=== PATIENT | male | born 1985 | race Caucasian/White ===

== ENCOUNTER 2018-08-26 17:45 | Observation (INO) | payer SELFPAY ==
[2018-08-26] MEDS ORDERED: NA CHLORIDE 0.9% 1,000 ML ONE (18:28)
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
[2018-08-26 18:45] LABS: Potassium 4.1 mmol/L (3.5-5.1)
[2018-08-26 18:48] LABS: Absolute Lymphocytes (CBC) 1.4 K/uL (0.7-4.9); Basophils % 0.3 % (0-1.3); Eosinophils % 0.5 % (0-4.4); Hematocrit 41.1 % (39.6-49.0); Lymphocytes % 10.6 % (15.3-44.8)
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
[2018-08-26] MEDS ORDERED: ONDANSETRON 4 MG/2 ML VIAL IV PRN (20:55)
[2018-08-26] MEDS ORDERED: ALPRAZOLAM 0.25 MG TABLET PO PRN (20:55)
[2018-08-26] MEDS ORDERED: ACETAMINOPHEN 500 MG TAB PO PRN (20:55)
[2018-08-26] MEDS ORDERED: CEFTRIAXONE 1 GM/NS 50 ML 1 GM/50 ML BAG IV SCH (21:00)
[2018-08-26 23:51] LABS: Absolute Lymphocytes (CBC) 2.8 K/uL (0.7-4.9); Basophils % 0.7 % (0-1.3); Hematocrit 36.9 % (39.6-49.0); Lymphocytes % 24.2 % (15.3-44.8); MPV 7.9 fL (7.6-11.3); Monocytes % 7.8 % (3.3-12.3); RBC Red Blood Cell Count 4.12 M/uL (4.33-5.43)
[2018-08-26] MEDS ORDERED: CEFTRIAXONE/SWI 1gm 1 GM/10 ML SYR ONE (23:57)
[2018-08-27] MEDS: NA CHLORIDE 0.9% 1,000 ML IV SCH ×2 (00:05→10:20)
[2018-08-27 01:37] LABS: Barbiturates NEGATIVE (NEGATIVE); Benzodiazepines POSITIVE (NEGATIVE); Cocaine NEGATIVE (NEGATIVE); METHAMPHETAM POSITIVE (NEGATIVE); Methadone NEGATIVE (NEGATIVE); Opiates NEGATIVE (NEGATIVE); Phencyclidine NEGATIVE (NEGATIVE); THC Cannibis NEGATIVE (NEGATIVE)
[2018-08-27 01:49] VITALS: BMI 27.1
[2018-08-27 01:59] LABS: Urine Appearance TURBID; Urine Bilirubin NEGATIVE (NEG); Urine Blood NEGATIVE (NEG); Urine Color YELLOW; Urine Glucose NEGATIVE (NEG); Urine Protein TRACE (NEG); Urine Urobilinogen 0.2 mg/dL (0.2-1.0)
[2018-08-27 02:04] LABS: Urine Microscopic Reflex ORDER UMIC
[2018-08-27 02:12] LABS: Urine Amorphous Sediment 4+ /HPF (NONE SEEN); Urine Bacteria <20 /HPF (NONE SEEN); Urine Culture Reflex Order NOT NEEDED; Urine Mucus HEAVY /HPF (NONE SEEN); Urine RBC NONE SEEN /HPF (NONE SEEN)
[2018-08-27 02:13] LABS: Urine Sperm PRESENT (NONE SEEN)
[2018-08-27 04:45] VITALS: O2SAT 99
[2018-08-27 06:09] LABS: Absolute Lymphocytes (CBC) 1.9 K/uL (0.7-4.9); Basophils % 0.4 % (0-1.3); Eosinophils % 1.3 % (0-4.4); Hematocrit 36.3 % (39.6-49.0); Lymphocytes % 20.5 % (15.3-44.8); MPV 7.9 fL (7.6-11.3); Monocytes % 8.2 % (3.3-12.3); RBC Red Blood Cell Count 4.02 M/uL (4.33-5.43)
[2018-08-27 06:14] LABS: Protime INR 1.07
[2018-08-27] MEDS ORDERED: ALPRAZOLAM 1 MG TABLET PO SCH (06:22)
[2018-08-27 06:24] LABS: Albumin 3.8 g/dL (3.4-5.0); Bilirubin Total 0.4 mg/dL (0.2-1.0); Magnesium 2.6 mg/dL (1.8-2.4); Phosphorus 4.1 mg/dL (2.5-4.9); Potassium 3.8 mmol/L (3.5-5.1); Protein, Total 7.5 g/dL (6.4-8.2)
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
--- NOTE | 2018-08-27 08:04 | RAD REPORT ---
EXAM DESCRIPTION: Alf Single View08/27/2018 7:34 am CLINICAL HISTORY: Cough COMPARISON: none FINDINGS: The lungs appear clear of acute infiltrate. The heart is normal size IMPRESSION: No acute abnormalities displayed
[2018-08-27] MEDS ORDERED: KCL 20 MEQ/100 mL IVPB 20 MEQ/100 ML BAG IV SCH (09:00)
[2018-08-27] MEDS ORDERED: CEFTRIAXONE/SWI 1gm 1 GM/10 ML SYR IV SCH (09:00)
[2018-08-27] MEDS ORDERED: ENOXAPARIN 40 MG/0.4 ML SQ SCH (09:00)
--- NOTE | 2018-08-27 09:56 | RAD REPORT ---
EXAM DESCRIPTION: US - Abdomen Exam Complete - 08/27/2018 9:35 am CLINICAL HISTORY: Abdominal pain COMPARISON: none FINDINGS: The liver has an increased and heterogeneous echotexture. A gallstone is not seen. The gallbladder wall is not thickened. The biliary tree is normal caliber. The pancreas was not well visualized secondary overlying bowel The right kidney measures 11 centimeters with a normal echotexture. The left kidney measures 12 centimeters with a normal echotexture. The spleen measures 12.3 centimeters. Portions of the abdominal aorta are not well visualized. However, the aorta appears to be normal jasmina bessy. IVC unremarkable IMPRESSION: Increased and heterogeneous hepatic echotexture consistent with fatty infiltration/infla mmation Limited evaluation of the pancreas
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
[2018-08-27] MEDS ORDERED: LORazepam 2 MG/ML VIAL IV ONE (11:15)
[2018-08-27 12:27] VITALS: BP 142/84; TEMP 98.5
--- NOTE | 2018-08-27 12:33 | RAD REPORT ---
EXAM DESCRIPTION: MRI - Mri Abdomen W/Wo Cont - 08/27/2018 12:05 pm CLINICAL HISTORY: Abdominal pain COMPARISON: August 27, 2018 ultrasound August 26, 2018 CT TECHNIQUE: Axial and coronal magnetic resonance imaging of the the pancreas obtained. 20 cc MultiHan ce administered intravenously FINDINGS: The pancreas is normal in size and signal. The pancreas demonstrates normal enhancement. Stranding is present within the fat between the pancreatic head and third portion of the duodenum wit hout significant change from the recent CAT scan. No pseudocyst. A fluid collection is not seen. IMPRESSION: Stranding within the fat between the pancreatic head and third portion of the duodenum. This may indicate pancreatitis. An injury to the duodenum can also result in this appearance. A fluid collection/hematoma is not present.
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
--- NOTE | 2018-09-01 14:47 | EEG ---
CHART: [id number] TEST ID#: [id number] DATE OF STUDY: 08/27/2018 THE EEG WAS RECORDED PORTABLE IN THE PATIENTS ROOM ON A 17 CHANNEL MACHINE. ELECTRODES WERE APPLIED IN THE USUAL MANNER USING THE INTERNATIONAL 10-20 SYSTEM. THE WAKING BACKGROUND RHYTHM IN THIS RECORD CONSISTS OF VERY WELL DEVELOPED AND WELL ORGANIZED WAVES OF 10 HZ., MAXIMAL IN THE POSTERIOR HEAD REGIONS WHICH ATTENUATE NORMALLY WITH EYE OPENING. LOW-VOLTAGE 18-22 HZ ACTIVITY IS EXPRESSED IN THE FRONTAL REGIONS. THERE ARE NO FOCAL OR LATERALIZING FEATURES. NO EPILEPTIFORM ACTIVITY APPEARS. SLEEP DID NOT OCCUR. HYPERVENTILATION WAS NOT PERFORMED. PHOTIC STIMULATION PRODUCED FAIR DRIVING BILATERALLY. IMPRESSION: NORMAL EEG FOR THE AGE OF THE PATIENT IN [place].
== END 2018-08-27 17:38 | disposition home or self-care (01) ==
LOC: ER 17:45 → EDBD 17:45 → ERHOLD 21:48 → 4TH 22:28
PROVIDERS: ADMIT Hospitalist; ATTEND Family Medicine
DX: G40.89 Other seizures (principal); V47.5XXA Car driver injured in collision with fixed or stationary object in traffic accident, initial encounter; J98.4 Other disorders of lung; I88.0 Nonspecific mesenteric lymphadenitis; F32.9 Major depressive disorder, single episode, unspecified; F90.9 Attention-deficit hyperactivity disorder, unspecified type; F43.10 Post-traumatic stress disorder, unspecified; F17.200 Nicotine dependence, unspecified, uncomplicated; Z79.899 Other long term (current) drug therapy
CPT/HCPCS: 36415; 70450; 71045; 71250; 72125; 76700; 80048; 80053; 80307; 81003; 81015; 83605; 83690; 83735; 83880; 84100; 85025; 85610; 85730; 95816; 96360; 99285; G0378; J0696; J1650; J7030

== ENCOUNTER 2022-10-04 04:19 | Emergency (ER) | payer SELFPAY ==
--- OUTSIDE RECORDS SUMMARY | 2022-10-04 04:36 | XMS REPORT | Continuity of Care Document ---
:1985 Author Organization [facility] t Address [address] [place] [address] [place] [id number] Care Team Providers Name Role Phone SUSHANT BUENO Primary Care Physician Unavailable CIRO SHARMA Attending Clinician Unavailable ARACELI MCCOLLUM Attending Clinician Unavailable ZHANE VAZQUEZ Attending Clinician Unavailable Sushant Bueno MD Attending Clinician TREVA SOTELO Attending Clinician Unavailable Treva Sotelo DO Attending Clinician Pcp-Lab Attending Clinician Unavailable Pathology Attending Clinician Unavailable PATHOLOGY Attending Clinician Unavailable Doctor Unassigned, [place] Attending Clinician Unavailable LELA OHARA Attending Clinician Unavailable Lela Ohara DO Attending Clinician VINOD HENRY Attending Clinician Unavailable Vinod Henry MD Attending Clinician DAYANA MCCRACKEN Attending Clinician Unavailable Dayana Mccracken MD Attending Clinician AMADOR CALDERA Attending Clinician Unavailable Amador Caldera DO Attending Clinician Sherice Brown Attending Clinician Unavailable CHRISTOPHE BALLESTEROS Attending Clinician Unavailable Christophe Valderrama Attending Clinician Victor Hugo Ramos Attending Clinician Cornelio De Luna MD Attending Clinician LOUIS DOTY Attending Clinician Unavailable Louis Argueta Attending Clinician Elie Webb MD Attending Clinician ELIE WEBB Attending Clinician Unavailable LUPIS GRIMM Attending Clinician Unavailable Camille DAVIDSON, Lupis Hussein Attending Clinician Ciro Sharma MD Attending Clinician Unavailable CHRISTOPHE MICHAEL Attending Clinician Unavailable Maribell Molina MD Attending Clinician JOANN MALLORY Attending Clinician Unavailable Juan Wilkerson Attending Clinician Miguel Vicente MD Attending Clinician Joann Mallory MD Attending Clinician MARIBELL MOLINA Attending Clinician Unavailable KJ VAZQUEZ Attending Clinician Unavailable Kj Vazquez MD Attending Clinician Grace Garcia MD Attending Clinician Unavailable Sho Montero MD Attending Clinician Unavailable Harpreet SEBASTIAN Attending Clinician Unavailable Harpreet Perdomo Attending Clinician Kamille Adam MD Attending Clinician Unknown, Attending Attending Clinician Unavailable Christophe Michael MD Attending Clinician Jin Chaudhary MD Attending Clinician JIN CHAUDHARY Attending Clinician Unavailable GRACE GARCIA Attending Clinician Unavailable UNKNOWN, ATTENDING Attending Clinician Unavailable Pob, Adc Lab Main Attending Clinician Unavailable Gonsalo Lundy MD Attending Clinician PATTIE ESQUIVEL Attending Clinician Unavailable Pattie Barraza Attending Clinician Lor Carlton MA Attending Clinician Unavailable Cruz Barone MD Attending Clinician Nurse, Pcp Immunization Attending Clinician Unavailable Johann Hebert DO Attending Clinician JOHANN HEBERT Attending Clinician Unavailable Manny PARKS, Jose F Attending Clinician Unavailable Michael Soto MD Attending Clinician MICHAEL SOTO Attending Clinician Unavailable Pcp, Patient Does Not Have A Attending Clinician +[id number] Vls-Lab Attending Clinician Unavailable Only, Lcc Test Attending Clinician Unavailable Feliberto Levy MD Attending Clinician FELIBERTO LEVY Attending Clinician Unavailable GONSALO LUNDY Attending Clinician Unavailable ALEJANDRO AMADO Attending Clinician Unavailable Jose HEATON, Lavinia Fernández Attending Clinician Wyalon ENRIQUEZ, Brad Carpenter Attending Clinician BRAD JOHNSON Attending Clinician Unavailable BRAD JOHNSON Attending Clinician Unavailable Mahsa Butler Attending Clinician Abner Cooper MD Attending Clinician Ermelinda Dowd MD Attending Clinician Marlen Bowden MD Attending Clinician MARLEN BOWDEN Attending Clinician Unavailable Cristy Kwan RN Attending Clinician Unavailable [facility] Attending Clinician Hernesto HEATON, Bailey Freeman Attending Clinician Pedro Luis Mccauley MD Attending Clinician Martin Sharma MD Attending Clinician PEDRO LUIS MCCAULEY Attending Clinician Unavailable Gideon Rowland MD Attending Clinician CIRO SHARMA Admitting Clinician Unavailable TREVA SOTELO Admitting Clinician Unavailable VINOD HENRY Admitting Clinician Unavailable DAYAAN MCCRACKEN Admitting Clinician Unavailable LOUIS DOTY Admitting Clinician Unavailable LUPIS GRIMM Admitting Clinician Unavailable PATTIE ESQUIVEL Admitting Clinician Unavailable Zachary ENRIQUEZ, Ciro Admitting Clinician Harpreet SEBASTIAN Admitting Clinician Unavailable Marlen Bowden MD Admitting Clinician MARLEN BOWDEN Admitting Clinician Unavailable Martin Sharma MD Admitting Clinician MARTIN SHARMA Admitting Clinician Unavailable Payers Payer Name Policy Type Policy Number Effective Date Expiration Date Ran gabriel MEDICAID SSI PENDING 2022 2022 PENDING 00:00:00 00:00:00 Problems Condition Condition Condition Status Onset Resolution Last Treating Co mments Source Name Details Category Date Date Treatment Clinician Date Pancreatic Pancreatic Disease Active U nivers insufficie insufficie 7-25 it y of ncy ncy 00:00: [place] [facility] 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 Added automatic ally from request for surgery [id number] Type 2 Type 2 Disease Active Univers diabetes diabetes 3-25 ity of mellitus mellitus 00:00: [place] without without 00 Medical complicati complicati Br anch on, with on, with long-term long-term current current use of use of insulin insulin Anxiety Anxiety Disease Active Univers 3-25 ity of 00:00: [place] 00 Medical Branch Psychiatri Psychiatri Disease Active U nivers c disorder c disorder 3-25 it y of 00:00: [place] 00 Medical Branch Allergies, Adverse Reactions, Alerts Allergy Allergy Status Severity Reaction(s) Onset Inactive Treating Comm ents Source Name Type Date Date Clinician Penicill Propensi Active Hives 2019-02 Univer s ins ty to 2-25 ity of adverse 00:00: [place] reaction 00 Medical s Branch PENICILL Drug Active Hiv2019-02 Univers INS Class 2-25 ity of 00:00: [place] 00 Medical Branch Penicill Propensi Active Hives 2019-02 Univer s ins ty to 2-25 ity of adverse 00:00: [place] reaction 00 Medical s Branch Social History Social Habit Start Date Stop Date Quantity Comments Source History of tobacco Cigarette Smoker University of use [place] [facility] History SDOH University o f Housing Places [facility] [place] [facility] Gender identity Universit y of [facility] Sexual orientation Univer sity of [facility] Alcohol intake 2022-10-03 2022-10-03 Ex-drinker University of 00:00:00 00:00:00 (finding) [facility] Branch History of Social 2022-09-05 2022-09-05 Univers ity of function 00:00:00 00:00:00 [facility] Branch Exposure to 2022-06-22 2022-07-02 Not sure University SARS-CoV-2 (event) 00:00:00 22:03:00 [facility] Tobacco use and 2022-07-02 2022-07-02 Smokeless Universit y of exposure 00:00:00 00:00:00 tobacco non-user [facility] dical [place] Tobacco Comment 2022-07-02 2022-07-02 [place] 8 Universit y of 00:00:00 00:00:00 [facility] Cigarettes smoked 2022-07-02 2022-07-02 Univers ity of current (pack per 00:00:00 00:00:00 [facility] edical day) - Reported Branch History SDOH 2022-05-20 2022-05-20 1 University o f Alcohol Frequency 00:00:00 00:00:00 [facility] edical Branch History SDOH 2022-05-20 2022-05-20 0 University o f Alcohol Std Drinks 00:00:00 00:00:00 [place] [facility] History SDOH 2022-05-20 2022-05-20 1 University o f Alcohol Binge 00:00:00 00:00:00 [place] [facility] al [facility] History SDOH Social 2022-05-20 2022-05-20 5 Unive rsity of Connections Phone 00:00:00 00:00:00 [facility] edical Branch History SDOH Social 2022-05-20 2022-05-20 3 Unive rsity of Connections Get 00:00:00 00:00:00 [place] Med ical Together Branch History SDOH Social 2022-05-20 2022-05-20 2 Unive rsity of Connections Restorationism 00:00:00 00:00:00 [place] [facility] History SDOH Social 2022-05-20 2022-05-20 1 Unive rsity of Connections 00:00:00 00:00:00 [place] [facility] Membership Branch History SDOH Social 2022-05-20 2022-05-20 3 Unive rsity of Connections 00:00:00 00:00:00 [place] [facility] Meetings Branch History SDOH Social 2022-05-20 2022-05-20 7 Unive rsity of Connections Living 00:00:00 00:00:00 [place] [facility] History SDOH 2022-05-20 2022-05-20 7 University o f Physical Activity 00:00:00 00:00:00 [place] [facility] edical DPW Branch History SDOH 2022-05-20 2022-05-20 3 University o f Physical Activity 00:00:00 00:00:00 [place] M edical MPS Branch History SDOH Stress 2022-05-20 2022-05-20 1 Unive rsity of 00:00:00 00:00:00 [place] [facility] History SDOH 2022-05-20 2022-05-20 3 University o f Housing Unable to 00:00:00 00:00:00 [facility] edical Pay Branch History SDOH 2022-05-20 2022-05-20 3 University o f Housing Homeless 00:00:00 00:00:00 [facility] dical Last Year Branch Education 2020-03-20 2020-03-20 14 University of 00:00:00 00:00:00 [place] [facility] History SDOH 2020-03-20 2020-03-20 5 University o f Financial 00:00:00 00:00:00 [place] [facility] History SDOH Food 2020-03-20 2020-03-20 1 Univers ity of Worry 00:00:00 00:00:00 [place] [facility] History SDOH Food 2020-03-20 2020-03-20 1 Univers ity of Scarcity 00:00:00 00:00:00 [place] [facility] History SDOH 2020-03-20 2020-03-20 2 University o f Transport Med 00:00:00 00:00:00 [place] Medic al Branch History SDOH 2020-03-20 2020-03-20 2 University o f Transport Non-Med 00:00:00 00:00:00 [place] M edical Branch Alcohol Comment 2020-02-03 2020-02-03 6 pack of beer Unive rsity of 00:00:00 00:00:00 every day since [place] Med ical 21 years old. no Branch liquor [facility] [birth year] [facility] Smoking Status Start Date Stop Date Source Smokes tobacco daily 2022-07-02 00:00:00 Univers ity of [facility] Ex-smoker 2021-08-26 00:00:00 2021-08-26 [place] o f [place] 00:00:00 [facility] Occasional tobacco 2020-05-25 00:00:00 Universit y [facility] smoker [facility] Branch Medications Ordered Filled Start Stop Current Ordering Indication Dosage Frequency Signature Comments Components Source Medication Medication Date Date Medication? Clinician (SIG) Name Name NaCl 0.9% 2022- No 1000mL at 999 Uni vers (NS) bolus 09-12 mL/hr, ity of infusion 02:15: 02:37 1,000 mL, Hi as 1,000 mL 00 :00 IV Medical Infusion, Branch ONCE, 1 dose, On [place] 09/11/22 at 2115, STEPHANIE ondansetron 0 2022- No 4mg 4 mg, Slow Univers (ZOFRAN 09-12 IV Push, ity of (PF)) 01:30: 01:50 ONCE, 1 [place] injection 4 00 :00 dose, On Medi bandar mg [facility] 09/11/22 Branch at 2030, STEPHANIE ondansetron 2022-0 Yes [id number] 4mg Take 1 Univers 4 mg 8-03 tablet by ity of disintegrat 00:00: mouth [place] ing tablet 00 every 8 Medica l (eight) Branch hours as needed for Nausea and Vomiting (N/V). ondansetron 2022-0 Yes [id number] 4mg Take 1 Univers 4 mg 8-03 tablet by ity of disintegrat 00:00: mouth [place] ing tablet 00 every 8 Medica l (eight) Branch hours as needed for Nausea and Vomiting (N/V). ondansetron 2022-0 Yes [id number] 4mg Take 1 Univers 4 mg 8-03 tablet by ity of disintegrat 00:00: mouth [place] ing tablet 00 every 8 Medica l (eight) Branch hours as needed for Nausea and Vomiting (N/V). ofloxacin 2023-0 Yes [id number] 5[drp] Place 5 Univers 0.3 % otic 7-28 [id number] Drops in ity of drops 00:00: both ears [place] 00 in the Medical morning Branch and 5 Drops in the evening. pantoprazol 0 Yes [id number] 40mg Take 1 Univers e 40 mg EC 7-28 tablet by ity of tablet 00:00: mouth in [place] 00 the Medical morning. Branch fenofibrate Yes [id number] 134mg Take 2 Univers micronized 7-28 capsules ity o f 67 mg 00:00: by mouth [place] capsule 00 in the Medical morning. Branch Blood-Gluco Yes [id number] Use as Univers se 7-28 directed ity of Meter,Na 00:00: [place] nuous 00 Medical (DEXCOM G4 [place] [employer]) Misc Insulin Yes [id number] 12U inject 12 Univers NPH-Regular 7-28 Units ity of Human Rec 00:00: under the Hi as 100 unit/mL 00 skin in Medic al (70-30) the Branch injection morning and 12 Units in the evening. ofloxacin Yes [id number] 5[drp] Place 5 Univers 0.3 % otic 7-28 [id number] Drops in ity of drops 00:00: both ears [place] 00 in the Medical morning Branch and 5 Drops in the evening. pantoprazol Yes [id number] 40mg Take 1 Univers e 40 mg EC 7-28 tablet by ity of tablet 00:00: mouth in [place] 00 the Medical morning. Branch fenofibrate Yes [id number] 134mg Take 2 Univers micronized 7-28 capsules ity o f 67 mg 00:00: by mouth [place] capsule 00 in the Medical morning. Branch Blood-Gluco Yes [id number] Use as Univers se 7-28 directed ity of Meter,Na 00:00: [place] nuous 00 Medical (DEXCOM G4 [place] [employer]) Misc Insulin 0 Yes [id number] 12U inject 12 Univers NPH-Regular 7-28 Units ity of Human Rec 00:00: under the Hi as 100 unit/mL 00 skin in Medic al (70-30) the Branch injection morning and 12 Units in the evening. ofloxacin 0 Yes [id number] 5[drp] Place 5 Univers 0.3 % otic 7-28 [id number] Drops in ity of drops 00:00: both ears [place] 00 in the Medical morning Branch and 5 Drops in the evening. pantoprazol 0 Yes [id number] 40mg Take 1 Univers e 40 mg EC 7-28 tablet by ity of tablet 00:00: mouth in [place] 00 the Medical morning. Branch fenofibrate Yes [id number] 134mg Take 2 Univers micronized 7-28 capsules ity o f 67 mg 00:00: by mouth [place] capsule 00 in the Medical morning. Branch Blood-Gluco Yes [id number] Use as Univers se 7-28 directed ity of Meter,Na 00:00: [place] nuous 00 Medical (DEXCOM G4 [place] [employer]) Misc Insulin Yes [id number] 12U inject 12 Univers NPH-Regular 7-28 Units ity of Human Rec 00:00: under the Hi as 100 unit/mL 00 skin in Medic al (-30) the Branch injection morning and 12 Units in the evening. ofloxacin Yes [id number] 5[drp] Place 5 Univers 0.3 % otic 7-28 [id number] Drops in ity of drops 00:00: both ears [place] 00 in the Medical morning Branch and 5 Drops in the evening. pantoprazol Yes [id number] 40mg Take 1 Univers e 40 mg EC 7-28 tablet by ity of tablet 00:00: mouth in [place] 00 the Medical morning. Branch fenofibrate Yes [id number] 134mg Take 2 Univers micronized 7-28 capsules ity o f 67 mg 00:00: by mouth [place] capsule 00 in the Medical morning. Branch Blood-Gluco Yes [id number] Use as Univers se 7-28 directed ity of Meter,Na 00:00: [place] nuous 00 Medical (DEXCOM G4 [place] [employer]) Misc Insulin 2022-0 Yes [id number] 12U inject 12 Univers NPH-Regular 7-28 Units ity of Human Rec 00:00: under the Hi as 100 unit/mL 00 skin in Medic al (70-30) the Branch injection morning and 12 Units in the evening. ofloxacin 0 Yes [id number] 5[drp] Place 5 Univers 0.3 % otic 7-28 [id number] Drops in ity of drops 00:00: both ears [place] 00 in the Medical morning Branch and 5 Drops in the evening. pantoprazol 2022-0 Yes [id number] 40mg Take 1 Univers e 40 mg EC 7-28 tablet by ity of tablet 00:00: mouth in 00 the Medical morning. Branch fenofibrate 2022-0 Yes [id number] 134mg Take 2 Univers micronized 7-28 capsules ity o f 67 mg 00:00: by mouth [place] capsule 00 in the Medical morning. Branch Blood-Gluco 2022-0 Yes [id number] Use as Univers se 7-28 directed ity of Meter,Na 00:00: [place] nuous 00 Medical (DEXCOM G4 [place] [employer]) Misc Insulin 2022-0 Yes [id number] 12U inject 12 Univers NPH-Regular 7-28 Units ity of Human Rec 00:00: under the Hi as 100 unit/mL 00 skin in Medic al () the Branch injection morning and 12 Units in the evening. ofloxacin Yes [id number] 5[drp] Place 5 Univers 0.3 % otic 7-28 [id number] Drops in ity of drops 00:00: both ears 00 in the Medical morning Branch and 5 Drops in the evening. pantoprazol 0 Yes [id number] 40mg Take 1 Univers e 40 mg EC 7-28 tablet by ity of tablet 00:00: mouth in 00 the Medical morning. Branch fenofibrate Yes [id number] 134mg Take 2 Univers micronized 7-28 capsules ity o f 67 mg 00:00: by mouth [place] capsule 00 in the Medical morning. Branch Blood-Gluco 2022-0 Yes [id number] Use as Univers se 7-28 directed ity of Meter,Na 00:00: [place] nuous 00 Medical (DEXCOM G4 [place] [employer]) Misc Insulin 2022-0 Yes [id number] 12U inject 12 Univers NPH-Regular 7-28 Units ity of Human Rec 00:00: under the Hi as 100 unit/mL 00 skin in Medic al (7030) the Branch injection morning and 12 Units in the evening. ofloxacin 2022-0 Yes [id number] 5[drp] Place 5 Univers 0.3 % otic 7-28 [id number] Drops in ity of drops 00:00: both ears [place] 00 in the Medical morning Branch and 5 Drops in the evening. pantoprazol 2022-0 Yes [id number] 40mg Take 1 Univers e 40 mg EC 7-28 tablet by ity of tablet 00:00: mouth in [place] 00 the Medical morning. Branch fenofibrate 2022-0 Yes [id number] 134mg Take 2 Univers micronized 7-28 capsules ity o f 67 mg 00:00: by mouth [place] capsule 00 in the Medical morning. Branch Blood-Gluco 2022-0 Yes [id number] Use as Univers se 7-28 directed ity of Meter,Na 00:00: [place] nuous 00 Medical (DEXCOM G4 [place] [employer]) Misc Insulin 2022-0 Yes [id number] 12U inject 12 Univers NPH-Regular 7-28 Units ity of Human Rec 00:00: under the Hi as 100 unit/mL 00 skin in [facility] (30) the Branch injection morning and 12 Units in the evening. ofloxacin 2022-0 Yes [id number] 5[drp] Place 5 Univers 0.3 % otic 7-28 [id number] Drops in ity of drops 00:00: both ears [place] 00 in the Medical morning Branch and 5 Drops in the evening. pantoprazol 2022-0 Yes [id number] 40mg Take 1 Univers e 40 mg EC 7-28 tablet by ity of tablet 00:00: mouth in [place] 00 the Medical morning. Branch fenofibrate 2022-0 Yes [id number] 134mg Take 2 Univers micronized 7-28 capsules ity o f 67 mg 00:00: by mouth [place] capsule 00 in the Medical morning. Branch Blood-Gluco 2022-0 Yes [id number] Use as Univers se 7-28 directed ity of Meter,Na 00:00: [place] nuous 00 Medical (DEXCOM G4 [place] [employer]) Misc Insulin 2022-0 Yes [id number] 12U inject 12 Univers NPH-Regular 7-28 Units ity of Human Rec 00:00: under the Hi as 100 unit/mL 00 skin in Medic al (70-30) the Branch injection morning and 12 Units in the evening. meloxicam 3-0 Yes [id number] 15mg Take 1 U nivers 15 mg 7-22 tablet by ity of tablet 00:00: mouth in [place] 00 the Medical morning. Branch acetaminoph 2023-0 Yes [id number] 650mg Take 1 Univers en (TYLENOL 7-22 tablet by ity of ARTHRITIS 00:00: mouth [place] PAIN) 650 00 every 8 Medical mg CR (eight) Branch tablet hours as needed for Pain. meloxicam 2023-0 Yes [id number] 15mg Take 1 U nivers 15 mg 7-22 tablet by ity of tablet 00:00: mouth in [place] 00 the Medical morning. Branch acetaminoph 3-0 Yes [id number] 650mg Take 1 Univers en (TYLENOL 7-22 tablet by ity of ARTHRITIS 00:00: mouth [place] PAIN) 650 00 every 8 Medical mg CR (eight) Branch tablet hours as needed for Pain. meloxicam 3-0 Yes [id number] 15mg Take 1 U nivers 15 mg 7-22 tablet by ity of tablet 00:00: mouth in [place] 00 the Medical morning. Branch acetaminoph 3-0 Yes [id number] 650mg Take 1 Univers en (TYLENOL 7-22 tablet by ity of ARTHRITIS 00:00: mouth [place] PAIN) 650 00 every 8 Medical mg CR (eight) Branch tablet hours as needed for Pain. meloxicam 3-0 Yes [id number] 15mg Take 1 U nivers 15 mg 7-22 tablet by ity of tablet 00:00: mouth in [place] 00 the Medical morning. Branch acetaminoph 3-0 Yes [id number] 650mg Take 1 Univers en (TYLENOL 7-22 tablet by ity of ARTHRITIS 00:00: mouth [place] PAIN) 650 00 every 8 Medical mg CR (eight) Branch tablet hours as needed for Pain. meloxicam 2023-0 Yes [id number] 15mg Take 1 U nivers 15 mg 7-22 tablet by ity of tablet 00:00: mouth in [place] 00 the Medical morning. Branch acetaminoph 2023-0 Yes [id number] 650mg Take 1 Univers en (TYLENOL 7-22 tablet by ity of ARTHRITIS 00:00: mouth [place] PAIN) 650 00 every 8 Medical mg CR (eight) Branch tablet hours as needed for Pain. meloxicam 0 Yes [id number] 15mg Take 1 U nivers 15 mg 7-22 tablet by ity of tablet 00:00: mouth in [place] 00 the Medical morning. Branch acetaminoph 0 Yes [id number] 650mg Take 1 Univers en (TYLENOL 7-22 tablet by ity of ARTHRITIS 00:00: mouth [place] PAIN) 650 00 every 8 Medical mg CR (eight) Branch tablet hours as needed for Pain. acetaminoph 2022-0 Yes [id number] 650mg Take 1 Univers en (TYLENOL 7-22 tablet by ity of ARTHRITIS 00:00: mouth [place] PAIN) 650 00 every 8 Medical mg CR (eight) Branch tablet hours as needed for Pain. acetaminoph 0 Yes [id number] 650mg Take 1 Univers en (TYLENOL 7-22 tablet by ity of ARTHRITIS 00:00: mouth [place] PAIN) 650 00 every 8 Medical mg CR (eight) Branch tablet hours as needed for Pain. acetaminoph 0 Yes [id number] 650mg Take 1 Univers en (TYLENOL 7-22 tablet by ity of ARTHRITIS 00:00: mouth [place] PAIN) 650 00 every 8 Medical mg CR (eight) Branch tablet hours as needed for Pain. meloxicam 2022- No [id number] 15mg Take 1 Univers 15 mg -30 09-03 tablet by ity of tablet 00:00: 00:00 mouth in [place] 00 :00 the Medical morning. Branch acetaminoph 2022- No 650mg 650 mg, U nivers en 08-19 Oral, ity of (TYLENOL) 18:30: 19:03 ONCE, 1 [place] tablet 650 00 :00 dose, On Medic al mg e [place] 08/19/22 at 1330, STEPHANIE ibuprofen 2022-0 2022- No 800mg 800 mg, Uni vers (IBU) 08-19 Oral, ity of tablet 800 18:30: 19:03 ONCE, 1 Hi as mg 00 :00 dose, On Medical Tu [place] 08/19/22 at 1330, STEPHANIE ofloxacin 2022-0 Yes [id number] 5[drp] Place 5 Univers 0.3 % otic 7-11 [id number] Drops in ity of drops 00:00: both ears [place] 00 in the Medical morning Branch and 5 Drops in the evening. traMADoL 50 2022-0 Yes [id number] 50mg Take 1 Univ ers mg tablet 7-11 tablet by ity o f 00:00: mouth [place] 00 every 6 Medical (six) Branch hours as needed (pain). Indication s: acute pain ofloxacin 2022-0 Yes [id number] 5[drp] Place 5 Univers 0.3 % otic 7-11 [id number] Drops in ity of drops 00:00: both ears [place] 00 in the Medical morning Branch and 5 Drops in the evening. traMADoL 50 2022-0 Yes [id number] 50mg Take 1 Univ ers mg tablet 7-11 tablet by ity o f 00:00: mouth [place] 00 every 6 Medical (six) Branch hours as needed (pain). Indication s: acute pain ofloxacin 2022-0 Yes [id number] 5[drp] Place 5 Univers 0.3 % otic 7-11 [id number] Drops in ity of drops 00:00: both ears [place] 00 in the Medical morning Branch and 5 Drops in the evening. traMADoL 50 2022-0 Yes [id number] 50mg Take 1 Univ ers mg tablet 7-11 tablet by ity o f 00:00: mouth [place] 00 every 6 Medical (six) Branch hours as needed (pain). Indication s: acute pain traMADoL 50 2022-0 Yes [id number] 50mg Take 1 Univ ers mg tablet 7-11 tablet by ity o f 00:00: mouth [place] 00 every 6 Medical (six) Branch hours as needed (pain). Indication s: acute pain traMADoL 50 2022-0 Yes [id number] 50mg Take 1 Univ ers mg tablet 7-11 tablet by ity o f 00:00: mouth [place] 00 every 6 Medical (six) Branch hours as needed (pain). Indication s: acute pain traMADoL 50 2022-0 Yes [id number] 50mg Take 1 Univ ers mg tablet 7-11 tablet by ity o f 00:00: mouth [place] 00 every 6 Medical (six) Branch hours as needed (pain). Indication s: acute pain traMADoL 50 2022-0 Yes [id number] 50mg Take 1 Univ ers mg tablet 7-11 tablet by ity o f 00:00: mouth [place] 00 every 6 Medical (six) Branch hours as needed (pain). Indication s: acute pain traMADoL 50 2022-0 Yes [id number] 50mg Take 1 Univ ers mg tablet 7- tablet by ity o f 00:00: mouth [place] 00 every 6 Medical (six) Branch hours as needed (pain). Indication s: acute pain traMADoL 50 2022-0 2022- No [id number] 50mg Take 1 Uni vers mg tablet 08-19 08-03 tablet by ity of 00:00: 00:00 mouth [place] 00 :00 every 6 Medical (six) Branch hours as needed (pain). Indication s: acute pain ofloxacin 2022- No [id number] 5[drp] Place 5 [facility] 0.3 % otic 08-19 [id number] Drops in ity of drops 00:00: 00:00 both ears [place] 00 :00 in the Medical morning Branch and 5 Drops in the evening. ofloxacin 2022- No [id number] 5[drp] Place 5 [facility] 0.3 % otic 08-19 [id number] Drops in ity of drops 00:00: 00:00 both ears [place] 00 :00 in the Medical morning Branch and 5 Drops in the evening. ofloxacin 2022- No [id number] 5[drp] Place 5 [facility] 0.3 % otic 08-19 [id number] Drops in ity of drops 00:00: 00:00 both ears [place] 00 :00 in the Medical morning Branch and 5 Drops in the evening. ofloxacin 2022- Yes [id number] 5[drp] Place 5 [facility] 0.3 % otic 08-13-16 Drops in ity of drops 00:00: 04:59 both ears [place] 00 :00 in the Medical morning Branch and 5 Drops in the evening. Do all this for 10 days. ofloxacin 2022- Yes [id number] 5[drp] Place 5 [facility] 0.3 % otic 08-13-16 Drops in ity of drops 00:00: 04:59 both ears [place] 00 :00 in the Medical morning Branch and 5 Drops in the evening. Do all this for 10 days. ofloxacin 2022- Yes [id number] 5[drp] Place 5 [facility] 0.3 % otic 7-05 07-16 Drops in ity of drops 00:00: 04:59 both ears [place] 00 :00 in the Medical morning Branch and 5 Drops in the evening. Do all this for 10 days. ofloxacin 2022- Yes [id number] 5[drp] Place 5 [facility] 0.3 % otic 7-05 07-16 Drops in ity of drops 00:00: 04:59 both ears [place] 00 :00 in the Medical morning Branch and 5 Drops in the evening. Do all this for 10 days. ofloxacin 2022- Yes [id number] 5[drp] Place 5 [facility] 0.3 % otic 7-05 07-16 Drops in ity of drops 00:00: 04:59 both ears [place] 00 :00 in the Medical morning Branch and 5 Drops in the evening. Do all this for 10 days. Insulin Yes [id number] 10U inject 10 [facility] NPH-Regular 5-30 Units ity of Human Rec 00:00: under the [place] 100 unit/mL 00 skin in Medic al (30) the Branch injection morning and 10 Units in the evening. Insulin Yes [id number] 10U inject 10 [facility] NPH-Regular 5-30 Units ity of Human Rec 00:00: under the [place] 100 unit/mL 00 skin in Medic al (30) the Branch injection morning and 10 Units in the evening. Insulin Yes [id number] 10U inject 10 [facility] NPH-Regular 5-30 Units ity of Human Rec 00:00: under the [place] 100 unit/mL 00 skin in Medic al (30) the Branch injection morning and 10 Units in the evening. Insulin Yes [id number] 10U inject 10 [facility] NPH-Regular 5-30 Units ity of Human Rec 00:00: under the [place] 100 unit/mL 00 skin in Medic al (30) the Branch injection morning and 10 Units in the evening. Insulin Yes [id number] 10U inject 10 [facility] NPH-Regular 5-30 Units ity of Human Rec 00:00: under the [place] 100 unit/mL 00 skin in Medic al (30) the Branch injection morning and 10 Units in the evening. Insulin Yes [id number] 10U inject 10 [facility] NPH-Regular 5-30 Units ity of Human Rec 00:00: under the [place] 100 unit/mL 00 skin in Medic al (70-30) the Branch injection morning and 10 Units in the evening. Insulin Yes [id number] 10U inject 10 [facility] NPH-Regular 5-30 Units ity of Human Rec 00:00: under the [place] 100 unit/mL 00 skin in Medic al (70-30) the Branch injection morning and 10 Units in the evening. Insulin Yes [id number] 10U inject 10 [facility] NPH-Regular 5-30 Units ity of Human Rec 00:00: under the [place] 100 unit/mL 00 skin in Medic al (30) the Branch injection morning and 10 Units in the evening. Insulin Yes [id number] 10U inject 10 [facility] NPH-Regular 5-30 Units ity of Human Rec 00:00: under the [place] 100 unit/mL 00 skin in Medic al (30) the Branch injection morning and 10 Units in the evening. Insulin Yes [id number] 10U inject 10 [facility] NPH-Regular 5-30 Units ity of Human Rec 00:00: under the [place] 100 unit/mL 00 skin in Medic al (30) the Branch injection morning and 10 Units in the evening. Insulin Yes [id number] 10U inject 10 [facility] NPH-Regular 5-30 Units ity of Human Rec 00:00: under the [place] 100 unit/mL 00 skin in Medic al (30) the Branch injection morning and 10 Units in the evening. Insulin Yes [id number] 10U inject 10 [facility] NPH-Regular 5-30 Units ity of Human Rec 00:00: under the [place] 100 unit/mL 00 skin in Medic al (70-30) the Branch injection morning and 10 Units in the evening. Insulin 2022- No [id number] 10U inject 10 [facility] NPH-Regular 5-30 07-28 Units ity of Human Rec 00:00: 00:00 under the [place] 100 unit/mL 00 :00 skin in Medic al (70-30) the Branch injection morning and 10 Units in the evening. Insulin 2022- No [id number] 10U inject 10 [facility] NPH-Regular 5-30 07-28 Units ity of Human Rec 00:00: 00:00 under the [place] 100 unit/mL 00 :00 skin in Medic al (70-30) the Branch injection morning and 10 Units in the evening. Insulin 2022- No [id number] 10U inject 10 [facility] NPH-Regular 5-30 07-28 Units ity of Human Rec 00:00: 00:00 under the [place] 100 unit/mL 00 :00 skin in Medic al (70-30) the Branch injection morning and 10 Units in the evening. ondansetron 2022- No 4mg 4 mg, Slow [facility] (ZOFRAN 5-25 05-25 IV Push, ity of (PF)) 03:30: 03:16 ONCE, 1 [place] injection 4 00 :00 dose, On Medi bandar mg Wed [place] 07/02/22 at 2230, STEPHANIE fenofibrate Yes [id number] 134mg Take 2 [facility] micronized 5-03 capsules ity o f 67 mg 00:00: by mouth [place] capsule 00 in the Medical morning. [place] fenofibrate 0 Yes [id number] 134mg Take 2 [facility] micronized 5-03 capsules ity o f 67 mg 00:00: by mouth [place] capsule 00 in the Medical morning. [place] fenofibrate 0 Yes [id number] 134mg Take 2 [facility] micronized 5-03 capsules ity o f 67 mg 00:00: by mouth [place] capsule 00 in the Medical morning. [place] fenofibrate 0 Yes [id number] 134mg Take 2 [facility] micronized 5-03 capsules ity o f 67 mg 00:00: by mouth [place] capsule 00 in the Medical morning. [place] fenofibrate 0 Yes [id number] 134mg Take 2 [facility] micronized 5-03 capsules ity o f 67 mg 00:00: by mouth [place] capsule 00 in the Medical morning. [place] fenofibrate 0 Yes [id number] 134mg Take 2 [facility] micronized 5-03 capsules ity o f 67 mg 00:00: by mouth [place] capsule 00 in the Medical morning. [place] fenofibrate 2022-0 Yes [id number] 134mg Take 2 [facility] micronized 5-03 capsules ity o f 67 mg 00:00: by mouth [place] capsule 00 in the Medical morning. [place] fenofibrate 2022-0 Yes [id number] 134mg Take 2 [facility] micronized 5-03 capsules ity o f 67 mg 00:00: by mouth [place] capsule 00 in the Medical morning. Branch fenofibrate 2022-0 Yes [id number] 134mg Take 2 [facility] micronized 5-03 capsules ity o f 67 mg 00:00: by mouth [place] capsule 00 in the Medical morning. Branch fenofibrate 2022-0 Yes [id number] 134mg Take 2 [facility] micronized 5-03 capsules ity o f 67 mg 00:00: by mouth [place] capsule 00 in the Medical morning. Branch fenofibrate 2022-0 Yes [id number] 134mg Take 2 [facility] micronized 5-03 capsules ity o f 67 mg 00:00: by mouth [place] capsule 00 in the Medical morning. Branch fenofibrate 2022-0 Yes [id number] 134mg Take 2 [facility] micronized 5-03 capsules ity o f 67 mg 00:00: by mouth [place] capsule 00 in the Medical morning. Branch fenofibrate 2022-0 Yes [id number] 134mg Take 2 [facility] micronized 5-03 capsules ity o f 67 mg 00:00: by mouth [place] capsule 00 in the Medical morning. Branch fenofibrate 2022-0 Yes [id number] 134mg Take 2 [facility] micronized 5-03 capsules ity o f 67 mg 00:00: by mouth [place] capsule 00 in the Medical morning. Branch fenofibrate 2022-0 Yes [id number] 134mg Take 2 [facility] micronized 5-03 capsules ity o f 67 mg 00:00: by mouth [place] capsule 00 in the Medical morning. Branch fenofibrate 2022-0 Yes [id number] 134mg Take 2 [facility] micronized 5-03 capsules ity o f 67 mg 00:00: by mouth [place] capsule 00 in the Medical morning. Branch fenofibrate 2022-0 Yes [id number] 134mg Take 2 [facility] micronized 5-03 capsules ity o f 67 mg 00:00: by mouth [place] capsule 00 in the Medical morning. Branch fenofibrate 2022-0 3- No [id number] 134mg Take 2 [facility] micronized 5-03 07-28 capsules ity of 67 mg 00:00: 00:00 by mouth [place] capsule 00 :00 in the Medical morning. Branch fenofibrate 2022-0 3- No [id number] 134mg Take 2 [facility] micronized 5-04 15-28 capsules ity of 67 mg 00:00: 00:00 by mouth [place] capsule 00 :00 in the Medical morning. Branch fenofibrate 2022-0 2023- No [id number] 134mg Take 2 [facility] micronized 5-04 15-28 capsules ity of 67 mg 00:00: 00:00 by mouth [place] capsule 00 :00 in the Medical morning. Branch metFORMIN 2023-0 Yes [id number] 1000mg Take 1 [facility] 1,000 mg 5-01 tablet by ity of tablet 00:00: mouth in [address] and 1 tablet in the evening. Take with meals. metFORMIN 2023-0 Yes [id number] 1000mg Take 1 [facility] 1,000 mg 5-01 tablet by ity of tablet 00:00: mouth in [address] and 1 tablet in the evening. Take with meals. metFORMIN 2023-0 Yes [id number] 1000mg Take 1 [facility] 1,000 mg 5-01 tablet by ity of tablet 00:00: mouth in [address] and 1 tablet in the evening. Take with meals. metFORMIN 2023-0 Yes [id number] 1000mg Take 1 [facility] 1,000 mg 5-01 tablet by ity of tablet 00:00: mouth in [address] and 1 tablet in the evening. Take with meals. metFORMIN 2023-0 Yes [id number] 1000mg Take 1 [facility] 1,000 mg 5-01 tablet by ity of tablet 00:00: mouth in [address] and 1 tablet in the evening. Take with meals. metFORMIN 2023-0 Yes [id number] 1000mg Take 1 [facility] 1,000 mg 5-01 tablet by ity of tablet 00:00: mouth in [address] and 1 tablet in the evening. Take with meals. metFORMIN 2023-0 Yes [id number] 1000mg Take 1 [facility] 1,000 mg 5-01 tablet by ity of tablet 00:00: mouth in [address] and 1 tablet in the evening. Take with meals. metFORMIN 2023-0 Yes [id number] 1000mg Take 1 [facility] 1,000 mg 5-01 tablet by ity of tablet 00:00: mouth in [address] and 1 tablet in the evening. Take with meals. metFORMIN 2023-0 Yes [id number] 1000mg Take 1 [facility] 1,000 mg 5-01 tablet by ity of tablet 00:00: mouth in [address] and 1 tablet in the evening. Take with meals. metFORMIN 2023-0 Yes [id number] 1000mg Take 1 [facility] 1,000 mg 5-01 tablet by ity of tablet 00:00: mouth in [address] and 1 tablet in the evening. Take with meals. metFORMIN 2023-0 Yes [id number] 1000mg Take 1 [facility] 1,000 mg 5-01 tablet by ity of tablet 00:00: mouth in [address] and 1 tablet in the evening. Take with meals. metFORMIN 2023-0 Yes [id number] 1000mg Take 1 [facility] 1,000 mg 5-01 tablet by ity of tablet 00:00: mouth in [address] and 1 tablet in the evening. Take with meals. metFORMIN 2023-0 Yes [id number] 1000mg Take 1 [facility] 1,000 mg 5-01 tablet by ity of tablet 00:00: mouth in [address] and 1 tablet in the evening. Take with meals. metFORMIN 2023-0 Yes [id number] 1000mg Take 1 [facility] 1,000 mg 5-01 tablet by ity of tablet 00:00: mouth in [address] and 1 tablet in the evening. Take with meals. metFORMIN 2023-0 Yes [id number] 1000mg Take 1 [facility] 1,000 mg 5-01 tablet by ity of tablet 00:00: mouth in [address] and 1 tablet in the evening. Take with meals. metFORMIN 2023-0 Yes [id number] 1000mg Take 1 [facility] 1,000 mg 5-01 tablet by ity of tablet 00:00: mouth in [address] and 1 tablet in the evening. Take with meals. metFORMIN 2023-0 Yes [id number] 1000mg Take 1 [facility] 1,000 mg 5-01 tablet by ity of tablet 00:00: mouth in [address] and 1 tablet in the evening. Take with meals. metFORMIN 2023-0 Yes [id number] 1000mg Take 1 [facility] 1,000 mg 5-01 tablet by ity of tablet 00:00: mouth in [address] and 1 tablet in the evening. Take with meals. metFORMIN 2023-0 Yes [id number] 1000mg Take 1 [facility] 1,000 mg 5-01 tablet by ity of tablet 00:00: mouth in [address] and 1 tablet in the evening. Take with meals. metFORMIN 2023-0 Yes [id number] 1000mg Take 1 [facility] 1,000 mg 5-01 tablet by ity of tablet 00:00: mouth in [address] and 1 tablet in the evening. Take with meals. metFORMIN 2023-0 Yes [id number] 1000mg Take 1 [facility] 1,000 mg 5-01 tablet by ity of tablet 00:00: mouth in [address] and 1 tablet in the evening. Take with meals. metFORMIN 2023-0 Yes [id number] 1000mg Take 1 [facility] 1,000 mg 5-01 tablet by ity of tablet 00:00: mouth in [address] and 1 tablet in the evening. Take with meals. metFORMIN 2023-0 Yes [id number] 1000mg Take 1 [facility] 1,000 mg 5-01 tablet by ity of tablet 00:00: mouth in [address] and 1 tablet in the evening. Take with meals. metFORMIN 2023-0 Yes [id number] 1000mg Take 1 [facility] 1,000 mg 5-01 tablet by ity of tablet 00:00: mouth in [address] and 1 tablet in the evening. Take with meals. metFORMIN 2023-0 Yes [id number] 1000mg Take 1 [facility] 1,000 mg 5-01 tablet by ity of tablet 00:00: mouth in [address] and 1 tablet in the evening. Take with meals. metFORMIN 3-0 Yes [id number] 1000mg Take 1 [facility] 1,000 mg 5-01 tablet by ity of tablet 00:00: mouth in [address] and 1 tablet in the evening. Take with meals. NaCl 0.9% 2022-0 3- No 1000mL at 999 Uni vers (NS) bolus 4-25 04-25 mL/hr, ity of infusion 02:45: 04:18 1,000 mL, Hi as 1,000 mL 00 :00 IV Medical Infusion, Branch ONCE, 1 dose, On Thu06/02/22 at 2145, STEPHANIE clonazePAM 2023-0 2023- No 1mg Take 1 mg U nivers 1 mg tablet 05-18 by mouth ity of 18:32: 00:00 in the [place] 35 :00 morning Medical and 1 mg Branch in the evening. PANTOPRAZOL 3-0 Yes TAKE ONE [facility] E 40 mg EC 3-13 TABLET BY ity of tablet 00:00: [facility] DAILY Medical Branch PANTOPRAZOL 3-0 Yes TAKE ONE [facility] E 40 mg EC 3-13 TABLET BY ity of tablet 00:00: [facility] DAILY Medical Branch PANTOPRAZOL 3-0 Yes TAKE ONE [facility] E 40 mg EC 3-13 TABLET BY ity of tablet 00:00: [facility] DAILY Medical Branch PANTOPRAZOL 3-0 Yes TAKE ONE [facility] E 40 mg EC 3-13 TABLET BY ity of tablet 00:00: [facility] DAILY Medical Branch PANTOPRAZOL 3-0 Yes TAKE ONE [facility] E 40 mg EC 3-13 TABLET BY ity of tablet 00:00: [facility] DAILY Medical Branch PANTOPRAZOL 3-0 Yes TAKE ONE [facility] E 40 mg EC 3-13 TABLET BY ity of tablet 00:00: [facility] DAILY Medical Branch PANTOPRAZOL 3-0 Yes TAKE ONE [facility] E 40 mg EC 3-13 TABLET BY ity of tablet 00:00: [facility] DAILY Medical Branch PANTOPRAZOL 3-0 Yes TAKE ONE [facility] E 40 mg EC 3-13 TABLET BY ity of tablet 00:00: [facility] DAILY Medical Branch PANTOPRAZOL 3-0 Yes TAKE ONE [facility] E 40 mg EC 3-13 TABLET BY ity of tablet 00:00: [facility] DAILY Medical Branch PANTOPRAZOL 3-0 Yes TAKE ONE [facility] E 40 mg EC 3-13 TABLET BY ity of tablet 00:00: [facility] DAILY Medical Branch PANTOPRAZOL 3-0 Yes TAKE ONE [facility] E 40 mg EC 3-13 TABLET BY ity of tablet 00:00: [facility] DAILY Medical Branch PANTOPRAZOL 3-0 Yes TAKE ONE [facility] E 40 mg EC 3-13 TABLET BY ity of tablet 00:00: [facility] DAILY Medical Branch PANTOPRAZOL 2023-0 Yes TAKE ONE [facility] E 40 mg EC 3-13 TABLET BY ity of tablet 00:00: [facility] DAILY Medical Branch PANTOPRAZOL 2023-0 Yes TAKE ONE [facility] E 40 mg EC 3-13 TABLET BY ity of tablet 00:00: [facility] DAILY Medical Branch PANTOPRAZOL 2023-0 Yes TAKE ONE [facility] E 40 mg EC 3-13 TABLET BY ity of tablet 00:00: [facility] DAILY Medical Branch PANTOPRAZOL 2023-0 Yes TAKE ONE [facility] E 40 mg EC 3-13 TABLET BY ity of tablet 00:00: [facility] DAILY Medical Branch PANTOPRAZOL 2023-0 Yes TAKE ONE [facility] E 40 mg EC 3-13 TABLET BY ity of tablet 00:00: [facility] DAILY Medical Branch PANTOPRAZOL 2023-0 Yes TAKE ONE [facility] E 40 mg EC 3-13 TABLET BY ity of tablet 00:00: [facility] DAILY Medical Branch PANTOPRAZOL 2023-0 Yes TAKE ONE [facility] E 40 mg EC 3-13 TABLET BY ity of tablet 00:00: [facility] DAILY Medical Branch PANTOPRAZOL 2023-0 Yes TAKE ONE [facility] E 40 mg EC 3-13 TABLET BY ity of tablet 00:00: [facility] DAILY Medical Branch PANTOPRAZOL 2023-0 Yes TAKE ONE [facility] E 40 mg EC 3-13 TABLET BY ity of tablet 00:00: [facility] DAILY Medical Branch PANTOPRAZOL 2023-0 Yes TAKE ONE [facility] E 40 mg EC 3-13 TABLET BY ity of tablet 00:00: [facility] DAILY Medical Branch PANTOPRAZOL 2023-0 Yes TAKE ONE [facility] E 40 mg EC 3-13 TABLET BY ity of tablet 00:00: [facility] DAILY Medical Branch PANTOPRAZOL 2023-0 Yes TAKE ONE [facility] E 40 mg EC 3-13 TABLET BY ity of tablet 00:00: [facility] DAILY Medical Branch PANTOPRAZOL 2023-0 Yes TAKE ONE [facility] E 40 mg EC 3-13 TABLET BY ity of tablet 00:00: [facility] DAILY Medical Branch PANTOPRAZOL 2023-0 Yes TAKE ONE [facility] E 40 mg EC 3-13 TABLET BY ity of tablet 00:00: [facility] DAILY Medical Branch PANTOPRAZOL 2022-0 Yes TAKE ONE [facility] E 40 mg EC 3-13 TABLET BY ity of tablet 00:00: MOUTH [place] 00 DAILY Medical Branch PANTOPRAZOL 2022-0 2022- No TAKE ONE U nivers E 40 mg EC 3-21 08- TABLET BY ity of tablet 00:00: 00:00 MOUTH [place] 00 : DAILY Medical Branch PANTOPRAZOL 2022-0 2022- No TAKE ONE U nivers E 40 mg EC 04-21 TABLET BY ity of tablet 00:00: 00:00 MOUTH [place] 00 :00 DAILY Medical Branch PANTOPRAZOL 2022-0 2022- No TAKE ONE U nivers E 40 mg EC 04-21 TABLET BY ity of tablet 00:00: 00:00 MOUTH [place] 00 :00 DAILY Medical Branch ziprasidone Yes 20mg 20 mg, Univ ers (GEODON) -11 Oral, BID ity of capsule 20 07:00: MEALS, [place] mg 00 First dose Medical on [facility] Branch 03/22/22 at 0100, Until Discontinu ed, Routine LORazepam 2022- No 2mg 2 mg, Univer s (ATIVAN) 03-22- Intramuscu ity of injection 2 07:00: 06:49 lar, ONCE, [place] mg 00 :00 1 dose, On Medical Sat Branch 03/22/22 at 0100, STAT metFORMIN 2022-0 Yes 1000mg 1,000 mg, U nivers (GLUCOPHAGE - Oral, BID ity of ) tablet 14:00: MEALS, [place] 1,000 mg 00 First dose Medic al on [place] Branch 03/20/22 at 0800, Until Discontinu ed, Routine metFORMIN 2022-0 2022- No 1000mg 1,000 mg, Univers (GLUCOPHAGE 03-20- Oral, ity of ) tablet 00:30: 23:57 ONCE, 1 [place] 1,000 mg 00 :00 dose, On Medical [facility] 03/19/22 Branch at 1830, Routine clonazePAM 2022-2022- No 1mg 1 mg, Unive rs (KLONOPIN) 2-08 Oral, ity of tablet 1 mg 00:30: 23:57 ONCE, 1 [place] 00 :[place] dose, On Medical Thu03/19/22 Branch at 1830, Routine insulin NPH 2022-0 2023- No .1U/kg 8 Units Univers (HUMULIN N) 2-08 02-08 (rounded ity of injection 8 23:45: 23:59 from 8.22 [place] Units 00 :00 Units = Medical 0.1 Branch Units/kg ?82.2 kg), Subcutaneo us, ONCE, 1 dose, On Thu03/19/22 at 1745, STEPHANIE nicotine 3-0 Yes 1{patch 1 Patch, [facility] (NICODERM) 2-08 } Topical, ity o f 21 mg/24 hr 22:30: Administer [place] patch 1 00 over 24 Medical Patch Hours, Branch Q24H, First dose on Thu03/19/22 at 1630, Until Discontinu ed, Routine clonazePAM 2023-0 Yes 1mg Take 1 mg [facility] 1 mg tablet 2-08 by mouth ity of 17:31: in the [address] Medical and 1 mg Branch in the evening. clonazePAM 2023-0 Yes 1mg Take 1 mg [facility] 1 mg tablet 2-08 by mouth ity of 17:31: in the [address] Medical and 1 mg Branch in the evening. clonazePAM 2023-0 Yes 1mg Take 1 mg [facility] 1 mg tablet 2-08 by mouth ity of 17:31: in the [place] [address] morning Medical and 1 mg Branch in the evening. clonazePAM 2023-0 Yes 1mg Take 1 mg [facility] 1 mg tablet 2-08 by mouth ity of 17:31: in the [place] [address] morning Medical and 1 mg Branch in the evening. FENOFIBRATE 2023-0 Yes [id number] TAKE TWO Univers MICRONIZED 1-17 CAPSULES ity o f 67 mg 00:00: BY MOUTH [place] capsule 00 EVERY Medical MORNING Branch fenofibrate 2023-0 Yes [id number] 134mg Take 2 [facility] micronized 1-17 capsules ity o f 67 mg 00:00: by mouth [place] capsule 00 in the Medical morning. Branch fenofibrate 2023-0 Yes [id number] 134mg Take 2 [facility] micronized 1-17 capsules ity o f 67 mg 00:00: by mouth [place] capsule 00 in the Medical morning. Branch fenofibrate 2023-0 Yes [id number] 134mg Take 2 [facility] micronized 1-17 capsules ity o f 67 mg 00:00: by mouth [place] capsule 00 in the Medical morning. Branch fenofibrate 2022-0 Yes [id number] 134mg Take 2 [facility] micronized 1-17 capsules ity o f 67 mg 00:00: by mouth [place] capsule 00 in the Medical morning. Branch fenofibrate 2022-0 Yes [id number] 134mg Take 2 [facility] micronized 1-17 capsules ity o f 67 mg 00:00: by mouth [place] capsule 00 in the Medical morning. Branch fenofibrate 2022-0 Yes [id number] 134mg Take 2 [facility] micronized 1-17 capsules ity o f 67 mg 00:00: by mouth [place] capsule 00 in the Medical morning. Branch fenofibrate 2022-0 Yes [id number] 134mg Take 2 [facility] micronized 1-17 capsules ity o f 67 mg 00:00: by mouth [place] capsule 00 in the Medical morning. Branch fenofibrate 2022-0 Yes [id number] 134mg Take 2 [facility] micronized 1-17 capsules ity o f 67 mg 00:00: by mouth [place] capsule 00 in the Medical morning. Branch fenofibrate 2022-0 Yes [id number] 134mg Take 2 [facility] micronized 1-17 capsules ity o f 67 mg 00:00: by mouth [place] capsule 00 in the Medical morning. Branch fenofibrate 2022-0 Yes [id number] 134mg Take 2 [facility] micronized 1-17 capsules ity o f 67 mg 00:00: by mouth [place] capsule 00 in the Medical morning. Branch fenofibrate 2022-0 Yes [id number] 134mg Take 2 [facility] micronized 1-17 capsules ity o f 67 mg 00:00: by mouth [place] capsule 00 in the Medical morning. Branch fenofibrate 2022-0 Yes [id number] 134mg Take 2 [facility] micronized 1-17 capsules ity o f 67 mg 00:00: by mouth [place] capsule 00 in the Medical morning. Branch fenofibrate 2022-0 Yes [id number] 134mg Take 2 [facility] micronized 1-17 capsules ity o f 67 mg 00:00: by mouth [place] capsule 00 in the Medical morning. Branch fenofibrate 2022-0 Yes [id number] 134mg Take 2 [facility] micronized 1-17 capsules ity o f 67 mg 00:00: by mouth [place] capsule 00 in the Medical morning. Branch fenofibrate 2022-0 Yes [id number] 134mg Take 2 [facility] micronized 1-17 capsules ity o f 67 mg 00:00: by mouth [place] capsule 00 in the Medical morning. Branch fenofibrate 2022-0 Yes [id number] 134mg Take 2 [facility] micronized 1-17 capsules ity o f 67 mg 00:00: by mouth [place] capsule 00 in the Medical morning. Branch fenofibrate 2022-0 Yes [id number] 134mg Take 2 [facility] micronized 1-17 capsules ity o f 67 mg 00:00: by mouth [place] capsule 00 in the Medical morning. Branch fenofibrate 2022-0 3- No [id number] 134mg Take 2 [facility] micronized 1-17 05-03 capsules ity of 67 mg 00:00: 00:00 by mouth [place] capsule 00 :00 in the Medical morning. Branch fenofibrate 2022-0 3- No [id number] 134mg Take 2 [facility] micronized 1-17 05-03 capsules ity of 67 mg 00:00: 00:00 by mouth [place] capsule 00 :00 in the Medical morning. Branch FENOFIBRATE 2022-0 3- No [id number] TAKE TWO [facility] MICRONIZED 1-17 01-17 CAPSULES ity of 67 mg 00:00: 00:00 BY MOUTH [place] capsule 00 :00 EVERY Medical MORNING Branch NaCl 0.9% 2021-02 No 1000mL at 999 Uni vers (NS) bolus 03-18 mL/hr, ity of infusion 17:00: 16:30 1,000 mL, [place] 1,000 mL 00 :00 IV Medical Infusion, Branch ONCE, 1 dose, On Thu01/15/22 at 1100, STAT magnesium 2021-02- No 2g 2 g, IV Univ ers sulfate in 03-18 Piggyback, it y of water 2 16:30: 16:55 Administer [place] gram/50 mL 00 :00 over 60 Medica l (4 %) Minutes, Branch infusion 2 ONCE, 1 g dose, On Thu01/15/22 at 1030, Routine ondansetron 2021-02- No 4mg 4 mg, Slow [facility] (ZOFRAN 03-18 IV Push, ity of (PF)) 15:45: 14:47 ONCE, 1 [place] injection 4 00 :00 dose, On Medi bandar mg Wed Branch 01/15/22 at 0945, STEPHANIE NaCl 0.9% 2021-02- 1000mL at 999 Uni vers (NS) bolus 2-07 12-07 mL/hr, ity of infusion 15:45: 15:54 1,000 mL, [place] 1,000 mL 00 :00 IV Medical Infusion, Branch ONCE, 1 dose, On 01/15/22 at 0945, STAT ondansetron 2021-02 Yes [id number] 4mg Take 1 Univers 4 mg 2-07 tablet by ity of disintegrat 00:00: mouth [place] ing tablet 00 every 8 Medica l (eight) Branch hours as needed for Nausea and Vomiting (N/V). ondansetron 2021-02 Yes [id number] 4mg Take 1 Univers 4 mg 2-07 tablet by ity of disintegrat 00:00: mouth [place] ing tablet 00 every 8 Medica l (eight) Branch hours as needed for Nausea and Vomiting (N/V). ondansetron 2021-02 Yes [id number] 4mg Take 1 [facility] 4 mg 2-07 tablet by ity of disintegrat 00:00: mouth [place] ing tablet 00 every 8 Medica l (eight) Branch hours as needed for Nausea and Vomiting (N/V). ondansetron 2021-02 Yes [id number] 4mg Take 1 [facility] 4 mg 2-07 tablet by ity of disintegrat 00:00: mouth [place] ing tablet 00 every 8 Medica l (eight) Branch hours as needed for Nausea and Vomiting (N/V). ondansetron 2021-02 Yes [id number] 4mg Take 1 [facility] 4 mg 2-07 tablet by [facility] of disintegrat 00:00: mouth [place] ing tablet 00 every 8 Medica l (eight) Branch hours as needed for Nausea and Vomiting (N/V). ondansetron 2021-02 Yes [id number] 4mg Take 1 [facility] 4 mg 2-07 tablet by ity of disintegrat 00:00: mouth [place] ing tablet 00 every 8 Medica l (eight) Branch hours as needed for Nausea and Vomiting (N/V). ondansetron 2021-02 Yes [id number] 4mg Take 1 [facility] 4 mg 2-07 tablet by ity of disintegrat 00:00: mouth [place] ing tablet 00 every 8 Medica l (eight) Branch hours as needed for Nausea and Vomiting (N/V). ondansetron 2021-02 Yes [id number] 4mg Take 1 [facility] 4 mg 2-07 tablet by ity of disintegrat 00:00: mouth [place] ing tablet 00 every 8 Medica l (eight) Branch hours as needed for Nausea and Vomiting (N/V). ondansetron 2021-02 Yes [id number] 4mg Take 1 [facility] 4 mg 2-07 tablet by ity of disintegrat 00:00: mouth [place] ing tablet 00 every 8 Medica l (eight) Branch hours as needed for Nausea and Vomiting (N/V). ondansetron 2021-02 Yes [id number] 4mg Take 1 [facility] 4 mg 2-07 tablet by ity of disintegrat 00:00: mouth [place] ing tablet 00 every 8 Medica l (eight) Branch hours as needed for Nausea and Vomiting (N/V). ondansetron 2021-02 Yes [id number] 4mg Take 1 [facility] 4 mg 2-07 tablet by ity of disintegrat 00:00: mouth [place] ing tablet 00 every 8 Medica l (eight) Branch hours as needed for Nausea and Vomiting (N/V). ondansetron 2021-02 Yes [id number] 4mg Take 1 [facility] 4 mg 2-07 tablet by ity of disintegrat 00:00: mouth [place] ing tablet 00 every 8 Medica l (eight) Branch hours as needed for Nausea and Vomiting (N/V). ondansetron 2021-02 Yes [id number] 4mg Take 1 [facility] 4 mg 2-07 tablet by ity of disintegrat 00:00: mouth [place] ing tablet 00 every 8 Medica l (eight) Branch hours as needed for Nausea and Vomiting (N/V). ondansetron 2021-02 Yes [id number] 4mg Take 1 [facility] 4 mg 2-07 tablet by ity of disintegrat 00:00: mouth [place] ing tablet 00 every 8 Medica l (eight) Branch hours as needed for Nausea and Vomiting (N/V). ondansetron 2021-02 Yes [id number] 4mg Take 1 [facility] 4 mg 2-07 tablet by ity of disintegrat 00:00: mouth [place] ing tablet 00 every 8 Medica l (eight) Branch hours as needed for Nausea and Vomiting (N/V). ondansetron 2021-02 Yes [id number] 4mg Take 1 [facility] 4 mg 2-07 tablet by ity of disintegrat 00:00: mouth [place] ing tablet 00 every 8 Medica l (eight) Branch hours as needed for Nausea and Vomiting (N/V). ondansetron 2021-02 Yes [id number] 4mg Take 1 [facility] 4 mg 2-07 tablet by [facility]y of disintegrat 00:00: mouth [place] ing tablet 00 every 8 Medica l (eight) Branch hours as needed for Nausea and Vomiting (N/V). ondansetron 2021-02 Yes [id number] 4mg Take 1 [facility] 4 mg 2-07 tablet by ity of disintegrat 00:00: mouth [place] ing tablet 00 every 8 Medica l (eight) Branch hours as needed for Nausea and Vomiting (N/V). ondansetron 2021-02 Yes [id number] 4mg Take 1 [facility] 4 mg 2-07 tablet by ity of disintegrat 00:00: mouth [place] ing tablet 00 every 8 Medica l (eight) Branch hours as needed for Nausea and Vomiting (N/V). ondansetron 2021-02 Yes [id number] 4mg Take 1 [facility] 4 mg 2-07 tablet by ity of disintegrat 00:00: mouth [place] ing tablet 00 every 8 Medica l (eight) Branch hours as needed for Nausea and Vomiting (N/V). ondansetron 2021-02 Yes [id number] 4mg Take 1 [facility] 4 mg 2-07 tablet by ity of disintegrat 00:00: mouth [place] ing tablet 00 every 8 Medica l (eight) Branch hours as needed for Nausea and Vomiting (N/V). ondansetron 2021-02 Yes [id number] 4mg Take 1 [facility] 4 mg 2-07 tablet by ity of disintegrat 00:00: mouth [place] ing tablet 00 every 8 Medica l (eight) Branch hours as needed for Nausea and Vomiting (N/V). ondansetron 2021-02 Yes [id number] 4mg Take 1 [facility] 4 mg 2-07 tablet by ity of disintegrat 00:00: mouth [place] ing tablet 00 every 8 Medica l (eight) Branch hours as needed for Nausea and Vomiting (N/V). ondansetron 2021-02 Yes [id number] 4mg Take 1 [facility] 4 mg 2-07 tablet by ity of disintegrat 00:00: mouth [place] ing tablet 00 every 8 Medica l (eight) Branch hours as needed for Nausea and Vomiting (N/V). ondansetron 2021-02 Yes [id number] 4mg Take 1 [facility] 4 mg 2-07 tablet by ity of disintegrat 00:00: mouth [place] ing tablet 00 every 8 Medica l (eight) Branch hours as needed for Nausea and Vomiting (N/V). ondansetron 2021-02 Yes [id number] 4mg Take 1 [facility] 4 mg 2-07 tablet by ity of disintegrat 00:00: mouth [place] ing tablet 00 every 8 Medica l (eight) Branch hours as needed for Nausea and Vomiting (N/V). ondansetron 2021-02 Yes [id number] 4mg Take 1 [facility] 4 mg 2-07 tablet by ity of disintegrat 00:00: mouth [place] ing tablet 00 every 8 Medica l (eight) Branch hours as needed for Nausea and Vomiting (N/V). ondansetron 2021-02 Yes [id number] 4mg Take 1 [facility] 4 mg 2-07 tablet by ity of disintegrat 00:00: mouth [place] ing tablet 00 every 8 Medica l (eight) Branch hours as needed for Nausea and Vomiting (N/V). ondansetron 2021-02 Yes [id number] 4mg Take 1 [facility] 4 mg 2-07 tablet by ity of disintegrat 00:00: mouth [place] ing tablet 00 every 8 Medica l (eight) Branch hours as needed for Nausea and Vomiting (N/V). ondansetron 2021-02 Yes [id number] 4mg Take 1 [facility] 4 mg 2-07 tablet by ity of disintegrat 00:00: mouth [place] ing tablet 00 every 8 Medica l (eight) Branch hours as needed for Nausea and Vomiting (N/V). ondansetron 2021-02 Yes [id number] 4mg Take 1 [facility] 4 mg 2-07 tablet by ity of disintegrat 00:00: mouth [place] ing tablet 00 every 8 Medica l (eight) Branch hours as needed for Nausea and Vomiting (N/V). ondansetron 2021-02 Yes [id number] 4mg Take 1 [facility] 4 mg 2-07 tablet by ity of disintegrat 00:00: mouth [place] ing tablet 00 every 8 Medica l (eight) Branch hours as needed for Nausea and Vomiting (N/V). ondansetron 2021-02 Yes [id number] 4mg Take 1 [facility] 4 mg 2-07 tablet by ity of disintegrat 00:00: mouth [place] ing tablet 00 every 8 Medica l (eight) Branch hours as needed for Nausea and Vomiting (N/V). ondansetron 2021-02 Yes [id number] 4mg Take 1 [facility] 4 mg 2-07 tablet by ity of disintegrat 00:00: mouth [place] ing tablet 00 every 8 Medica l (eight) Branch hours as needed for Nausea and Vomiting (N/V). ondansetron 2021-02 Yes [id number] 4mg Take 1 [facility] 4 mg 2-07 tablet by ity of disintegrat 00:00: mouth [place] ing tablet 00 every 8 Medica l (eight) Branch hours as needed for Nausea and Vomiting (N/V). ondansetron 2021-02 Yes [id number] 4mg Take 1 [facility] 4 mg 2-07 tablet by ity of disintegrat 00:00: mouth [place] ing tablet 00 every 8 Medica l (eight) Branch hours as needed for Nausea and Vomiting (N/V). ondansetron 2021-02 Yes [id number] 4mg Take 1 [facility] 4 mg 2-07 tablet by ity of disintegrat 00:00: mouth [place] ing tablet 00 every 8 Medica l (eight) Branch hours as needed for Nausea and Vomiting (N/V). ondansetron 2021-02 Yes [id number] 4mg Take 1 [facility] 4 mg 2-07 tablet by ity of disintegrat 00:00: mouth [place] ing tablet 00 every 8 Medica l (eight) Branch hours as needed for Nausea and Vomiting (N/V). ondansetron 2021-02 Yes [id number] 4mg Take 1 [facility] 4 mg 2-07 tablet by ity of disintegrat 00:00: mouth [place] ing tablet 00 every 8 Medica l (eight) Branch hours as needed for Nausea and Vomiting (N/V). ondansetron 2021-02 Yes [id number] 4mg Take 1 [facility] 4 mg 2-07 tablet by ity of disintegrat 00:00: mouth [place] ing tablet 00 every 8 Medica l (eight) Branch hours as needed for Nausea and Vomiting (N/V). ondansetron 2021- Yes [id number] 4mg Take 1 [facility] 4 mg 2-07 tablet by ity of disintegrat 00:00: mouth [place] ing tablet 00 every 8 Medica l (eight) Branch hours as needed for Nausea and Vomiting (N/V). ondansetron 2021- Yes [id number] 4mg Take 1 [facility] 4 mg 2-07 tablet by ity of disintegrat 00:00: mouth [place] ing tablet 00 every 8 Medica l (eight) Branch hours as needed for Nausea and Vomiting (N/V). ondansetron 2021- 2023- No [id number] 4mg Take 1 [facility] 4 mg 2-07 08-03 tablet by [facility]y of disintegrat 00:00: 00:[place] tablet 00 :00 every 8 Medica l (eight) Branch hours as needed for Nausea and Vomiting (N/V). clonazePAM 2021-1 Yes 1mg Take 1 mg [facility] 1 mg tablet 0-28 by mouth ity of 13:45: in the [place] [address] morning Medical and 1 mg Branch in the evening. clonazePAM 2022-1 Yes 1mg Take 1 mg [facility] 1 mg tablet 0-28 by mouth ity of 13:45: in the [address] Medical and 1 mg Branch in the evening. clonazePAM 2022-1 Yes 1mg Take 1 mg [facility] 1 mg tablet 0-28 by mouth ity of 13:45: in the [place] [address] morning Medical and 1 mg Branch in the evening. clonazePAM 2022-1 Yes 1mg Take 1 mg [facility] 1 mg tablet 0-28 by mouth ity of 13:45: in the [place] [address] morning Medical and 1 mg Branch in the evening. clonazePAM 2022-1 Yes 1mg Take 1 mg [facility] 1 mg tablet 0-28 by mouth ity of 13:45: in the [place] [address] morning Medical and 1 mg Branch in the evening. clonazePAM 2022-1 Yes 1mg Take 1 mg [facility] 1 mg tablet 0-28 by mouth ity of 13:45: in the [place] [address] morning Medical and 1 mg Branch in the evening. clonazePAM 2022-1 Yes 1mg Take 1 mg [facility] 1 mg tablet 0-28 by mouth ity of 13:45: in the [place] [address] morning Medical and 1 mg Branch in the evening. clonazePAM 2022-1 Yes 1mg Take 1 mg [facility] 1 mg tablet 0-28 by mouth ity of 13:45: in the [place] [address] morning Medical and 1 mg Branch in the evening. clonazePAM 2022-1 Yes 1mg Take 1 mg [facility] 1 mg tablet 0-28 by mouth ity of 13:45: in the [place] [address] morning Medical and 1 mg Branch in the evening. clonazePAM 2022-1 Yes 1mg Take 1 mg [facility] 1 mg tablet 0-28 by mouth ity of 13:45: in the [place] [address] morning Medical and 1 mg Branch in the evening. clonazePAM 2022-1 Yes 1mg Take 1 mg [facility] 1 mg tablet 0-28 by mouth ity of 13:45: in the [place] [address] morning Medical and 1 mg Branch in the evening. clonazePAM 2022-1 Yes 1mg Take 1 mg [facility] 1 mg tablet 0-28 by mouth ity of 13:45: in the [place] [address] morning Medical and 1 mg Branch in the evening. clonazePAM 2022-1 Yes 1mg Take 1 mg [facility] 1 mg tablet 0-28 by mouth ity of 13:45: in the [place] [address] morning Medical and 1 mg Branch in the evening. clonazePAM 2022-1 Yes 1mg Take 1 mg [facility] 1 mg tablet 0-28 by mouth ity of 13:45: in the [place] [address] morning Medical and 1 mg Branch in the evening. clonazePAM 2022-1 Yes 1mg Take 1 mg [facility] 1 mg tablet 0-28 by mouth ity of 13:45: in the [place] [address] morning Medical and 1 mg Branch in the evening. clonazePAM 2022-1 Yes 1mg Take 1 mg [facility] 1 mg tablet 0-28 by mouth ity of 13:45: in the [place] [address] morning Medical and 1 mg Branch in the evening. clonazePAM 2022-1 Yes 1mg Take 1 mg [facility] 1 mg tablet 0-28 by mouth ity of 13:45: in the [place] [address] morning Medical and 1 mg Branch in the evening. clonazePAM 2022-1 Yes 1mg Take 1 mg [facility] 1 mg tablet 0-28 by mouth ity of 13:45: in the [place] [address] morning Medical and 1 mg Branch in the evening. Insulin 2022-1 Yes [id number] 10U inject 10 [facility] NPH-Regular 0-28 Units ity of Human Rec 00:00: under the [place] 100 unit/mL 00 skin in Medic al (30) the Branch injection morning and 10 Units in the evening. Insulin 2021-02 Yes [id number] 10U inject 10 [facility] NPH-Regular 0-28 Units [facility]y of Human Rec 00:00: under [place] unit/mL 00 skin in Medic al (30) the Branch injection morning and 10 Units in the evening. Insulin 2021-02 Yes [id number] 10U inject 10 [facility] NPH-Regular 0-28 Units ity of Human Rec 00:00: under the [place] unit/mL 00 skin in Medic al () the Branch injection morning and 10 Units in the evening. Insulin 2021-02 Yes [id number] 10U inject 10 [facility] NPH-Regular 0-28 Units ity of Human Rec 00:00: under the [place] unit/mL 00 skin in Medic al () the Branch injection morning and 10 Units in the evening. Insulin 2021-02 Yes [id number] 10U inject 10 [facility] NPH-Regular 0-28 Units [facility]y of Human Rec 00:00: under [place] unit/mL 00 skin in Medic al () the Branch injection morning and 10 Units in the evening. Insulin 2021-02 Yes [id number] 10U inject 10 [facility] NPH-Regular 0-28 Units [facility]y of Human Rec 00:00: under [place] unit/mL 00 skin in Medic al () the Branch injection morning and 10 Units in the evening. Insulin 2021-02 Yes [id number] 10U inject 10 [facility] NPH-Regular 0-28 Units [facility]y of Human Rec 00:00: under [place] unit/mL 00 skin in Medic al (30) the Branch injection morning and 10 Units in the evening. Insulin 2021-02 Yes [id number] 10U inject 10 [facility] NPH-Regular 0-28 Units [facility]y of Human Rec 00:00: under [place] unit/mL 00 skin in Medic al (30) the Branch injection morning and 10 Units in the evening. Insulin 2021-02 Yes [id number] 10U inject 10 [facility] NPH-Regular 0-28 Units [facility]y of Human Rec 00:00: under [place] unit/mL 00 skin in Medic al (70-30) the Branch injection morning and 10 Units in the evening. Insulin 2021-02 Yes [id number] 10U inject 10 [facility] NPH-Regular 0-28 Units [facility]y of Human Rec 00:00: under [place] unit/mL 00 skin in Medic al (70-30) the Branch injection morning and 10 Units in the evening. Insulin 2021-02 Yes [id number] 10U inject 10 [facility] NPH-Regular 0-28 Units [facility]y of Human Rec 00:00: under the [place] unit/mL 00 skin in Medic al (7030) the Branch injection morning and 10 Units in the evening. Insulin 2021-02 Yes [id number] 10U inject 10 [facility] NPH-Regular 0-28 Units [facility] of Human Rec 00:00: under [place] unit/mL 00 skin in Medic al (30) the Branch injection morning and 10 Units in the evening. Insulin 2021-02 Yes [id number] 10U inject 10 [facility] NPH-Regular 0-28 Units [facility] of Human Rec 00:00: under [place] unit/mL 00 skin in Medic al (30) the Branch injection morning and 10 Units in the evening. Insulin 2021-02 Yes [id number] 10U inject 10 [facility] NPH-Regular 0-28 Units [facility]y of Human Rec 00:00: under [place] unit/mL 00 skin in Medic al (7030) the Branch injection morning and 10 Units in the evening. Insulin 2021-02 Yes [id number] 10U inject 10 [facility] NPH-Regular 0-28 Units [facility] of Human Rec 00:00: under [place] unit/mL 00 skin in Medic al (70-30) the Branch injection morning and 10 Units in the evening. Insulin 2021-02 Yes [id number] 10U inject 10 [facility] NPH-Regular 0-28 Units [facility] of Human Rec 00:00: under [place] unit/mL 00 skin in Medic al (70-30) the Branch injection morning and 10 Units in the evening. Insulin 2021-02 Yes [id number] 10U inject 10 [facility] NPH-Regular 0-28 Units [facility] of Human Rec 00:00: under [place] unit/mL 00 skin in Medic al (30) the Branch injection morning and 10 Units in the evening. Insulin 2021-02 Yes [id number] 10U inject 10 [facility] NPH-Regular 0-28 Units [facility]y of Human Rec 00:00: under [place] unit/mL 00 skin in Medic al (30) the Branch injection morning and 10 Units in the evening. Insulin 2021-02 Yes [id number] 10U inject 10 [facility] NPH-Regular 0-28 Units [facility]y of Human Rec 00:00: under [place] unit/mL 00 skin in Medic al (30) the Branch injection morning and 10 Units in the evening. Insulin 2021-02 Yes [id number] 10U inject 10 [facility] NPH-Regular 0-28 Units [facility]y of Human Rec 00:00: under [place] unit/mL 00 skin in Medic al (30) the Branch injection morning and 10 Units in the evening. Insulin 2021-02 Yes [id number] 10U inject 10 [facility] NPH-Regular 0-28 Units [facility]y of Human Rec 00:00: under [place] unit/mL 00 skin in Medic al (30) the Branch injection morning and 10 Units in the evening. Insulin 2021-02 Yes [id number] 10U inject 10 [facility] NPH-Regular 0-28 Units [facility]y of Human Rec 00:00: under [place] unit/mL 00 skin in Medic al (30) the Branch injection morning and 10 Units in the evening. Insulin 2021-02 Yes [id number] 10U inject 10 [facility] NPH-Regular 0-28 Units [facility]y of Human Rec 00:00: under [place] unit/mL 00 skin in Medic al (30) the Branch injection morning and 10 Units in the evening. Insulin 2021-02 Yes [id number] 10U inject 10 [facility] NPH-Regular 0-28 Units [facility] of Human Rec 00:00: under [place] unit/mL 00 skin in Medic al (30) the Branch injection morning and 10 Units in the evening. Insulin 2021-02 Yes [id number] 10U inject 10 [facility] NPH-Regular 0-28 Units [facility] of Human Rec 00:00: under [place] unit/mL 00 skin in Medic al (30) the Branch injection morning and 10 Units in the evening. Insulin 2021-02 Yes [id number] 10U inject 10 [facility] NPH-Regular 0-28 Units [facility] of Human Rec 00:00: under [place] unit/mL 00 skin in Medic al (30) the Branch injection morning and 10 Units in the evening. Insulin 2021-02 Yes [id number] 10U inject 10 [facility] NPH-Regular 0-28 Units [facility]y of Human Rec 00:00: under [place] unit/mL 00 skin in Medic al (30) the Branch injection morning and 10 Units in the evening. Insulin 2021-02 Yes [id number] 10U inject 10 [facility] NPH-Regular 0-28 Units [facility] of Human Rec 00:00: under [place] unit/mL 00 skin in Medic al (30) the Branch injection morning and 10 Units in the evening. Insulin 2021-02 Yes [id number] 10U inject 10 [facility] NPH-Regular 0-28 Units [facility] of Human Rec 00:00: under [place] unit/mL 00 skin in Medic al () the Branch injection morning and 10 Units in the evening. Insulin 2021-02 Yes [id number] 10U inject 10 [facility] NPH-Regular 0-28 Units [facility]y of Human Rec 00:00: under [place] unit/mL 00 skin in Medic al () the Branch injection morning and 10 Units in the evening. Insulin 2021-02 Yes [id number] 10U inject 10 [facility] NPH-Regular 0-28 Units [facility] of Human Rec 00:00: under [place] unit/mL 00 skin in Medic al (30) the Branch injection morning and 10 Units in the evening. Insulin 2021-02 Yes [id number] 10U inject 10 [facility] NPH-Regular 0-28 Units [facility] of Human Rec 00:00: under [place] unit/mL 00 skin in Medic al (30) the Branch injection morning and 10 Units in the evening. Insulin 2021-02 Yes [id number] 10U inject 10 [facility] NPH-Regular 0-28 Units [facility] of Human Rec 00:00: under [place] unit/mL 00 skin in Medic al (30) the Branch injection morning and 10 Units in the evening. Insulin 2021-02- No [id number] 10U inject 10 [facility] NPH-Regular 0-28 05-30 Units ity of Human Rec 00:00: 00:00 under the [place] 100 unit/mL 00 :00 skin in Medic al (70-30) the Branch injection morning and 10 Units in the evening. Insulin 2021-02- No [id number] 10U inject 10 [facility] NPH-Regular 0-28 05-30 Units ity of Human Rec 00:00: 00:00 under the [place] 100 unit/mL 00 :00 skin in Medic al (70-30) the Branch injection morning and 10 Units in the evening. rosuvastati 2021-02- No [id number] 10mg Take 1 [facility] n 10 mg 003-07 tablet by ity of tablet 00:00: 05:59 mouth at [place] 00 :00 bedtime Medical for 90 Branch days. rosuvastati 2021-02- No [id number] 10mg Take 1 [facility] n 10 mg 03-07 tablet by ity of tablet 00:00: 05:59 mouth at [place] 00 :00 bedtime Medical for 90 Branch days. rosuvastati 2021-02- No [id number] 10mg Take 1 [facility] n 10 mg 03-07 tablet by ity of tablet 00:00: 05:59 mouth at [place] 00 :00 bedtime Medical for 90 Branch days. rosuvastati 2021-02- No [id number] 10mg Take 1 [facility] n 10 mg 03-07 9109 tablet by ity of tablet 00:00: 05:59 mouth at [place] 00 :00 bedtime Medical for 90 Branch days. rosuvastati 2021-02- No [id number] 10mg Take 1 [facility] n 10 mg 003-07 9109 tablet by ity of tablet 00:00: 05:59 mouth at [place] 00 :00 bedtime Medical for 90 Branch days. rosuvastati 2021-02- No [id number] 10mg Take 1 [facility] n 10 mg 003-07 9109 tablet by ity of tablet 00:00: 05:59 mouth at [place] 00 :00 bedtime Medical for 90 Branch days. rosuvastati 2021-02- No [id number] 10mg Take 1 [facility] n 10 mg 003-07 9109 tablet by ity of tablet 00:00: 05:59 mouth at [place] 00 :00 bedtime Medical for 90 Branch days. rosuvastati 2021-02- No [id number] 10mg Take 1 [facility] n 10 mg 03-07 9109 tablet by ity of tablet 00:00: 05:59 mouth at [place] 00 :00 bedtime Medical for 90 Branch days. rosuvastati 2021-02- No [id number] 10mg Take 1 [facility] n 10 mg 03-07 9109 tablet by ity of tablet 00:00: 05:59 mouth at [place] 00 :00 bedtime Medical for 90 Branch days. rosuvastati 2021-02- No [id number] 10mg Take 1 [facility] n 10 mg 03-07 9109 tablet by ity of tablet 00:00: 05:59 mouth at [place] 00 :00 bedtime Medical for 90 Branch days. rosuvastati 2021-02- No [id number] 10mg Take 1 [facility] n 10 mg 03-07 9109 tablet by ity of tablet 00:00: 05:59 mouth at [place] 00 :00 bedtime Medical for 90 Branch days. rosuvastati 2021-02- No [id number] 10mg Take 1 [facility] n 10 mg 03-07 9109 tablet by ity of tablet 00:00: 05:59 mouth at [place] 00 :00 bedtime Medical for 90 Branch days. rosuvastati 2021-02- No [id number] 10mg Take 1 [facility] n 10 mg 03-07 9109 tablet by ity of tablet 00:00: 05:59 mouth at [place] 00 :00 bedtime Medical for 90 Branch days. rosuvastati 2021-02- No [id number] 10mg Take 1 [facility] n 10 mg 03-07 9109 tablet by ity of tablet 00:00: 05:59 mouth at [place] 00 :00 bedtime Medical for 90 Branch days. fenofibrate Yes [id number] 134mg Take 2 [facility] micronized 7-21 capsules ity o f 67 mg 00:00: by mouth [place] capsule 00 in the Medical morning. Branch fenofibrate Yes [id number] 134mg Take 2 [facility] micronized 7-21 capsules ity o f 67 mg 00:00: by mouth [place] capsule 00 in the Medical morning. Branch fenofibrate 2021-0 Yes [id number] 134mg Take 2 [facility] micronized 7-21 capsules ity o f 67 mg 00:00: by mouth [place] capsule 00 in the Medical morning. Branch fenofibrate 2021-0 Yes [id number] 134mg Take 2 [facility] micronized 7-21 capsules ity o f 67 mg 00:00: by mouth [place] capsule 00 in the Medical morning. Branch fenofibrate 2021-0 Yes [id number] 134mg Take 2 [facility] micronized 7-21 capsules ity o f 67 mg 00:00: by mouth [place] capsule 00 in the Medical morning. Branch fenofibrate 2021-0 Yes [id number] 134mg Take 2 [facility] micronized 7-21 capsules ity o f 67 mg 00:00: by mouth [place] capsule 00 in the Medical morning. Branch fenofibrate 2021-0 Yes [id number] 134mg Take 2 [facility] micronized 7-21 capsules ity o f 67 mg 00:00: by mouth [place] capsule 00 in the Medical morning. Branch fenofibrate 2021-0 Yes [id number] 134mg Take 2 [facility] micronized 7-21 capsules ity o f 67 mg 00:00: by mouth [place] capsule 00 in the Medical morning. Branch fenofibrate 2021-0 Yes [id number] 134mg Take 2 [facility] micronized 7-21 capsules ity o f 67 mg 00:00: by mouth [place] capsule 00 in the Medical morning. Branch fenofibrate 2021-0 Yes [id number] 134mg Take 2 [facility] micronized 7-21 capsules ity o f 67 mg 00:00: by mouth [place] capsule 00 in the Medical morning. Branch fenofibrate 2021-0 Yes [id number] 134mg Take 2 [facility] micronized 7-21 capsules ity o f 67 mg 00:00: by mouth [place] capsule 00 in the Medical morning. Branch fenofibrate 2021-0 Yes [id number] 134mg Take 2 [facility] micronized 7-21 capsules ity o f 67 mg 00:00: by mouth [place] capsule 00 in the Medical morning. Branch fenofibrate 2021-0 Yes [id number] 134mg Take 2 [facility] micronized 7-21 capsules ity o f 67 mg 00:00: by mouth [place] capsule 00 in the Medical morning. Branch fenofibrate 2021-0 Yes [id number] 134mg Take 2 [facility] micronized 7-21 capsules ity o f 67 mg 00:00: by mouth [place] capsule 00 in the Medical morning. Branch fenofibrate 0 2023- No [id number] 134mg Take 2 [facility] micronized 7-21 01-17 capsules ity of 67 mg 00:00: 00:00 by mouth [place] capsule 00 :00 in the Medical morning. Branch clonazePAM 2021-0 Yes 1mg Take 1 mg [facility] 1 mg tablet 7-18 by mouth ity of 14:25: in the [address] Medical and 1 mg Branch in the evening. clonazePAM 2021-0 Yes 1mg Take 1 mg [facility] 1 mg tablet 7-18 by mouth ity of 14:25: in the [address] Medical and 1 mg Branch in the evening. clonazePAM 2021-0 Yes 1mg Take 1 mg [facility] 1 mg tablet 7-18 by mouth ity of 14:25: in the [address] Medical and 1 mg Branch in the evening. clonazePAM 2021-0 Yes 1mg Take 1 mg [facility] 1 mg tablet 7-18 by mouth ity of 14:25: in the [address] Medical and 1 mg Branch in the evening. Insulin 2021-0 Yes [id number] 8U inject 8 [facility] NPH-Regular 5-13 Units [facility] of Human Rec 00:00: under the [place] 100 unit/mL 00 skin 2 Medica l (70-30) (two) Branch injection times daily. Insulin 2021-0 Yes [id number] 8U inject 8 [facility] NPH-Regular 5-13 Units [facility]y of Human Rec 00:00: under the [place] 100 unit/mL 00 skin 2 Medica l (70-30) (two) Branch injection times daily. Insulin 2021-0 Yes [id number] 8U inject 8 U n[facility] NPH-Regular 5-13 Units [facility] 00:00: [place] 100 unit/mL 00 skin 2 Medica l (70-30) (two) Branch injection times daily. Insulin 2021-0 Yes [id number] 8U inject 8 [facility] NPH-Regular 5-13 Units [facility] 00:00: [place] unit/mL 00 skin 2 [facility] l (70-30) (two) Branch injection times daily. Insulin 2021- No [id number] 8U inject 8 [facility] NPH-Regular 5-13 10-28 Units [facility] of Human Rec 00:00: 00:00 under the [place] 100 unit/mL 00 :00 skin 2 Medica l (70-30) (two) Branch injection times daily. Insulin 2021- No [id number] 8U inject 8 [facility] NPH-Regular 5-13 10-28 Units [facility] Human Rec 00:00: 00:00 under the [place] 100 unit/mL 00 :00 skin 2 Medica l (70-30) (two) Branch injection times daily. Insulin 2021- No [id number] 8U inject 8 [facility] NPH-Regular 5-13 10-28 Units [facility] of Human Rec 00:00: 00:00 under the [place] 100 unit/mL 00 :00 skin 2 Medica l (70-30) (two) Branch injection times daily. Insulin 2021- No [id number] 8U inject 8 [facility] NPH-Regular 5-13 10-28 Units [facility] of Human Rec 00:00: 00:00 under the [place] 100 unit/mL 00 :00 skin 2 Medica l (70-30) (two) Branch injection times daily. Insulin 2021- No [id number] 8U inject 8 [facility] NPH-Regular 5-13 10-28 Units [facility] of Human Rec 00:00: 00:00 under the [place] 100 unit/mL 00 :00 skin 2 Medica l (70-30) (two) Branch injection times daily. Insulin 2021- No [id number] 8U inject 8 [facility] NPH-Regular 5-13 10-28 Units [facility] of Human Rec 00:00: 00:00 under the [place] 100 unit/mL 00 :00 skin 2 Medica l (70-30) (two) Branch injection times daily. metFORMIN Yes [id number] 1000mg Take 1 [facility] 1,000 mg 4-11 tablet by ity of tablet 00:00: mouth 2 [place] 00 (two) Medical times Branch daily with meals. metFORMIN 2022-0 Yes [id number] 1000mg Take 1 [facility] 1,000 mg 4-11 tablet by ity of tablet 00:00: mouth (two) Medical times Branch daily with meals. metFORMIN 2022-0 Yes [id number] 1000mg Take 1 [facility] 1,000 mg 4-11 tablet by ity of tablet 00:00: mouth (two) Medical times Branch daily with meals. metFORMIN 2022-0 Yes [id number] 1000mg Take 1 [facility] 1,000 mg 4-11 tablet by ity of tablet 00:00: mouth (two) Medical times Branch daily with meals. metFORMIN 2022-0 Yes [id number] 1000mg Take 1 [facility] 1,000 mg 4-11 tablet by ity of tablet 00:00: mouth (two) Medical times Branch daily with meals. metFORMIN 2022-0 Yes [id number] 1000mg Take 1 [facility] 1,000 mg 4-11 tablet by ity of tablet 00:00: mouth (two) Medical times Branch daily with meals. metFORMIN 2022-0 Yes [id number] 1000mg Take 1 [facility] 1,000 mg 4-11 tablet by ity of tablet 00:00: mouth (two) Medical times Branch daily with meals. metFORMIN 2022-0 Yes [id number] 1000mg Take 1 [facility] 1,000 mg 4-11 tablet by ity of tablet 00:00: mouth (two) Medical times Branch daily with meals. metFORMIN 2022-0 Yes [id number] 1000mg Take 1 [facility] 1,000 mg 4-11 tablet by ity of tablet 00:00: mouth (two) Medical times Branch daily with meals. metFORMIN 2022-0 Yes [id number] 1000mg Take 1 [facility] 1,000 mg 4-11 tablet by ity of tablet 00:00: mouth (two) Medical times Branch daily with meals. metFORMIN 2022-0 Yes [id number] 1000mg Take 1 [facility] 1,000 mg 4-11 tablet by ity of tablet 00:00: mouth (two) Medical times Branch daily with meals. metFORMIN 2022-0 Yes [id number] 1000mg Take 1 [facility] 1,000 mg 4-11 tablet by ity of tablet 00:00: mouth (two) Medical times Branch daily with meals. metFORMIN 2022-0 Yes [id number] 1000mg Take 1 [facility] 1,000 mg 4-11 tablet by ity of tablet 00:00: mouth (two) Medical times Branch daily with meals. metFORMIN 2022-0 Yes [id number] 1000mg Take 1 [facility] 1,000 mg 4-11 tablet by ity of tablet 00:00: mouth (two) Medical times Branch daily with meals. metFORMIN 2022-0 Yes [id number] 1000mg Take 1 [facility] 1,000 mg 4-11 tablet by ity of tablet 00:00: mouth (two) Medical times Branch daily with meals. metFORMIN 2022-0 Yes [id number] 1000mg Take 1 [facility] 1,000 mg 4-11 tablet by ity of tablet 00:00: mouth (two) Medical times Branch daily with meals. metFORMIN 2022-0 Yes [id number] 1000mg Take 1 [facility] 1,000 mg 4-11 tablet by ity of tablet 00:00: mouth (two) Medical times Branch daily with meals. metFORMIN 2022-0 Yes [id number] 1000mg Take 1 [facility] 1,000 mg 4-11 tablet by ity of tablet 00:00: mouth (two) Medical times Branch daily with meals. metFORMIN 2022-0 Yes [id number] 1000mg Take 1 [facility] 1,000 mg 4-11 tablet by ity of tablet 00:00: mouth (two) Medical times Branch daily with meals. metFORMIN 2022-0 Yes [id number] 1000mg Take 1 [facility] 1,000 mg 4-11 tablet by ity of tablet 00:00: mouth (two) Medical times Branch daily with meals. metFORMIN 2022-0 Yes [id number] 1000mg Take 1 [facility] 1,000 mg 4-11 tablet by ity of tablet 00:00: mouth (two) Medical times Branch daily with meals. metFORMIN 2022-0 Yes [id number] 1000mg Take 1 [facility] 1,000 mg 4-11 tablet by ity of tablet 00:00: mouth (two) Medical times Branch daily with meals. metFORMIN 2022-0 Yes [id number] 1000mg Take 1 [facility] 1,000 mg 4-11 tablet by ity of tablet 00:00: mouth (two) Medical times Branch daily with meals. metFORMIN 2022-0 Yes [id number] 1000mg Take 1 [facility] 1,000 mg 4-11 tablet by ity of tablet 00:00: mouth (two) Medical times Branch daily with meals. metFORMIN 2022-0 Yes [id number] 1000mg Take 1 [facility] 1,000 mg 4-11 tablet by ity of tablet 00:00: mouth (two) Medical times Branch daily with meals. metFORMIN 2022-0 Yes [id number] 1000mg Take 1 [facility] 1,000 mg 4-11 tablet by ity of tablet 00:00: mouth (two) Medical times Branch daily with meals. metFORMIN 2022-0 Yes [id number] 1000mg Take 1 [facility] 1,000 mg 4-11 tablet by ity of tablet 00:00: mouth (two) Medical times Branch daily with meals. metFORMIN 2022-0 Yes [id number] 1000mg Take 1 [facility] 1,000 mg 4-11 tablet by ity of tablet 00:00: mouth (two) Medical times Branch daily with meals. metFORMIN 2022-0 Yes [id number] 1000mg Take 1 [facility] 1,000 mg 4-11 tablet by ity of tablet 00:00: mouth (two) Medical times Branch daily with meals. metFORMIN 2022-0 Yes [id number] 1000mg Take 1 [facility] 1,000 mg 4-11 tablet by ity of tablet 00:00: mouth (two) Medical times Branch daily with meals. metFORMIN 2022-0 Yes [id number] 1000mg Take 1 [facility] 1,000 mg 4-11 tablet by ity of tablet 00:00: mouth (two) Medical times Branch daily with meals. metFORMIN 2022-0 Yes [id number] 1000mg Take 1 [facility] 1,000 mg 4-11 tablet by ity of tablet 00:00: mouth (two) Medical times Branch daily with meals. metFORMIN 2022-0 Yes [id number] 1000mg Take 1 [facility] 1,000 mg 4-11 tablet by ity of tablet 00:00: mouth (two) Medical times Branch daily with meals. metFORMIN 2022-0 2023- No [id number] 1000mg Take 1 [facility] 1,000 mg 4-11 05-01 tablet by ity o f tablet 00:00: 00:00 mouth 2 [place] 00 :00 (two) Medical times Branch daily with meals. fenofibrate 2021-0 2021- No [id number] 134mg Take 2 [facility] micronized 05-01 capsules ity of 67 mg 00:00: 00:00 by mouth [place] capsule 00 :00 daily. Medical Branch MULTIVITAMI 2021-0 2021- No Take by [facility] N ORAL 03-08 mouth ity of 14:55: 00:00 daily. [place] 45 :00 Medical Branch pantoprazol 2-0 Yes 40mg Take 1 Univ ers e 1-19 tablet by ity of (PROTONIX) 00:00: mouth [place] 40 mg EC 00 daily. Medical tablet Branch pantoprazol 2021-0 Yes 40mg Take 1 [facility] ers e 1-19 tablet by ity of (PROTONIX) 00:00: mouth [place] 40 mg EC 00 daily. Medical tablet Branch pantoprazol 2-0 Yes 40mg Take 1 [facility] ers e 1-19 tablet by ity of (PROTONIX) 00:00: mouth [place] 40 mg EC 00 daily. Medical tablet Branch pantoprazol 2021-0 Yes 40mg Take 1 [facility] ers e 1-19 tablet by ity of (PROTONIX) 00:00: mouth [place] 40 mg EC 00 daily. Medical tablet Branch pantoprazol 2-0 Yes 40mg Take 1 [facility] ers e 1-19 tablet by ity of (PROTONIX) 00:00: mouth [place] 40 mg EC 00 daily. Medical tablet Branch pantoprazol 2-0 Yes 40mg Take 1 [facility] ers e 1-19 tablet by ity of (PROTONIX) 00:00: mouth [place] 40 mg EC 00 daily. Medical tablet Branch pantoprazol 2-0 Yes 40mg Take 1 [facility] ers e 1-19 tablet by ity of (PROTONIX) 00:00: mouth [place] 40 mg EC 00 daily. Medical tablet Branch pantoprazol 2022-0 Yes 40mg Take 1 [facility] ers e 1-19 tablet by ity of (PROTONIX) 00:00: mouth [place] 40 mg EC 00 daily. Medical tablet Branch pantoprazol 2-0 Yes 40mg Take 1 [facility] ers e 1-19 tablet by ity of (PROTONIX) 00:00: mouth [place] 40 mg EC 00 daily. Medical tablet Branch pantoprazol 2022-0 Yes 40mg Take 1 [facility] ers e 1-19 tablet by ity of (PROTONIX) 00:00: mouth [place] 40 mg EC 00 daily. Medical tablet Branch pantoprazol 2022-0 Yes 40mg Take 1 [facility] ers e 1-19 tablet by ity of (PROTONIX) 00:00: mouth [place] 40 mg EC 00 daily. Medical tablet Branch pantoprazol 2022-0 Yes 40mg Take 1 [facility] ers e 1-19 tablet by ity of (PROTONIX) 00:00: mouth [place] 40 mg EC 00 daily. Medical tablet Branch pantoprazol 2022-0 Yes 40mg Take 1 [facility] ers e 1-19 tablet by ity of (PROTONIX) 00:00: mouth [place] 40 mg EC 00 daily. Medical tablet Branch pantoprazol 2022-0 Yes 40mg Take 1 [facility] ers e 1-19 tablet by ity of (PROTONIX) 00:00: mouth [place] 40 mg EC 00 daily. Medical tablet Branch pantoprazol 2022-0 Yes 40mg Take 1 [facility] ers e 1-19 tablet by ity of (PROTONIX) 00:00: mouth [place] 40 mg EC 00 daily. Medical tablet Branch pantoprazol 2022-0 Yes 40mg Take 1 [facility] ers e 1-19 tablet by ity of (PROTONIX) 00:00: mouth [place] 40 mg EC 00 daily. Medical tablet Branch pantoprazol 2022-0 Yes 40mg Take 1 [facility] ers e 1-19 tablet by ity of (PROTONIX) 00:00: mouth [place] 40 mg EC 00 daily. Medical tablet Branch pantoprazol 2022-0 Yes 40mg Take 1 [facility] ers e 1-19 tablet by ity of (PROTONIX) 00:00: mouth [place] 40 mg EC 00 daily. Medical tablet Branch pantoprazol 2022-0 Yes 40mg Take 1 [facility] ers e 1-19 tablet by ity of (PROTONIX) 00:00: mouth [place] 40 mg EC 00 daily. Medical tablet Branch pantoprazol 2022-0 Yes 40mg Take 1 [facility] ers e 1-19 tablet by ity of (PROTONIX) 00:00: mouth [place] 40 mg EC 00 daily. Medical tablet Branch pantoprazol 2022-0 Yes 40mg Take 1 [facility] ers e 1-19 tablet by ity of (PROTONIX) 00:00: mouth [place] 40 mg EC 00 daily. Medical tablet Branch pantoprazol 2022-0 Yes 40mg Take 1 [facility] ers e 1-19 tablet by ity of (PROTONIX) 00:00: mouth [place] 40 mg EC 00 daily. Medical tablet Branch pantoprazol Yes 40mg Take 1 [facility] ers e 1-19 tablet by ity of (PROTONIX) 00:00: mouth [place] 40 mg EC 00 daily. Medical tablet Branch pantoprazol Yes 40mg Take 1 [facility] ers e 1-19 tablet by ity of (PROTONIX) 00:00: mouth [place] 40 mg EC 00 daily. Medical tablet Branch pantoprazol 2022- No 40mg Take 1 [facility] vers e 1-19 03-13 tablet by ity of (PROTONIX) 00:00: 00:00 mouth [place] 40 mg EC 00 :00 daily. Medical tablet Branch fenofibrate 2020-02 No [id number] 134mg Take 2 [facility] micronized 0-20 11-20 capsules ity of 67 mg 00:00: 00:00 by mouth [place] capsule 00 :00 daily. Medical Branch metFORMIN 2020-02- No [id number] 500mg Take 1 [facility] 500 mg 0-20 11-20 tablet by ity of tablet 00:00: 00:00 mouth 2 [place] 00 :00 (two) Medical times Branch daily with meals. Insulin 2020-02- No [id number] 5U inject 5 [facility] NPH-Regular 0-01 12-21 Units [facility] of Human Rec 00:00: 00:00 under the [place] 100 unit/mL 00 :00 skin 2 Medica l (70-30) (two) Branch injection times daily. pantoprazol 2020- No [id number] 40mg Take 1 [facility] e 6-24 12-22 tablet by ity of (PROTONIX) 00:00: 00:00 mouth [place] 40 mg EC 00 :00 daily. Medical tablet Branch lipase-prot Yes [id number] Take 1 [facility] ease-amylas 5-15 capsules ity of e (CREON) 00:00: by [place] 36,000-114, 00 with meals Me dical 000- and 1 with Branch 180,000 each unit CpDR snack. lipase-prot Yes [id number] Take 1 [facility] ease-amylas 5-15 capsules ity of e (CREON) 00:00: by [place] 36,000-114, 00 with meals Me dical 000- and 1 with Branch 180,000 each unit CpDR snack. lipase-prot Yes [id number] Take 1 [facility] ease-amylas 5-15 capsules ity of e (CREON) 00:00: by [place] 36,000-114, 00 with meals Me dical 000- and 1 with Branch 180,000 each unit CpDR snack. lipase-prot Yes [id number] Take 1 [facility] ease-amylas 5-15 capsules ity of e (CREON) 00:00: by [place] 36,000-114, 00 with meals Me dical 000- and 1 with Branch 180,000 each unit CpDR snack. lipase-prot Yes [id number] Take 1 [facility] ease-amylas 5-15 capsules ity of e (CREON) 00:00: by mouth [place] 36,000-114, 00 with meals Me dical 000- and 1 with Branch 180,000 each unit CpDR snack. lipase-prot Yes [id number] Take 1 [facility] ease-amylas 5-15 capsules ity of e (CREON) 00:00: by [place] 36,000-114, 00 with meals Me dical 000- and 1 with Branch 180,000 each unit CpDR snack. lipase-prot Yes [id number] Take 1 [facility] ease-amylas 5-15 capsules ity of e (CREON) 00:00: by mouth [place] 36,000-114, 00 with meals Me dical 000- and 1 with Branch 180,000 each unit CpDR snack. lipase-prot Yes [id number] Take 1 [facility] ease-amylas 5-15 capsules ity of e (CREON) 00:00: by mouth [place] 36,000-114, 00 with meals Me dical 000- and 1 with Branch 180,000 each unit CpDR snack. lipase-prot Yes [id number] Take 1 [facility] ease-amyl[place] 5-15 capsules ity of e (CREON) 00:00: by mouth [place] 36,000-114, 00 with meals Me dical 000- and 1 with Branch 180,000 each unit CpDR snack. lipase-prot Yes [id number] Take 1 [facility] ease-amylas 5-15 capsules ity of e (CREON) 00:00: by mouth [place] 36,000-114, 00 with meals Me dical 000- and 1 with Branch 180,000 each unit CpDR snack. lipase-prot Yes [id number] Take 1 [facility] ease-amylas 5-15 capsules ity of e (CREON) 00:00: by mouth [place] 36,000-114, 00 with meals Me dical 000- and 1 with Branch 180,000 each unit CpDR snack. lipase-prot Yes [id number] Take 1 [facility] ease-amyl[place] 5-15 capsules ity of e (CREON) 00:00: by mouth [place] 36,000-114, 00 with meals Me dical 000- and 1 with Branch 180,000 each unit CpDR snack. lipase-prot Yes [id number] Take 1 [facility] ease-amyl[place] 5-15 capsules ity of e (CREON) 00:00: by mouth [place] 36,000-114, 00 with meals Me dical 000- and 1 with Branch 180,000 each unit CpDR snack. lipase-prot Yes [id number] Take 1 [facility] ease-amyl[place] 5-15 capsules ity of e (CREON) 00:00: by mouth [place] 36,000-114, 00 with meals Me dical 000- and 1 with Branch 180,000 each unit CpDR snack. lipase-prot Yes [id number] Take 1 [facility] ease-amyl[place] 5-15 capsules ity of e (CREON) 00:00: by mouth [place] 36,000-114, 00 with meals Me dical 000- and 1 with Branch 180,000 each unit CpDR snack. lipase-prot Yes [id number] Take 1 [facility] ease-amyl[place] 5-15 capsules ity of e (CREON) 00:00: by mouth [place] 36,000-114, 00 with meals Me dical 000- and 1 with Branch 180,000 each unit CpDR snack. lipase-prot Yes [id number] Take 1 [facility] ease-amylas 5-15 capsules ity of e (CREON) 00:00: by mouth [place] 36,000-114, 00 with meals Me dical 000- and 1 with Branch 180,000 each unit CpDR snack. lipase-prot Yes [id number] Take 1 [facility] ease-amyl[place] 5-15 capsules ity of e (CREON) 00:00: by mouth [place] 36,000-114, 00 with meals Me dical 000- and 1 with Branch 180,000 each unit CpDR snack. lipase-prot Yes [id number] Take 1 [facility] ease-amyl[place] 5-15 capsules ity of e (CREON) 00:00: by mouth [place] 36,000-114, 00 with meals Me dical 000- and 1 with Branch 180,000 each unit CpDR snack. lipase-prot Yes [id number] Take 1 [facility] ease-amyl[place] 5-15 capsules ity of e (CREON) 00:00: by mouth [place] 36,000-114, 00 with meals Me dical 000- and 1 with Branch 180,000 each unit CpDR snack. lipase-prot Yes [id number] Take 1 [facility] ease-amylas 5-15 capsules ity of e (CREON) 00:00: by mouth [place] 36,000-114, 00 with meals Me dical 000- and 1 with Branch 180,000 each unit CpDR snack. lipase-prot Yes [id number] Take 1 [facility] ease-amyl[place] 5-15 capsules ity of e (CREON) 00:00: by mouth [place] 36,000-114, 00 with meals Me dical 000- and 1 with Branch 180,000 each unit CpDR snack. lipase-prot Yes [id number] Take 1 [facility] ease-amyl[place] 5-15 capsules ity of e (CREON) 00:00: by mouth [place] 36,000-114, 00 with meals Me dical 000- and 1 with Branch 180,000 each unit CpDR snack. lipase-prot Yes [id number] Take 1 [facility] ease-amyl[place] 5-15 capsules ity of e (CREON) 00:00: by mouth [place] 36,000-114, 00 with meals Me dical 000- and 1 with Branch 180,000 each unit CpDR snack. lipase-prot Yes [id number] Take 1 [facility] ease-amyl[place] 5-15 capsules ity of e (CREON) 00:00: by mouth [place] 36,000-114, 00 with meals Me dical 000- and 1 with Branch 180,000 each unit CpDR snack. lipase-prot Yes [id number] Take 1 [facility] ease-amyl[place] 5-15 capsules ity of e (CREON) 00:00: by mouth [place] 36,000-114, 00 with meals Me dical 000- and 1 with Branch 180,000 each unit CpDR snack. lipase-prot Yes [id number] Take 1 [facility] ease-amyl[place] 5-15 capsules ity of e (CREON) 00:00: by mouth [place] 36,000-114, 00 with meals Me dical 000- and 1 with Branch 180,000 each unit CpDR snack. lipase-prot Yes [id number] Take 1 [facility] ease-amylas 5-15 capsules ity of e (CREON) 00:00: by mouth [place] 36,000-114, 00 with meals Me dical 000- and 1 with Branch 180,000 each unit CpDR snack. lipase-prot Yes [id number] Take 1 [facility] ease-amyl[place] 5-15 capsules ity of e (CREON) 00:00: by mouth [place] 36,000-114, 00 with meals Me dical 000- and 1 with Branch 180,000 each unit CpDR snack. lipase-prot Yes [id number] Take 1 [facility] ease-amyl[place] 5-15 capsules ity of e (CREON) 00:00: by mouth [place] 36,000-114, 00 with meals Me dical 000- and 1 with Branch 180,000 each unit CpDR snack. lipase-prot Yes [id number] Take 1 [facility] ease-amyl[place] 5-15 capsules ity of e (CREON) 00:00: by mouth [place] 36,000-114, 00 with meals Me dical 000- and 1 with Branch 180,000 each unit CpDR snack. lipase-prot Yes [id number] Take 1 [facility] ease-amyl[place] 5-15 capsules ity of e (CREON) 00:00: by mouth [place] 36,000-114, 00 with meals Me dical 000- and 1 with Branch 180,000 each unit CpDR snack. lipase-prot Yes [id number] Take 1 [facility] ease-amyl[place] 5-15 capsules ity of e (CREON) 00:00: by mouth [place] 36,000-114, 00 with meals Me dical 000- and 1 with Branch 180,000 each unit CpDR snack. lipase-prot Yes [id number] Take 1 [facility] ease-amyl[place] 5-15 capsules ity of e (CREON) 00:00: by mouth [place] 36,000-114, 00 with meals Me dical 000- and 1 with Branch 180,000 each unit CpDR snack. lipase-prot Yes [id number] Take 1 [facility] ease-amylas 5-15 capsules ity of e (CREON) 00:00: by mouth [place] 36,000-114, 00 with meals Me dical 000- and 1 with Branch 180,000 each unit CpDR snack. lipase-prot Yes [id number] Take 1 [facility] ease-amylas 5-15 capsules ity of e (CREON) 00:00: by mouth [place] 36,000-114, 00 with meals Me dical 000- and 1 with Branch 180,000 each unit CpDR snack. lipase-prot Yes [id number] Take 1 [facility] ease-amylas 5-15 capsules ity of e (CREON) 00:00: by mouth [place] 36,000-114, 00 with meals Me dical 000- and 1 with Branch 180,000 each unit CpDR snack. lipase-prot Yes [id number] Take 1 [facility] ease-amyl[facility] 5-15 capsules ity of e (CREON) 00:00: by mouth [place] 36,000-114, 00 with meals Me dical 000- and 1 with Branch 180,000 each unit CpDR snack. lipase-prot Yes [id number] Take 1 [facility] ease-amylas 5-15 capsules ity of e (CREON) 00:00: by mouth [place] 36,000-114, 00 with meals Me dical 000- and 1 with Branch 180,000 each unit CpDR snack. lipase-prot Yes [id number] Take 1 [facility] ease-amylas 5-15 capsules ity of e (CREON) 00:00: by mouth [place] 36,000-114, 00 with meals Me dical 000- and 1 with Branch 180,000 each unit CpDR snack. lipase-prot Yes [id number] Take 1 [facility] ease-amylas 5-15 capsules ity of e (CREON) 00:00: by mouth [place] 36,000-114, 00 with meals Me dical 000- and 1 with Branch 180,000 each unit CpDR snack. lipase-prot Yes [id number] Take 1 [facility] ease-amylas 5-15 capsules ity of e (CREON) 00:00: by mouth [place] 36,000-114, 00 with meals Me dical 000- and 1 with Branch 180,000 each unit CpDR snack. lipase-prot Yes [id number] Take 1 [facility] ease-amylas 5-15 capsules ity of e (CREON) 00:00: by mouth [place] 36,000-114, 00 with meals Me dical 000- and 1 with Branch 180,000 each unit CpDR snack. lipase-prot Yes [id number] Take 1 [facility] ease-amylas 5-15 capsules ity of e (CREON) 00:00: by mouth [place] 36,000-114, 00 with meals Me dical 000- and 1 with Branch 180,000 each unit CpDR snack. lipase-prot Yes [id number] Take 1 [facility] ease-amylas 5-15 capsules ity of e (CREON) 00:00: by mouth [place] 36,000-114, 00 with meals Me dical 000- and 1 with Branch 180,000 each unit CpDR snack. lipase-prot Yes [id number] Take 1 [facility] ease-amyl[facility] 5-15 capsules ity of e (CREON) 00:00: by mouth [place] 36,000-114, 00 with meals Me dical 000- and 1 with Branch 180,000 each unit CpDR snack. lipase-prot Yes [id number] Take 1 [facility] ease-amylas 5-15 capsules ity of e (CREON) 00:00: by mouth [place] 36,000-114, 00 with meals Me dical 000- and 1 with Branch 180,000 each unit CpDR snack. lipase-prot Yes [id number] Take 1 [facility] ease-amylas 5-15 capsules ity of e (CREON) 00:00: by mouth [place] 36,000-114, 00 with meals Me dical 000- and 1 with Branch 180,000 each unit CpDR snack. lipase-prot Yes [id number] Take 1 [facility] ease-amylas 5-15 capsules ity of e (CREON) 00:00: by mouth [place] 36,000-114, 00 with meals Me dical 000- and 1 with Branch 180,000 each unit CpDR snack. lipase-prot Yes [id number] Take 1 [facility] ease-amylas 5-15 capsules ity of e (CREON) 00:00: by mouth [place] 36,000-114, 00 with meals Me dical 000- and 1 with Branch 180,000 each unit CpDR snack. lipase-prot Yes [id number] Take 1 [facility] ease-amylas 5-15 capsules ity of e (CREON) 00:00: by mouth [place] 36,000-114, 00 with meals Me dical 000- and 1 with Branch 180,000 each unit CpDR snack. lipase-prot Yes [id number] Take 1 [facility] ease-amylas 5-15 capsules ity of e (CREON) 00:00: by mouth [place] 36,000-114, 00 with meals Me dical 000- and 1 with Branch 180,000 each unit CpDR snack. lipase-prot Yes [id number] Take 1 [facility] ease-amylas 5-15 capsules ity of e (CREON) 00:00: by mouth [place] 36,000-114, 00 with meals Me dical 000- and 1 with Branch 180,000 each unit CpDR snack. lipase-prot Yes [id number] Take 1 [facility] ease-amylas 5-15 capsules ity of e (CREON) 00:00: by mouth [place] 36,000-114, 00 with meals Me dical 000- and 1 with Branch 180,000 each unit CpDR snack. lipase-prot Yes [id number] Take 1 [facility] ease-amylas 5-15 capsules ity of e (CREON) 00:00: by mouth [place] 36,000-114, 00 with meals Me dical 000- and 1 with Branch 180,000 each unit CpDR snack. lipase-prot Yes [id number] Take 1 [facility] ease-amylas 5-15 capsules ity of e (CREON) 00:00: by mouth [place] 36,000-114, 00 with meals Me dical 000- and 1 with Branch 180,000 each unit CpDR snack. lipase-prot Yes [id number] Take 1 [facility] ease-amylas 5-15 capsules ity of e (CREON) 00:00: by mouth [place] 36,000-114, 00 with meals Me dical 000- and 1 with Branch 180,000 each unit CpDR snack. lipase-prot Yes [id number] Take 1 [facility] ease-amylas 5-15 capsules ity of e (CREON) 00:00: by mouth [place] 36,000-114, 00 with meals Me dical 000- and 1 with Branch 180,000 each unit CpDR snack. lipase-prot Yes [id number] Take 1 [facility] ease-amylas 5-15 capsules ity of e (CREON) 00:00: by mouth [place] 36,000-114, 00 with meals Me dical 000- and 1 with Branch 180,000 each unit CpDR snack. lipase-prot Yes [id number] Take 1 [facility] ease-amylas 5-15 capsules ity of e (CREON) 00:00: by mouth [place] 36,000-114, 00 with meals Me dical 000- and 1 with Branch 180,000 each unit CpDR snack. lipase-prot Yes [id number] Take 1 [facility] ease-amylas 5-15 capsules ity of e (CREON) 00:00: by mouth [place] 36,000-114, 00 with meals Me dical 000- and 1 with Branch 180,000 each unit CpDR snack. lipase-prot Yes [id number] Take 1 [facility] ease-amylas 5-15 capsules ity of e (CREON) 00:00: by mouth [place] 36,000-114, 00 with meals Me dical 000- and 1 with Branch 180,000 each unit CpDR snack. lipase-prot Yes [id number] Take 1 [facility] ease-amylas 5-15 capsules ity of e (CREON) 00:00: by mouth [place] 36,000-114, 00 with meals Me dical 000- and 1 with Branch 180,000 each unit CpDR snack. omega-3 Yes [id number] 1000mg Take 1 U nivers fatty acids 2-19 capsule by it y of capsule 00:00: mouth (three) Medical times Branch daily with meals. omega-3 Yes [id number] 1000mg Take 1 U nivers fatty acids 2-19 capsule by it y of capsule 00:00: mouth () Medical times Branch daily with meals. omega-3 Yes [id number] 1000mg Take 1 U nivers fatty acids 2-19 capsule by it y of capsule 00:00: mouth () Medical times Branch daily with meals. omega-3 Yes [id number] 1000mg Take 1 U nivers fatty acids 2-19 capsule by it y of capsule 00:00: mouth () Medical times Branch daily with meals. omega-3 Yes [id number] 1000mg Take 1 U nivers fatty acids 2-19 capsule by it y of capsule 00:00: mouth () [facility] daily with meals. omega-3 Yes [id number] 1000mg Take 1 [facility] n[facility] fatty acids 2-19 capsule by it y of capsule 00:00: mouth () [facility] daily with meals. omega-3 Yes [id number] 1000mg Take 1 [facility] fatty acids 2-19 capsule by it y of capsule 00:00: mouth (three) [facility] times [facility] daily with meals. omega-3 0 Yes [id number] 1000mg Take 1 [facility] fatty acids 2-19 capsule by it y of capsule 00:00: mouth (three) [facility] times [facility] daily with meals. omega-3 Yes [id number] 1000mg Take 1 [facility] fatty acids 2-19 capsule by it y of capsule 00:00: mouth (three) [facility] times [facility] daily with meals. omega-3 0 Yes [id number] 1000mg Take 1 [facility] fatty acids 2-19 capsule by it y of capsule 00:00: mouth (three) [facility] times [facility] daily with meals. omega-3 2020-0 Yes [id number] 1000mg Take 1 [facility] fatty acids 2-19 capsule by it y of capsule 00:00: mouth (three) [facility] times [facility] daily with meals. omega-3 0 Yes [id number] 1000mg Take 1 [facility] fatty acids 2-19 capsule by it y of capsule 00:00: mouth (three) [facility] times [facility] daily with meals. omega-3 0 Yes [id number] 1000mg Take 1 [facility] fatty acids 2-19 capsule by it y of capsule 00:00: mouth (three) [facility] times [facility] daily with meals. omega-3 0 Yes [id number] 1000mg Take 1 [facility] fatty acids 2-19 capsule by it y of capsule 00:00: mouth (three) [facility] times [facility] daily with meals. omega-3 Yes [id number] 1000mg Take 1 [facility] fatty acids 2-19 capsule by it y of capsule 00:00: mouth (three) [facility] times [facility] daily with meals. omega-3 0 Yes [id number] 1000mg Take 1 [facility] fatty acids 2-19 capsule by it y of capsule 00:00: mouth (three) [facility] times [facility] daily with meals. omega-3 0 Yes [id number] 1000mg Take 1 [facility] fatty acids 2-19 capsule by it y of capsule 00:00: mouth (three) [facility] times [facility] daily with meals. omega-3 2020-0 Yes [id number] 1000mg Take 1 [facility] fatty acids 2-19 capsule by it y of capsule 00:00: mouth (three) [facility] times [facility] daily with meals. omega-3 2020-0 Yes [id number] 1000mg Take 1 [facility] fatty acids 2-19 capsule by it y of capsule 00:00: mouth (three) [facility] times [facility] daily with meals. omega-3 2020-0 Yes [id number] 1000mg Take 1 [facility] fatty acids 2-19 capsule by it y of capsule 00:00: mouth (three) [facility] times [facility] daily with meals. omega-3 2020-0 Yes [id number] 1000mg Take 1 [facility] fatty acids 2-19 capsule by it y of capsule 00:00: mouth (three) [facility] times [facility] daily with meals. omega-3 2020-0 Yes [id number] 1000mg Take 1 [facility] fatty acids 2-19 capsule by it y of capsule 00:00: mouth (three) [facility] times [facility] daily with meals. omega-3 2020-0 Yes [id number] 1000mg Take 1 [facility] fatty acids 2-19 capsule by it y of capsule 00:00: mouth (three) [facility] times [facility] daily with meals. omega-3 2020-0 Yes [id number] 1000mg Take 1 [facility] fatty acids 2-19 capsule by it y of capsule 00:00: mouth (three) [facility] times [facility] daily with meals. omega-3 2020-0 Yes [id number] 1000mg Take 1 [facility] fatty acids 2-19 capsule by it y of capsule 00:00: mouth (three) [facility] times [facility] daily with meals. omega-3 2020-0 Yes [id number] 1000mg Take 1 [facility] fatty acids 2-19 capsule by it y of capsule 00:00: mouth (three) [facility] times [facility] daily with meals. omega-3 2020-0 Yes [id number] 1000mg Take 1 [facility] fatty acids 2-19 capsule by it y of capsule 00:00: mouth (three) [facility] times [facility] daily with meals. omega-3 2020-0 Yes [id number] 1000mg Take 1 [facility] fatty acids 2-19 capsule by it y of capsule 00:00: mouth (three) [facility] times [facility] daily with meals. omega-3 2020-0 Yes [id number] 1000mg Take 1 [facility] fatty acids 2-19 capsule by it y of capsule 00:00: mouth (three) [facility] times [facility] daily with meals. omega-3 2020-0 Yes [id number] 1000mg Take 1 [facility] fatty acids 2-19 capsule by it y of capsule 00:00: mouth (three) [facility] times [facility] daily with meals. omega-3 2020-0 Yes [id number] 1000mg Take 1 [facility] fatty acids 2-19 capsule by it y of capsule 00:00: mouth (three) [facility] times [facility] daily with meals. omega-3 2020-0 Yes [id number] 1000mg Take 1 [facility] fatty acids 2-19 capsule by it y of capsule 00:00: mouth (three) [facility] times [facility] daily with meals. omega-3 2020-0 Yes [id number] 1000mg Take 1 [facility] fatty acids 2-19 capsule by it y of capsule 00:00: mouth (three) [facility] times [facility] daily with meals. omega-3 2020-0 Yes [id number] 1000mg Take 1 [facility] fatty acids 2-19 capsule by it y of capsule 00:00: mouth (three) [facility] times [facility] daily with meals. omega-3 0 Yes [id number] 1000mg Take 1 [facility] fatty acids 2-19 capsule by it y of capsule 00:00: mouth (three) [facility] times [facility] daily with meals. omega-3 0 Yes [id number] 1000mg Take 1 [facility] fatty acids 2-19 capsule by it y of capsule 00:00: mouth (three) [facility] times [facility] daily with meals. omega-3 2020-0 Yes [id number] 1000mg Take 1 [facility] fatty acids 2-19 capsule by it y of capsule 00:00: mouth (three) [facility] times [facility] daily with meals. omega-3 2020-0 Yes [id number] 1000mg Take 1 [facility] fatty acids 2-19 capsule by it y of capsule 00:00: mouth (three) [facility] times [facility] daily with meals. omega-3 2020-0 Yes [id number] 1000mg Take 1 [facility] fatty acids 2-19 capsule by it y of capsule 00:00: mouth (three) [facility] times [facility] daily with meals. omega-3 2020-0 Yes [id number] 1000mg Take 1 [facility] fatty acids 2-19 capsule by it y of capsule 00:00: mouth (three) [facility] times [facility] daily with meals. omega-3 2020-0 Yes [id number] 1000mg Take 1 [facility] fatty acids 2-19 capsule by it y of capsule 00:00: mouth (three) [facility] times [facility] daily with meals. omega-3 2020-0 Yes [id number] 1000mg Take 1 [facility] fatty acids 2-19 capsule by it y of capsule 00:00: mouth (three) [facility] times [facility] daily with meals. omega-3 2020-0 Yes [id number] 1000mg Take 1 [facility] fatty acids 2-19 capsule by it y of capsule 00:00: mouth (three) [facility] times [facility] daily with meals. omega-3 2020-0 Yes [id number] 1000mg Take 1 [facility] fatty acids 2-19 capsule by it y of capsule 00:00: mouth (three) [facility] times [facility] daily with meals. omega-3 2020-0 Yes [id number] 1000mg Take 1 [facility] fatty acids 2-19 capsule by it y of capsule 00:00: mouth (three) [facility] times [facility] daily with meals. omega-3 2020-0 Yes [id number] 1000mg Take 1 [facility] fatty acids 2-19 capsule by it y of capsule 00:00: mouth (three) [facility] times [facility] daily with meals. omega-3 2020-0 Yes [id number] 1000mg Take 1 [facility] fatty acids 2-19 capsule by it y of capsule 00:00: mouth (three) [facility] times [facility] daily with meals. omega-3 2020-0 Yes [id number] 1000mg Take 1 [facility] fatty acids 2-19 capsule by it y of capsule 00:00: mouth (three) [facility] times [facility] daily with meals. omega-3 2020-0 Yes [id number] 1000mg Take 1 [facility] fatty acids 2-19 capsule by it y of capsule 00:00: mouth (three) [facility] times [facility] daily with meals. omega-3 2020-0 Yes [id number] 1000mg Take 1 [facility] fatty acids 2-19 capsule by it y of capsule 00:00: mouth (three) [facility] times [facility] daily with meals. omega-3 2020-0 Yes [id number] 1000mg Take 1 [facility] fatty acids 2-19 capsule by it y of capsule 00:00: mouth (three) [facility] times [facility] daily with meals. omega-3 2020-0 Yes [id number] 1000mg Take 1 [facility] fatty acids 2-19 capsule by it y of capsule 00:00: mouth (three) [facility] times [facility] daily with meals. omega-3 2020-0 Yes [id number] 1000mg Take 1 [facility] fatty acids 2-19 capsule by it y of capsule 00:00: mouth (three) [facility] times [facility] daily with meals. omega-3 2020-0 Yes [id number] 1000mg Take 1 [facility] fatty acids 2-19 capsule by it y of capsule 00:00: mouth (three) [facility] times [facility] daily with meals. omega-3 2020-0 Yes [id number] 1000mg Take 1 [facility] fatty acids 2-19 capsule by it y of capsule 00:00: mouth (three) [facility] times [facility] daily with meals. omega-3 0 Yes [id number] 1000mg Take 1 [facility] fatty acids 2-19 capsule by it y of capsule 00:00: mouth (three) [facility] times [facility] daily with meals. omega-3 0 Yes [id number] 1000mg Take 1 [facility] fatty acids 2-19 capsule by it y of capsule 00:00: mouth (three) [facility] times [facility] daily with meals. omega-3 0 Yes [id number] 1000mg Take 1 [facility] fatty acids 2-19 capsule by it y of capsule 00:00: mouth (three) [facility] times [facility] daily with meals. omega-3 2020-0 Yes [id number] 1000mg Take 1 [facility] fatty acids 2-19 capsule by it y of capsule 00:00: mouth (three) [facility] times [facility] daily with meals. omega-3 2020-0 Yes [id number] 1000mg Take 1 [facility] fatty acids 2-19 capsule by it y of capsule 00:00: mouth (three) [facility] times [facility] daily with meals. omega-3 2020-0 Yes [id number] 1000mg Take 1 [facility] fatty acids 2-19 capsule by it y of capsule 00:00: mouth (three) [facility] times [facility] daily with meals. omega-3 2020-0 Yes [id number] 1000mg Take 1 [facility] fatty acids 2-19 capsule by it y of capsule 00:00: mouth 3 (three) Medical times [place] daily with meals. omega-3 2020-0 Yes [id number] 1000mg Take 1 [facility] fatty acids 2-19 capsule by it y of capsule 00:00: mouth 3 00 (three) Medical times [place] daily with meals. lancets 0 Yes [id number] Use as [facility] nivers gauge Misc 1-12 directed ity o f 00:00: [place] [facility] Blood 2020-0 Yes [id number] Use as Univer s Glucose 1-12 directed ity of Strip-Disp 00:00: [place] [facility] blood sugar 2020-0 Yes [id number] Use as [facility] diagnostic 1-12 directed ity o f strip 00:00: [place] [facility] Syringe, 2020-0 Yes [id number] Use as Uni vers Disposable, 1-12 directed ity of 3 mL Syrg 00:00: [place] [facility] lancets 2020-0 Yes [id number] Use as U nivers gauge Misc 1-12 directed ity o f 00:00: [place] [facility] Blood 2020-0 Yes [id number] Use as Univer s Glucose 1-12 directed ity of Strip-Disp 00:00: [place] [facility] [place] blood sugar 2020-0 Yes [id number] Use as [facility] diagnostic 1-12 directed ity o f strip 00:00: [place] [facility] Syringe, 2020-0 Yes [id number] Use as Uni vers Disposable, 1-12 directed ity of 3 mL Syrg 00:00: [place] [facility] lancets 23 2020-0 Yes [id number] Use as U nivers gauge Misc 1-12 directed ity o f 00:00: [place] [facility] Blood 2020-0 Yes [id number] Use as Univer s Glucose 1-12 directed ity of Strip-Disp 00:00: [place] [facility] 00 [facility] blood sugar 2020-0 Yes [id number] Use as [facility] diagnostic 1-12 directed ity o f strip 00:00: [place] 00 [facility] Syringe, 2020-0 Yes [id number] Use as Uni vers Disposable, 1-12 directed ity of 3 mL Syrg 00:00: [place] 00 [facility] lancets 23 2020-0 Yes [id number] Use as U nivers gauge Misc 1-12 directed ity o f 00:00: [place] [facility] Blood 2020-0 Yes [id number] Use as Univer s Glucose 1-12 directed ity of Strip-Disp 00:00: [place] [facility] blood sugar 2020-0 Yes [id number] Use as [facility] diagnostic 1-12 directed ity o f strip 00:00: [place] [facility] Syringe, 2020-0 Yes [id number] Use as Uni vers Disposable, 1-12 directed ity of 3 mL Syrg 00:00: [place] [facility] lancets 23 2020-0 Yes [id number] Use as U nivers gauge Misc 1-12 directed ity o f 00:00: [place] [facility] Blood 2020-0 Yes [id number] Use as Univer s Glucose 1-12 directed ity of Strip-Disp 00:00: [place] [facility] blood sugar 2020-0 Yes [id number] Use as [facility] diagnostic 1-12 directed ity o f strip 00:00: [place] [facility] Syringe, 2020-0 Yes [id number] Use as Uni vers Disposable, 1-12 directed ity of 3 mL Syrg 00:00: [place] [facility] lancets 23 2020-0 Yes [id number] Use as U nivers gauge Misc 1-12 directed ity o f 00:00: [place] [facility] Blood 2020-0 Yes [id number] Use as Univer s Glucose 1-12 directed ity of Strip-Disp 00:00: [place] [facility] blood sugar 2020-0 Yes [id number] Use as [facility] diagnostic 1-12 directed ity o f strip 00:00: [place] [facility] Syringe, 2020-0 Yes [id number] Use as Uni vers Disposable, 1-12 directed ity of 3 mL Syrg 00:00: [place] [facility] lancets 23 2020-0 Yes [id number] Use as U nivers gauge Misc 1-12 directed ity o f 00:00: [place] [facility] Blood 2020-0 Yes [id number] Use as Univer s Glucose 1-12 directed ity of Strip-Disp 00:00: [place] [facility] blood sugar 2020-0 Yes [id number] Use as [facility] diagnostic 1-12 directed ity o f strip 00:00: [place] 00 [facility] Syringe, 2020-0 Yes [id number] Use as Uni vers Disposable, 1-12 directed ity of 3 mL Syrg 00:00: [place] [facility] lancets 23 2020-0 Yes [id number] Use as U nivers gauge Misc 1-12 directed ity o f 00:00: [place] [facility] Blood 2020-0 Yes [id number] Use as Univer s Glucose 1-12 directed ity of Strip-Disp 00:00: [place] [facility] 00 [facility] blood sugar 2020-0 Yes [id number] Use as [facility] diagnostic 1-12 directed ity o f strip 00:00: [place] [facility] Syringe, 2020-0 Yes [id number] Use as Uni vers Disposable, 1-12 directed ity of 3 mL Syrg 00:00: [place] [facility] lancets 23 2020-0 Yes [id number] Use as U nivers gauge Misc 1-12 directed ity o f 00:00: [place] [facility] Blood 2020-0 Yes [id number] Use as Univer s Glucose 1-12 directed ity of Strip-Disp 00:00: [place] [facility] blood sugar 2020-0 Yes [id number] Use as [facility] diagnostic 1-12 directed ity o f strip 00:00: [place] [facility] Syringe, 2020-0 Yes [id number] Use as Uni vers Disposable, 1-12 directed ity of 3 mL Syrg 00:00: [place] [facility] lancets 23 2020-0 Yes [id number] Use as U nivers gauge Misc 1-12 directed ity o f 00:00: [place] [facility] Blood 2020-0 Yes [id number] Use as Univer s Glucose 1-12 directed ity of Strip-Disp 00:00: [place] [facility] 00 [facility] blood sugar 2020-0 Yes [id number] Use as [facility] diagnostic 1-12 directed ity o f strip 00:00: [place] 00 [facility] Syringe, 2020-0 Yes [id number] Use as Uni vers Disposable, 1-12 directed ity of 3 mL Syrg 00:00: [place] [facility] lancets 23 2020-0 Yes [id number] Use as U nivers gauge Misc 1-12 directed ity o f 00:00: [place] [facility] Blood 2020-0 Yes [id number] Use as Univer s Glucose 1-12 directed ity of Strip-Disp 00:00: [place] [facility] blood sugar 0 Yes [id number] Use as [facility] diagnostic 1-12 directed ity o f strip 00:00: [place] [facility] Syringe, 2020-0 Yes [id number] Use as Uni vers Disposable, 1-12 directed ity of 3 mL Syrg 00:00: [place] [facility] lancets 0 Yes [id number] Use as U nivers gauge Misc 1-12 directed ity o f 00:00: [place] [facility] Blood 2020-0 Yes [id number] Use as Univer s Glucose 1-12 directed ity of Strip-Disp 00:00: [place] [facility] blood sugar 0 Yes [id number] Use as [facility] diagnostic 1-12 directed ity o f strip 00:00: [place] [facility] Syringe, 0 Yes [id number] Use as Uni vers Disposable, 1-12 directed ity of 3 mL Syrg 00:00: [place] [facility] lancets 2020-0 Yes [id number] Use as U nivers gauge Misc 1-12 directed ity o f 00:00: [place] [facility] Blood 2020-0 Yes [id number] Use as Univer s Glucose 1-12 directed ity of Strip-Disp 00:00: [place] [facility] blood sugar 2020-0 Yes [id number] Use as [facility] diagnostic 1-12 directed ity o f strip 00:00: [place] [facility] Syringe, 2020-0 Yes [id number] Use as Uni vers Disposable, 1-12 directed ity of 3 mL Syrg 00:00: [place] [facility] lancets 23 2020-0 Yes [id number] Use as U nivers gauge Misc 1-12 directed ity o f 00:00: [place] [facility] Blood 2020-0 Yes [id number] Use as Univer s Glucose 1-12 directed ity of Strip-Disp 00:00: [place] [facility] blood sugar 2020-0 Yes [id number] Use as [facility] diagnostic 1-12 directed ity o f strip 00:00: [place] [facility] Syringe, 2020-0 Yes [id number] Use as Uni vers Disposable, 1-12 directed ity of 3 mL Syrg 00:00: [place] [facility] lancets 23 2020-0 Yes [id number] Use as U nivers gauge Misc 1-12 directed ity o f 00:00: [place] [facility] Blood 2020-0 Yes [id number] Use as Univer s Glucose 1-12 directed ity of Strip-Disp 00:00: [place] [facility] blood sugar 2020-0 Yes [id number] Use as [facility] diagnostic 1-12 directed ity o f strip 00:00: [place] [facility] Syringe, 2020-0 Yes [id number] Use as Uni vers Disposable, 1-12 directed ity of 3 mL Syrg 00:00: [place] [facility] lancets 23 2020-0 Yes [id number] Use as U nivers gauge Misc 1-12 directed ity o f 00:00: [place] [facility] Blood 2020-0 Yes [id number] Use as Univer s Glucose 1-12 directed ity of Strip-Disp 00:00: [place] [facility] blood sugar 2020-0 Yes [id number] Use as [facility] diagnostic 1-12 directed ity o f strip 00:00: [place] [facility] Syringe, 2020-0 Yes [id number] Use as Uni vers Disposable, 1-12 directed ity of 3 mL Syrg 00:00: [place] [facility] lancets 23 2020-0 Yes [id number] Use as U nivers gauge Misc 1-12 directed ity o f 00:00: [place] [facility] Blood 2020-0 Yes [id number] Use as Univer s Glucose 1-12 directed ity of Strip-Disp 00:00: [place] [facility] blood sugar 2020-0 Yes [id number] Use as [facility] diagnostic 1-12 directed ity o f strip 00:00: [place] [facility] Syringe, 2020-0 Yes [id number] Use as Uni vers Disposable, 1-12 directed ity of 3 mL Syrg 00:00: [place] [facility] lancets 23 2020-0 Yes [id number] Use as U nivers gauge Misc 1-12 directed ity o f 00:00: [place] [facility] Blood 2020-0 Yes [id number] Use as Univer s Glucose 1-12 directed ity of Strip-Disp 00:00: [place] [facility] blood sugar 2020-0 Yes [id number] Use as [facility] diagnostic 1-12 directed ity o f strip 00:00: [place] 00 [facility] Syringe, 2020-0 Yes [id number] Use as Uni vers Disposable, 1-12 directed ity of 3 mL Syrg 00:00: [facility] lancets 2020-0 Yes [id number] Use as U nivers gauge Misc 1-12 directed ity o f 00:00: [place] [facility] Blood 2020-0 Yes [id number] Use as Univer s Glucose 1-12 directed ity of Strip-Disp 00:00: [place] [facility] blood sugar 2020-0 Yes [id number] Use as [facility] diagnostic 1-12 directed ity o f strip 00:00: [place] [facility] Syringe, 2020-0 Yes [id number] Use as Uni vers Disposable, 1-12 directed ity of 3 mL Syrg 00:00: [facility] lancets 0 Yes [id number] Use as U nivers gauge Misc 1-12 directed ity o f 00:00: [facility] Blood 2020-0 Yes [id number] Use as Univer s Glucose 1-12 directed ity of Strip-Disp 00:00: [place] [facility] blood sugar 2020-0 Yes [id number] Use as [facility] diagnostic 1-12 directed ity o f strip 00:00: [place] [facility] Syringe, 2020-0 Yes [id number] Use as Uni vers Disposable, 1-12 directed ity of 3 mL Syrg 00:00: [place] [facility] lancets 23 2020-0 Yes [id number] Use as U nivers gauge Misc 1-12 directed ity o f 00:00: [place] [facility] Blood 2020-0 Yes [id number] Use as Univer s Glucose 1-12 directed ity of Strip-Disp 00:00: [place] [facility] 00 [facility] blood sugar 2020-0 Yes [id number] Use as [facility] diagnostic 1-12 directed ity o f strip 00:00: [place] [facility] Syringe, 2020-0 Yes [id number] Use as Uni vers Disposable, 1-12 directed ity of 3 mL Syrg 00:00: [place] [facility] lancets 23 2020-0 Yes [id number] Use as U nivers gauge Misc 1-12 directed ity o f 00:00: [place] [facility] Blood 2020-0 Yes [id number] Use as Univer s Glucose 1-12 directed ity of Strip-Disp 00:00: [place] [facility] blood sugar 2020-0 Yes [id number] Use as [facility] diagnostic 1-12 directed ity o f strip 00:00: [place] 00 [facility] Syringe, 2020-0 Yes [id number] Use as Uni vers Disposable, 1-12 directed ity of 3 mL Syrg 00:00: [place] [facility] lancets 23 2020-0 Yes [id number] Use as U nivers gauge Misc 1-12 directed ity o f 00:00: [place] [facility] Blood 2020-0 Yes [id number] Use as Univer s Glucose 1-12 directed ity of Strip-Disp 00:00: [place] [facility] blood sugar 2020-0 Yes [id number] Use as [facility] diagnostic 1-12 directed ity o f strip 00:00: [place] [facility] Syringe, 2020-0 Yes [id number] Use as Uni vers Disposable, 1-12 directed ity of 3 mL Syrg 00:00: [place] [facility] lancets 23 2020-0 Yes [id number] Use as U nivers gauge Misc 1-12 directed ity o f 00:00: [place] [facility] Blood 2020-0 Yes [id number] Use as Univer s Glucose 1-12 directed ity of Strip-Disp 00:00: [place] [facility] blood sugar 2020-0 Yes [id number] Use as [facility] diagnostic 1-12 directed ity o f strip 00:00: [place] [facility] Syringe, 2020-0 Yes [id number] Use as Uni vers Disposable, 1-12 directed ity of 3 mL Syrg 00:00: [place] [facility] lancets 23 2020-0 Yes [id number] Use as U nivers gauge Misc 1-12 directed ity o f 00:00: [place] [facility] Blood 2020-0 Yes [id number] Use as Univer s Glucose 1-12 directed ity of Strip-Disp 00:00: [place] [facility] 00 [facility] blood sugar 2020-0 Yes [id number] Use as [facility] diagnostic 1-12 directed ity o f strip 00:00: [place] [facility] Syringe, 2020-0 Yes [id number] Use as Uni vers Disposable, 1-12 directed ity of 3 mL Syrg 00:00: [place] [facility] lancets 23 2020-0 Yes [id number] Use as U nivers gauge Misc 1-12 directed ity o f 00:00: [place] [facility] Blood 2020-0 Yes [id number] Use as Univer s Glucose 1-12 directed ity of Strip-Disp 00:00: [place] [facility] blood sugar 2020-0 Yes [id number] Use as [facility] diagnostic 1-12 directed ity o f strip 00:00: [place] [facility] Syringe, 2020-0 Yes [id number] Use as Uni vers Disposable, 1-12 directed ity of 3 mL Syrg 00:00: [place] [facility] lancets 23 2020-0 Yes [id number] Use as U nivers gauge Misc 1-12 directed ity o f 00:00: [place] [facility] Blood 2020-0 Yes [id number] Use as Univer s Glucose 1-12 directed ity of Strip-Disp 00:00: [place] [facility] blood sugar 2020-0 Yes [id number] Use as [facility] diagnostic 1-12 directed ity o f strip 00:00: [place] [facility] Syringe, 2020-0 Yes [id number] Use as Uni vers Disposable, 1-12 directed ity of 3 mL Syrg 00:00: [place] [facility] lancets 23 2020-0 Yes [id number] Use as U nivers gauge Misc 1-12 directed ity o f 00:00: [place] [facility] Blood 2020-0 Yes [id number] Use as Univer s Glucose 1-12 directed ity of Strip-Disp 00:00: [place] [facility] blood sugar 2020-0 Yes [id number] Use as [facility] diagnostic 1-12 directed ity o f strip 00:00: [place] [facility] Syringe, 2020-0 Yes [id number] Use as Uni vers Disposable, 1-12 directed ity of 3 mL Syrg 00:00: [place] [facility] lancets 23 2020-0 Yes [id number] Use as U nivers gauge Misc 1-12 directed ity o f 00:00: [place] [facility] Blood 2020-0 Yes [id number] Use as Univer s Glucose 1-12 directed ity of Strip-Disp 00:00: [place] [facility] blood sugar 2020-0 Yes [id number] Use as [facility] diagnostic 1-12 directed ity o f strip 00:00: [place] 00 [facility] Syringe, 2020-0 Yes [id number] Use as Uni vers Disposable, 1-12 directed ity of 3 mL Syrg 00:00: [facility] lancets 2020-0 Yes [id number] Use as U nivers gauge Misc 1-12 directed ity o f 00:00: [place] [facility] Blood 2020-0 Yes [id number] Use as Univer s Glucose 1-12 directed ity of Strip-Disp 00:00: [place] [facility] blood sugar 2020-0 Yes [id number] Use as [facility] diagnostic 1-12 directed ity o f strip 00:00: [place] [facility] Syringe, 2020-0 Yes [id number] Use as Uni vers Disposable, 1-12 directed ity of 3 mL Syrg 00:00: [facility] lancets 0 Yes [id number] Use as U nivers gauge Misc 1-12 directed ity o f 00:00: [facility] Blood 2020-0 Yes [id number] Use as Univer s Glucose 1-12 directed ity of Strip-Disp 00:00: [place] [facility] blood sugar 2020-0 Yes [id number] Use as [facility] diagnostic 1-12 directed ity o f strip 00:00: [facility] Syringe, 2020-0 Yes [id number] Use as Uni vers Disposable, 1-12 directed ity of 3 mL Syrg 00:00: [place] [facility] lancets 23 2020-0 Yes [id number] Use as U nivers gauge Misc 1-12 directed ity o f 00:00: [place] [facility] Blood 2020-0 Yes [id number] Use as Univer s Glucose 1-12 directed ity of Strip-Disp 00:00: [place] [facility] blood sugar 2020-0 Yes [id number] Use as [facility] diagnostic 1-12 directed ity o f strip 00:00: [place] [facility] Syringe, 2020-0 Yes [id number] Use as Uni vers Disposable, 1-12 directed ity of 3 mL Syrg 00:00: [place] [facility] lancets 23 2020-0 Yes [id number] Use as U nivers gauge Misc 1-12 directed ity o f 00:00: [place] [facility] Blood 2020-0 Yes [id number] Use as Univer s Glucose 1-12 directed ity of Strip-Disp 00:00: [place] [facility] blood sugar 2020-0 Yes [id number] Use as [facility] diagnostic 1-12 directed ity o f strip 00:00: [place] 00 [facility] Syringe, 2020-0 Yes [id number] Use as Uni vers Disposable, 1-12 directed ity of 3 mL Syrg 00:00: [facility] lancets 2020-0 Yes [id number] Use as U nivers gauge Misc 1-12 directed ity o f 00:00: [facility] Blood 2020-0 Yes [id number] Use as Univer s Glucose 1-12 directed ity of Strip-Disp 00:00: [place] [facility] blood sugar 2020-0 Yes [id number] Use as Univers diagnostic 1-12 directed ity o f strip 00:00: [facility] Syringe, 2020-0 Yes [id number] Use as Uni vers Disposable, 1-12 directed ity of 3 mL Syrg 00:00: [facility] lancets 2020-0 Yes [id number] Use as U nivers gauge Misc 1-12 directed ity o f 00:00: [facility] Blood 2020-0 Yes [id number] Use as Univer s Glucose 1-12 directed ity of Strip-Disp 00:00: [place] [facility] blood sugar 2020-0 Yes [id number] Use as Univers diagnostic 1-12 directed ity o f strip 00:00: [facility] Syringe, 2020-0 Yes [id number] Use as Uni vers Disposable, 1-12 directed ity of 3 mL Syrg 00:00: [facility] lancets 23 2020-0 Yes [id number] Use as U nivers gauge Misc 1-12 directed ity o f 00:00: [facility] Blood 2020-0 Yes [id number] Use as Univer s Glucose 1-12 directed ity of Strip-Disp 00:00: [place] [facility] blood sugar 2020-0 Yes [id number] Use as Univers diagnostic 1-12 directed ity o f strip 00:00: [facility] Syringe, 2020-0 Yes [id number] Use as Uni vers Disposable, 1-12 directed ity of 3 mL Syrg 00:00: [facility] lancets 23 2020-0 Yes [id number] Use as U nivers gauge Misc 1-12 directed ity o f 00:00: [facility] Blood 2020-0 Yes [id number] Use as Univer s Glucose 1-12 directed ity of Strip-Disp 00:00: [place] [facility] 00 [facility] blood sugar 2020-0 Yes [id number] Use as Univers diagnostic 1-12 directed ity o f strip 00:00: [facility] Syringe, 2020-0 Yes [id number] Use as Uni vers Disposable, 1-12 directed ity of 3 mL Syrg 00:00: [facility] lancets 23 2020-0 Yes [id number] Use as U nivers gauge Misc 1-12 directed ity o f 00:00: [facility] Blood 2020-0 Yes [id number] Use as Univer s Glucose 1-12 directed ity of Strip-Disp 00:00: [place] [facility] blood sugar 2020-0 Yes [id number] Use as [facility] diagnostic 1-12 directed ity o f strip 00:00: [facility] Syringe, 2020-0 Yes [id number] Use as Uni vers Disposable, 1-12 directed ity of 3 mL Syrg 00:00: [facility] lancets 23 2020-0 Yes [id number] Use as U nivers gauge Misc 1-12 directed ity o f 00:00: [facility] Blood 2020-0 Yes [id number] Use as Univer s Glucose 1-12 directed ity of Strip-Disp 00:00: [place] [facility] blood sugar 2020-0 Yes [id number] Use as [facility] diagnostic 1-12 directed ity o f strip 00:00: [place] 00 [facility] Syringe, 2020-0 Yes [id number] Use as Uni vers Disposable, 1-12 directed ity of 3 mL Syrg 00:00: [facility] lancets 23 2020-0 Yes [id number] Use as U nivers gauge Misc 1-12 directed ity o f 00:00: [facility] Blood 2020-0 Yes [id number] Use as Univer s Glucose 1-12 directed ity of Strip-Disp 00:00: [place] [facility] 00 [facility] blood sugar 2020-0 Yes [id number] Use as [facility] diagnostic 1-12 directed ity o f strip 00:00: [place] [facility] Syringe, 2021-0 Yes [id number] Use as Uni vers Disposable, 1-12 directed ity of 3 mL Syrg 00:00: [facility] lancets 23 2020-0 Yes [id number] Use as U nivers gauge Misc 1-12 directed ity o f 00:00: [facility] Blood 2020-0 Yes [id number] Use as Univer s Glucose 1-12 directed ity of Strip-Disp 00:00: [place] [facility] blood sugar 2020-0 Yes [id number] Use as [facility] diagnostic 1-12 directed ity o f strip 00:00: [facility] Syringe, 0 Yes [id number] Use as Uni vers Disposable, 1-12 directed ity of 3 mL Syrg 00:00: [facility] lancets 0 Yes [id number] Use as U nivers gauge Misc 1-12 directed ity o f 00:00: [facility] Blood 0 Yes [id number] Use as Univer s Glucose 1-12 directed ity of Strip-Disp 00:00: [place] [facility] blood sugar 2020-0 Yes [id number] Use as Univers diagnostic 1-12 directed ity o f strip 00:00: [facility] Syringe, 0 Yes [id number] Use as Uni vers Disposable, 1-12 directed ity of 3 mL Syrg 00:00: [facility] lancets 23 0 Yes [id number] Use as U nivers gauge Misc 1-12 directed ity o f 00:00: [facility] Blood 2020-0 Yes [id number] Use as Univer s Glucose 1-12 directed ity of Strip-Disp 00:00: [place] [facility] blood sugar 2020-0 Yes [id number] Use as [facility] diagnostic 1-12 directed ity o f strip 00:00: [facility] Syringe, 2020-0 Yes [id number] Use as Uni vers Disposable, 1-12 directed ity of 3 mL Syrg 00:00: [facility] lancets 23 2020-0 Yes [id number] Use as U nivers gauge Misc 1-12 directed ity o f 00:00: [facility] Blood 2020-0 Yes [id number] Use as Univer s Glucose 1-12 directed ity of Strip-Disp 00:00: [place] [facility] blood sugar 2020-0 Yes [id number] Use as [facility] diagnostic 1-12 directed ity o f strip 00:00: [facility] Syringe, 2020-0 Yes [id number] Use as Uni vers Disposable, 1-12 directed ity of 3 mL Syrg 00:00: [facility] lancets 2020-0 Yes [id number] Use as U nivers gauge Misc 1-12 directed ity o f 00:00: [facility] Blood 2020-0 Yes [id number] Use as Univer s Glucose 1-12 directed ity of Strip-Disp 00:00: [place] [facility] blood sugar 0 Yes [id number] Use as [facility] diagnostic 1-12 directed ity o f strip 00:00: [facility] Syringe, 0 Yes [id number] Use as Uni vers Disposable, 1-12 directed ity of 3 mL Syrg 00:00: [facility] lancets 2020-0 Yes [id number] Use as U nivers gauge Misc 1-12 directed ity o f 00:00: [facility] Blood 2020-0 Yes [id number] Use as Univer s Glucose 1-12 directed ity of Strip-Disp 00:00: [place] [facility] blood sugar 2020-0 Yes [id number] Use as [facility] diagnostic 1-12 directed ity o f strip 00:00: [facility] Syringe, 2020-0 Yes [id number] Use as Uni vers Disposable, 1-12 directed ity of 3 mL Syrg 00:00: [facility] lancets 23 2020-0 Yes [id number] Use as U nivers gauge Misc 1-12 directed ity o f 00:00: [facility] Blood 2020-0 Yes [id number] Use as Univer s Glucose 1-12 directed ity of Strip-Disp 00:00: [place] [facility] blood sugar 2020-0 Yes [id number] Use as [facility] diagnostic 1-12 directed ity o f strip 00:00: [facility] Syringe, 2020-0 Yes [id number] Use as Uni vers Disposable, 1-12 directed ity of 3 mL Syrg 00:00: [facility] lancets 23 2020-0 Yes [id number] Use as U nivers gauge Misc 1-12 directed ity o f 00:00: [facility] Blood 2020-0 Yes [id number] Use as Univer s Glucose 1-12 directed ity of Strip-Disp 00:00: [place] [facility] 00 [facility] blood sugar 2020-0 Yes [id number] Use as Univers diagnostic 1-12 directed ity o f strip 00:00: [facility] Syringe, 2020-0 Yes [id number] Use as Uni vers Disposable, 1-12 directed ity of 3 mL Syrg 00:00: [facility] lancets 23 2020-0 Yes [id number] Use as U nivers gauge Misc 1-12 directed ity o f 00:00: [facility] Blood 2020-0 Yes [id number] Use as Univer s Glucose 1-12 directed ity of Strip-Disp 00:00: [place] [facility] blood sugar 2020-0 Yes [id number] Use as [facility] diagnostic 1-12 directed ity o f strip 00:00: [facility] Syringe, 2020-0 Yes [id number] Use as Uni vers Disposable, 1-12 directed ity of 3 mL Syrg 00:00: [facility] lancets 23 2020-0 Yes [id number] Use as U nivers gauge Misc 1-12 directed ity o f 00:00: [facility] Blood 2020-0 Yes [id number] Use as Univer s Glucose 1-12 directed ity of Strip-Disp 00:00: [place] [facility] blood sugar 2020-0 Yes [id number] Use as [facility] diagnostic 1-12 directed ity o f strip 00:00: [facility] Syringe, 2020-0 Yes [id number] Use as Uni vers Disposable, 1-12 directed ity of 3 mL Syrg 00:00: [facility] lancets 23 2020-0 Yes [id number] Use as U nivers gauge Misc 1-12 directed ity o f 00:00: [facility] Blood 2020-0 Yes [id number] Use as Univer s Glucose 1-12 directed ity of Strip-Disp 00:00: [place] [facility] 00 [facility] blood sugar 2020-0 Yes [id number] Use as Univers diagnostic 1-12 directed ity o f strip 00:00: [facility] Syringe, 2021-0 Yes [id number] Use as Uni vers Disposable, 1-12 directed ity of 3 mL Syrg 00:00: [facility] lancets 23 2020-0 Yes [id number] Use as U nivers gauge Misc 1-12 directed ity o f 00:00: [facility] Blood 2020-0 Yes [id number] Use as Univer s Glucose 1-12 directed ity of Strip-Disp 00:00: [place] [facility] blood sugar 2020-0 Yes [id number] Use as [facility] diagnostic 1-12 directed ity o f strip 00:00: [facility] Syringe, 0 Yes [id number] Use as Uni vers Disposable, 1-12 directed ity of 3 mL Syrg 00:00: [facility] lancets 0 Yes [id number] Use as U nivers gauge Misc 1-12 directed ity o f 00:00: [facility] Blood 0 Yes [id number] Use as Univer s Glucose 1-12 directed ity of Strip-Disp 00:00: [place] [facility] blood sugar 0 Yes [id number] Use as [facility] diagnostic 1-12 directed ity o f strip 00:00: [facility] Syringe, 0 Yes [id number] Use as Uni vers Disposable, 1-12 directed ity of 3 mL Syrg 00:00: [facility] lancets 0 Yes [id number] Use as U nivers gauge Misc 1-12 directed ity o f 00:00: [facility] Blood 0 Yes [id number] Use as Univer s Glucose 1-12 directed ity of Strip-Disp 00:00: [place] [facility] blood sugar 2020-0 Yes [id number] Use as Univers diagnostic 1-12 directed ity o f strip 00:00: [place] 00 [facility] Syringe, 2020-0 Yes [id number] Use as Uni vers Disposable, 1-12 directed ity of 3 mL Syrg 00:00: [facility] lancets 23 2020-0 Yes [id number] Use as U nivers gauge Misc 1-12 directed ity o f 00:00: [facility] Blood 2020-0 Yes [id number] Use as Univer s Glucose 1-12 directed ity of Strip-Disp 00:00: [place] [facility] 00 [facility] blood sugar 2020-0 Yes [id number] Use as Univers diagnostic 1-12 directed ity o f strip 00:00: [facility] Syringe, 2020-0 Yes [id number] Use as Uni vers Disposable, 1-12 directed ity of 3 mL Syrg 00:00: [facility] lancets 2020-0 Yes [id number] Use as U nivers gauge Misc 1-12 directed ity o f 00:00: [facility] Blood 2020-0 Yes [id number] Use as Univer s Glucose 1-12 directed ity of Strip-Disp 00:00: [place] [facility] blood sugar 0 Yes [id number] Use as [facility] diagnostic 1-12 directed ity o f strip 00:00: [facility] Syringe, 0 Yes [id number] Use as Uni vers Disposable, 1-12 directed ity of 3 mL Syrg 00:00: [facility] lancets 0 Yes [id number] Use as U nivers gauge Misc 1-12 directed ity o f 00:00: [facility] Blood 2020-0 Yes [id number] Use as Univer s Glucose 1-12 directed ity of Strip-Disp 00:00: [place] [facility] blood sugar 2020-0 Yes [id number] Use as Univers diagnostic 1-12 directed ity o f strip 00:00: [facility] Syringe, 0 Yes [id number] Use as Uni vers Disposable, 1-12 directed ity of 3 mL Syrg 00:00: [facility] lancets 23 2020-0 Yes [id number] Use as U nivers gauge Misc 1-12 directed ity o f 00:00: [facility] Blood 2020-0 Yes [id number] Use as Univer s Glucose 1-12 directed ity of Strip-Disp 00:00: [place] [facility] blood sugar 2020-0 Yes [id number] Use as Univers diagnostic 1-12 directed ity o f strip 00:00: [facility] Syringe, 2020-0 Yes [id number] Use as Uni vers Disposable, 1-12 directed ity of 3 mL Syrg 00:00: [facility] lancets 23 2020-0 Yes [id number] Use as U nivers gauge Misc 1-12 directed ity o f 00:00: [facility] Blood 2020-0 Yes [id number] Use as Univer s Glucose 1-12 directed ity of Strip-Disp 00:00: [place] [facility] 00 [facility] blood sugar 2020-0 Yes [id number] Use as Univers diagnostic 1-12 directed ity o f strip 00:00: [place] [facility] Syringe, 2020-0 Yes [id number] Use as Uni vers Disposable, 1-12 directed ity of 3 mL Syrg 00:00: [facility] lancets 23 2020-0 Yes [id number] Use as U nivers gauge Misc 1-12 directed ity o f 00:00: [facility] Blood 2020-0 Yes [id number] Use as Univer s Glucose 1-12 directed ity of Strip-Disp 00:00: [place] [facility] blood sugar 2020-0 Yes [id number] Use as Univers diagnostic 1-12 directed ity o f strip 00:00: [facility] Syringe, 2020-0 Yes [id number] Use as Uni vers Disposable, 1-12 directed ity of 3 mL Syrg 00:00: [facility] lancets 23 2020-0 Yes [id number] Use as U nivers gauge Misc 1-12 directed ity o f 00:00: [facility] Blood 2020-0 Yes [id number] Use as Univer s Glucose 1-12 directed ity of Strip-Disp 00:00: [place] [facility] 00 [facility] blood sugar 2020-0 Yes [id number] Use as Univers diagnostic 1-12 directed ity o f strip 00:00: [place] [facility] Syringe, 2020-0 Yes [id number] Use as Uni vers Disposable, 1-12 directed ity of 3 mL Syrg 00:00: [facility] lancets 23 2020-0 Yes [id number] Use as U nivers gauge Misc 1-12 directed ity o f 00:00: [facility] Blood 2020-0 Yes [id number] Use as Univer s Glucose 1-12 directed ity of Strip-Disp 00:00: [place] [facility] 00 [facility] blood sugar 2020-0 Yes [id number] Use as Univers diagnostic 1-12 directed ity o f strip 00:00: [place] [facility] Syringe, 2020-0 Yes [id number] Use as Uni vers Disposable, 1-12 directed ity of 3 mL Syrg 00:00: 00 [facility] lancets 23 2020-0 Yes [id number] Use as U nivers gauge Misc 1-12 directed ity o f 00:00: [place] 00 [facility] Blood 2020-0 Yes [id number] Use as Univer s Glucose 1-12 directed ity of Strip-Disp 00:00: [place] [facility] 00 [facility] blood sugar 2020-0 Yes [id number] Use as Univers diagnostic 1-12 directed ity o f strip 00:00: [place] 00 [facility] Syringe, 2020-0 Yes [id number] Use as Uni vers Disposable, 1-12 directed ity of 3 mL Syrg 00:00: [address] Immunizations Ordered Filled Immunization Date Status Comments Sourc e Immunization Name Name TD 2022-05-20 Completed [facility] 00:00:00 [facility] TDAP 2022-05-20 Completed [facility] 00:00:00 [facility] TDAP 2022-05-20 Completed [facility] 00:00:00 [facility] TDAP 2022-05-20 Completed [facility] 00[facility]00:00 [facility] TDAP 2022-05-20 Completed [facility] 00:00:00 [facility] TDAP 2022-05-20 Completed [facility] 00:00:00 [facility] TDAP 2022-05-20 Completed [facility] 00:00:00 [facility] TDAP 2022-05-20 Completed [facility] 00:00:00 [facility] TDAP 2022-05-20 Completed [facility] 00:00:00 [facility] TDAP 2022-05-20 Completed [facility] 00:00:00 [facility] TDAP 2022-05-20 Completed [facility] 00:00:00 [facility] TDAP 2022-05-20 Completed [facility] 00:00:00 [facility] TDAP 2022-05-20 Completed [facility] 00:00:00 [facility] TDAP 2022-05-20 Completed [facility] 00:00:00 [facility] TDAP 2022-05-20 Completed [facility] 00:00:00 [facility] TDAP 2022-05-20 Completed [facility] 00:00:00 [facility] TDAP 2022-05-20 Completed [facility] 00:00:00 [facility] TDAP 2022-05-20 Completed [facility] 00:00:00 [facility] TDAP 2022-05-20 Completed [facility] 00:00:00 [facility] TDAP 2022-05-20 Completed [facility] of 00:00:00 [facility] TDAP 2022-05-20 Completed [facility] of 00:00:00 [facility] TDAP 2022-05-20 Completed [facility] of 00:00:00 [facility] TDAP 2022-05-20 Completed [facility] 00:00:00 [facility] TDAP 2022-05-20 Completed [facility] of 00:00:00 [facility] TDAP 2022-05-20 Completed [facility] 00:00:00 [facility] TDAP 2022-05-20 Completed [facility] 00:00:00 [facility] TDAP 2022-05-20 Completed [facility] 00:00:00 [facility] TDAP 2022-05-20 Completed [facility] of 00:00:00 [facility] TDAP 2022-05-20 Completed [facility] 00:00:00 [facility] TDAP 2022-05-20 Completed [facility] of 00:00:00 [facility] TDAP 2022-05-20 Completed [facility] 00:00:00 [facility] TDAP 2022-05-20 Completed [facility] 00:00:00 [facility] Influenza Virus 2021-12-06 Completed [facility]it [facility] of [facility], 00:00:00 [place] [facility] ABX [facility] Free 6 MO-64 YRS SARS-COV-2 COVID-19 2021-12-06 Completed Unive rsity of [facility]CR[facility] 00:00:00 [place] [facility] VACCINE 12 Y[facility]+, Branch BIVALENT 0.3ML, IM, (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 BOOSTER) Influenza Virus 2021-12-06 Completed [facility], 00:00:00 [place] [facility] ABX [facility] Free 6 MO-64 YRS SARS-COV-2 COVID-19 2021-12-06 Completed Unive rsity of [facility]ISA-SUCROSE 00:00:00 [place] [facility] VACCINE 12 YRS+, Branch BIVALENT 0.3ML, IM, (PFIZER SHELLEY TOP BOOSTER) Influenza Virus 2021-12-06 Completed [facility] of [facility]ine [facility] IM, 00:00:00 [place] [facility] ABX [facility] Free 6 MO-64 YRS SARS-COV-2 COVID-19 2021-12-06 Completed Unive rsity of [facility]ISA-SUCROSE 00:00:00 [place] [facility] VACCINE 12 YRS+, Branch BIVALENT 0.3ML, IM, (PFIZER SHELLEY TOP BOOSTER) Influenza Virus 2021-12-06 Completed [facility] of Vaccine [facility] IM, 00:00:00 [place] [facility] ABX [facility] Free 6 MO-64 YRS SARS-COV-2 COVID-19 2021-12-06 Completed Unive rsity of [facility]ISA[facility]OSE 00:00:00 [place] [facility] VACCINE 12 YRS+, Branch BIVALENT 0.3ML, IM, (PFIZER SHELLEY TOP BOOSTER) Influenza Virus 2021-12-06 Completed [facility] of Vaccine [facility] IM, 00:00:00 [place] [facility] Pres[facility] ABX Branch Free 6 MO-64 YRS SARS-COV-2 COVID-19 2021-12-06 Completed Unive rsity of [facility]CROSE 00:00:00 [place] [facility] VACCINE 12 YRS+, Branch BIVALENT 0.3ML, IM, (PFIZER SHELLEY TOP BOOSTER) Influenza Virus 2021-12-06 Completed [facility] of Vaccine [facility] IM, 00:00:00 [place] [facility] Preserv [facility] ABX Branch Free 6 MO-64 YRS SARS-COV-2 COVID-19 2021-12-06 Completed [facility]ive rsity of [facility] 00:00:00 [place] [facility] VACCINE 12 YRS+, Branch BIVALENT 0.3ML, IM, (PFIZER SHELLEY TOP BOOSTER) Influenza Virus 2021-12-06 Completed [facility] of Vaccine [facility] IM, 00:00:00 [place] [facility] Preserv [facility] ABX Branch Free 6 MO-64 YRS SARS-COV-2 COVID-19 2021-12-06 Completed [facility]ive rsity of [facility] 00:00:00 [place] [facility] VACCINE 12 YRS+, Branch BIVALENT 0.3ML, IM, (PFIZER SHELLEY TOP BOOSTER) Influenza Virus 2021-12-06 Completed [facility] of [facility]ine [facility] IM, 00:00:00 [place] [facility] Preserv [facility] ABX Branch Free 6 MO-64 YRS SARS-COV-2 COVID-19 2021-12-06 Completed [facility]ive rsity of [facility]OSE 00:00:00 [place] [facility] VACCINE 12 YRS+, Branch BIVALENT 0.3ML, IM, (PFIZER SHELLEY TOP BOOSTER) Influenza Virus 2021-12-06 Completed [facility] of [facility]ine [facility] IM, 00:00:00 [place] [facility] Preserv [facility] ABX Branch Free 6 MO-64 YRS SARS-COV-2 COVID-19 2021-12-06 Completed [facility]ive rsity of [facility] 00:00:00 [place] [facility] VACCINE 12 YRS+, Branch BIVALENT 0.3ML, IM, (PFIZER SHELLEY TOP BOOSTER) Influenza Virus 2021-12-06 Completed [facility] of [facility]ine [facility] IM, 00:00:00 [place] [facility] Preserv and ABX Branch Free 6 MO-64 YRS SARS-COV-2 COVID-19 2021-12-06 Completed Unive rsity of [facility] 00:00:00 [place] [facility] VACCINE 12 YRS+, Branch BIVALENT 0.3ML, IM, (PFIZER SHELLEY TOP BOOSTER) Influenza Virus 2021-12-06 Completed [facility] of Vaccine [facility] IM, 00:00:00 [place] [facility] Preserv and ABX Branch Free 6 MO-64 YRS SARS-COV-2 COVID-19 2021-12-06 Completed [facility]ive rsity of [facility] 00:00:00 [place] [facility] VACCINE 12 YRS+, Branch BIVALENT 0.3ML, IM, (PFIZER SHELLEY TOP BOOSTER) Influenza Virus 2021-12-06 Completed [facility] of Vaccine [facility] IM, 00:00:00 [place] [facility] Preserv and ABX Branch Free 6 MO-64 YRS SARS-COV-2 COVID-19 2021-12-06 Completed [facility]ive rsity of [facility] 00:00:00 [place] [facility] VACCINE 12 YRS+, Branch BIVALENT 0.3ML, IM, (PFIZER SHELLEY TOP BOOSTER) Influenza Virus 2021-12-06 Completed [facility] of Vaccine [facility] IM, 00:00:00 [place] [facility] Preserv and ABX Branch Free 6 MO-64 YRS SARS-COV-2 COVID-19 2021-12-06 Completed [facility]ive rsity of [facility]OSE 00:00:00 [place] [facility] VACCINE 12 YRS+, Branch BIVALENT 0.3ML, IM, (PFIZER SHELLEY TOP BOOSTER) Influenza Virus 2021-12-06 Completed [facility] of Vaccine [facility] IM, 00:00:00 [place] [facility] Preserv and ABX Branch Free 6 MO-64 YRS SARS-COV-2 COVID-19 2021-12-06 Completed [facility]ive rsity of [facility] 00:00:00 [place] [facility] VACCINE 12 YRS+, Branch BIVALENT 0.3ML, IM, (PFIZER SHELLEY TOP BOOSTER) Influenza Virus 2021-12-06 Completed [facility] of Vaccine [facility] IM, 00:00:00 [place] [facility] Preserv and ABX Branch Free 6 MO-64 YRS SARS-COV-2 COVID-19 2021-12-06 Completed [facility]ive rsity of [facility] 00:00:00 [place] [facility] VACCINE 12 YRS+, Branch BIVALENT 0.3ML, IM, (PFIZER SHELLEY TOP BOOSTER) Influenza Virus 2021-12-06 Completed [facility] of [facility]ine [facility] IM, 00:00:00 [place] [facility] Preserv and ABX Branch Free 6 MO-64 YRS SARS-COV-2 COVID-19 2021-12-06 Completed [facility] of [facility] 00:00:00 [place] [facility] VACCINE 12 YRS+, Branch BIVALENT 0.3ML, IM, (PFIZER SHELLEY TOP BOOSTER) Influenza Virus 2021-12-06 Completed [facility] of Vaccine [facility] IM, 00:00:00 [place] [facility] Preserv and ABX Branch Free 6 MO-64 YRS SARS-COV-2 COVID-19 2021-12-06 Completed [facility] rsity of [facility] 00:00:00 [place] [facility] VACCINE 12 YRS+, Branch BIVALENT 0.3ML, IM, (PFIZER SHELLEY TOP BOOSTER) Influenza Virus 2021-12-06 Completed [facility] of Vaccine [facility] IM, 00:00:00 [place] [facility] Preserv and ABX Branch Free 6 MO-64 YRS SARS-COV-2 COVID-19 2021-12-06 Completed [facility] of [facility] 00:00:00 [place] [facility] VACCINE 12 YRS+, Branch BIVALENT 0.3ML, IM, (PFIZER SHELLEY TOP BOOSTER) Influenza Virus 2021-12-06 Completed [facility] of Vaccine Quad IM, 00:00:00 [place] [facility] Preserv and ABX Branch Free 6 MO-64 YRS SARS-COV-2 COVID-19 2021-12-06 Completed [facility]ity of [facility] 00:00:00 [place] [facility] VACCINE 12 YRS+, Branch BIVALENT 0.3ML, IM, (PFIZER SHELLEY TOP BOOSTER) Influenza Virus 2021-12-06 Completed [facility] of Vaccine Quad IM, 00:00:00 [place] [facility] Preserv and ABX Branch Free 6 MO-64 YRS SARS-COV-2 COVID-19 2021-12-06 Completed [facility]ive [facility]ity of [facility] 00:00:00 [place] [facility] VACCINE 12 YRS+, Branch BIVALENT 0.3ML, IM, (PFIZER SHELLEY TOP BOOSTER) Influenza Virus 2021-12-06 Completed [facility] of Vaccine Quad IM, 00:00:00 [place] [facility] Preserv and ABX Branch Free 6 MO-64 YRS SARS-COV-2 COVID-19 2021-12-06 Completed [facility] of [facility] 00:00:00 [place] [facility] VACCINE 12 YRS+, Branch BIVALENT 0.3ML, IM, (PFIZER SHELLEY TOP BOOSTER) Influenza Virus 2021-12-06 Completed [facility] of Vaccine Quad IM, 00:00:00 [place] [facility] Preserv and ABX Branch Free 6 MO-64 YRS SARS-COV-2 COVID-19 2021-12-06 Completed [facility] of [facility] 00:00:00 [place] [facility] VACCINE 12 YRS+, Branch BIVALENT 0.3ML, IM, (PFIZER SHELLEY TOP BOOSTER) Influenza Virus 2021-12-06 Completed [facility] of Vaccine Quad IM, 00:00:00 [place] [facility] Preserv and ABX Branch Free 6 MO-64 YRS SARS-COV-2 COVID-19 2021-12-06 Completed [facility] rs[facility] of [facility] 00:00:00 [place] [facility] VACCINE 12 YRS+, Branch BIVALENT 0.3ML, IM, (PFIZER SHELLEY TOP BOOSTER) Influenza Virus 2021-12-06 Completed [facility] of Vaccine Quad IM, 00:00:00 [place] [facility] Preserv and ABX Branch Free 6 MO-64 YRS SARS-COV-2 COVID-19 2021-12-06 Completed [facility]ive rsity of [facility] 00:00:00 [place] [facility] VACCINE 12 YRS+, Branch BIVALENT 0.3ML, IM, (PFIZER SHELLEY TOP BOOSTER) Influenza Virus 2021-12-06 Completed [facility] of Vaccine Quad IM, 00:00:00 [place] [facility] Preserv and ABX Branch Free 6 MO-64 YRS SARS-COV-2 COVID-19 2021-12-06 Completed [facility] 00:[facility] Branch BIVALENT 0.3ML, IM, (PFIZER SHELLEY TOP BOOSTER) Influenza Virus 2021-12-06 Completed [facility], 00:00:00 [place] [facility] AB[facility] Free 6 MO-64 YRS SARS-COV-2 COVID-19 2021-12-06 Completed [facility] 00:00:00 [place] [facility] Y[facility]+, Branch BIVALENT 0.3ML, IM, (PFIZER SHELLEY TOP BOOSTER) Influenza Virus 2021-12-06 Completed [facility], 00:00:00 [place] [facility] Free 6 MO-64 YRS SARS-COV-2 COVID-19 2021-12-06 Completed [facility] 00:00:00 [facility] 12 YRS+, Branch BIVALENT 0.3ML, IM, (PFIZER SHELLEY TOP BOOSTER) Influenza Virus 2021-12-06 Completed [facility], 00:00:00 [place] [facility] ABX [facility] Free 6 MO-64 YRS SARS-COV-2 COVID-19 2021-12-06 Completed [facility] 00:00:00 [place] [facility] 12 YRS+, Branch BIVALENT 0.3ML, IM, (PFIZER SHELLEY TOP) Influenza Virus 2021-12-06 Completed [facility], 00:00:00 [place] [facility] ABX [facility] Free 6 MO-64 YRS SARS-COV-2 COVID-19 2021-12-06 Completed [facility] 00:00:00 [place] [facility] 12 YRS+, Branch BIVALENT 0.3ML, IM, (PFIZER SHELLEY TOP) Influenza Virus 2021-12-06 Completed [facility], 00:00:00 [place] [facility] ABX [facility] Free 6 MO-64 YRS SARS-COV-2 COVID-19 2021-12-06 Completed [facility] 00:00:00 [place] [facility] 12 YRS+, Branch BIVALENT 0.3ML, IM, (PFIZER SHELLEY TOP) Influenza Virus 2021-12-06 Completed [facility], 00:00:00 [place] [facility] ABX [facility] Free 6 MO-64 YRS SARS-COV-2 COVID-19 2021-12-06 Completed [facility] 00:00:00 [place] [facility] 12 YRS+, Branch BIVALENT 0.3ML, IM, (PFIZER SHELLEY TOP) Influenza Virus 2021-12-06 Completed [facility], 00:00:00 [place] [facility] ABX [facility] Free 6 MO-64 YRS SARS-COV-2 COVID-19 2021-12-06 Completed [facility] 00:00:00 [place] [facility] 12 YRS+, Branch BIVALENT 0.3ML, IM, (PFIZER SHELLEY TOP) Influenza Virus 2021-12-06 Completed [facility], 00:00:00 [place] [facility] ABX [facility] Free 6 MO-64 YRS SARS-COV-2 COVID-19 2021-12-06 Completed [facility] 00:00:00 [place] [facility] 12 YRS+, Branch BIVALENT 0.3ML, IM, (PFIZER SHELLEY TOP) Influenza Virus 2021-12-06 Completed [facility], 00:00:00 [place] [facility] ABX [facility] Free 6 MO-64 YRS SARS-COV-2 COVID-19 2021-12-06 Completed [facility] 00:00:00 [place] [facility] 12 YRS+, Branch BIVALENT 0.3ML, IM, (PFIZER SHELLEY TOP) Influenza Virus 2021-12-06 Completed [facility], 00:00:00 [place] [facility] ABX [facility] Free 6 MO-64 YRS SARS-COV-2 COVID-19 2021-12-06 Completed [facility] 00:00:00 [place] [facility] 12 YRS+, Branch BIVALENT 0.3ML, IM, (PFIZER SHELLEY TOP) Influenza Virus 2021-12-06 Completed [facility], 00:00:00 [place] [facility] ABX [facility] Free 6 MO-64 YRS SARS-COV-2 COVID-19 2021-12-06 Completed [facility] 00:00:00 [place] [facility] 12 YRS+, Branch BIVALENT 0.3ML, IM, (PFIZER SHELLEY TOP) Influenza Virus 2021-12-06 Completed [facility], 00:00:00 [place] [facility] ABX [facility] Free 6 MO-64 YRS SARS-COV-2 COVID-19 2021-12-06 Completed [facility] 00:00:00 [place] [facility] 12 YRS+, Branch BIVALENT 0.3ML, IM, (PFIZER SHELLEY TOP) Influenza Virus 2021-12-06 Completed [facility], 00:00:00 [place] [facility] ABX [facility] Free 6 MO-64 YRS SARS-COV-2 COVID-19 2021-12-06 Completed [facility] 00:00:00 [place] [facility] 12 YRS+, Branch BIVALENT 0.3ML, IM, (PFIZER SHELLEY TOP) Influenza Virus 2021-12-06 Completed [facility], 00:00:00 [place] [facility] ABX [facility] Free 6 MO-64 YRS SARS-COV-2 COVID-19 2021-12-06 Completed [facility] 00:00:00 [place] [facility] 12 YRS+, Branch BIVALENT 0.3ML, IM, (PFIZER SHELLEY TOP) Influenza Virus 2021-12-06 Completed [facility], 00:00:00 [place] [facility] ABX [facility] Free 6 MO-64 YRS SARS-COV-2 COVID-19 2021-12-06 Completed [facility] 00:00:00 [place] [facility] 12 YRS+, Branch BIVALENT 0.3ML, IM, (PFIZER SHELLEY TOP) Influenza Virus 2021-12-06 Completed [facility], 00:00:00 [place] [facility] ABX [facility] Free 6 MO-64 YRS SARS-COV-2 COVID-19 2021-12-06 Completed [facility] 00:00:00 [place] [facility] 12 YRS+, Branch BIVALENT 0.3ML, IM, (PFIZER SHELLEY TOP) Influenza Virus 2021-12-06 Completed [facility], 00:00:00 [place] [facility] ABX [facility] Free 6 MO-64 YRS SARS-COV-2 COVID-19 2021-12-06 Completed [facility] 00:00:00 [place] [facility] 12 YRS+, Branch BIVALENT 0.3ML, IM, (PFIZER SHELLEY TOP) Influenza Virus 2021-12-06 Completed [facility], 00:00:00 [place] [facility] ABX [facility] Free 6 MO-64 YRS SARS-COV-2 COVID-19 2021-12-06 Completed [facility] 00:00:00 [place] [facility] 12 YRS+, Branch BIVALENT 0.3ML, IM, (PFIZER SHELLEY TOP) Influenza Virus 2021-12-06 Completed [facility], 00:00:00 [place] [facility] ABX [facility] Free 6 MO-64 YRS SARS-COV-2 COVID-19 2021-12-06 Completed [facility] 00:00:00 [place] [facility] 12 YRS+, Branch BIVALENT 0.3ML, IM, (PFIZER SHELLEY TOP) Influenza Virus 2021-12-06 Completed [facility], 00:00:00 [place] [facility] ABX Branch Free 6 MO-64 YRS SARS-COV-2 COVID-19 2021-12-06 Completed [facility] 00:00:00 [place] [facility] 12 YRS+, Branch BIVALENT 0.3ML, IM, (PFIZER SHELLEY TOP) Influenza Virus 2021-12-06 Completed [facility], 00:00:00 [place] [facility] ABX Branch Free 6 MO-64 YRS SARS-COV-2 COVID-19 2021-12-06 Completed [facility] 00:00:00 [place] [facility] 12 YRS+, Branch BIVALENT 0.3ML, IM, (PFIZER SHELLEY TOP) Influenza Virus 2021-12-06 Completed [facility], 00:00:00 [place] [facility] ABX [facility] Free 6 MO-64 YRS SARS-COV-2 COVID-19 2021-12-06 Completed [facility] 00:00:00 [place] [facility] 12 YRS+, Branch BIVALENT 0.3ML, IM, (PFIZER SHELLEY TOP) Influenza Virus 2021-12-06 Completed [facility], 00:00:00 [place] [facility] ABX Branch Free 6 MO-64 YRS SARS-COV-2 COVID-19 2021-12-06 Completed [facility] 00:00:00 [place] [facility] 12 YRS+, Branch BIVALENT 0.3ML, IM, (PFIZER SHELLEY TOP) Influenza Virus 2021-12-06 Completed [facility], 00:00:00 [place] [facility] ABX Branch Free 6 MO-64 YRS SARS-COV-2 COVID-19 2021-12-06 Completed [facility] 00:00:00 [place] [facility] 12 YRS+, Branch BIVALENT 0.3ML, IM, (PFIZER SHELLEY TOP) Influenza Virus 2021-12-06 Completed [facility], 00:00:00 [place] [facility] ABX Branch Free 6 MO-64 YRS SARS-COV-2 COVID-19 2021-12-06 Completed [facility] 00:00:00 [place] [facility] 12 YRS+, Branch BIVALENT 0.3ML, IM, (PFIZER SHELLEY TOP) Influenza Virus 2021-12-06 Completed [facility], 00:00:00 [place] [facility] ABX Branch Free 6 MO-64 YRS SARS-COV-2 COVID-19 2021-12-06 Completed [facility] 00:00:00 [place] [facility]INE 12 YRS+, Branch BIVALENT 0.3ML, IM, (PFIZER SHELLEY TOP) Influenza Virus 2021-12-06 Completed [facility], 00:00:00 [place] [facility] Pres[facility] ABX Branch Free 6 MO-64 YRS SARS-COV-2 COVID-19 2021-12-06 Completed [facility] 00:00:00 [place] [facility]INE 12 YRS+, Branch BIVALENT 0.3ML, IM, (PFIZER SHELLEY TOP) Influenza Virus 2021-12-06 Completed [facility], 00:00:00 [place] [facility] Pres[facility] ABX Branch Free 6 MO-64 YRS SARS-COV-2 COVID-19 2021-12-06 Completed [facility] 00:00:00 [place] [facility]INE 12 YRS+, Branch BIVALENT 0.3ML, IM, (PFIZER SHELLEY TOP) Influenza Virus 2021-12-06 Completed [facility], 00:00:00 [place] [facility] Pres[facility] ABX Branch Free 6 MO-64 YRS SARS-COV-2 COVID-19 2021-12-06 Completed [facility] 00:00:00 [place] [facility]INE 12 YRS+, Branch BIVALENT 0.3ML, IM, (PFIZER SHELLEY TOP) Influenza Virus 2021-12-06 Completed [facility], 00:00:00 [place] [facility] Pres[facility] ABX Branch Free 6 MO-64 YRS SARS-COV-2 COVID-19 2021-12-06 Completed [facility] 00:00:00 [place] [facility] 12 YRS+, Branch BIVALENT 0.3ML, IM, (PFIZER SHELLEY TOP) SARS-COV-2 COVID-19 2020-12-03 Completed [facility] PFIZER VACCINE 00:00:00 [facility] SARS-COV-2 COVID-19 2020-12-03 Completed [facility] PFIZER VACCINE 00:00:00 [facility] SARS-COV-2 COVID-19 2020-12-03 Completed [facility] PFIZER VACCINE 00:00:00 [facility] SARS-COV-2 COVID-19 2020-12-03 Completed [facility] PFIZER VACCINE 00:00:00 [facility] SARS-COV-2 COVID-19 2020-12-03 Completed [facility] PFIZER VACCINE 00:00:00 [facility] SARS-COV-2 COVID-19 2020-12-03 Completed [facility] PFIZER VACCINE 00:00:00 [facility] SARS-COV-2 COVID-19 2020-12-03 Completed [facility] PFIZER VACCINE 00:00:00 [facility] SARS-COV-2 COVID-19 2020-12-03 Completed [facility] PFIZER VACCINE 00:00:00 [facility] SARS-COV-2 COVID-19 2020-12-03 Completed [facility] PFIZER VACCINE 00:00:00 [facility] SARS-COV-2 COVID-19 2020-12-03 Completed [facility] PFIZER VACCINE 00:00:00 [facility] SARS-COV-2 COVID-19 2020-12-03 Completed [facility] PFIZER VACCINE 00:00:00 [facility] SARS-COV-2 COVID-19 2020-12-03 Completed [facility] PFIZER VACCINE 00:00:00 [facility] SARS-COV-2 COVID-19 2020-12-03 Completed [facility] PFIZER VACCINE 00:00:00 [facility] SARS-COV-2 COVID-19 2020-12-03 Completed [facility] PFIZER VACCINE 00:00:00 [facility] SARS-COV-2 COVID-19 2020-12-03 Completed [facility] PFIZER VACCINE 00:00:00 [facility] SARS-COV-2 COVID-19 2020-12-03 Completed [facility] PFIZER VACCINE 00:00:00 [facility] SARS-COV-2 COVID-19 2020-12-03 Completed [facility] PFIZER VACCINE 00:00:00 [facility] SARS-COV-2 COVID-19 2020-12-03 Completed [facility] PFIZER VACCINE 00:00:00 [facility] SARS-COV-2 COVID-19 2020-12-03 Completed [facility] PFIZER VACCINE 00:00:00 [facility] SARS-COV-2 COVID-19 2020-12-03 Completed [facility] PFIZER VACCINE 00:00:00 [facility] SARS-COV-2 COVID-19 2020-12-03 Completed [facility] PFIZER VACCINE 00:00:00 [facility] SARS-COV-2 COVID-19 2020-12-03 Completed [facility] PFIZER VACCINE 00:00:00 [facility] SARS-COV-2 COVID-19 2020-12-03 Completed [facility] PFIZER VACCINE 00:00:00 [facility] SARS-COV-2 COVID-19 2020-12-03 Completed [facility] PFIZER VACCINE 00:00:00 [facility] SARS-COV-2 COVID-19 2020-12-03 Completed [facility] PFIZER VACCINE 00:00:00 [facility] SARS-COV-2 COVID-19 2020-12-03 Completed [facility] PFIZER VACCINE 00:00:00 [facility] SARS-COV-2 COVID-19 2020-12-03 Completed [facility] PFIZER VACCINE 00:00:00 [facility] SARS-COV-2 COVID-19 2020-12-03 Completed [facility] PFIZER VACCINE 00:00:00 [facility] SARS-COV-2 COVID-19 2020-12-03 Completed [facility] PFIZER VACCINE 00:00:00 [facility] SARS-COV-2 COVID-19 2020-12-03 Completed [facility] PFIZER VACCINE 00:00:00 [facility] SARS-COV-2 COVID-19 2020-12-03 Completed [facility] PFIZER VACCINE 00:00:00 [facility] SARS-COV-2 COVID-19 2020-12-03 Completed [facility] PFIZER VACCINE 00:00:00 [facility] SARS-COV-2 COVID-19 2020-12-03 Completed [facility] of PFIZER VACCINE 00:00:00 [facility] SARS-COV-2 COVID-19 2020-12-03 Completed [facility] PFIZER VACCINE 00:00:00 [facility] SARS-COV-2 COVID-19 2020-12-03 Completed [facility] PFIZER VACCINE 00:00:00 [facility] SARS-COV-2 COVID-19 2020-12-03 Completed [facility] of PFIZER VACCINE 00:00:00 [facility] SARS-COV-2 COVID-19 2020-12-03 Completed [facility] of PFIZER VACCINE 00:00:00 [facility] SARS-COV-2 COVID-19 2020-12-03 Completed [facility] PFIZER VACCINE 00:00:00 [facility] SARS-COV-2 COVID-19 2020-12-03 Completed [facility] of PFIZER VACCINE 00:00:00 [facility] SARS-COV-2 COVID-19 2020-12-03 Completed [facility] PFIZER VACCINE 00:00:00 [facility] SARS-COV-2 COVID-19 2020-12-03 Completed [facility] of PFIZER VACCINE 00:00:00 [facility] SARS-COV-2 COVID-19 2020-12-03 Completed [facility] of PFIZER VACCINE 00:00:00 [facility] SARS-COV-2 COVID-19 2020-12-03 Completed [facility] of PFIZER VACCINE 00:00:00 [facility] SARS-COV-2 COVID-19 2020-12-03 Completed [facility] PFIZER VACCINE 00:00:00 [facility] SARS-COV-2 COVID-19 2020-12-03 Completed [facility] of PFIZER VACCINE 00:00:00 [facility] SARS-COV-2 COVID-19 2020-12-03 Completed [facility] of PFIZER VACCINE 00:00:00 [facility] SARS-COV-2 COVID-19 2020-12-03 Completed [facility] of PFIZER VACCINE 00:00:00 [facility] SARS-COV-2 COVID-19 2020-12-03 Completed [facility] PFIZER VACCINE 00:00:00 [facility] SARS-COV-2 COVID-19 2020-12-03 Completed [facility] of PFIZER VACCINE 00:00:00 [facility] SARS-COV-2 COVID-19 2020-12-03 Completed [facility] of PFIZER VACCINE 00:00:00 [facility] SARS-COV-2 COVID-19 2020-12-03 Completed [facility] of PFIZER VACCINE 00:00:00 [facility] SARS-COV-2 COVID-19 2020-12-03 Completed [facility] of PFIZER VACCINE 00:00:00 [facility] SARS-COV-2 COVID-19 2020-12-03 Completed [facility] PFIZER VACCINE 00:00:00 [facility] SARS-COV-2 COVID-19 2020-12-03 Completed [facility] of PFIZER VACCINE 00:00:00 [facility] SARS-COV-2 COVID-19 2020-12-03 Completed [facility] of PFIZER VACCINE 00:00:00 [facility] SARS-COV-2 COVID-19 2020-12-03 Completed [facility] of PFIZER VACCINE 00:00:00 [facility] SARS-COV-2 COVID-19 2020-12-03 Completed [facility] of PFIZER VACCINE 00:00:00 [facility] SARS-COV-2 COVID-19 2020-12-03 Completed [facility] of PFIZER VACCINE 00:00:00 [facility] SARS-COV-2 COVID-19 2020-12-03 Completed [facility] of PFIZER VACCINE 00:00:00 [facility] SARS-COV-2 COVID-19 2020-12-03 Completed [facility] of PFIZER VACCINE 00:00:00 [facility] SARS-COV-2 COVID-19 2020-12-03 Completed [facility] of PFIZER VACCINE 00:00:00 [facility] Influenza Virus 2020-11-09 Completed [facility] of Vaccine (6-35 mo) 00:00:00 [facility] Influenza Virus 2020-11-09 Completed [facility] of Vaccine (6-35 mo) 00:00:00 [facility] Influenza Virus 2020-11-09 Completed [facility] of Vaccine (6-35 mo) 00:00:00 [facility] Influenza Virus 2020-11-09 Completed [facility] of Vaccine (6-35 mo) 00:00:00 [facility] Influenza Virus 2020-11-09 Completed [facility] of Vaccine (6-35 mo) 00:00:00 [facility] Influenza Virus 2020-11-09 Completed [facility] of Vaccine (6-35 mo) 00:00:00 [facility] Influenza Virus 2020-11-09 Completed [facility] of Vaccine (6-35 mo) 00:00:00 [facility] Influenza Virus 2020-11-09 Completed [facility] of Vaccine (6-35 mo) 00:00:00 [facility] Influenza Virus 2020-11-09 Completed [facility] of Vaccine (6-35 mo) 00:00:00 [facility] Influenza Virus 2020-11-09 Completed [facility] of Vaccine (6-35 mo) 00:00:00 [facility] Influenza Virus 2020-11-09 Completed [facility] of Vaccine (6-35 mo) 00:00:00 [facility] Influenza Virus 2020-11-09 Completed [facility] of Vaccine (6-35 mo) 00:00:00 [facility] Influenza Virus 2020-11-09 Completed [facility] Vaccine (6-35 mo) 00:00:00 [facility] Influenza Virus 2020-11-09 Completed [facility] of Vaccine (6-35 mo) 00:00:00 [facility] Influenza Virus 2020-11-09 Completed [facility] of Vaccine (6-35 mo) 00:00:00 [facility] Influenza Virus 2020-11-09 Completed [facility] of Vaccine (6-35 mo) 00:00:00 [facility] Influenza Virus 2020-11-09 Completed [facility] of Vaccine (6-35 mo) 00:00:00 [facility] Influenza Virus 2020-11-09 Completed [facility] of Vaccine (6-35 mo) 00:00:00 [facility] Influenza Virus 2020-11-09 Completed [facility] of Vaccine (6-35 mo) 00:00:00 [facility] Influenza Virus 2020-11-09 Completed [facility] of Vaccine (6-35 mo) 00:00:00 [facility] Influenza Virus 2020-11-09 Completed [facility] of Vaccine (6-35 mo) 00:00:00 [facility] Influenza Virus 2020-11-09 Completed [facility] of Vaccine (6-35 mo) 00:00:00 [facility] Influenza Virus 2020-11-09 Completed [facility] of Vaccine (6-35 mo) 00:00:00 [facility] Influenza Virus 2020-11-09 Completed [facility] of Vaccine (6-35 mo) 00:00:00 [facility] Influenza Virus 2020-11-09 Completed [facility] of Vaccine (6-35 mo) 00:00:00 [facility] Influenza Virus 2020-11-09 Completed [facility] of Vaccine (6-35 mo) 00:00:00 [facility] Influenza Virus 2020-11-09 Completed [facility] of Vaccine (6-35 mo) 00:00:00 [facility] Influenza Virus 2020-11-09 Completed [facility] of Vaccine (6-35 mo) 00:00:00 [facility] Influenza Virus 2020-11-09 Completed [facility] of Vaccine (6-35 mo) 00:00:00 [facility] Influenza Virus 2020-11-09 Completed [facility] of Vaccine (6-35 mo) 00:00:00 [facility] Influenza Virus 2020-11-09 Completed [facility] of Vaccine (6-35 mo) 00:00:00 [facility] Influenza Virus 2020-11-09 Completed [facility] of Vaccine (6-35 mo) 00:00:00 [facility] Influenza Virus 2020-11-09 Completed [facility] of Vaccine (6-35 mo) 00:00:00 [facility] Influenza Virus 2020-11-09 Completed [facility] of Vaccine (6-35 mo) 00:00:00 [facility] Influenza Virus 2020-11-09 Completed [facility] Vaccine (6-35 mo) 00:00:00 [facility] Influenza Virus 2020-11-09 Completed [facility] of Vaccine (6-35 mo) 00:00:00 [facility] Influenza Virus 2020-11-09 Completed [facility] Vaccine (6-35 mo) 00:00:00 [facility] Influenza Virus 2020-11-09 Completed [facility] of Vaccine (6-35 mo) 00:00:00 [facility] Influenza Virus 2020-11-09 Completed [facility] Vaccine (6-35 mo) 00:00:00 [facility] Influenza Virus 2020-11-09 Completed [facility] of Vaccine (6-35 mo) 00:00:00 [facility] Influenza Virus 2020-11-09 Completed [facility] Vaccine (6-35 mo) 00:00:00 [facility] Influenza Virus 2020-11-09 Completed [facility] of Vaccine (6-35 mo) 00:00:00 [facility] Influenza Virus 2020-11-09 Completed [facility] of Vaccine (6-35 mo) 00:00:00 [facility] Influenza Virus 2020-11-09 Completed [facility] Vaccine (6-35 mo) 00:00:00 [facility] Influenza Virus 2020-11-09 Completed [facility] Vaccine (6-35 mo) 00:00:00 [facility] Influenza Virus 2020-11-09 Completed [facility] of Vaccine (6-35 mo) 00:00:00 [facility] Influenza Virus 2020-11-09 Completed [facility] of Vaccine (6-35 mo) 00:00:00 [facility] Influenza Virus 2020-11-09 Completed [facility] Vaccine (6-35 mo) 00:00:00 [facility] Influenza Virus 2020-11-09 Completed [facility] Vaccine (6-35 mo) 00:00:00 [facility] Influenza Virus 2020-11-09 Completed [facility] Vaccine (6-35 mo) 00:00:00 [facility] Influenza Virus 2020-11-09 Completed [facility] Vaccine (6-35 mo) 00:00:00 [facility] Influenza Virus 2020-11-09 Completed [facility] Vaccine (6-35 mo) 00:00:00 [facility] Influenza Virus 2020-11-09 Completed [facility] Vaccine (6-35 mo) 00:00:00 [facility] Influenza Virus 2020-11-09 Completed [facility] Vaccine (6-35 mo) 00:00:00 [facility] Influenza Virus 2020-11-09 Completed [facility] Vaccine (6-35 mo) 00:00:00 [facility] Influenza Virus 2020-11-09 Completed [facility] Vaccine (6-35 mo) 00:00:00 [facility] Influenza Virus 2020-11-09 Completed [facility] Vaccine (6-35 mo) 00:00:00 [facility] Influenza Virus 2020-11-09 Completed [facility] Vaccine (6-35 mo) 00:00:00 [facility] Influenza Virus 2020-11-09 Completed [facility] Vaccine (6-35 mo) 00:00:00 [facility] Influenza Virus 2020-11-09 Completed [facility] of Vaccine (6-35 mo) 00:00:00 [facility] Influenza Virus 2020-11-09 Completed [facility] Vaccine (6-35 mo) 00:00:00 [facility] Influenza Virus 2020-11-09 Completed [facility] Vaccine (6-35 mo) 00:00:00 [facility] SARS-COV-2 COVID-19 2020-05-03 Completed [facility] of PFIZER VACCINE 00:00:00 [facility] SARS-COV-2 COVID-19 2020-05-03 Completed [facility] of PFIZER VACCINE 00:00:00 [facility] SARS-COV-2 COVID-19 2020-05-03 Completed [facility] of PFIZER VACCINE 00:00:00 [facility] SARS-COV-2 COVID-19 2020-05-03 Completed [facility] of PFIZER VACCINE 00:00:00 [facility] SARS-COV-2 COVID-19 2020-05-03 Completed [facility] PFIZER VACCINE 00:00:00 [facility] SARS-COV-2 COVID-19 2020-05-03 Completed [facility] PFIZER VACCINE 00:00:00 [facility] SARS-COV-2 COVID-19 2020-05-03 Completed [facility] PFIZER VACCINE 00:00:00 [facility] SARS-COV-2 COVID-19 2020-05-03 Completed [facility] PFIZER VACCINE 00:00:00 [facility] SARS-COV-2 COVID-19 2020-05-03 Completed [facility] PFIZER VACCINE 00:00:00 [facility] SARS-COV-2 COVID-19 2020-05-03 Completed [facility] PFIZER VACCINE 00:00:00 [facility] SARS-COV-2 COVID-19 2020-05-03 Completed [facility] PFIZER VACCINE 00:00:00 [facility] SARS-COV-2 COVID-19 2020-05-03 Completed [facility] PFIZER VACCINE 00:00:00 [facility] SARS-COV-2 COVID-19 2020-05-03 Completed [facility] PFIZER VACCINE 00:00:00 [facility] SARS-COV-2 COVID-19 2020-05-03 Completed [facility] PFIZER VACCINE 00:00:00 [facility] SARS-COV-2 COVID-19 2020-05-03 Completed [facility] PFIZER VACCINE 00:00:00 [facility] SARS-COV-2 COVID-19 2020-05-03 Completed [facility] PFIZER VACCINE 00:00:00 [facility] SARS-COV-2 COVID-19 2020-05-03 Completed [facility] PFIZER VACCINE 00:00:00 [facility] SARS-COV-2 COVID-19 2020-05-03 Completed [facility] PFIZER VACCINE 00:00:00 [facility] SARS-COV-2 COVID-19 2020-05-03 Completed [facility] PFIZER VACCINE 00:00:00 [facility] SARS-COV-2 COVID-19 2020-05-03 Completed [facility] PFIZER VACCINE 00:00:00 [facility] SARS-COV-2 COVID-19 2020-05-03 Completed [facility] PFIZER VACCINE 00:00:00 [facility] SARS-COV-2 COVID-19 2020-05-03 Completed [facility] PFIZER VACCINE 00:00:00 [facility] SARS-COV-2 COVID-19 2020-05-03 Completed [facility] PFIZER VACCINE 00:00:00 [facility] SARS-COV-2 COVID-19 2020-05-03 Completed [facility] PFIZER VACCINE 00:00:00 [facility] SARS-COV-2 COVID-19 2020-05-03 Completed [facility] PFIZER VACCINE 00:00:00 [facility] SARS-COV-2 COVID-19 2020-05-03 Completed [facility] PFIZER VACCINE 00:00:00 [facility] SARS-COV-2 COVID-19 2020-05-03 Completed [facility] PFIZER VACCINE 00:00:00 [facility] SARS-COV-2 COVID-19 2020-05-03 Completed [facility] PFIZER VACCINE 00:00:00 [facility] SARS-COV-2 COVID-19 2020-05-03 Completed [facility] PFIZER VACCINE 00:00:00 [facility] SARS-COV-2 COVID-19 2020-05-03 Completed [facility] PFIZER VACCINE 00:00:00 [facility] SARS-COV-2 COVID-19 2020-05-03 Completed [facility] PFIZER VACCINE 00:00:00 [facility] SARS-COV-2 COVID-19 2020-05-03 Completed [facility] PFIZER VACCINE 00:00:00 [facility] SARS-COV-2 COVID-19 2020-05-03 Completed [facility] PFIZER VACCINE 00:00:00 [facility] SARS-COV-2 COVID-19 2020-05-03 Completed [facility] PFIZER VACCINE 00:00:00 [facility] SARS-COV-2 COVID-19 2020-05-03 Completed [facility] PFIZER VACCINE 00:00:00 [facility] SARS-COV-2 COVID-19 2020-05-03 Completed [facility] PFIZER VACCINE 00:00:00 [facility] SARS-COV-2 COVID-19 2020-05-03 Completed [facility] PFIZER VACCINE 00:00:00 [facility] SARS-COV-2 COVID-19 2020-05-03 Completed [facility] PFIZER VACCINE 00:00:00 [facility] SARS-COV-2 COVID-19 2020-05-03 Completed [facility] PFIZER VACCINE 00:00:00 [facility] SARS-COV-2 COVID-19 2020-05-03 Completed [facility] PFIZER VACCINE 00:00:00 [facility] SARS-COV-2 COVID-19 2020-05-03 Completed [facility] PFIZER VACCINE 00:00:00 [facility] SARS-COV-2 COVID-19 2020-05-03 Completed [facility] PFIZER VACCINE 00:00:00 [facility] SARS-COV-2 COVID-19 2020-05-03 Completed [facility] PFIZER VACCINE 00:00:00 [facility] SARS-COV-2 COVID-19 2020-05-03 Completed [facility] PFIZER VACCINE 00:00:00 [facility] SARS-COV-2 COVID-19 2020-05-03 Completed [facility] PFIZER VACCINE 00:00:00 [facility] SARS-COV-2 COVID-19 2020-05-03 Completed [facility] PFIZER VACCINE 00:00:00 [facility] SARS-COV-2 COVID-19 2020-05-03 Completed [facility] PFIZER VACCINE 00:00:00 [facility] SARS-COV-2 COVID-19 2020-05-03 Completed [facility] PFIZER VACCINE 00:00:00 [facility] SARS-COV-2 COVID-19 2020-05-03 Completed [facility] PFIZER VACCINE 00:00:00 [facility] SARS-COV-2 COVID-19 2020-05-03 Completed [facility] PFIZER VACCINE 00:00:00 [facility] SARS-COV-2 COVID-19 2020-05-03 Completed [facility] PFIZER VACCINE 00:00:00 [facility] SARS-COV-2 COVID-19 2020-05-03 Completed [facility] PFIZER VACCINE 00:00:00 [facility] SARS-COV-2 COVID-19 2020-05-03 Completed [facility] PFIZER VACCINE 00:00:00 [facility] SARS-COV-2 COVID-19 2020-05-03 Completed [facility] PFIZER VACCINE 00:00:00 [facility] SARS-COV-2 COVID-19 2020-05-03 Completed [facility] PFIZER VACCINE 00:00:00 [facility] SARS-COV-2 COVID-19 2020-05-03 Completed [facility] PFIZER VACCINE 00:00:00 [facility] SARS-COV-2 COVID-19 2020-05-03 Completed [facility] PFIZER VACCINE 00:00:00 [facility] SARS-COV-2 COVID-19 2020-05-03 Completed [facility] PFIZER VACCINE 00:00:00 [facility] SARS-COV-2 COVID-19 2020-05-03 Completed [facility] PFIZER VACCINE 00:00:00 [facility] SARS-COV-2 COVID-19 2020-05-03 Completed [facility] PFIZER VACCINE 00:00:00 [facility] SARS-COV-2 COVID-19 2020-05-03 Completed [facility] PFIZER VACCINE 00:00:00 [facility] SARS-COV-2 COVID-19 2020-05-03 Completed [facility] PFIZER VACCINE 00:00:00 [facility] SARS-COV-2 COVID-19 2020-05-03 Completed [facility] PFIZER VACCINE 00:00:00 [facility] SARS-COV-2 COVID-19 2020-04-12 Completed [facility] PFIZER VACCINE 00:00:00 [facility] SARS-COV-2 COVID-19 2020-04-12 Completed [facility] PFIZER VACCINE 00:00:00 [facility] SARS-COV-2 COVID-19 2020-04-12 Completed [facility] PFIZER VACCINE 00:00:00 [facility] SARS-COV-2 COVID-19 2020-04-12 Completed [facility] PFIZER VACCINE 00:00:00 [facility] SARS-COV-2 COVID-19 2020-04-12 Completed [facility] PFIZER VACCINE 00:00:00 [facility] SARS-COV-2 COVID-19 2020-04-12 Completed [facility] PFIZER VACCINE 00:00:00 [facility] SARS-COV-2 COVID-19 2020-04-12 Completed [facility] PFIZER VACCINE 00:00:00 [facility] SARS-COV-2 COVID-19 2020-04-12 Completed [facility] PFIZER VACCINE 00:00:00 [facility] SARS-COV-2 COVID-19 2020-04-12 Completed [facility] PFIZER VACCINE 00:00:00 [facility] SARS-COV-2 COVID-19 2020-04-12 Completed [facility] PFIZER VACCINE 00:00:00 [facility] SARS-COV-2 COVID-19 2020-04-12 Completed [facility] PFIZER VACCINE 00:00:00 [facility] SARS-COV-2 COVID-19 2020-04-12 Completed [facility] PFIZER VACCINE 00:00:00 [facility] SARS-COV-2 COVID-19 2020-04-12 Completed [facility] PFIZER VACCINE 00:00:00 [facility] SARS-COV-2 COVID-19 2020-04-12 Completed [facility] PFIZER VACCINE 00:00:00 [facility] SARS-COV-2 COVID-19 2020-04-12 Completed [facility] PFIZER VACCINE 00:00:00 [facility] SARS-COV-2 COVID-19 2020-04-12 Completed [facility] PFIZER VACCINE 00:00:00 [facility] SARS-COV-2 COVID-19 2020-04-12 Completed [facility] PFIZER VACCINE 00:00:00 [facility] SARS-COV-2 COVID-19 2020-04-12 Completed [facility] PFIZER VACCINE 00:00:00 [facility] SARS-COV-2 COVID-19 2020-04-12 Completed [facility] PFIZER VACCINE 00:00:00 [facility] SARS-COV-2 COVID-19 2020-04-12 Completed [facility] PFIZER VACCINE 00:00:00 [facility] SARS-COV-2 COVID-19 2020-04-12 Completed [facility] PFIZER VACCINE 00:00:00 [facility] SARS-COV-2 COVID-19 2020-04-12 Completed [facility] PFIZER VACCINE 00:00:00 [facility] SARS-COV-2 COVID-19 2020-04-12 Completed [facility] PFIZER VACCINE 00:00:00 [facility] SARS-COV-2 COVID-19 2020-04-12 Completed [facility] PFIZER VACCINE 00:00:00 [facility] SARS-COV-2 COVID-19 2020-04-12 Completed [facility] PFIZER VACCINE 00:00:00 [facility] SARS-COV-2 COVID-19 2020-04-12 Completed [facility] PFIZER VACCINE 00:00:00 [facility] SARS-COV-2 COVID-19 2020-04-12 Completed [facility] PFIZER VACCINE 00:00:00 [facility] SARS-COV-2 COVID-19 2020-04-12 Completed [facility] PFIZER VACCINE 00:00:00 [facility] SARS-COV-2 COVID-19 2020-04-12 Completed [facility] PFIZER VACCINE 00:00:00 [facility] SARS-COV-2 COVID-19 2020-04-12 Completed [facility] PFIZER VACCINE 00:00:00 [facility] SARS-COV-2 COVID-19 2020-04-12 Completed [facility] PFIZER VACCINE 00:00:00 [facility] SARS-COV-2 COVID-19 2020-04-12 Completed [facility] PFIZER VACCINE 00:00:00 [facility] SARS-COV-2 COVID-19 2020-04-12 Completed [facility] PFIZER VACCINE 00:00:00 [facility] SARS-COV-2 COVID-19 2020-04-12 Completed [facility] PFIZER VACCINE 00:00:00 [facility] SARS-COV-2 COVID-19 2020-04-12 Completed [facility] PFIZER VACCINE 00:00:00 [facility] SARS-COV-2 COVID-19 2020-04-12 Completed [facility] PFIZER VACCINE 00:00:00 [facility] SARS-COV-2 COVID-19 2020-04-12 Completed [facility] PFIZER VACCINE 00:00:00 [facility] SARS-COV-2 COVID-19 2020-04-12 Completed [facility] PFIZER VACCINE 00:00:00 [facility] SARS-COV-2 COVID-19 2020-04-12 Completed [facility] PFIZER VACCINE 00:00:00 [facility] SARS-COV-2 COVID-19 2020-04-12 Completed [facility] PFIZER VACCINE 00:00:00 [facility] SARS-COV-2 COVID-19 2020-04-12 Completed [facility] PFIZER VACCINE 00:00:00 [facility] SARS-COV-2 COVID-19 2020-04-12 Completed [facility] PFIZER VACCINE 00:00:00 [facility] SARS-COV-2 COVID-19 2020-04-12 Completed [facility] PFIZER VACCINE 00:00:00 [facility] SARS-COV-2 COVID-19 2020-04-12 Completed [facility] PFIZER VACCINE 00:00:00 [facility] SARS-COV-2 COVID-19 2020-04-12 Completed [facility] PFIZER VACCINE 00:00:00 [facility] SARS-COV-2 COVID-19 2020-04-12 Completed [facility] PFIZER VACCINE 00:00:00 [facility] SARS-COV-2 COVID-19 2020-04-12 Completed [facility] PFIZER VACCINE 00:00:00 [facility] SARS-COV-2 COVID-19 2020-04-12 Completed [facility] PFIZER VACCINE 00:00:00 [facility] SARS-COV-2 COVID-19 2020-04-12 Completed [facility] PFIZER VACCINE 00:00:00 [facility] SARS-COV-2 COVID-19 2020-04-12 Completed [facility] PFIZER VACCINE 00:00:00 [facility] SARS-COV-2 COVID-19 2020-04-12 Completed [facility] PFIZER VACCINE 00:00:00 [facility] SARS-COV-2 COVID-19 2020-04-12 Completed [facility] PFIZER VACCINE 00:00:00 [facility] SARS-COV-2 COVID-19 2020-04-12 Completed [facility] PFIZER VACCINE 00:00:00 [facility] SARS-COV-2 COVID-19 2020-04-12 Completed [facility] PFIZER VACCINE 00:00:00 [facility] SARS-COV-2 COVID-19 2020-04-12 Completed [facility] PFIZER VACCINE 00:00:00 [facility] SARS-COV-2 COVID-19 2020-04-12 Completed [facility] PFIZER VACCINE 00:00:00 [facility] SARS-COV-2 COVID-19 2020-04-12 Completed [facility] PFIZER VACCINE 00:00:00 [facility] SARS-COV-2 COVID-19 2020-04-12 Completed [facility] PFIZER VACCINE 00:00:00 [facility] SARS-COV-2 COVID-19 2020-04-12 Completed [facility] PFIZER VACCINE 00:00:00 [facility] SARS-COV-2 COVID-19 2020-04-12 Completed [facility] PFIZER VACCINE 00:00:00 [facility] SARS-COV-2 COVID-19 2020-04-12 Completed [facility] PFIZER VACCINE 00:00:00 [facility] SARS-COV-2 COVID-19 2020-04-12 Completed [facility] PFIZER VACCINE 00:00:00 [facility] SARS-COV-2 COVID-19 2020-04-12 Completed [facility] PFIZER VACCINE 00:00:00 [facility] Pneumococcal 2020-02-21 Completed [facility] Polysaccharide, 00:00:00 [facility] PPSV23 (PNEUMOVAX) [facility] Influenza Virus 2020-02-21 Completed [facility] Vaccine [facility] .5 mL 00:00:00 [facility] Pneumococcal 2020-02-21 Completed [facility] Polysaccharide, 00:00:00 [facility] PPSV23 (PNEUMOVAX) [facility] Influenza Virus 2020-02-21 Completed [facility] Vaccine [facility] .5 mL 00:00:00 [facility] Pneumococcal 2020-02-21 Completed [facility] Polysaccharide, 00:00:00 [facility] PPSV23 (PNEUMOVAX) [facility] Influenza Virus 2020-02-21 Completed [facility] Vaccine [facility] .5 mL 00:00:00 [facility] Pneumococcal 2020-02-21 Completed [facility] Polysaccharide, 00:00:00 [facility] PPSV23 (PNEUMOVAX) [facility] Influenza Virus 2020-02-21 Completed [facility] Vaccine [facility] .5 mL 00:00:00 [facility] Pneumococcal 2020-02-21 Completed [facility] Polysaccharide, 00:00:00 [facility] PPSV23 (PNEUMOVAX) [facility] Influenza Virus 2020-02-21 Completed [facility] Vaccine [facility] .5 mL 00:00:00 [facility] Pneumococcal 2020-02-21 Completed [facility] Polysaccharide, 00:00:00 [facility] PPSV23 (PNEUMOVAX) [facility] Influenza Virus 2020-02-21 Completed [facility] Vaccine [facility] .5 mL 00:00:00 [facility] Pneumococcal 2020-02-21 Completed [facility] Polysaccharide, 00:00:00 [facility] PPSV23 (PNEUMOVAX) [facility] Influenza Virus 2020-02-21 Completed [facility] Vaccine [facility] .5 mL 00:00:00 [facility] Pneumococcal 2020-02-21 Completed [facility] Polysaccharide, 00:00:00 [facility] PPSV23 (PNEUMOVAX) [facility] Influenza Virus 2020-02-21 Completed [facility] Vaccine [facility] .5 mL 00:00:00 [facility] Pneumococcal 2020-02-21 Completed [facility] Polysaccharide, 00:00:00 [facility] PPSV23 (PNEUMOVAX) [facility] Influenza Virus 2020-02-21 Completed [facility] Vaccine [facility] .5 mL 00:00:00 [facility] Pneumococcal 2020-02-21 Completed [facility] Polysaccharide, 00:00:00 [facility] PPSV23 (PNEUMOVAX) [facility] Influenza Virus 2020-02-21 Completed [facility]ine [facility] .5 mL 00:00:00 [facility] Pneumococcal 2020-02-21 Completed [facility] Polysaccharide, 00:00:00 [facility] PPSV23 (PNEUMOVAX) [facility] Influenza Virus 2020-02-21 Completed [facility] Vaccine [facility] .5 mL 00:00:00 [facility] Pneumococcal 2020-02-21 Completed [facility] Polysaccharide, 00:00:00 [facility] PPSV23 (PNEUMOVAX) [facility] Influenza Virus 2020-02-21 Completed [facility] Vaccine [facility] .5 mL 00:00:00 [facility] Pneumococcal 2020-02-21 Completed [facility] Polysaccharide, 00:00:00 [facility] PPSV23 (PNEUMOVAX) [facility] Influenza Virus 2020-02-21 Completed [facility] Vaccine [facility] .5 mL 00:00:00 [facility] Pneumococcal 2020-02-21 Completed [facility] Polysaccharide, 00:00:00 [facility] PPSV23 (PNEUMOVAX) [facility] Influenza Virus 2020-02-21 Completed [facility] Vaccine [facility] .5 mL 00:00:00 [facility] Pneumococcal 2020-02-21 Completed [facility] Polysaccharide, 00:00:00 [facility] PPSV23 (PNEUMOVAX) [facility] Influenza Virus 2020-02-21 Completed [facility] Vaccine [facility] .5 mL 00:00:00 [facility] Pneumococcal 2020-02-21 Completed [facility] Polysaccharide, 00:00:00 [facility] PPSV23 (PNEUMOVAX) [facility] Influenza Virus 2020-02-21 Completed [facility] Vaccine [facility] .5 mL 00:00:00 [facility] Pneumococcal 2020-02-21 Completed [facility] Polysaccharide, 00:00:00 [facility] PPSV23 (PNEUMOVAX) [facility] Influenza Virus 2020-02-21 Completed [facility] Vaccine [facility] .5 mL 00:00:00 [facility] Pneumococcal 2020-02-21 Completed [facility] Polysaccharide, 00:00:00 [facility] PPSV23 (PNEUMOVAX) [facility] Influenza Virus 2020-02-21 Completed [facility] Vaccine [facility] .5 mL 00:00:00 [facility] Pneumococcal 2020-02-21 Completed [facility] Polysaccharide, 00:00:00 [facility] PPSV23 (PNEUMOVAX) [facility] Influenza Virus 2020-02-21 Completed [facility] Vaccine [facility] .5 mL 00:00:00 [facility] Pneumococcal 2020-02-21 Completed [facility] Polysaccharide, 00:00:00 [facility] PPSV23 (PNEUMOVAX) [facility] Influenza Virus 2020-02-21 Completed [facility] Vaccine [facility] .5 mL 00:00:00 [facility] Pneumococcal 2020-02-21 Completed [facility] Polysaccharide, 00:00:00 [facility] PPSV23 (PNEUMOVAX) [facility] Influenza Virus 2020-02-21 Completed [facility] Vaccine [facility] .5 mL 00:00:00 [facility] Pneumococcal 2020-02-21 Completed [facility] Polysaccharide, 00:00:00 [facility] PPSV23 (PNEUMOVAX) [facility] Influenza Virus 2020-02-21 Completed [facility] Vaccine [facility] .5 mL 00:00:00 [facility] Pneumococcal 2020-02-21 Completed [facility] Polysaccharide, 00:00:00 [facility] PPSV23 (PNEUMOVAX) [facility] Influenza Virus 2020-02-21 Completed [facility] Vaccine [facility] .5 mL 00:00:00 [facility] Pneumococcal 2020-02-21 Completed [facility] Polysaccharide, 00:00:00 [facility] PPSV23 (PNEUMOVAX) [facility] Influenza Virus 2020-02-21 Completed [facility] Vaccine Quad .5 mL 00:00:00 [facility] Pneumococcal 2020-02-21 Completed [facility] Polysaccharide, 00:00:00 [facility] PPSV23 (PNEUMOVAX) [facility] Influenza Virus 2020-02-21 Completed [facility] Vaccine [facility] .5 mL 00:00:00 [facility] Pneumococcal 2020-02-21 Completed [facility] Polysaccharide, 00:00:00 [facility] PPSV23 (PNEUMOVAX) [facility] Influenza Virus 2020-02-21 Completed [facility] Vaccine Quad .5 mL 00:00:00 [facility] 6[facility] MO [facility] Pneumococcal 2020-02-21 Completed [facility] Polysaccharide, 00:00:00 [facility] PPSV23 (PNEUMOVAX) [facility] Influenza Virus 2020-02-21 Completed [facility] Vaccine Quad .5 mL 00:00:00 [facility] 6+ MO [facility] Pneumococcal 2020-02-21 Completed [facility] Polysaccharide, 00:00:00 [facility] PPSV23 (PNEUMOVAX) [facility] Influenza Virus 2020-02-21 Completed [facility] Vaccine Quad .5 mL 00:00:00 [facility] 6+ MO [facility] Pneumococcal 2020-02-21 Completed [facility] Polysaccharide, 00:00:00 [facility] PPSV23 (PNEUMOVAX) [facility] Influenza Virus 2020-02-21 Completed [facility] Vaccine [facility] .5 mL 00:00:00 [facility] Pneumococcal 2020-02-21 Completed [facility] Polysaccharide, 00:00:00 [facility] PPSV23 (PNEUMOVAX) [facility] Influenza Virus 2020-02-21 Completed [facility] Vaccine [facility] .5 mL 00:00:00 [facility] Pneumococcal 2020-02-21 Completed [facility] Polysaccharide, 00:00:00 [facility] PPSV23 (PNEUMOVAX) [facility] Influenza Virus 2020-02-21 Completed [facility] Vaccine [facility] .5 mL 00:00:00 [facility] Pneumococcal 2020-02-21 Completed [facility] Polysaccharide, 00:00:00 [facility] PPSV23 (PNEUMOVAX) [facility] Influenza Virus 2020-02-21 Completed [facility] Vaccine [facility] .5 mL 00:00:00 [facility] Pneumococcal 2020-02-21 Completed [facility] Polysaccharide, 00:00:00 [facility] PPSV23 (PNEUMOVAX) [facility] Influenza Virus 2020-02-21 Completed [facility] Vaccine [facility] .5 mL 00:00:00 [facility] Pneumococcal 2020-02-21 Completed [facility] Polysaccharide, 00:00:00 [facility] PPSV23 (PNEUMOVAX) [facility] Influenza Virus 2020-02-21 Completed [facility] Vaccine [facility] .5 mL 00:00:00 [facility] Pneumococcal 2020-02-21 Completed [facility] Polysaccharide, 00:00:00 [facility] PPSV23 (PNEUMOVAX) [facility] Influenza Virus 2020-02-21 Completed [facility] Vaccine [facility] .5 mL 00:00:00 [facility] Pneumococcal 2020-02-21 Completed [facility] Polysaccharide, 00:00:00 [facility] PPSV23 (PNEUMOVAX) [facility] Influenza Virus 2020-02-21 Completed [facility] Vaccine [facility] .5 mL 00:00:00 [facility] Pneumococcal 2020-02-21 Completed [facility] Polysaccharide, 00:00:00 [facility] PPSV23 (PNEUMOVAX) [facility] Influenza Virus 2020-02-21 Completed [facility] Vaccine [facility] .5 mL 00:00:00 [facility] Pneumococcal 2020-02-21 Completed [facility] Polysaccharide, 00:00:00 [place] [facility] PPSV23 (PNEUMOVAX) [facility] Influenza Virus 2020-02-21 Completed [facility]it [facility] Vaccine Quad .5 mL 00:00:00 [facility] Pneumococcal 2020-02-21 Completed University o f Polysaccharide, 00:00:00 [place] [facility] PPSV23 (PNEUMOVAX) Branch Influenza Virus 2020-02-21 Completed [facility] Vaccine [facility] .5 mL 00:00:00 [facility] Pneumococcal 2020-02-21 Completed [facility] o f Polysaccharide, 00:00:00 [place] [facility] PPSV23 (PNEUMOVAX) Branch Influenza Virus 2020-02-21 Completed [facility] Vaccine [facility] .5 mL 00:00:00 [facility] Pneumococcal 2020-02-21 Completed University o f Polysaccharide, 00:00:00 [place] [facility] PPSV23 (PNEUMOVAX) Branch Influenza Virus 2020-02-21 Completed [facility] Vaccine [facility] .5 mL 00:00:00 [facility] Pneumococcal 2020-02-21 Completed [facility] o f Polysaccharide, 00:00:00 [place] [facility] PPSV23 (PNEUMOVAX) Branch Influenza Virus 2020-02-21 Completed [facility] Vaccine [facility] .5 mL 00:00:00 [facility] Pneumococcal 2020-02-21 Completed [facility] o f Polysaccharide, 00:00:00 [place] [facility] PPSV23 (PNEUMOVAX) Branch Influenza Virus 2020-02-21 Completed [facility] Vaccine [facility] .5 mL 00:00:00 [facility] 6[facility] Pneumococcal 2020-02-21 Completed [facility] o f Polysaccharide, 00:00:00 [place] [facility] PPSV23 (PNEUMOVAX) Branch Influenza Virus 2020-02-21 Completed [facility] Vaccine [facility] .5 mL 00:00:00 [facility] Pneumococcal 2020-02-21 Completed [facility] o f Polysaccharide, 00:00:00 [place] [facility] PPSV23 (PNEUMOVAX) Branch Influenza Virus 2020-02-21 Completed [facility] Vaccine [facility] .5 mL 00:00:00 [facility] Pneumococcal 2020-02-21 Completed [facility] o f Polysaccharide, 00:00:00 [place] [facility] PPSV23 (PNEUMOVAX) Branch Influenza Virus 2020-02-21 Completed [facility] Vaccine [facility] .5 mL 00:00:00 [facility] Pneumococcal 2020-02-21 Completed [facility] o f Polysaccharide, 00:00:00 [place] [facility] PPSV23 (PNEUMOVAX) Branch Influenza Virus 2020-02-21 Completed [facility] Vaccine [facility] .5 mL 00:00:00 [facility] Pneumococcal 2020-02-21 Completed [facility] o f Polysaccharide, 00:00:00 [place] [facility] PPSV23 (PNEUMOVAX) Branch Influenza Virus 2020-02-21 Completed [facility] Vaccine [facility] .5 mL 00:00:00 [facility] Pneumococcal 2020-02-21 Completed [facility] o f Polysaccharide, 00:00:00 [place] [facility] PPSV23 (PNEUMOVAX) Branch Influenza Virus 2020-02-21 Completed [facility] Vaccine [facility] .5 mL 00:00:00 [facility] Pneumococcal 2020-02-21 Completed [facility] o f Polysaccharide, 00:00:00 [place] [facility] PPSV23 (PNEUMOVAX) Branch Influenza Virus 2020-02-21 Completed [facility] Vaccine [facility] .5 mL 00:00:00 [facility] Pneumococcal 2020-02-21 Completed [facility] o f Polysaccharide, 00:00:00 [place] [facility] PPSV23 (PNEUMOVAX) Branch Influenza Virus 2020-02-21 Completed [facility] Vaccine [facility] .5 mL 00:00:00 [facility] Pneumococcal 2020-02-21 Completed [facility] o f Polysaccharide, 00:00:00 [place] [facility] PPSV23 (PNEUMOVAX) Branch Influenza Virus 2020-02-21 Completed [facility] Vaccine [facility] .5 mL 00:00:00 [facility] Pneumococcal 2020-02-21 Completed [facility] o f Polysaccharide, 00:00:00 [place] [facility] PPSV23 (PNEUMOVAX) Branch Influenza Virus 2020-02-21 Completed [facility] Vaccine [facility] .5 mL 00:00:00 [facility] Pneumococcal 2020-02-21 Completed [facility] o f Polysaccharide, 00:00:00 [place] [facility] PPSV23 (PNEUMOVAX) Branch Influenza Virus 2020-02-21 Completed [facility] Vaccine [facility] .5 mL 00:00:00 [facility] Pneumococcal 2020-02-21 Completed [facility] o f Polysaccharide, 00:00:00 [place] [facility] PPSV23 (PNEUMOVAX) Branch Influenza Virus 2020-02-21 Completed [facility] Vaccine [facility] .5 mL 00:00:00 [facility] Pneumococcal 2020-02-21 Completed [facility] o f Polysaccharide, 00:00:00 [place] [facility] PPSV23 (PNEUMOVAX) Branch Influenza Virus 2020-02-21 Completed [facility] Vaccine Quad .5 mL 00:00:00 [facility] Pneumococcal 2020-02-21 Completed [facility] o f Polysaccharide, 00:00:00 [place] [facility] PPSV23 (PNEUMOVAX) Branch Influenza Virus 2020-02-21 Completed [facility] Vaccine Quad .5 mL 00:00:00 [facility] Pneumococcal 2020-02-21 Completed [facility] o f Polysaccharide, 00:00:00 [place] [facility] PPSV23 (PNEUMOVAX) Branch Influenza Virus 2020-02-21 Completed [facility] Vaccine Quad .5 mL 00:00:00 [facility] Pneumococcal 2020-02-21 Completed [facility] o f Polysaccharide, 00:00:00 [place] [facility] PPSV23 (PNEUMOVAX) Branch Influenza Virus 2020-02-21 Completed [facility] Vaccine Quad .5 mL 00:00:00 [facility] Pneumococcal 2020-02-21 Completed [facility] o f Polysaccharide, 00:00:00 [place] [facility] PPSV23 (PNEUMOVAX) Branch Influenza Virus 2020-02-21 Completed [facility] Vaccine Quad .5 mL 00:00:00 [facility] Pneumococcal 2020-02-21 Completed [facility] o f Polysaccharide, 00:00:00 [place] [facility] PPSV23 (PNEUMOVAX) Branch Influenza Virus 2020-02-21 Completed [facility] Vaccine Quad .5 mL 00:00:00 [facility] Pneumococcal 2020-02-21 Completed [facility] o f Polysaccharide, 00:00:00 [place] [facility] PPSV23 (PNEUMOVAX) Branch Influenza Virus 2020-02-21 Completed [facility] Vaccine Quad .5 mL 00:00:00 [facility] Pneumococcal 2020-02-21 Completed [facility] o f Polysaccharide, 00:00:00 [place] [facility] PPSV23 (PNEUMOVAX) Branch Influenza Virus 2020-02-21 Completed [facility] Vaccine Quad .5 mL 00:00:00 [facility] Vital Signs Vital Name Observation Time Observation Value Comments Source Systolic blood 2022-10-03 21:26:00 146 mm[Hg] Univer sity of pressure [facility] Diastolic blood 2022-10-03 21:26:00 84 mm[Hg] Unive rsity of pressure [facility] Heart rate 2022-10-03 21:26:00 100 /min [facility] Body temperature 2022-10-03 21:26:00 37.06 Nelli [facility] Respiratory rate 2022-10-03 21:26:00 16 /min [facility] Body height 2022-10-03 21:26:00 175.3 cm [facility] Body weight 2022-10-03 21:26:00 81.012 kg [facility] BMI 2022-10-03 21:26:00 26.37 kg/m2 [facility] Oxygen saturation in 2022-10-03 21:26:00 97 /min University of Arterial blood by [facility] Pulse oximetry Branch Systolic blood 2022-09-12 03:48:31 127 mm[Hg] Univer sity of pressure [facility] Diastolic blood 2022-09-12 03:48:31 83 mm[Hg] Unive rsity of pressure [facility] Heart rate 2022-09-12 03:48:31 75 /min [facility] Respiratory rate 2022-09-12 03:48:31 18 /min [facility] Oxygen saturation in 2022-09-12 03:48:31 98 /min [facility] of Arterial blood by [facility] Pulse oximetry Branch Body temperature 2022-09-12 00:53:00 36.83 Nelli [facility] Body height 2022-09-12 00:53:00 175.3 cm [facility] Body weight 2022-09-12 00:53:00 81.375 kg [facility] BMI 2022-09-12 00:53:00 26.49 kg/m2 [facility] Systolic blood 2022-09-05 20:52:00 101 mm[Hg] [facility] pressure [facility] Diastolic blood 2022-09-05 20:52:00 63 mm[Hg] [facility]ive rsity of pressure [facility] Heart rate 2022-09-05 20:52:00 97 /min [facility] Body temperature 2022-09-05 20:52:00 36.5 Nelli [facility] [place] [facility] Body height 2022-09-05 20:52:00 175.3 cm [facility] [place] [facility] Body weight 2022-09-05 20:52:00 79.833 kg [facility] BMI 2022-09-05 20:52:00 25.99 kg/m2 [facility] Oxygen saturation in 2022-09-05 20:52:00 98 /min [facility] of Arterial blood by [facility] Pulse oximetry Branch Systolic blood 2022-08-30 22:44:00 146 mm[Hg] [facility] s[facility] of pressure [facility] Diastolic blood 2022-08-30 22:44:00 81 mm[Hg] Unive rsity of pressure [facility] Heart rate 2022-08-30 22:44:00 99 /min [facility] Body temperature 2022-08-30 22:44:00 36.78 Nelli [facility] [place] [facility] Respiratory rate 2022-08-30 22:44:00 18 /min [facility] Body height 2022-08-30 22:44:00 175.3 cm [facility] Body weight 2022-08-30 22:44:00 81.194 kg [facility] BMI 2022-08-30 22:44:00 26.43 kg/m2 [facility] Oxygen saturation in 2022-08-30 22:44:00 98 /min [facility] of Arterial blood by [facility] bandar Pulse oximetry Branch Systolic blood 2022-08-19 20:36:56 125 mm[Hg] Univer sity of pressure [facility] Diastolic blood 2022-08-19 20:36:56 78 mm[Hg] Unive rsity of pressure [facility] Heart rate 2022-08-19 20:36:56 71 /min [facility] Respiratory rate 2022-08-19 20:36:56 18 /min [facility] Oxygen saturation in 2022-08-19 20:36:56 99 /min [facility] of Arterial blood by [facility] bandar Pulse oximetry Branch Body temperature 2022-08-19 18:11:00 36.17 Nelli [facility] [place] [facility] Body height 2022-08-19 18:11:00 175.3 cm [facility] Body weight 2022-08-19 18:11:00 81.194 kg [facility] BMI 2022-08-19 18:11:00 26.43 kg/m2 [facility] Systolic blood 2022-08-13 20:46:00 139 mm[Hg] [facility] of pressure [facility] Diastolic blood 2022-08-13 20:46:00 90 mm[Hg] Unive rsity of pressure [facility] Heart rate 2022-08-13 20:46:00 95 /min [facility] Body temperature 2022-08-13 20:46:00 36.61 Nelli Univ ersity of [facility] Respiratory rate 2022-08-13 20:46:00 14 /min [facility] [place] [facility] Body height 2022-08-13 20:46:00 175.3 cm [facility] [place] [facility] Body weight 2022-08-13 20:46:00 81.194 kg [facility] BMI 2022-08-13 20:46:00 26.43 kg/m2 [facility] Oxygen saturation in 2022-08-13 20:46:00 99 /min [facility] of Arterial blood by [place] [facility] [facility] bandar Pulse oximetry Branch Systolic blood 2022-07-03 04:30:00 115 mm[Hg] [facility]iver sity of pressure [facility] Diastolic blood 2022-07-03 04:30:00 62 mm[Hg] Unive rsity of pressure [facility] Heart rate 2022-07-03 04:30:00 79 /min [facility] [place] [facility] Respiratory rate 2022-07-03 04:30:00 18 /min [facility] [place] [facility] Oxygen saturation in 2022-07-03 04:30:00 97 /min [facility] of Arterial blood by [place] [employer] bandar Pulse oximetry Branch Body temperature 2022-07-03 02:34:00 36.61 Nelli [facility] [place] [facility] Body height 2022-07-03 02:34:00 170.2 cm [facility] Body weight 2022-07-03 02:34:00 81.194 kg [facility] [place] [facility] BMI 2022-07-03 02:34:00 28.04 kg/m2 [facility] Heart rate 2022-06-03 04:18:24 92 /min [facility] Respiratory rate 2022-06-03 04:18:24 15 /min [facility] Oxygen saturation in 2022-06-03 04:18:24 97 /min [facility] Arterial blood by [place] [facility] bandar Pulse oximetry Branch Systolic blood 2022-06-03 04:00:00 139 mm[Hg] [facility] of pressure [facility] Diastolic blood 2022-06-03 04:00:00 79 mm[Hg] Unive rsity of pressure [facility] Body temperature 2022-06-03 01:38:00 37 Nelli [facility] Body height 2022-06-03 01:38:00 170.2 cm [facility] Body weight 2022-06-03 01:38:00 81.194 kg [facility] BMI 2022-06-03 01:38:00 28.04 kg/m2 [facility] Systolic blood 2022-05-20 19:58:00 133 mm[Hg] Univer sity of pressure [facility] Diastolic blood 2022-05-20 19:58:00 80 mm[Hg] Unive rsity of pressure [facility] Heart rate 2022-05-20 19:58:00 98 /min [facility] Body temperature 2022-05-20 19:58:00 36.33 Nelli [facility] Respiratory rate 2022-05-20 19:58:00 16 /min [facility] Body height 2022-05-20 19:58:00 170.2 cm [facility] Body weight 2022-05-20 19:58:00 81.194 kg [facility] BMI 2022-05-20 19:58:00 28.04 kg/m2 [facility] Oxygen saturation in 2022-05-20 19:58:00 98 /min [facility] of Arterial blood by [facility] Pulse oximetry Branch Systolic blood 2022-05-18 23:15:00 137 mm[Hg] Univer sity of pressure [facility] Diastolic blood 2022-05-18 23:15:00 92 mm[Hg] Unive rsity of pressure [facility] Heart rate 2022-05-18 23:15:00 106 /min [facility] Body temperature 2022-05-18 23:15:00 36.61 Nelli [facility] Respiratory rate 2022-05-18 23:15:00 16 /min [facility] Body height 2022-05-18 23:15:00 170.2 cm [facility] Body weight 2022-05-18 23:15:00 81.194 kg [facility] BMI 2022-05-18 23:15:00 28.04 kg/m2 [facility] Oxygen saturation in 2022-05-18 23:15:00 100 /min [facility] of Arterial blood by [place] [employer] bandar Pulse oximetry Branch Systolic blood 2022-04-24 02:27:00 147 mm[Hg] Univer sity of pressure [facility] Diastolic blood 2022-04-24 02:27:00 91 mm[Hg] Unive rsity of pressure [facility] Heart rate 2022-04-24 02:27:00 100 /min [facility] Body temperature 2022-04-24 02:27:00 36.39 Nelli [facility] Respiratory rate 2022-04-24 02:27:00 16 /min [facility] Body height 2022-04-24 02:27:00 170.2 cm [facility] Body weight 2022-04-24 02:27:00 82.555 kg [facility] BMI 2022-04-24 02:27:00 28.51 kg/m2 [facility] Oxygen saturation in 2022-04-24 02:27:00 100 /min [facility] of Arterial blood by [place] [facility] bandar Pulse oximetry Branch Systolic blood 2022-03-22 00:35:00 149 mm[Hg] Univer sity of pressure [facility] Diastolic blood 2022-03-22 00:35:00 96 mm[Hg] Unive rsity of pressure [facility] Heart rate 2022-03-22 00:35:00 96 /min [facility] Body temperature 2022-03-22 00:35:00 36.56 Nelli [facility] Respiratory rate 2022-03-22 00:35:00 18 /min [facility] Oxygen saturation in 2022-03-22 00:35:00 97 /min [facility] of Arterial blood by [place] [facility] bandar Pulse oximetry Branch Body weight 2022-03-19 14:58:00 82.237 kg [facility] [place] [facility] BMI 2022-03-19 14:58:00 28.40 kg/m2 [facility] Systolic blood 2022-03-07 18:51:00 133 mm[Hg] Univer sity of pressure [facility] Diastolic blood 2022-03-07 18:51:00 88 mm[Hg] Unive rsity of pressure [facility] [place] Heart rate 2022-03-07 18:51:00 126 /min [facility] [place] Body temperature 2022-03-07 18:51:00 35.94 Nelli [facility] Respiratory rate 2022-03-07 18:51:00 20 /min [facility] Body weight 2022-03-07 18:51:00 83.008 kg [facility] BMI 2022-03-07 18:51:00 28.66 kg/m2 [facility] [place] Oxygen saturation in 2022-03-07 18:51:00 97 /min [facility] of Arterial blood by [place] [facility] bandar Pulse oximetry Branch Systolic blood 2022-01-15 17:00:00 110 mm[Hg] Univer sity of pressure [facility] Diastolic blood 2022-01-15 17:00:00 71 mm[Hg] Unive rsity of pressure [facility] Heart rate 2022-01-15 17:00:00 116 /min [facility] Respiratory rate 2022-01-15 17:00:00 18 /min [facility] Oxygen saturation in 2022-01-15 17:00:00 97 /min [facility] of Arterial blood by [place] [facility] bandar Pulse oximetry Branch Body temperature 2022-01-15 14:04:00 37.89 Nelli [facility] Body weight 2022-01-15 14:04:00 81.647 kg [facility] BMI 2022-01-15 14:04:00 28.19 kg/m2 [facility] Systolic blood 2021-12-06 17:25:00 128 mm[Hg] Univer sity of pressure [facility] Diastolic blood 2021-12-06 17:25:00 87 mm[Hg] Unive rsity of pressure [facility] Heart rate 2021-12-06 17:25:00 121 /min [facility] Body temperature 2021-12-06 17:25:00 36.56 Nelli [facility] Respiratory rate 2021-12-06 17:25:00 16 /min [facility] Body height 2021-12-06 17:25:00 170.2 cm [facility] Body weight 2021-12-06 17:25:00 84.823 kg Universi ty of [facility] BMI 2021-12-06 17:25:00 29.29 kg/m2 [facility] Oxygen saturation in 2021-12-06 17:25:00 99 /min University of Arterial blood by [place] [facility] bandar Pulse oximetry Branch Systolic blood 2021-08-26 19:26:00 137 mm[Hg] Univer sity of pressure [facility] Diastolic blood 2021-08-26 19:26:00 89 mm[Hg] Unive rsity of pressure [facility] Heart rate 2021-08-26 19:26:00 122 /min [facility] [place] Body temperature 2021-08-26 19:26:00 37.5 Nelli [facility] Body height 2021-08-26 19:20:00 170.2 cm [facility] Body weight 2021-08-26 19:20:00 81.557 kg [facility] BMI 2021-08-26 19:20:00 28.16 kg/m2 [facility] Oxygen saturation in 2021-08-26 19:20:00 98 /min [facility] Arterial blood by [place] [facility] [employer] bandar Pulse oximetry Branch Procedures Procedure Date / Time Performing Clinician Source Performed XR FOOT <3 VW LEFT 2022-10-03 22:52:36 Zhane Vazquez [facility] ASSIGNMENT OF BENEFITS 2022-10-03 22:14:05 Doctor Unassigned, No General acute hospital CONSENT/REFUSAL FOR 2022-10-03 21:19:18 [facility] EKG-12 LEAD 2022-09-12 03:35:08 Treva Sotelo [facility] XR CHEST 1 VW 2022-09-12 01:56:47 Treva Sotelo [facility] LIPASE 2022-09-12 01:44:00 Treva Sotelo [facility] MAGNESIUM 2022-09-12 01:44:00 Treva Sotelo [facility] TROPONIN I 2022-09-12 01:44:00 Treva Sotelo [facility] COMP. METABOLIC PANEL 2022-09-12 01:44:00 Treva Sotelo [facility] ([id number]) [facility] CBC WITH DIFF 2022-09-12 01:44:00 Treva Sotelo [facility] COVID-19 (ID NOW RAPID 2022-09-12 01:44:00 [facility] 2022-09-12 00:31:17 [facility] MEDICATION CORRESPONDENCE 2022-09-08 05:01:00 Doctor Unassigned, No General acute hospital POCT HEMOGLOBIN A1C TEST 2022-09-05 21:14:00 [facility] 2022-08-30 23:45:00 Vinod Henry [facility] COMP. METABOLIC PANEL 2022-08-30 23:45:00 Vinod Henry [facility] ([id number]) [facility] CBC WITH DIFF 2022-08-30 23:45:00 Vinod Henry [facility] D-DIMER 2022-08-30 23:45:00 Vinod Henry [facility] ASSIGNMENT OF BENEFITS 2022-08-30 23:13:25 Doctor Unassigned, No General acute hospital XR CHEST 1 VW 2022-08-30 23:07:11 Vinod Henry [facility] CONSENT/REFUSAL FOR 2022-08-30 22:38:13 Doctor Unassigned, No [facility] [place] DIAGNOSIS AND TREATMENT Name [facility] ASSIGNMENT OF BENEFITS 2022-08-19 20:10:11 Doctor Unassigned, No General acute hospital URINALYSIS 2022-08-19 18:21:00 Dayana Mccracken [facility] CONSENT/REFUSAL FOR 2022-08-19 17:58:31 Doctor Unassigned, No [facility] [place] DIAGNOSIS AND TREATMENT Name [facility] ASSIGNMENT OF BENEFITS 2022-08-13 21:18:37 Doctor Unassigned, No General acute hospital POCT GLUCOSE (AUTOMATED) 2022-08-13 21:07:00 Amador Caldera [facility] CONSENT/REFUSAL FOR 2022-08-13 20:38:11 Doctor Unassigned, No [facility] [place] DIAGNOSIS AND TREATMENT [facility] CBC WITH DIFF 2022-07-03 04:18:00 Christophe Ballesteros [facility] LIPASE 2022-07-03 03:15:00 [facility] COMP. METABOLIC PANEL 2022-07-03 03:15:00 Christophe Ballesteros [facility] ([id number] CONSENT/REFUSAL FOR 2022-07-03 02:11:48 [facility] NOTICE OF PRIVACY 2022-07-03 02:11:16 Doctor Unassigned, No [facility] MEDICATION CORRESPONDENCE 2022-06-17 05:01:00 Doctor Unassigned, No General acute hospital US GALL BLADDER 2022-06-03 03:41:51 Louis Doty [facility] LIPASE 2022-06-03 02:18:00 Louis Doty [facility] COMP. METABOLIC PANEL 2022-06-03 02:18:00 Louis Doty [facility] ([id number]) [facility] CBC WITH DIFF 2022-06-03 02:18:00 Louis Doty [facility] URINALYSIS 2022-06-03 02:18:00 Louis Doty [facility] CONSENT/REFUSAL FOR 2022-06-03 01:19:39 Doctor Unassigned, No [facility] [place] DIAGNOSIS AND TREATMENT Name [facility] TDAP VACCINE, >11 YRS, IM 2022-05-20 20:36:37 Victor Hugo Khan Un [facility] DUPLEX VENOUS LEG LEFT - 2022-05-19 02:06:00 Lupis Grimm [facility] [place] BY VASCULAR LAB [facility] XR TIBIA FIBULA 2 VW LEFT 2022-05-19 00:14:14 [facility] CONSENT/REFUSAL FOR 2022-05-18 23:09:27 Doctor Unassigned, No [facility] [place] DIAGNOSIS AND TREATMENT Name [facility] NOTICE OF PRIVACY 2022-04-24 02:22:52 Doctor Unassigned, No [facility] [place] PRACTICES Name [facility] CONSENT/REFUSAL FOR 2022-04-24 02:22:17 Doctor Unassigned, No [facility] [place] DIAGNOSIS AND TREATMENT Name [facility] POCT GLUCOSE (AUTOMATED) 2022-03-22 06:47:00 Miguel Vicente [facility] POCT GLUCOSE (AUTOMATED) 2022-03-22 02:44:00 Miguel Vicente [facility] CREATINE KINASE 2022-03-22 00:36:00 Treva Sotelo [facility] POCT GLUCOSE (AUTOMATED) 2022-03-22 00:35:00 Miguel Vicente [facility] POCT GLUCOSE (AUTOMATED) 2022-03-21 14:11:00 Miguel Vicente [facility] POCT GLUCOSE (AUTOMATED) 2022-03-21 04:50:00 Miguel Vicente [facility] POCT GLUCOSE (AUTOMATED) 2022-03-21 01:29:00 Miguel Vicente [facility] POCT GLUCOSE (AUTOMATED) 2022-03-21 00:32:00 Miguel Vicente [facility] POCT GLUCOSE(AGE >30DAYS) 2022-03-20 15:31:00 Treva Sotelo [facility] POCT GLUCOSE (AUTOMATED) 2022-03-20 15:29:00 Juan Duncan [facility] POCT GLUCOSE (AUTOMATED) 2022-03-19 23:56:00 Juan Duncan [facility] COVID-19 (MOLECULAR 2022-03-19 23:48:00 [facility] NUCLEIC ACID AMPLIFICATION) LAB ONLY COVID 2022-03-19 23:48:00 [facility]ATINE KINASE 2022-03-19 15:50:00 Dakota [facility] THYROID STIMULATING 2022-03-19 15:50[facility]00 [facility] COMP. METABOLIC PANEL 2022-03-19 15:50:00 Juan Duncan [facility] ([id number]) [facility] SALICYLATE 2022-03-19 15:50[facility]00 [facility] 2022-03-19 15:50:00 Dakota [facility] CBC WITH DIFF 2022-03-19 15:50:00 Dakota [facility] URINALYSIS 2022-03-19 15:50:00 [facility] COVID-19 (ID NOW RAPID 2022-03-19 15:50:00 Juan Duncan [facility]) [facility] LAB ONLY COVID 2022-03-19 15:50:00 Juan Duncna [facility] URINE DRUG (IMMUNOASSAY) 2022-03-19 15:50:00 Juan Duncan [facility] Medical [facility] SCREEN W/O REFLEX POCT GLUCOSE (AUTOMATED) 2022-03-19 14:54:00 Juan Duncan [facility] CONSENT/REFUSAL FOR 2022-03-19 14:49:26 [facility]assigned, [facility] Name [facility] POCT HEMOGLOBIN A1C TEST 2022-03-07 20:00:00 [facility] 2022-01-15 14:51:00 Harpreet Sebastian [facility] LIPASE 2022-01-15 14:50:00 Harpreet Sebastian Lashell [facility] MAGNESIUM 2022-01-15 14:50:00 Harpreet Sebastian Lashell [facility] TROPONIN I 2022-01-15 14:50:00 Harpreet Sebastian Lashell [facility] COMP. METABOLIC PANEL 2022-01-15 14:50:00 Harpreet Sebastian [facility] ([id number]) [facility] LIPID PANEL ([id number])(TOTAL 2022-01-15 14:50:00 Harpreet Sebastian Un [facility] CHOLESTEROL, [facility] TRIGLYCERIDES, HDL) CBC WITH DIFF 2022-01-15 14:50:00 Harpreet Sebastian Lashell [facility] CONSENT/REFUSAL FOR 2022-01-15 13:59:42 Doctor Unassigned, [facility] AND TREATMENT [facility] SARS-COV-2 COVID-19 2021-12-06 19:49:13 Christophe Michael [facility] MARISA-SUCROSE VACCINE [address] [place] [address] YRS+, BIVALENT 0.3ML, IM, (PFIZER SHELLEY TOP BOOSTER) FLU VACC (), 6 2021-12-06 17:38:27 Benny Dubois [facility] [place]-66 YRS, .5ML, IM, QUAD Medica l Branch (FLUCELVAX) POCT HEMOGLOBIN A1C TEST 2021-12-06 17:36:00 Benny Dubois [facility] MEDICATION CORRESPONDENCE 2021-10-01 05:01:00 Doctor Unassigned, No General acute hospital MEDICATION CORRESPONDENCE 2021-08-27 05:01:00 Doctor Unassigned, No General acute hospital Encounters Start End Encounter Admission Attending Care Care Encounter Source Date/Time Date/Time Type Type Clinicians Facility Department ID 2022-03-21 Outpatient [facility] [id number] [place] 10:18:38 [id number] [facility] 2022-03-19 Outpatient [facility] [id number] [place] 15:15:45 [id number] [facility] 2020-12-[address] [facility] GIJolene [id number] Univers 08:38:19 CIRO itshadi [facility] 2020-12-[address] [facility] GIJolene [id number] Univers 16:04:49 CIRO ity [facility] 2022-10-03 2022-10-[address] [facility] ERT [id number] Univers 16:27:00 19:12:00 ZHANE vikshadi [facility] 2022-10-03 2022-10-03 [facility] 1.2.910.068 [id number] Univers 16:27:00 19:12:00 Zhane RDZ 350.1.13.10 ity of [place] 4.2.7.2.686 [facility] [id number] [address] 2022-09-15 2022-09-15 Telephone [facility] 1.2.840.114 1 [id number] Univers 00:00:00 00:00:00 Peter PRIMARY 350.1.13.10 it y of CARE 4.2.7.2.686 [facility] [phone] Wi dical [address] 2022-09-11 2022-09-11 Emergency X [facility] ERT [id number] Univers 19:56:00 22:52:00 TREVA elkins [facility] 2022-09-11 2022-09-11 Emergency [facility] 1.2.840.114 [id number] Univers 19:56:00 22:52:00 Treva RDZ 350.1.13.10 ity of [place] 4.2.7.2.686 [facility] [id number] [address] 2022-09-08 2022-09-08 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 1.2.840.114 [id number] Univers 14:45:00 15:00:00 Visit Pathology PRIMARY 350.1.13.10 [place] [phone] Me dical [address] 2022-09-08 2022-09-08 Outpatient R PATHOLOGY [facility] [id number] Univers 14:45:00 14:45:00 ity of [facility] 2022-09-08 2022-09-08 Orders Doctor CRISTY 1.2.840.114 [id number] Univers 00:00:00 00:00:00 Only Unassigned, SERA 350.1.13.10 ity of [place] [facility] 4.2.7.2.686 Hi as [phone] [facility] [place] 009 Branch 2022-09-05 2022-09-05 Outpatient R BARBY [facility] [id number] Univers 16:20:00 16:36:21 LELA ity of [facility] 2022-09-05 2022-09-[address] [facility] 1.2.840.1 14 [id number] Univers 16:20:00 16:36:21 Visit Lela Ohara 350.1.13.10 it[place] [phone] Wi dical [address] 2022-08-30 2022-08-[address] [facility] ERT [id number] Univers 17:47:00 20:34:00 VINOD elkins [facility] 2022-08-30 2022-08-30 Emergency [facility] 1.2.840.114 10 [id number] Univers 17:47:00 20:34:00 Vinod RDZ 350.1.13.10 i ty [facility] [place].2.7.2.[place] [phone] [facility] 084 Branch 2022-08-19 2022-08-[address] [facility] ERT [id number] Univers 13:12:00 15:39:00 DAYANA elkins [facility] 2022-08-19 2022-08-[address] [facility] 1.2.150.295 [id number] Univers 13:12:00 15:39:00 Dayana RDZ 350.1.13.10 ity of [facility].2.7.[facility].686 [facility] [phone] [facility] [place] 084 Branch 2022-08-19 2022-08-19 Telephone [facility] 1.2.840.114 1 [id number] Univers 00:00:00 00:00:00 Peter PRIMARY 350.1.13.10 it [place] [phone] Wi dical [address] 2022-08-14 2022-08-[address] [facility] 1.2.840.114 1 [id number] Univers 00:00:00 00:00:00 Peter PRIMARY 350.1.13.10 it [place] [phone] Wi dical [address] 2022-08-13 2022-08-[address] [facility] ERT [id number] Univers 15:47:00 16:24:00 AMADOR elkins [facility] 2022-08-13 2022-08-13 Emergency [facility] 1.2.765.528 [id number] Univers 15:47:00 16:24:00 Amador RDZ 350.1.13.10 i ty of [facility] 4.2.7.2.686 [facility] [id number] [address] 2022-07-11 2022-07-[address] [facility] 1.2.161.992 [id number] Univers 00:00:00 00:00:00 Outreach Sherice M PRIMARY 350.1.13.10 it[place] [phone] Wi dical [address] 2022-07-08 2022-07-08 Telephone [facility] 1.2.840.114 1 [id number] Univers 00:00:00 00:00:00 Peter PRIMARY 350.1.13.10 it [place] [phone] Wi dical [address] 2022-07-02 2022-07-03 Emergency X RIDFIRSTHEALTH, [facility] ERT [id number] Univers 21:36:00 00:02:00 CHRISTOPHER it y of [facility] 2022-07-02 2022-07-03 Emergency [facility] 1.2.984.815 [id number] Univers 21:36:00 00:02:00 Christophe RDZ 350.1.13.10 ity of [facility] 4.2.7.[place] [id number] [facility] [place] 084 [address] 2022-07-02 2022-07-02 Refill [facility] 1.2.840.114 [id number] Univers 00:00:00 00:00:00 Peter PRIMARY 350.1.13.10 it [place] [phone] Wi dical [address] 2022-06-25 2022-06-25 Patient [facility] 1.2.840.114 [id number] Univers 00:00:00 00:00:00 Secure Msg Peter PRIMARY 350.1.13.10 it[place] of [place] [id number] Wi dical [address] 2022-06-23 2022-06-23 Telephone [facility] 1.2.455.385 [id number] Univers 00:00:00 00:00:00 Victor Hugo PRIMARY 350.1.13.10 it [place] [phone] Wi dical [address] 2022-06-17 2022-06-17 Orders Doctor CRISTY 1.2.840.114 [id number] Univers 00:00:00 00:00:00 Only Unassigned, SERA 350.1.13.10 ity of [place] [facility] 4.2.7.2.686 Hi as [phone] [facility] [place] 009 Branch 2022-06-17 2022-06-[address] [facility] 1.2.688.659 [id number] Univers 00:00:00 00:00:00 Cornelio SPECIALTY 350.1.13.10 it[place] of C[place] AT [phone] Wi dical SWEETIE 072 [facility] 2022-06-11 2022-06-[address] [facility] 1.2.981.302 [id number] Univers 00:00:00 00:00:00 Victor Hugo PRIMARY 350.1.13.10 it [place] [phone] Wi dical [address] 2022-06-09 2022-06-[address] [facility] 1.2.840.114 [id number] Univers 00:00:00 00:00:00 Victor Hugo PRIMARY 350.1.13.10 it y [place] [phone] Wi dical [address] 2022-06-02 2022-06-02 Emergency [facility] ERT [id number] Univers 20:43:00 23:30:00 LOUIS ity of [facility] 2022-06-02 2022-06-02 Emergency [facility] 1.2.840.114 10 [id number] Univers 20:43:00 23:30:00 Louis B KENDELL 350.1.13.10 i ty of [place] 4.2.7.2.[place] [id number] [facility] [place] [address] 2022-06-02 2022-06-02 Orders Doctor CRISTY 1.2.840.114 [id number] Univers 00:00:00 00:00:00 Only Unassigned, SERA 350.1.13.10 ity of [place] [facility] 4.2.7.2.686 [place] as [id number] [facility] [place] 009 Branch 2022-05-20 2022-05-20 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 1.2.840.114 [id number] Univers 16:00:00 16:15:00 Visit Pathology PRIMARY 350.1.13.10 it[place] [id number] Wi dical [address] 2022-05-20 2022-05-[address] [facility] 1.2.840.114 1 [id number] Univers 15:10:00 15:40:00 Visit Elie Webb PRIMARY 350.1.13.10 it[place] [phone] Wi dical [address] 2022-05-20 2022-05-20 Outpatient R ELIE WEBB [facility] [id number] Univers 15:10:00 15:10:00 ity of [facility] 2022-05-18 2022-05-18 Emergency X [place] ERT [id number] Univers 18:17:00 22:30:00 LUPIS ity of [facility] 2022-05-18 2022-05-18 Emergency [facility] 1.2.027.633 [id number] Univers 18:17:00 22:30:00 Lupis RDZ 350.1.13.10 ity of [facility] 4.2.7.2.[place] [id number] [address] 2022-04-29 2022-04-29 Outpatient R ELIE WEBB [facility] [id number] Univers 14:20:00 14:20:00 ity of [facility] 2022-04-23 2022-04-23 Emergency X [facility], [facility] ERT [id number] Univers 21:29:00 22:01:00 CHRISTROBERTAER it y of [facility] 2022-04-23 2022-04-23 [facility] 1.2.991.059 [id number] Univers 21:29:00 22:01:00 Christophe RDZ 350.1.13.10 ity of [facility] 4.2.7.[place] [id number] [address] 2022-04-21 2022-04-21 [facility] 1.2.840.114 [id number] Univers 00:00:00 00:00:00 Ciro PRIMARY 350.1.13.10 it [place] of [place].2.[place].2.[place] [phone] Wi dical [address] 2022-03-22 2022-03-22 [facility] 1.2.101.513 [id number] Univers 10:58:00 23:59:00 Encounter Maribell Pete [place] 350.1.13.10 [place] [id number] [facility] [place] 043 Branch 2022-03-19 2022-03-22 Emergency [facility] [id number] Univers 08:59:00 09:39:00 , JOANN ity [facility] 2022-03-19 2022-03-[address] [facility] 1.2.840.1 14 [id number] Univers 08:59:00 09:39:00 Miguel Vicente 350.1.13.10 ity of [facility], Joann SANCHEZ 4.2.7.2.686 [facility] [id number] [facility] [place] 084 [address] 2022-03-22 2022-03-[address] [facility] NUT [id number] Univers 00:00:00 00:00:00 MARIBELL shadi [facility] 2022-03-07 2022-03-07 Outpatient R KJ VAZQUEZ [facility] [id number] Univers 13:30:00 13:54:34 ity [facility] 2022-03-07 2022-03-[address] [facility] 1.2.840.1 14 [id number] Univers 13:30:00 13:54:34 Visit Kj Vazquez 350.1.13.1 0 it[place] of [place] [phone] Wi dical [address] 2022-02-25 2022-02-25 [facility] 1.2.840.114 [id number] Univers 00:00:00 00:00:00 Grace PRIMARY 350.1.13.10 it[place] of [place] [phone] Wi dical [address] 2022-02-25 2022-02-25 [facility]is[facility] 1.2.840.114 99 [id number] Univers 00:00:00 00:00:00 Grace PRIMARY 350.1.13.10 it[place] [phone] Wi dical [address] 2022-02-22 2022-02-[address] [facility] 1.2.840.114 99 [id number] Univers 00:00:00 00:00:00 Sho cuello PRIMARY 350.1.13.10 it[place] [phone] Wi dical [address] 2022-01-15 2022-01-15 Emergency X MILIND, K [facility] ERT [id number] Univers 08:26:00 11:38:00 ity of [facility] 2022-01-15 2022-01-[address] [facility] 1.2.840.114 [id number] Univers 08:26:00 11:38:00 Lashell RDZ 350.1.13.10 i ty of [place]2.7.2.[place] [id number] [facility] [place] 084 [address] 2022-01-04 2022-01-[address] [facility] 1.2.386.516 [id number] Univers 00:00:00 00:00:00 Kamille WARE 350.1.13.10 ity of I[place].2.[place] [phone] [facility] [place] [employer] [address] [facility] 2021-12-11 2021-12-[address] [facility] 1.2.799.526 [id number] Univers 00:00:00 00:00:00 Management Sherice M PRIMARY 350.1.13.10 it[place] [phone] Wi dical [address] 2021-12-06 2021-12-06 Outpatient R ALEC [facility] [id number] Univers 13:30:00 15:03:08 CHRISTOPHE chery y of [facility] 2021-12-06 2021-12-[address] 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 1.2.840.114 [id number] Univers 14:45:00 15:00:00 Visit Christophe Michael PRIMARY 350.1.13.1 0 it[place] [id number] Wi dical [address] 2021-12-06 2021-12-06 Outpatient R ALEC [facility] [id number] Univers 13:30:00 13:30:00 CHRISTOPHER it y of [facility] 2021-10-01 2021-10-01 Orders Doctor MUNIZ 1.2.840.114 [id number] Univers 00:00:00 00:00:00 Only Unassigned, SERA 350.1.13.10 ity of [place] [facility] 4.2.7.2.686 Hi as [phone] [place] [address] Branch 2021-09-04 2021-09-[address] 1.2.572.181 [id number] Univers 00:00:00 00:00:00 Cornelio SPECIALTY 350.1.13.10 it[place] AT [phone] Wi dical VICTORY 072 [facility] 2021-08-27 2021-08-27 Refill [facility] 1.2.840.114 [id number] Univers 00:00:00 00:00:00 an, Sho PRIMARY 350.1.13.10 it[place]2.[place] [phone] Wi dical [address] 2021-08-27 2021-08-27 Orders Doctor MUNIZ 1.2.840.114 [id number] Univers 00:00:00 00:00:00 Only Unassigned, SERA 350.1.13.10 ity of [place] [facility] 4.2.7.2.686 Hi as [phone] [facility] bandar 009 Branch 2021-08-26 2021-08-[address] [facility] 1.2.840.11 4 [id number] Univers 14:30:00 15:00:00 Visit BenjaminJin shah SPECIALTY 350.1.13 .10 it[place] of [place]2.[place] AT [phone] Wi dical VICTORY 072 [facility] 2021-08-26 2021-08-26 Outpatient R JET [facility] [id number] Univers 14:30:00 14:30:00 JIN elkins [facility] 2021-06-28 2021-06-28 [facility] 1.2.840.114 [id number] Univers 00:00:00 00:00:00 Sho cuello PRIMARY 350.1.13.10 it[place] [phone] Wi dical [address] 2021-06-25 2021-06-25 Patient [facility] 1.2.840.114 [id number] Univers 00:00:00 00:00:00 Secure Msg cuateSho PRIMARY 350.1.13.10 it[place] of [place] [phone] Wi dical [address] 2021-06-21 2021-06-[address] [facility] 1.2. 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 1.2.840.114 [id number] Univers 16:15:00 16:30:00 Visit Unknown, Attending PRIMARY 350.1.13.10 it[place] [id number] Wi dical [address] 2021-06-21 2021-06-21 Outpatient R UNKNOWN, [facility] [id number] Univers 16:15:00 16:15:00 ATTENDING ity [facility] 2021-05-28 2021-05-[address] 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 1.2.8 40.114 [id number] Univers 10:15:00 10:30:00 Visit Grace Garcia 350.1.1 3.10 ity of [place] [phone] Wi dical NAL 353 [facility] 2021-05-21 2021-05-21 Outpatient R JOSE [facility] [id number] Univers 10:15:00 10:15:00 GRACE elkins [facility] 2021-05-21 2021-05-21 [facility] 1.2.840.114 [id number] Univers 00:00:00 00:00:00 Secure Msg an, Sho PRIMARY 350.1.13.10 it[place] [phone] Wi dical [address] 2021-05-20 2021-05-20 [facility] 1.2.840.114 [id number] Univers 00:00:00 00:00:00 an, Sho PRIMARY 350.1.13.10 it[place] of [place] [phone] Wi dical [address] 2021-05-17 2021-05-17 [facility] 1.2.840.114 [id number] Univers 00:00:00 00:00:00 an, Sho PRIMARY 350.1.13.10 it[place] of [place] [phone] Wi dical [address] 2021-04-30 2021-04-30 [facility] 1.2.840.114 [id number] Univers 00:00:00 00:00:00 an, Sho PRIMARY 350.1.13.10 it[place] of [place] [phone] Wi dical [address] 2021-04-29 2021-04-[address] 1.2.840.114 [id number] Univers 00:00:00 00:00:00 [facility] 350.1.13.10 it y of [place] 4.2.7.2.686 Hi as PROFESSIO [phone] Wi dical NAL [address] [place] OFFICE BUILDING ONE 2021-03-26 2021-03-[address] 1.2.840.114 [id number] Univers 00:00:00 00:00:00 [place] [facility]ALTH 350.1.13.10 it y of [place] 4.2.7.2.686 Hi as PROFESSIO [phone] [address] 2021-03-08 2021-03-08 Outpatient R UNKNOWN, [facility] [id number] Univers 14:30:00 15:20:49 ATTENDING ity [facility] 2021-03-08 2021-03-[address] [facility] 1.2. 840.114 [id number] Univers 14:30:00 15:20:49 Visit Unknown, Attending PRIMARY 350.1.13.10 ity EllynrodrigotommypepeGrace CARE 4.2.7.2.68 6 [place] [facility] [phone] [address] 2021-03-08 2021-03-08 Outpatient R JOSE [facility] [id number] Univers 14:30:00 15:20:49 [facility] 2021-02-26 2021-02-26 [facility] 1.2.840.114 [id number] Univers 00:00:00 00:00:00 [facility] 350.1.13.10 it y of [place] 4.2.7.2.686 Hi as PROFESSIO [phone] [address] 2021-02-26 2021-02-26 [facility] 1.2.840.114 [id number] Univers 00:00:00 00:00:00 Ciro PRIMARY 350.1.13.10 it [place] [phone] [address] 2021-02-16 2021-02-16 [facility] 1.2.840.114 [id number] Univers 00:00:00 00:00:00 Ciro PRIMARY 350.1.13.10 it y [place] 4[place]2.[place] [phone] [address] 2021-02-16 2021-02-16 [facility] 1.2.840.114 [id number] Univers 00:00:00 00:00:00 Ciro PRIMARY 350.1.13.10 it y [place] 4[place]2.[place] [phone] Wi dical [address] 2021-02-04 2021-02-[address] [facility] 1.2.840.114 [id number] Univers 00:00:00 00:00:00 an, Sho PRIMARY 350.1.13.10 ity of [place] 4[place]2.[place] [phone] Wi dical [address] 2021-02-01 2021-02-01 Orders Doctor CRISTY 1.2.840.114 [id number] Univers 00:00:00 00:00:00 Only Unassigned, SERA 350.1.13.10 ity of [place] 4.2.7.2.686 Hi as [id number] [address] 2021-01-31 2021-01-31 Emergency X ESQUIVEL, [facility] ERT [id number] Univers 19:08:00 23:32:00 PATTIE ity [facility] 2021-01-31 2021-01-31 Emergency Esquivel, [facility] 1.2.840.114 [id number] Univers 19:08:00 23:32:00 Pattie RDZ 350.1.13.10 i ty of [place] [phone] [facility] [place] [address] [place] 2021-01-31 2021-01-31 Emergency X ESQUIVEL, [facility] ERT [id number] Univers 19:08:00 23:32:00 PATTIE ity of [facility] 2021-01-31 2021-01-31 Orders Doctor CRISTY 1.2.840.114 [id number] Univers 00:00:00 00:00:00 Only Unassigned, SERA 350.1.13.10 ity of [place] [facility] 4.2.7.2.686 Hi as [phone] [address] 2021-01-30 2021-01-30 CRISTY Lewis 1.2.980.528 [id number] Univers 00:00:00 00:00:00 Lor SERA 350.1.13.10 it y of HOSPITAL 4.2.7.2.686 Hi as [phone] [facility] [place] [address] 2021-01-29 2021-01-[address] [facility] 1.2.840.114 [id number] Univers 00:00:00 00:00:00 [facility] 350.1.13.10 it y of [place] 4.2.7.2.686 Hi as PROFESSIO [phone] [facility] [address] [place] OFFICE BUILDING ONE 2021-01-29 2021-01-29 [facility] 1.2.840.114 [id number] Univers 00:00:00 00:00:00 Edward PRIMARY 350.1.13.10 it y [place] [phone] [address] 2021-01-11 2021-01-11 Outpatient [facility] [id number] Univers 13:30:00 13:30:00 CIRO ity [facility] 2021-01-11 2021-01-11 Office [facility] 1.2.840.114 [id number] Univers 13:30:00 13:30:00 Visit Ciro SPECIALTY 350.1.13.10 ity [place] [phone] Wi briancj PITT [address] [place] [address] 2021-01-11 2021-01-11 Outpatient [facility] [id number] Univers 13:30:00 13:28:21 CIRO ity [facility] 2021-01-11 2021-01-11 Outpatient [facility] [id number] Univers 13:30:00 13:28:21 CIRO ity [facility] 2021-01-02 2021-01-02 Telephone [facility] 1.2.351.789 [id number] Univers 00:00:00 00:00:00 Ciro SPECIALTY 350.1.13.10 it[place] [phone] Wi brianmt [address] 2020-12-29 2020-12-29 Outpatient R ZACHARY [facility] [id number] Univers 08:49:34 23:59:00 CIRO ity [facility] 2020-12-29 2020-12-29 Outpatient R ZACHARY [facility] [id number] Univers 08:49:34 23:59:00 CIRO ity [facility] 2020-12-29 2020-12-29 [facility] 1.2.840.114 [id number] Univers 08:30:00 23:59:00 Encounter Ciro Y HEALTH 350.1.13.10 ity of CLINICS [place].2.[place] [id number] [facility] [place] [address] 2020-12-29 2020-12-29 [facility] 1.2.840.114 [id number] Univers 00:00:00 00:00:00 [facility] 350.1.13.10 it y of [place] 4.2.7.2.686 Hi as PROFESSIO [phone] Wi abhinav RICE [address] OFFICE BUILDING ONE 2020-12-05 2020-12-05 [facility] [id number] Univers 00:00:00 00:00:00 CIRO ity [facility] 2020-12-05 2020-12-05 [facility] [id number] Univers 00:00:00 00:00:00 CIRO ity [facility] 2020-12-04 2020-12-04 Telephone [facility] 1.2.053.887 [id number] Univers 00:00:00 00:00:00 Ciro SPECIALTY 350.1.13.10 ity [place] [phone] Wi abhinav PITT [address] [place] 2020-12-03 2020-12-03 Imm/Inj Nurse, Pcp Immunization [facility] 1. 2.840.114 [id number] Univers 09:12:43 09:22:43 Visit Johann Hebert PRIMARY 350.1.13. 10 ity of C[place].2.7.2.[place] [phone] Wi dical [address] 2020-12-03 2020-12-03 Outpatient Javier HEBERT [facility] [id number] Univers 09:00:00 09:00:00 [facility] 2020-12-03 2020-12-03 Outpatient Javier HEBERT [facility] [id number] Univers 09:00:00 09:00:00 [facility] 2020-11-28 2020-11-[address] [facility] 1.2.840.114 [id number] Univers 00:00:00 00:00:00 [facility] 350.1.13.10 it y of [place] 4.2.7.2.686 Hi as Professio [phone] Wi dical nal [address] [place] [address] Office Building One 2020-11-28 2020-11-28 [facility]haylie [facility] 1.2.840.114 [id number] Univers 00:00:00 00:00:00 Edward PRIMARY 350.1.13.10 it y of C[place].2.[place].2.[place] [phone] Wi dical [address] 2020-11-28 2020-11-[address] [facility] 1.2.840.114 [id number] Univers 00:00:00 00:00:00 Secure Msg Unassigned, MULTISPEC 350.1.13.10 ity of [place] I[place]2.[place] [phone] [facility] Ronel [address] [place] [facility] 2020-11-12 2020-11-12 Letter [facility] 1.2.840.114 [id number] Univers 00:00:00 00:00:00 (Out) Jose F PRIMARY 350.1.13.10 it y of C[place] 4.2.[place].2.[place] [phone] Wi dical [address] 2020-11-12 2020-11-12 Case [facility] 1.2.840.114 [id number] Univers 00:00:00 00:00:00 Management Jose F MULTISPEC 350.1.13.10 ity of [place].2.[place].2.[place] [phone] [facility] [place] AND JAMES [address] [place] [facility] 2020-11-09 2020-11-[address] [facility] 1.2.840.114 [id number] Univers 15:08:17 16:51:40 Visit Michael Soto PRIMARY 350.1.13.10 ity of C[place] 4.2.7.2.[place] [phone] Wi dical [address] 2020-11-09 2020-11-09 [facility] [id number] Univers 15:10:00 15:10:00 MICHAEL ity o f [facility] 2020-11-09 2020-11-09 Orders Doctor CRISTY 1.2.840.114 [id number] Univers 00:00:00 00:00:00 Only Unassigned, SERA 350.1.13.10 ity of [place] [facility] 4.2.7.2.686 Hi as [phone] [facility] [place] [address] [place] 2020-10-29 2020-10-29 [facility] 1.2.840.114 [id number] Univers 00:00:00 00:00:00 [facility] 350.1.13.10 it y of [place] 4.2.7.2.686 Hi as Profmargaritaio 327.9622913 Wi dical nal [address] [place] Office Building One 2020-10-17 2020-10-17 Telephone [facility] 1.2.921.052 [id number] Univers 00:00:00 00:00:00 Ciro SPECIALTY 350.1.13.10 it[place] of [place]2.[place] [phone] Wi dical VICTORY 072 [facility] 2020-10-10 2020-10-10 Orders Doctor CRISTY 1.2.840.114 [id number] Univers 00:00:00 00:00:00 Only Unassigned, SERA 350.1.13.10 ity of [place] [facility] 4.2.7.2.686 Hi as [id number] [facility] [place] [address] [place] 2020-09-29 2020-09-29 [facility] 1.2.840.114 [id number] Univers 00:00:00 00:00:00 [facility] 350.1.13.10 it y of [place] 4.2.7.2.686 Hi as Professio [phone] Wi abhinav rice [address] [place] Office Building One 2020-09-26 2020-09-26 Telephone [facility] 1.2.798.094 [id number] Univers 00:00:00 00:00:00 Ciro SPECIALTY 350.1.13.10 it[place]2.[place] [phone] Wi abhinav PITT 2 [facility] 2020-09-21 2020-09-21 Orders Doctor CRISTY 1.2.840.114 [id number] Univers 00:00:00 00:00:00 Only Unassigned, SERA 350.1.13.10 ity of [place] [facility] 4.2.7.2.686 Hi as [phone] [address] 2020-09-11 2020-09-11 Telephone [facility] 1.2.947.049 [id number] Univers 00:00:00 00:00:00 Ciro SPECIALTY 350.1.13.10 ity of C[place]2.[place].2.[place] [phone] Wi briancj SWEETIE 2 [facility] 2020-09-05 2020-09-05 Hospital [facility] 1.2.840.114 [id number] Univers 07:33:00 13:10:00 Encounter Ciro [facility] 350.1.13.10 [place]y of [place].2.686 [place] [phone] [facility] 049 [facility] 2020-09-05 2020-09-05 Surgery [facility] 1.2.840.114 [id number] Univers 09:00:00 10:45:00 Ciro SPECIALTY 350.1.13.10 ity of C[place].2.7.2.[place] [phone] Wi abhinav PITT 020 [facility] 2020-09-05 2020-09-05 Orders Doctor CRISTY 1.2.840.114 [id number] Univers 00:00:00 00:00:00 Only Unassigned, SERA 350.1.13.10 ity of [place] [facility] 4.2.7.2.686 Hi as [phone] [address] 2020-08-30 2020-08-[address] [facility] 1.2.840.114 [id number] Univers 00:00:00 00:00:00 [facility] 350.1.13.10 it y of [place] 4.2.7.2.686 Hi as Professio [phone] Wi dical [facility] [address] [place] Office [facility] One 2020-08-07 2020-08-07 Orders Doctor CRISTY 1.2.840.114 [id number] Univers 00:00:00 00:00:00 Only Unassigned, SERA 350.1.13.10 ity of [place] [facility] 4.2.7.2.686 Hi as [phone] [address] 2020-08-07 2020-08-[address] [facility] 1.2.840.114 [id number] Univers 00:00:00 00:00:00 Secure Msg Unassigned, SPECIALTY 350.1.13.10 ity of [place] CARE 4.2.7.2.[place] [phone] Wi abhinav PITT 072 [facility] 2020-08-06 2020-08-[address] [facility] 1.2.840.114 [id number] Univers 00:00:00 00:00:00 Secure Msg Unassigned, PRIMARY 350.1.13.10 ity of [place] CARE 4.2.7.2.[place] 064.0361106 Wi dical [address] 2020-08-03 2020-08-03 Office Zachary NJVIJI 1.2.840.114 [id number] Univers 10:01:38 11:01:42 Visit Ciro SPECIALTY 350.1.13.10 ity of C[place].2.7.2.[place] [phone] Wi abhinav PITT [facility] 2020-08-03 2020-08-03 Outpatient [facility] [id number] Univers 10:30:00 10:30:00 CIRO ity of [facility] 2020-07-30 2020-07-30 [facility] 1.2.840.114 [id number] Univers 00:00:00 00:00:00 [facility] 350.1.13.10 it y of [place] 4.2.7.2.686 Hi as Professio [phone] [address] Office [facility] One 2020-07-30 2020-07-30 Refill CRISTY Jensen 1.2.840.114 [id number] Univers 00:00:00 00:00:00 Patient SERA 350.1.13.[address] [facility] [place].2.[place] [phone] [address] 2020-06-30 2020-06-30 [facility] 1.2.840.114 [id number] Univers 00:00:00 00:00:00 [facility] 350.1.13.10 it y of [place] 4.2.7.2.686 Hi as Professio [phone] [address] One 2020-06-27 2020-06-27 Telephone [facility] 1.2.900.185 [id number] Univers 00:00:00 00:00:00 Ciro SPECIALTY 350.1.13.10 it[place]2.[place] [phone] Wi abhinav PITT [address] [place] [address] 2020-06-23 2020-06-23 Telephone [facility] 1.2.505.091 [id number] Univers 00:00:00 00:00:00 Ciro SPECIALTY 350.1.13.10 ity of [place].2.7.2.[place] [phone] Wi abhinav PITT [address] [place] [address] 2020-06-21 2020-06-21 Hospital [facility] 1.2.840.114 [id number] Univers 11:25:00 15:03:00 Encounter Ciro ICAL 350.1.13.10 ity of SCIENCES 4.2.7.2.686 Hi as BLDG [phone] [facility] [place] [address] [place] 2020-06-21 2020-06-[address] 1.2.036.408 [id number] Univers 12:00:00 14:06:00 Ciro ICAL 350.1.13.10 it y of SCIENCES 4.2.7.2.686 Hi as BLDG 557.0836612 [facility] [place] [address] [place] 2020-06-21 2020-06-21 Orders Doctor CRISTY 1.2.840.114 [id number] Univers 00:00:00 00:00:00 Only Unassigned, SERA 350.1.13.10 ity of [place] [facility] 4.2.7.2.686 Hi as [phone] [facility] [place] [address] [place] 2020-06-19 2020-06-19 Lasting Machine Operator Vls-Lab [facility] 1.2.840.114 [id number] Univers 10:46:44 11:01:44 Visit Ciro Sharma SPECIALTY 350.1.13.10 ity of C[place]2.[place]2.[place] 176.4544448 Wi abhinav PITT [address] [place] [address] 2020-06-19 2020-06-19 Laboratory Only, Lcc Test [facility] 1.2.840. 114 [id number] Univers 10:34:15 10:49:15 Only , Ciro SPECIALTY 350.1.13.10 ity of C[place] 4.2.7.2.[place] [phone] Wi diccj PITT [address] [place] [address] 2020-06-19 2020-06-19 Outpatient R ZACHARY [facility] [id number] Univers 10:45:00 10:45:00 CIRO ity of [facility] 2020-06-19 2020-06-19 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 1.2.840.114 [id number] Univers 09:43:35 09:58:35 Visit Feliberto Levy 350.1.13.10 ity of C[place] 4.2.7.2.[place] [phone] [facility] [address] [place] 2020-05-30 2020-05-30 [facility] 1.2.840.114 [id number] Univers 00:00:00 00:00:00 [facility] 350.1.13.10 it y of [place] 4.2.7.2.686 Hi as Professio [phone] [address] Office [facility] 2020-05-30 2020-05-30 [facility] 1.2.840.114 [id number] Univers 00:00:00 00:00:00 [facility] 350.1.13.10 it y of [place] 4.2.7.2.686 Hi as Professio [phone] [address] 2020-05-25 2020-05-[address] [facility] 1.2.840.114 [id number] Univers 08:31:02 12:29:21 Visit Ciro SPECIALTY 350.1.13.10 ity of C[place] 4.2.7.2.[place] [phone] Wi abhinav PITT 072 [facility] 2020-05-25 2020-05-25 Lasting Machine Operator Vls-Lab [facility] 1.2.840.114 [id number] Univers 10:02:17 10:08:16 Visit Ciro Sharma SPECIALTY 350.1.13.10 ity of C[place] 4.2.7.2.[place] [phone] Wi abhinav PITT 353 [facility] 2020-05-25 2020-05-25 Outpatient R ZACHARY [facility] [id number] Univers 09:00:00 09:00:00 CIRO ity of [facility] 2020-05-18 2020-05-18 [facility] Mildred [facility] 1.2.840.114 [id number] Univers 13:40:00 23:59:00 Encounter Feliberto Shadi HEALTH 350.1.13.10 ity of CLINICS 4.2.7.2.[place] 457.8996107 [facility] [place] [address] 2020-05-18 2020-05-18 Outpatient R MILDRED, [facility] [id number] Univers 00:00:00 00:00:00 FELIBERTO [facility] 2020-05-14 2020-05-14 Outpatient R JOSSYRDORIGO, [facility] [id number] Univers 10:30:00 10:30:00 GONSALO [facility] 2020-05-10 2020-05-10 Outpatient R INGRIS, [facility] [id number] Univers 15:30:00 15:30:00 ALEJANDRO [facility] 2020-05-09 2020-05-09 Patient Lavinia Garcia Brandi 1.2.840.114 [id number] Univers 00:00:00 00:00:00 Outreach E Talamantes 350.1.13.10 i ty of [place] 4.2.7.2.[place] [phone] [facility] [place] [address] [place] 2020-05-07 2020-05-07 Telephone [facility] 1.2.840.114 [id number] Univers 00:00:00 00:00:00 an, Sho PRIMARY 350.1.13.10 ity of C[place] 4.2.7.2.[place] 029.3270944 Wi dical [address] 2020-05-07 2020-05-[address] [facility] 1.2.840.114 [id number] Univers 00:00:00 00:00:00 Secure Msg Ciro SPECIALTY 350.1.13.10 ity of C[place] 4.2.7.2.[place] AT [phone] Wi dical VICTORY 072 [facility] 2020-05-04 2020-05-04 Patient Lavinia Garciacanelo 1.2.840.114 [id number] Univers 00:00:00 00:00:00 Outreach E Talamantes 350.1.13.10 i ty of [place] 4.2.7.2.686 [place] [phone] [facility] [place] [address] 2020-05-04 2020-05-04 Telephone [facility] 1.2.840.114 [id number] Univers 00:00:00 00:00:00 Sho cuello PRIMARY 350.1.13.10 ity of CARE 4.2.7.2.[place] 302.7903418 Wi dical [address] 2020-05-04 2020-05-04 Telephone [facility] 1.2.840.114 [id number] Univers 00:00:00 00:00:00 Sho cuello PRIMARY 350.1.13.10 ity of CARE 4.2.7.2.[place] 226.4904759 Wi dical [address] 2020-05-03 2020-05-03 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 1.2.840.114 [id number] Univers 15:14:29 15:29:29 Visit Unknown, Attending PRIMARY 350.1.13.10 ity of CARE 4.2.7.2.[place] 120.2903191 Wi dical [address] [place] 2020-05-03 2020-05-[address] [facility] 1.2. 840.114 [id number] Univers 13:31:11 14:01:11 Visit Feliberto Levy PRIMARY 350.1.13.10 ity of CARE 4.2.7.2.[place] [phone] Wi dical [address] 2020-05-03 2020-05-03 Outpatient R MILDRED [facility] [id number] Univers 11:40:00 11:40:00 FELIBERTO ity of [facility] 2020-05-01 2020-05-[address] [facility] 1.2.840.114 [id number] Univers 00:00:00 00:00:00 [facility] 350.1.13.10 it y of [place] 4.2.7.2.686 Hi as Professio [phone] Wi dical nal [address] [place] Office Building One 2020-04-19 2020-04-19 Patient Lavinia Garcia 1.2.840.114 [id number] Univers 00:00:00 00:00:00 Outreach E Talamantes 350.1.13.10 i ty of [place] 4.2.7.2.[place] [phone] [address] 2020-04-19 2020-04-[address] [facility] 1.2.840.114 [id number] Univers 00:00:00 00:00:00 Brad Rdz 350.1.13.10 ity of [place] 4.2.7.2.[place] Profess[place] 364.6894652 Wi dical nal 092 [facility] 2020-04-16 2020-04-16 [facility] 1.2.840.114 [id number] Univers 10:04:49 11:12:53 Visit Brad Rdz 350.1.13.10 ity of [place] 4.2.7.2.[place] 884.9817721 Wi dicmt nal 092 [facility] 2020-04-16 2020-04-16 Outpatient BRAD HALL [facility] [id number] Univers 10:00:00 11:12:53 BRAD JOHNSON [facility] 2020-04-16 2020-04-16 Outpatient BRAD HALL [facility] [id number] Univers 10:00:00 11:12:53 BRAD JOHNSON [facility] 2020-04-13 2020-04-13 Outpatient Javier LUNDY [facility] [id number] Univers 13:45:00 13:45:00 GONSALO [facility] 2020-04-13 2020-04-13 Office [facility] 1.2.840.114 [id number] Univers 13:00:56 13:30:56 Visit [facility] 350.1.13.10 it y of [place] 4.2.7.2.686 Hi as Professio [phone] Wi dical nal [address] [place] Office Building One 2020-04-12 2020-04-12 Outpatient [facility] [id number] Univers 13:50:00 13:50:00 ity [facility] 2020-04-09 2020-04-[address] [facility] 1.2.840.114 [id number] Univers 18:04:00 00:48:00 Lashell Rdz 350.1.13.10 i ty of [place].2.7.2.686 [place] [phone] [facility] [place] [address] 2020-04-09 2020-04-10 Emergency X Harpreet SEBASTIAN [facility] ERT [id number] Univers 18:04:00 00:48:00 ity of [facility] 2020-04-10 2020-04-10 Patient Lavinia Garcia 1.2.840.114 [id number] Univers 00:00:00 00:00:00 Outreach E Talamantes 350.1.13.10 i ty of [place] 4.2.7.2.686 [facility] [phone] [facility] [place] [address] 2020-04-06 2020-04-06 Outpatient R ZACHARY [facility] [id number] Univers 13:00:00 13:00:00 CIRO ity of [facility] 2020-04-06 2020-04-06 [facility] 1.2.840.114 [id number] Univers 00:00:00 00:00:00 Secure Msg Ciro SPECIALTY 350.1.13.10 ity of CARE 4.2.7.2.686 [facility] AT [phone] Wi briancj VICTORY 072 [facility] 2020-04-05 2020-04-[address] [facility] 1.2.840.114 [id number] Univers 00:00:00 00:00:00 Secure Msg [facility] 350.1.13.10 ity of [place] Rdz 4.2.7.2.686 Hi as Professio 764.8478307 Wi dical nal [address] [place] Office [facility] One 2020-04-04 2020-04-[address] [facility] 1.2.840.114 [id number] Univers 13:50:32 14:20:32 Visit [facility] 350.1.13.10 it y of [place] 4.2.7.2.686 Hi as Professio [phone] Wi dical nal 044 [facility] One 2020-04-04 2020-04-04 Outpatient R NIKKIE [facility] [id number] Univers 14:00:00 14:00:00 GONSALO ity of [facility] 2020-04-04 2020-04-04 Patient Lavinia Garcia Brandi 1.2.840.114 [id number] Univers 00:00:00 00:00:00 Outreach E Talamantes 350.1.13.10 i ty of [place]2.7.2.[place] [phone] [address] 2020-04-03 2020-04-03 Patient Lavinia Garcia Brandi 1.2.840.114 [id number] Univers 00:00:00 00:00:00 Outreach E Talamantes 350.1.13.10 i ty of [place] 4.2.7.2.[place] [phone] [address] 2020-04-02 2020-04-02 Transition Brandi Butler 1.2.840.114 [id number] Univers 00:00:00 00:00:00 of Care Mahsa [place] 350.1.13.10 [place] [phone] [facility] [place] [address] 2020-03-19 2020-03-30 Hospital Abner Cooper 1.2.840.1 [id number] Univers 19:21:00 16:05:00 Encounter Ermelinda Dowd 350.1.13.10 ity of [facility] 4.2.7.2.686 [place] [phone] [facility] [place] [address] 2020-03-19 2020-03-30 [facility] [id number] Univers 19:21:00 16:05:00 [facility] of [facility] 2020-03-21 2020-03-21 Patient Lavinia Garcia Brandi 1.2.840.114 [id number] Univers 00:00:00 00:00:00 Outreach E [place] 350.1.13.10 [place] [phone] [address] 2020-03-14 2020-03-14 [facility] 1.2.840.114 [id number] Univers 00:00:00 00:00:00 [facility] 350.1.13.10 it y of [place] 4.2.7.2.686 Hi as Professio [phone] [address] Office [facility] 2020-03-08 2020-03-08 Telephone [facility] 1.2.840.114 [id number] Univers 00:00:00 00:00:00 [facility] 350.1.13.10 it y of [place] 4.2.7.2.686 Hi as Professio [phone] [address] 2020-03-08 2020-03-08 Telephone [facility] 1.2.840.114 [id number] Univers 00:00:00 00:00:00 [facility] 350.1.13.10 it y of [place] 4.2.7.2.686 Hi as Professio [phone] [address] One 2020-03-07 2020-03-07 Office [facility] 1.2.840.114 [id number] Univers 15:05:56 15:35:56 Visit [facility] 350.1.13.10 it y of [place] 4.2.7.2.686 Hi as Professio [phone] [address] One 2020-03-07 2020-03-07 Outpatient R [facility] [id number] Univers 15:00:00 15:00:00 [place] [facility] of [facility] 2020-03-07 2020-03-07 Orders Doctor CRISTY 1.2.840.114 [id number] Univers 00:00:00 00:00:00 Only Unassigned, SERA 350.1.13.10 ity of [place] [facility] 4.2.7.2.686 Hi as [phone] [address] 2020-03-01 2020-03-01 Patient Lavinia Garcia 1.2.840.114 [id number] Univers 00:00:00 00:00:00 Outreach E [place] 350.1.13.10 [place] of [place] [place] [phone] [facility] [place] [address] 2020-02-29 2020-02-29 Telephone CRISTY Kwan [id number] Univers 00:00:00 00:00:00 Cristy ZAMORA 350.1.13.10 it y of [facility] 4.2.7.2.686 [place] as [phone] [facility] [place] [address] 2020-02-29 2020-02-29 Telephone [facility] 1.2.840.114 [id number] Univers 00:00:00 00:00:00 [facility] 350.1.13.10 i ty [place] [id number] Wi dicmt [address] 2020-02-22 2020-02-22 Transition Brandi Eric 1.2.840.114 [id number] Univers 00:00:00 00:00:00 of Care Bailey Gonzalezy 350.1.13.10 i ty of [place] [id number] [facility] [place] [address] 2020-02-22 2020-02-22 Telephone [facility] 1.2.840.114 [id number] Univers 00:00:00 00:00:00 Pedro Luis PRIMARY 350.1.13.10 it [place] [phone] Wi dicmt [address] 2020-02-03 2020-02-21 [facility] Abner Cooper 1.2.840.1 14 [id number] Univers 12:52:00 16:14:00 Encounter Martin Sharma 350.1.13.10 ity of [facility] 4.2.7.2.686 [place] Pedro Luis Mccauley [phone] [facility] [address] 2020-02-03 2020-02-21 [facility] [id number] Univers 12:52:00 16:14:00 PEDRO LUIS ity of [facility] 2020-02-17 2020-02-17 Jesse Rowland [facility] [id number] Univers 00:00:00 00:00:00 Management Gideon BAUTISTA 350.1.13.10 [facility] 4.2.7.2.686 Abimael cain [phone] [place] [address] Branch Results Test Description Test Time Test Comments Results Result Comments Source POCT HEMOGLOBIN A1C TEST 2022-09-05 21:15:00 Test Item Value Reference Range Interpretation Comme nts POCT HBA1C (test code = 4548-4) 7.7 % 4-6 A Lab Interpretation (test code = 94894-9) Abnormal [facility] HEMOGLOBIN A1C [id number] 21:15:00 Test Item Value Reference Range Interpretation Comments POCT HBA1C (test code = 4548-4) 7.7 % 4-6 A Lab Interpretation (test code = Abnormal 47506-0) [facility] HEMOGLOBIN A1C [id number] 21:15:00 Test Item Value Reference Range Interpretation Comments POCT HBA1C (test code = 4548-4) 7.7 % 4-6 A Lab Interpretation (test code = Abnormal 26635-2) [facility] ([id number])2022-08-31 00:47:17 Test Item Value Reference Range Interpretation Comments NA (test code = 138 mmol/L 135-145 3146174687) K (test code = 4.2 mmol/L 3.5-5.0 5334566063) CL (test code = 104 mmol/L 98-108 4440619361) CO2 TOTAL (test code = 24 mmol/L 23-31 3144374774) AGAP (test code = 10 2-16 7301649596) BUN (test code = 9 mg/dL 7-23 3707857730) GLUCOSE (test code = 266 mg/dL 70-110 H 3302248662) CREATININE (test code = 0.87 mg/dL 0.60-1.25 0177929304) TOTAL BILI (test code = 0.4 mg/dL 0.1-1.7 5405738356) CALCIUM (test code = 9.4 mg/dL 8.6-10.6 4865576735) T PROTEIN (test code = 7.4 g/dL 6.3-8.2 2337330704) ALBUMIN (test code = 4.6 g/dL 3.5-5.0 5894745382) ALK PHOS (test code = 54 U/L 34-122 6304935865) ALTv (test code = 19 U/L 5-50 1742-6) AST(SGOT) (test code = 21 U/L 13-40 3590578225) eGFR (test code = 99.9 mL/min/1.73m2 6569225272) PATTI (test code = PATTI) Association of Glomerular Filtration Rate (GFR) and Staging of Kidney Disease* + --+ --+ ------+| GFR (mL/min/1.73 m2) ?| With Kidney Damage ?| ?Without Kidney Damage+ --------+ --------+ +| ?>90 ?| ?Stage one ?| ? Normal ?+ ---+ ---+ -------+| ?60-89 ?| ?Stage two ?| ? Decreased GFR ? + --+ --+ ------+| ?30-59 ?| ?Stage three ?| ? Stage three ? + --+ --+ ------+| ?15-29 ?| ?Stage four ? | ? Stage four ?+ ---+ ---+ -------+| ?<15 (or dialysis) ? ?| ?Stage five ? | ? Stage five ?+ ---+ ---+ -------+ *Each stage assumes the associated GFR level has been in effect for at least three months. ?Stages 1 to 5, with or without kidney disease, indicate chronic kidney disease. Notes: Determination of stages one and two (with eGFR >59mL/min/1.73 m2) requires estimation of kidney damage for at least three months as defined by structural or functional abnormalities of the kidney, manifested by either:Pathological abnormalities or Markers of kidney damage (including abnormalities in the composition of the blood or urine or abnormalities in imaging tests). Lab Interpretation Abnormal (test code = 72913-3) [id number] 00:32:33 Test Item Value Reference Interpretation Comments Range D-DIMER (test code = See_Comment [Autom ated [id number]) message] The system which generated this result transmitted reference range : <0.41 ?g/mL (FEU). The reference range was not used to interpret this result as normal/abnormal . PATTI (test code = This test may be PATTI) used in conjunction with a clinical pretest probability (PTP) assessment model to exclude venous thromboembolism (VTE) in patients suspected of deep venous thrombosis (DVT) and pulmonary embolism (PE) A D-Dimer value less than 0.50 ?g/ml (FEU) has a negative predicative value of 96 to 100% (95% CI)and 97 to 100% (95% CI) as an aid in the diagnosis of deep vein thrombosis (DVT) and pulmonary embolism when there is low or moderate pretest probability of PE or DVT. D-Dimer values are expressed in initial fibrinogen equivalent units (FEU)" The assay results should be used with other information, including the clinical context, in forming a diagnosis. Lab Interpretation Normal (test code = 68446-7) [facility] [id number] 00:26:16 Test Item Value Reference Range Interpretation Comments TROPONIN I (test code = 0.002 ng/mL <=0.034 5118982831) PATTI (test code = PATTI) Reference (Normal) Range (defined by the 99th percentile reference limit): <= 0.034 ng/mL Note: Cardiac troponin begins to rise 3-4 hours after the onset of ischemia. Repeat in 4-6 hours if the sample was drawn within 3-4 hours of the onset of the symptom and found normal. Diagnosis of myocardial injury is made with acute changes in cTn concentrations with at least one serial sample above the 99th percentile upper reference limit (URL), taken together with the patient's clinical presentation. Biotin has been reported to cause a negative bias, interpret results relative to patient's use of biotin. Lab Interpretation Normal (test code = 64381-7) [facility] WITH [id number] 00:00:16 Test Item Value Reference Range Interpretation Comments WBC (test code = 6.93 See_Comment [Automated 4236-2) message] The sy stem which generated this result transmitted reference range : 4.20 - 10.70 10*3/?L. The reference range was not used to interpret this result as normal/abnormal . RBC (test code = 4.09 See_Comment L [Automated 789-8) message] The sy stem which generated this result transmitted reference range : 4.26 - 5.52 10*6/?L. The reference range was not used to interpret this result as normal/abnormal . HGB (test code = 12.2 g/dL 12.2-16.4 718-7) HCT (test code = 35.0 % 38.4-49.3 L 4544-3) MCV (test code = 85.6 fL 81.7-95.6 787-2) MCH (test code = 29.8 pg 26.1-32.7 785-6) MCHC (test code = 34.9 g/dL 31.2-35.0 786-4) RDW-SD (test code = 36.5 fL 38.5-51.6 L 69603-0) RDW-CV (test code = 11.9 % 12.1-15.4 L 788-0) PLT (test code = 211 See_Comment [Automated 777-3) message] The sy stem which generated this result transmitted reference range : 150 - 328 10*3/ ?L. The reference r cara was not used to interpret this result as normal/abnormal . MPV (test code = 9.9 fL 9.8-13.0 03819-7) NRBC/100 WBC (test 0.0 See_Comment [Automat ed code = 0307147641) message] The system which generated this result transmitted reference range : 0.0 - 10.0 /100 WBCs. The refer ence range was not u sed to interpret th is result as normal/abnormal . NRBC x10^3 (test code See_Comment [Auto mated = 3817992899) message] The s ystem which generated this result transmitted reference range : 10*3/?L. The reference range was not used to interpret this result as normal/abnormal . GRAN MAT (NEUT) % 49.6 % (test code = 770-8) IMM GRAN % (test code 0.10 % = 7442615555) LYMPH % (test code = 41.1 % 736-9) MONO % (test code = 7.2 % 5905-5) EOS % (test code = 1.6 % 713-8) BASO % (test code = 0.4 % 706-2) GRAN MAT x10^3(ANC) 3.43 10*3/uL 1.99-6.95 (test code = 3863852667) IMM GRAN x10^3 (test 0.00-0.06 code = 8535966240) LYMPH x10^3 (test code 2.85 10*3/uL 1.09-3.23 = 731-0) MONO x10^3 (test code 0.50 10*3/uL 0.36-1.02 = 742-7) EOS x10^3 (test code = 0.11 10*3/uL 0.06-0.53 711-2) BASO x10^3 (test code 0.03 10*3/uL 0.01-0.09 = 704-7) Lab Interpretation Abnormal (test code = 73610-6) [facility]2022-08-13 21:09:02 Test Item Value Reference Range Interpretation Comments POCT GLU (test code = 6821238291) 315 mg/dL 70-110 H Lab Interpretation (test code = Abnormal 78760-4) [facility] WITH [id number] 04:39:33 Test Item Value Reference Range Interpretation Comments WBC (test code = 10.53 See_Comment [Automated 6690-2) message] The sy stem which generated this result transmitted reference range : 4.20 - 10.70 10*3/?L. The reference range was not used to interpret this result as normal/abnormal . RBC (test code = 3.93 See_Comment L [Automated 409-8) message] The sy stem which generated this result transmitted reference range : 4.26 - 5.52 10*6/?L. The reference range was not used to interpret this result as normal/abnormal . HGB (test code = 11.7 g/dL 12.2-16.4 L 718-7) HCT (test code = 34.1 % 38.4-49.3 L 4544-3) MCV (test code = 86.8 fL 81.7-95.6 787-2) MCH (test code = 29.8 pg 26.1-32.7 785-6) MCHC (test code = 34.3 g/dL 31.2-35.0 786-4) RDW-SD (test code = 41.1 fL 38.5-51.6 88287-2) RDW-CV (test code = 13.1 % 12.1-15.4 788-0) PLT (test code = 203 See_Comment [Automated 777-3) message] The sy stem which generated this result transmitted reference range : 150 - 328 10*3/ ?L. The reference r cara was not used to interpret this result as normal/abnormal . MPV (test code = 10.1 fL 9.8-13.0 72856-1) NRBC/100 WBC (test 0.0 See_Comment [Automat ed code = 2189455775) message] The system which generated this result transmitted reference range : 0.0 - 10.0 /100 WBCs. The refer ence range was not u sed to interpret th is result as normal/abnormal . NRBC x10^3 (test code See_Comment [Auto mated = 7978456606) message] The s ystem which generated this result transmitted reference range : 10*3/?L. The reference range was not used to interpret this result as normal/abnormal . GRAN MAT (NEUT) % 64.4 % (test code = 770-8) IMM GRAN % (test code 0.30 % = 1693242285) LYMPH % (test code = 27.1 % 736-9) MONO % (test code = 6.7 % 5905-5) EOS % (test code = 1.1 % 713-8) BASO % (test code = 0.4 % 706-2) GRAN MAT x10^3(ANC) 6.78 10*3/uL 1.99-6.95 (test code = 9978416367) IMM GRAN x10^3 (test 0.03 10*3/uL 0.00-0.06 code = 6430871331) LYMPH x10^3 (test code 2.85 10*3/uL 1.09-3.23 = 731-0) MONO x10^3 (test code 0.71 10*3/uL 0.36-1.02 = 742-7) EOS x10^3 (test code = 0.12 10*3/uL 0.06-0.53 711-2) BASO x10^3 (test code 0.04 10*3/uL 0.01-0.09 = 704-7) Lab Interpretation Abnormal (test code = 23216-0) [facility]. METABOLIC PANEL ([id number])2022-07-03 04:09:12 Test Item Value Reference Range Interpretation Comments NA (test code = 137 mmol/L 135-145 0232343540) K (test code = 4.6 mmol/L 3.5-5.0 0968502317) CL (test code = 100 mmol/L 98-108 7359696793) CO2 TOTAL (test code = 27 mmol/L 23-31 6499768472) AGAP (test code = 10 2-16 5734708364) BUN (test code = 21 mg/dL 7-23 6525692159) GLUCOSE (test code = 220 mg/dL 70-110 H 3336918137) CREATININE (test code = 0.89 mg/dL 0.60-1.25 3294729739) TOTAL BILI (test code = 0.6 mg/dL 0.1-1.9 4653697775) CALCIUM (test code = 10.0 mg/dL 8.6-10.6 0319454461) T PROTEIN (test code = 7.5 g/dL 6.3-8.2 1352192462) ALBUMIN (test code = 4.9 g/dL 3.5-5.0 1557404881) ALK PHOS (test code = 31 U/L 34-122 L 8636246171) ALTv (test code = 19 U/L 5-50 1742-6) AST(SGOT) (test code = 27 U/L 13-40 8533218381) eGFR (test code = 97.3 mL/min/1.73m2 6283246979) PATTI (test code = PATTI) Association of Glomerular Filtration Rate (GFR) and Staging of Kidney Disease* + --+ --+ ------+| GFR (mL/min/1.73 m2) ?| With Kidney Damage ?| ?Without Kidney Damage+ --------+ --------+ +| ?>90 ?| ?Stage one ?| ? Normal ?+ ---+ ---+ -------+| ?60-89 ?| ?Stage two ?| ? Decreased GFR ? + --+ --+ ------+| ?30-59 ?| ?Stage three ?| ? Stage three ? + --+ --+ ------+| ?15-29 ?| ?Stage four ? | ? Stage four ?+ ---+ ---+ -------+| ?<15 (or dialysis) ? ?| ?Stage five ? | ? Stage five ?+ ---+ ---+ -------+ *Each stage assumes the associated GFR level has been in effect for at least three months. ?Stages 1 to 5, with or without kidney disease, indicate chronic kidney disease. Notes: Determination of stages one and two (with eGFR >59mL/min/1.73 m2) requires estimation of kidney damage for at least three months as defined by structural or functional abnormalities of the kidney, manifested by either:Pathological abnormalities or Markers of kidney damage (including abnormalities in the composition of the blood or urine or abnormalities in imaging tests). Lab Interpretation Abnormal (test code = 77228-7) [facility] 04:08:31 Test Item Value Reference Range Interpretation Comments LIPASE (test code = 1463120198) 44 U/L 0-220 Lab Interpretation (test code = Normal 07530-8) [facility] WITH [id number] 03:01:22 Test Item Value Reference Range Interpretation Comments WBC (test code = 7.45 See_Comment [Automated 7390-2) message] The sy stem which generated this result transmitted reference range : 4.20 - 10.70 10*3/?L. The reference range was not used to interpret this result as normal/abnormal . RBC (test code = 4.10 See_Comment L [Automated 036-8) message] The sy stem which generated this result transmitted reference range : 4.26 - 5.52 10*6/?L. The reference range was not used to interpret this result as normal/abnormal . HGB (test code = 11.9 g/dL 12.2-16.4 L 718-7) HCT (test code = 34.8 % 38.4-49.3 L 4544-3) MCV (test code = 84.9 fL 81.7-95.6 787-2) MCH (test code = 29.0 pg 26.1-32.7 785-6) MCHC (test code = 34.2 g/dL 31.2-35.0 786-4) RDW-SD (test code = 37.0 fL 38.5-51.6 L 58399-1) RDW-CV (test code = 12.2 % 12.1-15.4 788-0) PLT (test code = 204 See_Comment [Automated 777-3) message] The sy stem which generated this result transmitted reference range : 150 - 328 10*3/ ?L. The reference r cara was not used to interpret this result as normal/abnormal . MPV (test code = 9.7 fL 9.8-13.0 L 26869-6) NRBC/100 WBC (test 0.0 See_Comment [Automat ed code = 5464477826) message] The system which generated this result transmitted reference range : 0.0 - 10.0 /100 WBCs. The refer ence range was not u sed to interpret th is result as normal/abnormal . NRBC x10^3 (test code See_Comment [Auto mated = 2066001249) message] The s ystem which generated this result transmitted reference range : 10*3/?L. The reference range was not used to interpret this result as normal/abnormal . GRAN MAT (NEUT) % 44.7 % (test code = 770-8) IMM GRAN % (test code 0.30 % = 8159077408) LYMPH % (test code = 45.9 % 736-9) MONO % (test code = 7.1 % 5905-5) EOS % (test code = 1.6 % 713-8) BASO % (test code = 0.4 % 706-2) GRAN MAT x10^3(ANC) 3.33 10*3/uL 1.99-6.95 (test code = 1370787860) IMM GRAN x10^3 (test 0.00-0.06 code = 0409841597) LYMPH x10^3 (test code 3.42 10*3/uL 1.09-3.23 H = 731-0) MONO x10^3 (test code 0.53 10*3/uL 0.36-1.02 = 742-7) EOS x10^3 (test code = 0.12 10*3/uL 0.06-0.53 711-2) BASO x10^3 (test code 0.03 10*3/uL 0.01-0.09 = 704-7) Lab Interpretation Abnormal (test code = 97868-6) [facility]. METABOLIC PANEL ([id number])2022-06-03 02:51:41 Test Item Value Reference Range Interpretation Comments NA (test code = 137 mmol/L 135-145 2049352096) K (test code = 4.0 mmol/L 3.5-5.0 8760379039) CL (test code = 104 mmol/L 98-108 3099598435) CO2 TOTAL (test code = 27 mmol/L 23-31 5878539989) AGAP (test code = 6 2-16 6439364862) BUN (test code = 16 mg/dL 7-23 3874712458) GLUCOSE (test code = 99 mg/dL 70-110 3684714848) CREATININE (test code = 0.74 mg/dL 0.60-1.25 1391927681) TOTAL BILI (test code = 0.6 mg/dL 0.1-1.1 5791359351) CALCIUM (test code = 9.8 mg/dL 8.6-10.6 7299020624) T PROTEIN (test code = 7.2 g/dL 6.3-8.2 8400850022) ALBUMIN (test code = 4.7 g/dL 3.5-5.0 3165079369) ALK PHOS (test code = 27 U/L 34-122 L 0804769172) ALTv (test code = 18 U/L 5-50 1742-6) AST(SGOT) (test code = 23 U/L 13-40 8211539412) eGFR (test code = 120.4 mL/min/1.73m2 6525786675) PATTI (test code = PATTI) Association of Glomerular Filtration Rate (GFR) and Staging of Kidney Disease* + --+ --+ ------+| GFR (mL/min/1.73 m2) ?| With Kidney Damage ?| ?Without Kidney Damage+ --------+ --------+ +| ?>90 ?| ?Stage one ?| ? Normal ?+ ---+ ---+ -------+| ?60-89 ?| ?Stage two ?| ? Decreased GFR ? + --+ --+ ------+| ?30-59 ?| ?Stage three ?| ? Stage three ? + --+ --+ ------+| ?15-29 ?| ?Stage four ? | ? Stage four ?+ ---+ ---+ -------+| ?<15 (or dialysis) ? ?| ?Stage five ? | ? Stage five ?+ ---+ ---+ -------+ *Each stage assumes the associated GFR level has been in effect for at least three months. ?Stages 1 to 5, with or without kidney disease, indicate chronic kidney disease. Notes: Determination of stages one and two (with eGFR >59mL/min/1.73 m2) requires estimation of kidney damage for at least three months as defined by structural or functional abnormalities of the kidney, manifested by either:Pathological abnormalities or Markers of kidney damage (including abnormalities in the composition of the blood or urine or abnormalities in imaging tests). Lab Interpretation Abnormal (test code = 61623-2) [facility] 02:51:21 Test Item Value Reference Range Interpretation Comments LIPASE (test code = 6887517235) 35 U/L 0-220 Lab Interpretation (test code = Normal 99248-0) [facility] GLUCOSE (AUTOMATED)2022-03-22 06:55:22 Test Item Value Reference Range Interpretation Comments POCT GLU (test code = 6776102654) 182 mg/dL 70-110 H Lab Interpretation (test code = Abnormal 35319-1) [facility] GLUCOSE (AUTOMATED)2022-03-22 02:46:07 Test Item Value Reference Range Interpretation Comments POCT GLU (test code = 2897908997) 227 mg/dL 70-110 H Lab Interpretation (test code = Abnormal 51920-8) [facility] [id number] 00:56:40 Test Item Value Reference Range Interpretation Comments CK (test code = 9857778128) 73 U/L 33-194 Lab Interpretation (test code = Normal 63989-3) [facility] GLUCOSE (AUTOMATED)2022-03-22 00:47:25 Test Item Value Reference Range Interpretation Comments POCT GLU (test code = 9760428256) 265 mg/dL 70-110 H Lab Interpretation (test code = Abnormal 31361-1) [facility] GLUCOSE (AUTOMATED)2022-03-21 14:15:39 Test Item Value Reference Range Interpretation Comments POCT GLU (test code = 3055379668) 151 mg/dL 70-110 H Lab Interpretation (test code = Abnormal 50358-5) [facility] GLUCOSE (AUTOMATED)2022-03-21 04:53:17 Test Item Value Reference Range Interpretation Comments POCT GLU (test code = 5420095111) 140 mg/dL 70-110 H Lab Interpretation (test code = Abnormal 93560-5) [facility] GLUCOSE(AGE >30DAYS)2022-03-21 04:50:00 Test Item Value Reference Range Interpretation Comments POCT Glu (age>30days) (test code = 140 mg/dL 70-110 A 3342) Lab Interpretation (test code = Abnormal 95879-3) [facility] GLUCOSE (AUTOMATED)2022-03-21 01:37:32 Test Item Value Reference Range Interpretation Comments POCT GLU (test code = 4107322681) 191 mg/dL 70-110 H Lab Interpretation (test code = Abnormal 73099-1) [facility] GLUCOSE(AGE >30DAYS)2022-03-21 01:29:00 Test Item Value Reference Range Interpretation Comments POCT Glu (age>30days) (test code = 191 mg/dL 70-110 A 3342) Lab Interpretation (test code = Abnormal 19089-2) [facility] GLUCOSE (AUTOMATED)2022-03-21 00:34:56 Test Item Value Reference Range Interpretation Comments POCT GLU (test code = 3677196213) 209 mg/dL 70-110 H Lab Interpretation (test code = Abnormal 74971-0) [facility] GLUCOSE (AUTOMATED)2022-03-20 15:31:59 Test Item Value Reference Range Interpretation Comments POCT GLU (test code = 1942715527) 119 mg/dL 70-110 H Lab Interpretation (test code = Abnormal 45133-8) [facility] GLUCOSE(AGE >30DAYS)2022-03-20 15:31:00 Test Item Value Reference Range Interpretation Comments POCT Glu (age>30days) (test code = 119 mg/dL 70-110 A 3342) Lab Interpretation (test code = Abnormal 45130-0) [facility] GLUCOSE(AGE >30DAYS)2022-03-20 15:31:00 Test Item Value Reference Range Interpretation Comments POCT Glu (age>30days) (test code = 119 mg/dL 70-110 A 3342) Lab Interpretation (test code = Abnormal 80104-7) [facility] GLUCOSE (AUTOMATED)2022-03-19 23:58:56 Test Item Value Reference Range Interpretation Comments POCT GLU (test code = 187 mg/dL 70-110 H Notifi ed Provider [id number]) Lab Interpretation (test Abnormal code = 78307-5) [facility] GLUCOSE (AUTOMATED)2022-03-19 15:01:27 Test Item Value Reference Range Interpretation Comments POCT GLU (test code = 6287208202) 268 mg/dL 70-110 H Lab Interpretation (test code = Abnormal 06814-3) [facility] HEMOGLOBIN A1C [id number] 20:00:00 Test Item Value Reference Range Interpretation Comments POCT HBA1C (test code = 4548-4) 6.4 % 4-6 A Lab Interpretation (test code = Abnormal 26263-5) [facility] HEMOGLOBIN A1C [id number] 20:00:00 Test Item Value Reference Range Interpretation Comments POCT HBA1C (test code = 4548-4) 6.4 % 4-6 A Lab Interpretation (test code = Abnormal 32083-7) [facility] HEMOGLOBIN A1C [id number] 20:00:00 Test Item Value Reference Range Interpretation Comments POCT HBA1C (test code = 4548-4) 6.4 % 4-6 A Lab Interpretation (test code = Abnormal 88456-1) [facility] HEMOGLOBIN A1C [id number] 20:00:00 Test Item Value Reference Range Interpretation Comments POCT HBA1C (test code = 4548-4) 6.4 % 4-6 A Lab Interpretation (test code = Abnormal 30112-8) [facility] [id number] 15:34:20 Test Item Value Reference Interpretation Comments Range TROPONIN I (test 0.003 ng/mL See_Comment [Automated code = 5767483002) message] The system which generated this result transmitted reference range : <=0.034. The reference range was not used to interpret this result as normal/abnormal . PATTI (test code = Reference (Normal) PATTI) Range (defined by the 99th percentile reference limit): <= 0.034 ng/mL Note: Cardiac troponin begins to rise 3-4 hours after the onset of ischemia. Repeat in 4-6 hours if the sample was drawn within 3-4 hours of the onset of the symptom and found normal. Diagnosis of myocardial injury is made with acute changes in cTn concentrations with at least one serial sample above the 99th percentile upper reference limit (URL), taken together with the patient's clinical presentation. Biotin has been reported to cause a negative bias, interpret results relative to patient's use of biotin. Lab Interpretation Normal (test code = 29284-6) [facility] (14009)(TOTAL CHOLESTEROL, TRIGLYCERIDES, HDL)2022-01-15 15:24:00 Test Item Value Reference Range Interpretation Comments CHOL (test code = 167 mg/dL 120-200 3212612561) HDL (test code = 70 mg/dL See_Comment [Automated message] 8693938115) The system [employer] generated this result transmit nick reference range : >=40. The refer ence range was not u sed to interpret th is result as normal/abnormal . HDLC RATIO (test code = See_Comment [Au tomated message] 1630805071) The system [employer] generated this result transmit nick reference range : <=5.0. The refe rence range was not u sed to interpret th is result as normal/abnormal . TRIG (test code = 57 mg/dL 30-170 7002637511) LDL CHOL (test code = 86 mg/dL See_Comment [Auto mated message] 49889-3) The system [employer] generated this result transmit nick reference range : <=160. The refe rence range was not u sed to interpret th is result as normal/abnormal . VLDL (test code = 11 mg/dL 5-60 6313092144) Lab Interpretation (test Normal code = 38350-0) [facility] Test Item Value Reference Range Interpretation Comments MAGNESIUM (test code = 6530907068) 1.5 mg/dL 1.7-2.4 L Lab Interpretation (test code = Abnormal 40213-6) [facility]. METABOLIC PANEL (72236)2022-01-15 15:23:35 Test Item Value Reference Range Interpretation Comments NA (test code = 137 mmol/L 135-145 3489766349) K (test code = 4.4 mmol/L 3.5-5.0 3820637855) CL (test code = 100 mmol/L 98-108 6129904646) CO2 TOTAL (test code = 24 mmol/L 23-31 8792688598) AGAP (test code = 2-16 2066357790) BUN (test code = 23 mg/dL 7-23 3442624851) GLUCOSE (test code = 200 mg/dL 70-110 H 1568482978) CREATININE (test code = 1.00 mg/dL 0.60-1.25 8399560490) TOTAL BILI (test code = 0.9 mg/dL 0.1-1.8 9962078354) CALCIUM (test code = 9.3 mg/dL 8.6-10.6 2995008030) T PROTEIN (test code = 7.5 g/dL 6.3-8.2 3441149218) ALBUMIN (test code = 5.1 g/dL 3.5-5.0 H 5621911280) ALK PHOS (test code = 53 U/L 34-122 6596925292) ALTv (test code = 23 U/L 5-50 1742-6) AST(SGOT) (test code = 19 U/L 13-40 3447631641) eGFR (test code = mL/min/1.73m2 2705282450) PATTI (test code = PATTI) Association of Glomerular Filtration Rate (GFR) and Staging of Kidney Disease* + --+ --+ ------+| GFR (mL/min/1.73 m2) ?| With Kidney Damage ?| ?Without Kidney Damage+ --------+ --------+ +| ?>90 ?| ?Stage one ?| ? Normal ?+ ---+ ---+ -------+| ?60-89 ?| ?Stage two ?| ? Decreased GFR ? + --+ --+ ------+| ?30-59 ?| ?Stage three ?| ? Stage three ? + --+ --+ ------+| ?15-29 ?| ?Stage four ? | ? Stage four ?+ ---+ ---+ -------+| ?<15 (or dialysis) ? ?| ?Stage five ? | ? Stage five ?+ ---+ ---+ -------+ *Each stage assumes the associated GFR level has been in effect for at least three months. ?Stages 1 to 5, with or without kidney disease, indicate chronic kidney disease. Notes: Determination of stages one and two (with eGFR >59mL/min/1.73 m2) requires estimation of kidney damage for at least three months as defined by structural or functional abnormalities of the kidney, manifested by either:Pathological abnormalities or Markers of kidney damage (including abnormalities in the composition of the blood or urine or abnormalities in imaging tests). Lab Interpretation Abnormal (test code = 29363-5) [facility] 15[facility]22:59 Test Item Value Reference Range Interpretation Comments LIPASE (test code = 9892246539) 30 U/L 0-220 Lab Interpretation (test code = Normal 99043-3) [facility] WITH [id number] 15:10:18 Test Item Value Reference Range Interpretation Comments WBC (test code = See_Comment [Automated 3875-2) message] The sy stem which generated this result transmitted reference range : 4.20 - 10.70 10*3/?L. The reference range was not used to interpret this result as normal/abnormal . RBC (test code = See_Comment [Automated 453-8) message] The sy stem which generated this result transmitted reference range : 4.26 - 5.52 10*6/?L. The reference range was not used to interpret this result as normal/abnormal . HGB (test code = 14.3 g/dL 12.2-16.4 718-7) HCT (test code = 41.6 % 38.4-49.3 4544-3) MCV (test code = 84.4 fL 81.7-95.6 787-2) MCH (test code = 29.0 pg 26.1-32.7 785-6) MCHC (test code = 34.4 g/dL 31.2-35.0 786-4) RDW-SD (test code = 38.2 fL 38.5-51.6 L 55848-5) RDW-CV (test code = 12.6 % 12.1-15.4 788-0) PLT (test code = See_Comment [Automated 777-3) message] The sy stem which generated this result transmitted reference range : 150 - 328 10*3/ ?L. The reference r cara was not used to interpret this result as normal/abnormal . MPV (test code = 9.5 fL 9.8-13.0 L 66752-9) NRBC/100 WBC (test See_Comment [Automat ed code = 0639789279) message] The system which generated this result transmitted reference range : 0.0 - 10.0 /100 WBCs. The refer ence range was not u sed to interpret th is result as normal/abnormal . NRBC x10^3 (test code See_Comment [Auto mated = 6975644895) message] The s ystem which generated this result transmitted reference range : 10*3/?L. The reference range was not used to interpret this result as normal/abnormal . GRAN MAT (NEUT) % 88.1 % (test code = 770-8) IMM GRAN % (test code 0.40 % = 6372765138) LYMPH % (test code = 3.6 % 736-9) MONO % (test code = 7.6 % 5905-5) EOS % (test code = 0.0 % 713-8) BASO % (test code = 0.3 % 706-2) GRAN MAT x10^3(ANC) 8.08 10*3/uL 1.99-6.95 H (test code = 5552913514) IMM GRAN x10^3 (test 0.04 10*3/uL 0.00-0.06 code = 3413628869) LYMPH x10^3 (test code 0.33 10*3/uL 1.09-3.23 L = 731-0) MONO x10^3 (test code 0.70 10*3/uL 0.36-1.02 = 742-7) EOS x10^3 (test code = 0.06-0.53 L 711-2) BASO x10^3 (test code 0.03 10*3/uL 0.01-0.09 = 704-7) Lab Interpretation Abnormal (test code = 20459-4) [facility] HEMOGLOBIN A1C [id number] 17:36:00 Test Item Value Reference Range Interpretation Comments POCT HBA1C (test code = 4548-4) 8.5 % 4-6 A Lab Interpretation (test code = Abnormal 96297-8) [facility] HEMOGLOBIN A1C [id number] 17:36:00 Test Item Value Reference Range Interpretation Comments POCT HBA1C (test code = 4548-4) 8.5 % 4-6 A Lab Interpretation (test code = Abnormal 67270-6) [facility] HEMOGLOBIN A1C [id number] 17:36:00 Test Item Value Reference Range Interpretation Comments POCT HBA1C (test code = 4548-4) 8.5 % 4-6 A Lab Interpretation (test code = Abnormal 10598-1) [facility] HEMOGLOBIN A1C [id number] 17:36:00 Test Item Value Reference Range Interpretation Comments POCT HBA1C (test code = 4548-4) 8.5 % 4-6 A Lab Interpretation (test code = Abnormal 67308-0) [facility] HEMOGLOBIN A1C [id number] 17:36:00 Test Item Value Reference Range Interpretation Comments POCT HBA1C (test code = 4548-4) 8.5 % 4-6 A Lab Interpretation (test code = Abnormal 91776-2) [facility] HEMOGLOBIN A1C [id number] 17:36:00 Test Item Value Reference Range Interpretation Comments POCT HBA1C (test code = 4548-4) 8.5 % 4-6 A Lab Interpretation (test code = Abnormal 34534-6) [facility] Notes Date/Time Note Provider Source 2022-10-03 Formatting of this note might be differe nt from the original. Jil Hill [facility] [place] 19:11:32-00:00 Pt given printed and verbal discharge instructions regarding closed displaced fracture of distal phalanx of left great toe and foot injury, encouraged hydration, RN 0 Prescriptions provided Pt verbalized understanding of instructions, pt awake alert oriented, resp reg unlabored, skin w/d, color appropriate for race, moves all ext well,pt encouraged to follow up with pcp Advised to seek medical attention for new/prolon ged/worsening of symptoms, Symptoms improved. Awake, alert oriented, resp reg unlabored, skin w/d, pt leaving amb with steady gait, in no apparent distress, Electronically signed by Jil Hill RN a t 10/03/2022 7:12 PM CDT 2022-10-03 Formatting of this note might be differe nt from the original. An Mims [facility] [place] 16:24:57-00:00 Couch fell on patient's left foot ~1600hrs. RN Pulse, motor, sensory present and normal to left foot. Blue toe nail on big toe noted, no obvious defor mity noted. Hx - pancreatitis, DM, schizophrenia 2022-09-17 [facility] [place] 10:51:05-00:00 Double insulin prescriptions on file. Clarified that pt will only be on NPH 70-30 12 units bid. T 2022-09-15 Formatting of this note might be differe nt from the original. Moira Shirley [place] [facility] [place] 11:23:07-00:00 RECEIVED RX FOR HUMULIN N PH ANGELITAY WANTS TO KNOW IF YOU WANT PATIENT TO TAKE THIS AND HUMULIN 70/30. PLEASE CALL [phone]. Electronically signed by Moira Marie at 11:26 AM CDT 2022-09-11 Formatting of this note might be differe nt from the original. Andreia Cruz [facility] [place] 22:50:33-00:00 Pt given printed and verbal discharge instructions regarding chest pain, nausea & vomiting, encouraged hydration, RN Prescriptions provided: Zofran Instructed to stop taking Mobic Pt verbalized understanding of instructions, pt awake alert oriented, resp reg unlabored, skin w/d, color appropriate for race, moves all ext well,pt encouraged to follow up with pcp Advised to seek medical attention for new/prolon ged/worsening of symptoms, Symptoms improved No adverse reaction to meds given in ER noted up on discharge PIV d'cd, dressing to site, catheter in tact. Awake, alert oriented, resp reg unlabored, skin w/d, pt leaving amb with steady gait, in no apparent distress, 2022-09-11 [facility] 19:50:41-00:00 Pt arrived ambulatory with c omplaints of chest pain, back pain, abdominal pain and nausea that started at 6pm. Pt took 500mg Tylenol MANAGER SECONDARY. Hx: Pancreatitis, schizophrenia 2022-09-11 Associated Order(s): EKG-12 Lead ROUTINE ONCE [facility] 19:29:00-00:00 Pre-Procedure Diagnose(s): Chest pain, unspecifi ed type Post-Procedure Diagnose(s): Chest pain, unspecif ied type Formatting of this note is different from the or iginal. [facility] Emergency Department Note Patient Name: Pierce Vang Date of : 1985 37 year old male Treatment Room: [place] [address] Primary Care Physician: Sushant Bueno Patient Escorted by: Family [5] Mode of Arrival: Personal means [1] EMS Treatment Prior to ED Arrival: Travel and Exposure Screening: Symptoms Does patient have any of these symptoms?: (not r ecorded) Exposure Screening Has patient had contact with someone with a communicable disease in the last month?: (not recorded) Diseases exposed to:: (not recorded) Is Patient ?: (not recorded) Exposure Date: (not recorded) Chief Complaint: Chief Complaint Patient presents with Back Pain Chest Pain Abdominal Pain History of Present Illness: The patient presents for jose l for chest pain and abdominal pain that started around 1800 today. The pain has been constant and is not radiating to his back. Nausea but no vomiting. No fevers. No cough o r URI sx. He reports he was outside smoking when his sx started. Has h/o pancreatitis and this feels like it. No etoh in 6 years. No h/o abdominal surgery in the past. Has h/o DM and htn. No history of CAD in himself or his family. Here for evaluation. Past Medical History/Immunizations: Past Medical History: Diagnosis Date ADHD Alcohol use 05/03/2020 Anxiety Cyst and pseudocyst of pancreas 06/01/2020 Added automatically from request for surgery 78 1908 Depression Diabetes mellitus Hypertriglyceridemia 05/03/2020 Necrotizing pancreatitis 06/01/2020 Added automatically from request for surgery 78 1908 Obesity Pancreatitis 01/2020 Pseudocyst of pancreas 03/20/2020 Schizophrenia, unspecified Seizures Weight loss, unintentional 05/03/2020 Tetanus received in last 5 years: Unknown Allergies: Allergies Allergen Reactions Pcn [Penicillins] Hives Past Social History: Tobacco Use Every Day; 1.00 packs/day; Types: Cigarettes Smokeless Tobacco: Never used smokeless tobacco . Comments: Delta 8 Vaping Use Never assessed Alcohol Use Not Currently. Comments: 6 pack of beer every day since 21 yea rs old. no liquor Drug Use Yes; Cocaine. Comments: From [age] years old. Sexual Activity Not currently sexually active. Past Surgical History: Past Surgical History: Procedure Laterality Date ENDOSCOPIC RETROGRADE CHOLANGIOPANCRETOGRAPHY N /A 06/21/2020 Surgeon: Ciro Sharma MD; Location: [facility] Location ENDOSCOPIC RETROGRADE CHOLANGIOPANCRETOGRAPHY N /A 09/05/2020 Surgeon: Ciro Sharma MD; [facility] ESOPHAGOGASTRODUODENOSCOPY N/A 06/21/2020 Surgeon: Ciro Sharma MD; Location: [facility] Location ESOPHAGOGASTRODUODENOSCOPY N/A 09/05/2020 Surgeon: Ciro Sharma MD; Location: [facility] UPPER ULTRASOUND (SHX) N/A 03/21/2020 Surgeon: Ciro Sharma MD; Location: [facility] ([facility] OR Location UPPER ULTRASOUND (SHX) N/A 06/21/2020 Surgeon: Ciro Sharma MD; Location: [facility] Location UPPER ULTRASOUND (SHX) N/A 09/05/2020 Surgeon: Ciro Sharma MD; Location: [facility] OR Location Review of Systems: Review of Systems Constitutional: Negative for chills and fever. Respiratory: Negative for cough and shortness of breath. Cardiovascular: Positive for chest pain. Gastrointestinal: Positive f or abdominal pain and nausea. Negative for vomiting. Genitourinary: Negative for dysuria. Musculoskeletal: Negative for arthralgias, neck pain and neck stiffness. Skin: Negative for wound. Neurological: Negative for dizziness. Psychiatric/Behavioral: Negative for agitation. Endocrine: Negative for goiter. Physical Exam: ED Triage Vitals [09/11/221952] Weight 81.4 kg (179 lb 6.4 oz) Actual or estimated Actual Height 1.753 m (5' 9") BP (!) 140/84 Pulse 97 Resp 18 Temp 36.8 ?C (98.3 ?F) Temp source Oral SpO2 96 % Measured on Room air Physical Exam Vitals and nursing note reviewed. Constitutional: Appearance: Normal appearance. HENT: Head: Normocephalic and atraumatic. Nose: Nose normal. Mouth/Throat: Mouth: Mucous membranes are dry. Cardiovascular: Rate and Rhythm: Normal rate and regular rhythm . Pulses: Normal pulses. Pulmonary: Effort: Pulmonary effort is normal. No respirat ory distress. Breath sounds: No stridor. No wheezing or rhonc hi. Abdominal: General: There is no distension. Palpations: Abdomen is soft. There is no mass. Tenderness: There is no abdominal tenderness. T here is no guarding. Hernia: No hernia is present. Musculoskeletal: Cervical back: Normal range of motion and neck supple. Skin: General: Skin is warm and dry. Neurological: General: No focal deficit present. Mental Status: He is alert and oriented to pers on, place, and time. Radiology: XR CHEST 1 VW Final Result ORDERING PHYSICIAN: TREVA SOTELO HISTORY: chest pain COMPARISON: none FINDINGS: Single frontal view of the chest. Heart is normal in size. There is no pulmonary e radha. There are no focal areas of consolidation. There is no pneumothorax . There are no pleural effusions. Osseous structures are unremarkable. Please note that chest radiography is not a sens itive modality for the detection of masses. IMPRESSION No radiographic evidence of acute cardiopulmonar y process. RL: 135 Lab Results: Lab Results CBC WITH DIFF - Abnormal Result Value Ref Range WBC 8.78 4.20 - 10.70 10*3/?L RBC 3.81 (*) 4.26 - 5.52 10*6/?L HGB 11.6 (*) 12.2 - 16.4 g/dL HCT 33.5 (*) 38.4 - 49.3 % MCV 87.9 81.7 - 95.6 fL MCH 30.4 26.1 - 32.7 pg MCHC 34.6 31.2 - 35.0 g/dL RDW-SD 39.3 38.5 - 51.6 fL RDW-CV 12.3 12.1 - 15.4 % PLT 217 150 - 328 10*3/?L MPV 9.7 (*) 9.8 - 13.0 fL NRBC/100 WBC 0.0 0.0 - 10.0 /100 WBCs NRBC x10^3 <0.01 10*3/?L GRAN MAT (NEUT) % 58.4 % IMM GRAN % 0.30 % LYMPH % 33.3 % MONO % 6.7 % EOS % 1.0 % BASO % 0.3 % GRAN MAT x10^3(ANC) 5.12 1.99 - 6.95 10*3/uL IMM GRAN x10^3 0.03 0.00 - 0.06 10*3/uL LYMPH x10^3 2.92 1.09 - 3.23 10*3/uL MONO x10^3 0.59 0.36 - 1.02 10*3/uL EOS x10^3 0.09 0.06 - 0.53 10*3/uL BASO x10^3 0.03 0.01 - 0.09 10*3/uL COMP. METABOLIC PANEL (64338) - Abnormal NA 139 135 - 145 mmol/L K 4.2 3.5 - 5.0 mmol/L CL 104 98 - 108 mmol/L CO2 TOTAL 27 23 - 31 mmol/L AGAP 8 2 - 16 BUN 9 7 - 23 mg/dL GLUCOSE 169 (*) 70 - 110 mg/dL CREATININE 0.87 0.60 - 1.25 mg/dL TOTAL BILI 0.4 0.1 - 1.1 mg/dL CALCIUM 9.1 8.6 - 10.6 mg/dL T PROTEIN 7.0 6.3 - 8.2 g/dL ALBUMIN 4.3 3.5 - 5.0 g/dL ALK PHOS 37 34 - 122 U/L ALTv 18 5 - 50 U/L AST(SGOT) 22 13 - 40 U/L eGFR 99.9 mL/min/1.73m2 LIPASE - Normal LIPASE 49 0 - 220 U/L TROPONIN I - Normal TROPONIN I 0.003 <=0.034 ng/mL MAGNESIUM - Normal MAGNESIUM 1.7 1.7 - 2.4 mg/dL COVID-19 (ID NOW RAPID TESTING) - Normal SARS-CoV-2 Rapid ID NOW Not Detected Not Detect ed EKG: If EKG completed, see Procedure Note. Orders and Treatments: Orders Placed This Encounter Procedures XR CHEST 1 VW CBC WITH DIFF COMP. METABOLIC PANEL (40070) LIPASE TROPONIN I MAGNESIUM COVID-19 (ID NOW TESTING) LAB ONLY COVID INTERPRETATION Orders Placed This Encounter Medications ondansetron (ZOFRAN (PF)) injection 4 mg NaCl 0.9% (NS) bolus infusion 1,000 mL ondansetron 4 mg disintegrating tablet First Provider Eval: ED Events Date/Time Event User Comments 09/11/222008 Medical Screening Begins TREVA SOTELO DO -- 09/11/222008 First Provider Evaluation TREVA TIJERINA DO -- No notes of EC Admission Criteria type on file. ED COURSE Diagnosis/Impression as of 09/11/22 2235 Chest pain, unspecified type Nausea and vomiting, unspecified vomiting type Procedures: EKG-12 Lead ROUTINE ONCE Date/Time: 09/11/2022 8:56 PM Performed by: Treva Sotelo DO Authorized by: Treva Sotelo DO ECG reviewed by ED Physician in the absence of a bingo usher: yes Interpretation: Interpretation: normal Rate: ECG rate: 92 ECG rate assessment: normal Rhythm: Rhythm: sinus rhythm Ectopy: Ectopy: none QRS: QRS axis: Normal QRS intervals: Normal QRS conduction: normal ST segments: ST segments: Normal T waves: T waves: normal Q waves: Abnormal Q-waves: not present MDM: Medical Decision Making The patient presents from [facility] for evaluation for chest pain and abdominal pain started around 6 PM this evening while he was outside having a cigarette. He reports his symptoms have been constant since then but none of the pain r adiates to his back. No change in his symptoms with taking a big deep breath, exerting himself or eating and drinking. He has complained of some nausea but no vomiting. No di arrhea. No medications for s ymptoms. No cough or congestion. No shortness of breath. He does have a history of pancreatitis in the past and reports this feels like it. His pancreatitis was due to alcoho l abuse and he reports his l ast alcoholic beverage was 6 years ago. He has a history of high blood pressure and diabetes. No history of CAD in himself or the family. Vital signs are stable in the ER. His heart is regular rhythm. His lungs are clear bilaterally. His abdomen is obese but soft and nontender. His EKG shows a normal sinus rhythm, no STEMI. The patient's presentation is atypical for ACS a nd he is low risk. Differential diagnosis inclu natasha pancreatitis, ACS, heat exhaustion, GERD, peptic ulcer disease We will check laboratory studies including a tro ponin and a lipase. We will give the patient pain medication here in the ER. We will continue to monitor the patient here in the ER. Final disposition pending. 2234 -the patient is doing well in the ER. He is feeling much better after the Zofran and I V fluids. His laboratory studies are u nremarkable including a normal troponin and a normal lipase level. He was given a p.o. challeng e here in the ER and able to tolerate by mouth without difficulty. He remained stable here in [facility] ER and is okay for discharge home with PCP follow-up. Recommend Zofran every 8 hours as needed as well as the BRAT diet. Problems Addressed: Chest pain, unspecified type: acute illness or i njury Nausea and vomiting, unspecified vomiting type: acute illness or injury Amount and/or Complexity of Data Reviewed Labs: ordered. Decision-making details documente d in ED Course. Radiology: ordered and indep endent interpretation performed. Decision-making details documented in ED Course. ECG/medicine tests: ordered and independent interpretation performed. Decision- making details documented in ED Course. Risk Prescription drug management. Flowsheet Documentation: Scoring Tools: No data recorded Disposition/Condition: ED Disposition ED Disposition Disch - Home Condition Stable Comment -- Discharge Medications: Patient's Medications START taking these medications ONDANSETRON 4 MG DISINTEGRA TING TABLET Take 1 tablet by mouth every 8 (eight) hours as needed for Nausea and Vomiting (N/V). CONTINUE taking these medications which have NOT CHANGED ACETAMINOPHEN (TYLENOL ARTH RITIS PAIN) 650 MG CR TABLET Take 1 tablet by mouth every 8 (eight) hours as needed for Pain. BLOOD GLUCOSE STRIP-DISP METER KIT Use as direc nick BLOOD SUGAR DIAGNOSTIC STRIP Use as directed BLOOD-GLUCOSE METER,CONTINU OUS (DEXCOM G4 AVIATION PROJECT ENGINEER-SHARE KIT) MIS Use as directed FENOFIBRATE MICRONIZED 67 MG CAPSULE Ta ke 2 capsules by mouth in the morning. INSULIN NPH-REGULAR HUMAN R EC 100 UNIT/ML (70-30) INJECTION inject 12 Units under the skin in the morning and 12 Units in the evening. LANCETS 23 [facility] Use as directed [id number]-[id number] (CR FREEMAN) 36,000-114,000- 180,000 UNIT CPDR Take 1 capsules by mouth with meals and 1 with each snack. METFORMIN 1,000 MG TABLET T ildefonso 1 tablet by mouth in the morning and 1 tablet in the evening. Take with meals. OFLOXACIN 0.3 % OTIC DROPS Place 5 Drops in both ears in the morning and 5 Drops in the evening. OMEGA-3 FATTY ACIDS CAPSULE Take 1 capsule by mouth 3 (three) times daily with meals. PANTOPRAZOLE 40 MG EC TABLET Take 1 tablet by m outh in the morning. SYRINGE, DISPOSABLE, 3 ML SYRG Use as directed START taking Modified Medications as Prescribed No medications on file STOP taking these medications MELOXICAM 15 MG TABLET Take 1 tablet by mouth i n the morning. ONDANSETRON 4 MG DISINTEGRA TING TABLET Take 1 tablet by mouth every 8 (eight) hours as needed for Nausea and Vomiting (N/V). TRAMADOL 50 MG TABLET Take 1 tablet by mouth every 6 (six) hours as needed (pain). Indications: acute pain Follow-up: Electronically signed by: Treva Sotelo DO 09/11/22 [id number] 2022-09-08 Formatting of this note is different from the or iginal. [facility] 14:45:00-00:00 Images from the original note were not included. Patient has been identified by and name and was provided with cup, antiseptic towelette, and clean catch instructions. 1 urine specimen(s) sent. Unpreserved 1 Urine Culture Aptima tube Other urine Electronically signed by Sj Santana at 09/08 12:34 PM CDT 2022-08-30 Formatting of this note might be differe nt from the original. Marita Palacios [facility] [place] 20:24:00-00:00 Pt given printed and verbal discharge instructions regarding non- cardiac chest pain, encouraged hydration. Pattie HEATON Prescriptions provided. Pt verbalized understanding of instructions, pt awake alert oriented, resp reg unlabored, skin w/d, color appropriate for race, moves all ext well,pt encouraged to follow up with pcp. Advised to seek medical attention for new/prolon ged/worsening of symptoms. PIV d'cd, dressing to site, catheter in tact. Awake, alert oriented, resp reg unlabored, skin w/d, pt leaving amb with steady gait, in no apparent distress, accompanied by his mother. 2022-08-30 Formatting of this note might be differe nt from the original. Basilio Judd RN [facility] [place] 17:42:51-00:00 Patient states "chest pains." Patient c/o chest pain that started approximately 30 minutes ago. Patient states that the pain is substernal, does not radiate. Electronically signed by Basilio Judd RN at 0 08/30/2022 5:43 PM CDT 2022-08-30 Formatting of this note is different from the or iginal. [facility] [place] 17:37:00-00:00 [facility] Emergency Department Note Patient Name: Pierce Vang Date of : 1985 37 year old male Treatment Room: [place] [address] [address] Primary Care Physician: Sushant Bueno Patient Escorted by: Family [5] Mode of Arrival: Personal means [1] EMS Treatment Prior to ED Arrival: Travel and Exposure Screening: Symptoms Does patient have any of these symptoms?: (not r ecorded) Exposure Screening Has patient had contact with someone with a communicable disease in the last month?: (not recorded) Diseases exposed to:: (not recorded) Is Patient ?: (not recorded) Exposure Date: (not recorded) Chief Complaint: Chief Complaint Patient presents with Chest Pain History of Present Illness: History provided by: Patient cmo used: No Chest Pain Pain location: Substernal area Pain quality: throbbing Pain radiates to: Does not radiate Pain severity: Moderate Onset quality: Sudden Duration: 2 hours Progression: Waxing and waning Chronicity: New Context: at rest Relieved by: None tried Worsened by: Nothing Ineffective treatments: None tried Associated symptoms: no abdo lópez pain, no cough, no diaphoresis, no dizziness, no dysphagia, no fatigue, no fever, no headache, no nausea, no numbness, no palpitations, no shortness of breath, no vomiting and no weakness Associated symptoms comment: None Risk factors: diabetes mellitus, hypertension an d male sex Risk factors: no aortic dise ase, no control, no coronary artery disease, no immobilization and not obese Past Medical History/Immunizations: Past Medical History: Diagnosis Date ADHD Alcohol use 05/03/2020 Anxiety Cyst and pseudocyst of pancreas 06/01/2020 Added automatically from request for surgery 78 1908 Depression Diabetes mellitus Hypertriglyceridemia 05/03/2020 Necrotizing pancreatitis 06/01/2020 Added automatically from request for surgery 78 1908 Obesity Pancreatitis 01/2020 Pseudocyst of pancreas 03/20/2020 Schizophrenia, unspecified Seizures Weight loss, unintentional 05/03/2020 Allergies: Allergies Allergen Reactions Pcn [Penicillins] Hives Past Social History: Tobacco Use Every Day; 1.00 packs/day; Types: Cigarettes Smokeless Tobacco: Never used smokeless tobacco . Comments: Delta 8 Vaping Use Never assessed Alcohol Use Not Currently. Comments: 6 pack of beer every day since 21 yea rs old. no liquor Drug Use Yes; Cocaine. Comments: From [age] years old. Sexual Activity Not currently sexually active. Past Surgical History: Past Surgical History: Procedure Laterality Date ENDOSCOPIC RETROGRADE CHOLANGIOPANCRETOGRAPHY N /A 06/21/2020 Surgeon: Ciro Sharma MD; Location: Endoscopy () OR Location ENDOSCOPIC RETROGRADE CHOLANGIOPANCRETOGRAPHY N /A 09/05/2020 Surgeon: Ciro Sharma MD; Location: [facility] OR Location ESOPHAGOGASTRODUODENOSCOPY N/A 06/21/2020 Surgeon: Ciro Sharma MD; Location: [facility] ([facility] OR Location ESOPHAGOGASTRODUODENOSCOPY N/A 09/05/2020 Surgeon: Ciro Sharma MD; Location[facility] UPPER ULTRASOUND (SH[facility]) N/A 03/21/2020 Surgeon: Ciro Sharma MD; Location: [facility] ([facility] OR Location UPPER ULTRASOUND (SHX) N/A 06/21/2020 Surgeon: Ciro Sharma MD; Location: [facility] OR Location UPPER ULTRASOUND (SHX) N/A 09/05/2020 Surgeon: Ciro Sharma MD; Location[facility] Review of Systems: Review of Systems Constitutional: Negative for chills, diaphoresis , fatigue and fever. HENT: Negative for congestion, rhinorrhe a, sore throat and trouble swallowing. Eyes: Negative for photophobia, pain, discharge and redness. Respiratory: Negative for co ugh, chest tightness, shortness of breath and wheezing. Cardiovascular: Positive for chest pain. Negative for palpitations and leg swelling. Gastrointestinal: Negative f or abdominal distention, abdominal pain, blood in stool, constipation, nausea and vomiting. Genitourinary: Negative for dysuria, urgency, polyuria, frequency, hematuria and flank pain. Musculoskeletal: Negative fo r arthralgias, joint swelling, myalgias and neck stiffness. Skin: Negative for color change, rash and wound. Neurological: Negative for d izziness, seizures, syncope, facial asymmetry, weakness, light-headedness, numbness and headaches. Psychiatric/Behavioral: Nega tive for agitation, confusion, hallucinations and self-injury. The patient is not nervous/anxious. Hematological: Negative for adenopathy and cold intolerance. Does not bruise/bleed easily. Endocrine: Negative for cold intolerance, polydi psia and polyuria. Physical Exam: ED Triage Vitals [08/30/22 1744] Weight 81.2 kg (179 lb) Actual or estimated Height 1.753 m (5' 9") BP (!) 146/81 Pulse 99 Resp 18 Temp 36.8 ?C (98.2 ?F) Temp source Oral SpO2 98 % Measured on Room air Physical Exam Vitals and nursing note reviewed. Constitutional: General: He is not in acute distress. Appearance: He is well-developed. He is not steve phoretic. HENT: Head: Normocephalic and atraumatic. Right Ear: External ear normal. Left Ear: External ear normal. Nose: Nose normal. Mouth/Throat: Pharynx: No oropharyngeal exudate. Eyes: General: No scleral icterus. Right eye: No discharge. Left eye: No discharge. Conjunctiva/sclera: Conjunctivae normal. Pupils: Pupils are equal, round, and reactive t o light. Neck: Thyroid: No thyromegaly. Vascular: No JVD. Trachea: No tracheal deviation. Cardiovascular: Rate and Rhythm: Normal rate and regular rhythm . Heart sounds: Normal heart sounds. No murmur he [place]. No friction rub. No gallop. Pulmonary: Effort: Pulmonary effort is normal. No respirat ory distress. Breath sounds: Normal breath sounds. No stridor . No wheezing or rales. Chest: Chest wall: No tenderness. Abdominal: General: Bowel sounds are normal. There is no d istension. Palpations: Abdomen is soft. There is no mass. Tenderness: There is no abd ominal tenderness. There is no guarding or rebound. Musculoskeletal: General: No tenderness or deformity. Normal ran ge of motion. Cervical back: Normal range of motion and neck supple. Lymphadenopathy: Cervical: No cervical adenopathy. Skin: General: Skin is warm and dry. Coloration: Skin is not pale. Findings: No erythema or rash. Neurological: Mental Status: He is alert and oriented to pers on, place, and time. Cranial Nerves: No cranial nerve deficit. Motor: No abnormal muscle tone. Coordination: Coordination normal. Deep Tendon Reflexes: Reflexes are normal and s ymmetric. Reflexes normal. Psychiatric: Behavior: Behavior normal. Thought Content: Thought content normal. Judgment: Judgment normal. Radiology: XR CHEST 1 VW Final Result Clinical indication: chest pain Ordering physician: VINOD HENRY COMPARISON: None Technique: A single AP view of the chest is obta ined. Findings: The bones and soft tissues of the ches t are unremarkable. The cardiac and mediastinal contours are within norm al limits. There is mild peribronchial cuffing consistent with reactive a irways disease versus infectious bronchitis. There is no evidence of a focal airspace opacity, pleural effusion or pneumothorax. Please note th at chest radiography has limited sensitivity in evaluating for pulmonary masses. IMPRESSION Impression: There is mild peribronchial cuffing consistent w ith reactive airways disease versus infectious bronchitis. RL: [id number] AFC: [id number] Electronically signed by Bobby Christopher MD at 6:37 PM Lab Results: Lab Results CBC WITH DIFF - Abnormal Result Value Ref Range WBC 6.93 4.20 - 10.70 10*3/?L RBC 4.09 (*) 4.26 - 5.52 10*6/?L HGB 12.2 12.2 - 16.4 g/dL HCT 35.0 (*) 38.4 - 49.3 % MCV 85.6 81.7 - 95.6 fL MCH 29.8 26.1 - 32.7 pg MCHC 34.9 31.2 - 35.0 g/dL RDW-SD 36.5 (*) 38.5 - 51.6 fL RDW-CV 11.9 (*) 12.1 - 15.4 % PLT 211 150 - 328 10*3/?L MPV 9.9 9.8 - 13.0 fL NRBC/100 WBC 0.0 0.0 - 10.0 /100 WBCs NRBC x10^3 <0.01 10*3/?L GRAN MAT (NEUT) % 49.6 % IMM GRAN % 0.10 % LYMPH % 41.1 % MONO % 7.2 % EOS % 1.6 % BASO % 0.4 % GRAN MAT x10^3(ANC) 3.43 1.99 - 6.95 10*3/uL IMM GRAN x10^3 <0.03 0.00 - 0.06 10*3/uL LYMPH x10^3 2.85 1.09 - 3.23 10*3/uL MONO x10^3 0.50 0.36 - 1.02 10*3/uL EOS x10^3 0.11 0.06 - 0.53 10*3/uL BASO x10^3 0.03 0.01 - 0.09 10*3/uL COMP. METABOLIC PANEL (06415) - Abnormal NA 138 135 - 145 mmol/L K 4.2 3.5 - 5.0 mmol/L CL 104 98 - 108 mmol/L CO2 TOTAL 24 23 - 31 mmol/L AGAP 10 2 - 16 BUN 9 7 - 23 mg/dL GLUCOSE 266 (*) 70 - 110 mg/dL CREATININE 0.87 0.60 - 1.25 mg/dL TOTAL BILI 0.4 0.1 - 1.1 mg/dL CALCIUM 9.4 8.6 - 10.6 mg/dL T PROTEIN 7.4 6.3 - 8.2 g/dL ALBUMIN 4.6 3.5 - 5.0 g/dL ALK PHOS 54 34 - 122 U/L ALTv 19 5 - 50 U/L AST(SGOT) 21 13 - 40 U/L eGFR 99.9 mL/min/1.73m2 TROPONIN I - Normal TROPONIN I 0.002 <=0.034 ng/mL D-DIMER - Normal D-DIMER <0.27 <0.41 ?g/mL (FEU) EKG: NSR Rate 96, no signs of ACS Orders and Treatments: Orders Placed This Encounter Procedures XR CHEST 1 VW CBC WITH DIFF COMP. METABOLIC PANEL (74078) TROPONIN I D-DIMER Orders Placed This Encounter Medications meloxicam 15 mg tablet acetaminophen (TYLENOL ARTHRITIS PAIN) 650 mg C R tablet First Provider Eval: ED Events Date/Time Event User Comments 08/30/221748 Medical Screening Begins VINOD HENRY MD -- 08/30/221748 First Provider Evaluation VINOD ALANIS MD -- ED COURSE Patient's condition stable H EART SCORE 1, d-dimer negative, CXR within normal limits, will DC Home. Diagnosis/Impression as of 08/30/222014 Chest pain, unspecified type Non-cardiac chest pain Procedures: Procedures MDM: Medical Decision Making Problems Addressed: Chest pain, unspecified type: self-limited or mi nor problem Non-cardiac chest pain: self-limited or minor pr oblem Amount and/or Complexity of Data Reviewed External Data Reviewed: labs, ECG and notes. Labs: ordered. Decision-making details documente d in ED Course. Radiology: ordered and indep endent interpretation performed. Decision-making details documented in ED Course. ECG/medicine tests: ordered and independent inte rpretation performed. Risk Prescription drug management. Flowsheet Documentation: Scoring Tools: No data recorded HEART Score: 1 Disposition/Condition: ED Disposition ED Disposition Disch - Home Condition Stable Comment -- Discharge Medications: Patient's Medications START taking these medications ACETAMINOPHEN (TYLENOL ARTH RITIS PAIN) 650 MG CR TABLET Take 1 tablet by mouth every 8 (eight) hours as needed for Pain. MELOXICAM 15 MG TABLET Take 1 tablet by mouth i n the morning. CONTINUE taking these medications which have NOT CHANGED BLOOD GLUCOSE STRIP-DISP METER KIT Use as direc nick BLOOD SUGAR DIAGNOSTIC STRIP Use as directed FENOFIBRATE MICRONIZED 67 MG CAPSULE Ta ke 2 capsules by mouth in the morning. INSULIN NPH-REGULAR HUMAN R EC 100 UNIT/ML (70-30) INJECTION inject 10 Units under the skin in the morning and 10 Units in the evening. LANCETS 23 GAUGE MISC Use as directed HEROON-HCVFAIXC-ATOUVCT (CR FREEMAN) 36,000-114,000- 180,000 UNIT CPDR Take 1 capsules by mouth with meals and 1 with each snack. METFORMIN 1,000 MG TABLET T ildefonso 1 tablet by mouth in the morning and 1 tablet in the evening. Take with meals. OFLOXACIN 0.3 % OTIC DROPS Place 5 Drops in both ears in the morning and 5 Drops in the evening. OMEGA-3 FATTY ACIDS CAPSULE Take 1 capsule by mouth 3 (three) times daily with meals. ONDANSETRON 4 MG DISINTEGRA TING TABLET Take 1 tablet by mouth every 8 (eight) hours as needed for Nausea and Vomiting (N/V). PANTOPRAZOLE 40 MG EC TABLET TAKE ONE TABLET BY MOUTH DAILY SYRINGE, DISPOSABLE, 3 ML SYRG Use as directed TRAMADOL 50 MG TABLET Take 1 tablet by mouth every 6 (six) hours as needed (pain). Indications: acute pain START taking Modified Medications as Prescribed No medications on file STOP taking these medications No medications on file Follow-up: Contact information for follow-up Sushant Bueno MD Specialty: IM-INTERNAL MEDICINE Relationship: PCP - [address] [phone] Electronically signed by: Vinod Henry MD 08/30/222015 2022-08-22 [facility] [place] 03:43:14-00:00 Sent MapMyIndiat message to clar joshua patient symptoms prior to refill and ER warning signs given for persistent otitis externa. 2022-08-19 Formatting of this note might be differe nt from the original. Franco Martínez [facility] [place] 10:01:11-00:00 Please advise on refills MA Rx prescribed by ED Electronically signed by Franco Martínez MA a t 08/19/2022 10:01 AM CDT 2022-08-19 Formatting of this note might be differe nt from the original. Cara Witt [facility] [place] 08:47:12-00:00 Pierce Vang is a 37 year old male Pt's mother is requesting re fill for Rx ofloxacin 0.3 % otic drops, pt is out of medication, please advise [facility] [phone] [place] [address] Electronically signed by Cara Witt at 0 08/19/2022 8:47 AM CDT
[2022-10-04] MEDS ORDERED: HYDROCODONE/APAP 10/325 TAB ONE (04:47)
[2022-10-04] MEDS ORDERED: DIAZEPAM 5 MG TABLET ONE (04:47)
[2022-10-04] MEDS ORDERED: IBUPROFEN 400 MG TAB ONE (04:47)
--- NOTE | 2022-10-04 06:09 | ER ---
Nurse's Notes [facility] Name: Pierce Sahni Age: 37 yrs Sex: Male : 1985 Arrival Date: 10/04/2022 Time: 04:19 Bed 5 Private MD: Diagnosis: Left great toe contusion, left foot crush injury Presentation: 10/04 04:29 Chief complaint: Patient states: INJURY TO THE LEFT BIG TOE YESTERDAY, XRAY DONE IN [facility], CONFIRMED FRACTURE, SENT HOME WITH PAIN MEDS. PAIN PROGRESSIVELY WORSE TODAY. Coronavirus screen: At this time, the client does not indicate any symptoms associated with coronavirus-19. Ebola Screen: No symptoms or risks identified at this time. Initial Sepsis Screen: Does the patient meet any 2 criteria? No. Patient's initial sepsis screen is negative. Does the patient have a suspected source of infection? No. Patient's initial sepsis screen is negative. Risk Assessment: Do you want to hurt yourself or someone else? Patient reports no desire to harm self or others. Onset of symptoms was October 04, 2022. 04:29 Method Of Arrival: Ambulatory 04:29 Acuity: ALFREDO 4 rv Triage Assessment: 04:30 General: Appears comfortable, Behavior is calm, cooperative. Pain: Complains of pain in rv left foot. Neuro: Level of Consciousness is awake, alert, obeys commands, Oriented to person, place, time, situation. Cardiovascular: Capillary refill Patient's skin is warm and dry. Respiratory: Airway is patent Respiratory effort is even, unlabored. Musculoskeletal: Capillary refill < 3 seconds, Swelling absent. Historical: - Allergies: 04:30 PENICILLINS; rv - PMHx: 04:30 Seizures; Anxiety induced; rv - Immunization history:: Adult Immunizations up to date. - Social history:: Smoking status: Patient reports the use of cigarette tobacco products, smokes one pack cigarettes per day. - Family history:: not pertinent. Screenin:32 [facility] ED Fall Risk Assessment (Adult) History of falling in the last 3 months, rv including since admission No falls in past 3 months (0 pts) Confusion or Disorientation No (0 pts). [facility] ED Fall Risk Assessment (Adult) Score/Fall Risk Level 0 - 2 = Low Risk Oriented to surroundings, Maintained a safe environment, Educated pt \T\ family on fall prevention, incl call for assistance when getting out of bed, Assessed \T\ reinforced patient's understanding of fall precautions, Provided non-skid footwear, Hourly rounding (assess needs \T\ fall precautionary measures) done, Used ambulatory aids as needed (educated on \T\ assisted with), Used gait belt as appropriate. Abuse screen: Denies threats or abuse. Denies injuries from another. Nutritional screening: No deficits noted. Tuberculosis screening: No symptoms or risk factors identified. Assessment: 04:32 Reassessment: SEE TRIAGE NOTES. Pain:. rv Vital Signs: 04:29 BP 147 / 89; Pulse 107; Resp 18; Temp 98; Pulse Ox 98% ; Weight 81.19 kg; Height 5 ft. rv 9 in. ; 06:14 BP 117 / 74; Pulse 89; Resp 18; Temp 98; Pulse Ox 99% on R/A; rv 04:29 Body Mass Index 26.43 (81.19 kg, 175.26 cm) rv ED Course: 04:21 Patient arrived in ED. [id number] 04:22 Srinivasan Cuenca, FLORINA is Primary Nurse. rv 04:24 Luis Burnham MD is Attending Physician. sp4 04:30 Triage completed. rv 04:31 Arm band placed on right wrist. rv 04:32 Patient has correct armband on for positive identification. Provided Education on: PAIN rv MANAGEMENT. 04:32 No provider procedures requiring assistance completed. Patient did not have IV access rv during this emergency room visit. 04:42 Foot Left 2 View XRAY In Process Unspecified. EDMS Administered Medications: 04:39 Drug: [place] PO 10 mg-325 mg 1 tabs Route: PO; rv 06:14 Follow up: Response: No adverse reaction rv 04:39 Drug: Diazepam PO 5 mg Route: PO; rv 06:14 Follow up: Response: No adverse reaction rv 04:39 Drug: Ibuprofen PO 800 mg Route: PO; rv 06:13 Follow up: Response: No adverse reaction rv Medication: 04:32 VIS not applicable for this client. rv Outcome: 06:09 Discharge ordered by . sp4 06:13 Discharged to home ambulatory. rv 06:13 Condition: good 06:13 Discharge instructions given to patient, Instructed on discharge instructions, follow up and referral plans. medication usage, Demonstrated understanding of instructions, follow-up care, medications, Prescriptions given X 1. 06:14 Patient left the ED. rv Signatures: Dispatcher [employer] EDMS Srinivasan Cuenca RN RN Rebecca [id number] Luis Burnham MD MD sp4
--- NOTE | 2022-10-04 06:09 | EDPHYS ---
Physician Documentation [facility] Name: Pierce Sahni Age: 37 yrs Sex: Male : 1985 Arrival Date: 10/04/2022 Time: 04:19 Bed 5 Private MD: ED Physician Luis Burnham HPI: 10/04 04:24 This 37 yrs old Male presents to ER via Unassigned with complaints of Toe sp4 Injury. 04:31 37-year-old male presents with a left great toe pain . Patient states he was moving a sp4 couch yesterday and dropped it onto the left great toe. Patient was seen at [facility] and diagnosed with a left great toe fracture. Patient was then prescribed Tylenol 3 but states pain is not improving.. Patient has extensive past medical history of schizophrenia, chronic pancreatitis, diabetes. History of alcohol abuse as well. History of Depo injections of antipsychotic medications for your schizophrenia.. Historical: - Allergies: 04:30 PENICILLINS; rv - PMHx: 04:30 Seizures; Anxiety induced; rv - Immunization history:: Adult Immunizations up to date. - Social history:: Smoking status: Patient reports the use of cigarette tobacco products, smokes one pack cigarettes per day. - Family history:: not pertinent. ROS: 04:31 Constitutional: Negative for fever, chills, and weight loss, MS/Extremity: Positive for sp4 left great toe injury and left great toe pain also left great toe discoloration. 04:31 All other systems are negative. Exam: 04:31 Constitutional: This is a well developed, well nourished patient who is awake, alert, sp4 and in no acute distress. Head/Face: Normocephalic, atraumatic. Eyes: Pupils equal round and reactive to light, extra-ocular motions intact. Lids and lashes normal. Conjunctiva and sclera are not injected. Cornea within normal limits. Periorbital areas with no swelling, redness, or edema. ENT: Nares patent. No nasal discharge, no septal abnormalities noted. Tympanic membranes are normal and external auditory canals are clear. Oropharynx with no redness, swelling, or masses, exudates, or evidence of obstruction, uvula midline. Mucous membranes moist. Neck: Trachea midline, no thyromegaly or masses palpated, and no cervical lymphadenopathy. Supple, full range of motion without nuchal rigidity, or vertebral point tenderness. Chest/axilla: Normal chest wall appearance and motion. Nontender with no deformity. No lesions are appreciated. Cardiovascular: Regular rate and rhythm with a normal S1 and S2. No gallops, murmurs, or rubs. Normal PMI, no JVD. No pulse deficits. Respiratory: Lungs have equal breath sounds bilaterally, clear to auscultation and percussion. No rales, rhonchi or wheezes noted. No increased work of breathing, no retractions or nasal flaring. Abdomen/GI: Soft, non-tender, with normal bowel sounds. No distension or tympany. No guarding or rebound. No evidence of tenderness throughout. Back: No spinal tenderness. No costovertebral tenderness. Skin: Warm, dry with normal turgor. Normal color with no rashes, no lesions, and no evidence of cellulitis. MS/ Extremity: Pulses equal, no cyanosis. Neurovascular intact. Full, normal range of motion. Positive for left great toe tenderness, left great toe discoloration without deformity. Normal cap refill Neuro: Awake and alert, GCS 15, oriented to person, place, time, and situation. Cranial nerves II-XII grossly intact. Motor strength 5/5 in all extremities. Sensory grossly intact. Psych: Awake, alert, with orientation to person, place and time. Behavior, mood, and affect are within normal limits Vital Signs: 04:29 BP 147 / 89; Pulse 107; Resp 18; Temp 98; Pulse Ox 98% ; Weight 81.19 kg; Height 5 ft. rv 9 in. ; 06:14 BP 117 / 74; Pulse 89; Resp 18; Temp 98; Pulse Ox 99% on R/A; rv 04:29 Body Mass Index 26.43 (81.19 kg, 175.26 cm) rv MDM: 05:12 Patient medically screened. sp4 06:07 Data reviewed: vital signs, nurses notes. ED course: EXAM DESCRIPTION: Foot Left 2 View sp4 CLINICAL HISTORY: left great toe pain COMPARISON: None. FINDINGS: 2 views of the left foot. No acute fracture or dislocation. Normal osseous mineralization. IMPRESSION: 1. No acute fracture or dislocation.. ED course: Left foot Ortho boot was applied for comfort. No sign of fracture or dislocation. Will advise left foot Ortho boot for the next 2 weeks.. 10/04 04:30 Order name: Foot Left 2 View XRAY sp4 10/04 04:37 Order name: Orthopedic shoe: Apply short leg ortho BOOT; Complete Time: 04:39 sp4 Administered Medications: 04:39 Drug: [place] PO 10 mg-325 mg 1 tabs Route: PO; rv 06:14 Follow up: Response: No adverse reaction rv 04:39 Drug: Diazepam PO 5 mg Route: PO; rv 06:14 Follow up: Response: No adverse reaction rv 04:39 Drug: Ibuprofen PO 800 mg Route: PO; rv 06:13 Follow up: Response: No adverse reaction rv Disposition Summary: 10/04/22 06:09 Discharge Ordered Location: Home sp4 Problem: new sp4 Symptoms: have improved sp4 Condition: Stable sp4 Diagnosis - Left great toe contusion, left foot crush injury sp4 Followup: sp4 - With: Private Physician - When: 7 - 10 days - Reason: Recheck today's complaints Discharge Instructions: - Discharge Summary Sheet sp4 - Foot Contusion, [id number]-Euvb sp4 Forms: - Patient Portal Instructions sp4 Prescriptions: - Ibuprofen 800 mg Oral Tablet - take 1 tablet by ORAL route every 8 hours As needed take with food; 30 tablet; sp4 Refills: 0, Product Selection Permitted Signatures: Dispatcher [employer] Srinivasan Chavez, RN RN Luis Marshall MD MD sp4
[2022-10-04 06:20] VITALS: TEMP 98
[2022-10-04 06:22] VITALS: BP 117/74; O2SAT 99
--- NOTE | 2022-10-04 20:13 | RAD REPORT ---
EXAM DESCRIPTION: RAD - Foot Left 2 View - 10/04/2022 4:40 am CLINICAL HISTORY: Left great toe pain COMPARISON: None. FINDINGS: 2 views of the left foot. No acute fracture or dislocation. Normal osseous mineralization. IMPRESSION: 1. No acute fracture or dislocation. Electronically signed by: Silverio Taylor 10/04/2022 5:29 AM CDT Due to temporary technical issues with the PACS/Fluency reporting system, reports are being signed by the in house radiologists without review as a courtesy to insure prompt reporting. The interpreting radiologist is fully responsible for the content of the report.
== END 2022-10-04 06:14 | disposition home or self-care (01) ==
LOC: ER 04:19
DX: S90.112A Contusion of left great toe without damage to nail, initial encounter (principal); W23.0XXA Caught, crushed, jammed, or pinched between moving objects, initial encounter
CPT/HCPCS: 99283

== ENCOUNTER 2024-03-17 19:12 | Emergency (ER) | payer SELFPAY ==
--- OUTSIDE RECORDS SUMMARY | 2024-03-17 19:22 | XMS REPORT | Continuity of Care Document ---
Author Name Unknown Address [address] [facility]. [address] [place] [address] [facility] thconnect Address [address] [facility]. [address] [place] [address] Care Team Providers Care Pit Supervisor Name Role Phone PCP, PATIENT DOES NOT HAVE A Primary Care Physic morteza Unavailable CIRO SHARMA Attending Clinician Unavailable Andrae Michael DO Attending Clinician [phone] Soledad Najera DO Attending Clinician [phone] Doctor Unassigned, [place] Attending Clinician U Maribell Walsh MD Attending Clinician [phone] Pcp-Lab Attending Clinician Unavailable Tristan Cadena MD Attending Clini rigoberto Soledad Najera DO Attending Clinician [phone] TRISTAN CADENA Attending Clinicia n Unavailable Mlyes ENRIQUEZ, Jaime Attending Clinician [phone] Maribell Coreas MD Attending Clinician +[phone] Sherice Brown Attending Clinician Unav ailable Pcp, Patient Does Not Have A Attending Clinician BREANNA YOUNGBLOOD Attending Clinician Unavailable Lisseth JERNIGAN, Andrae Barbosa Attending Clinician + [phone] Breanna Youngblood MD Attending Clinician + [phone] MONICA ANGELES Attending Clinician Unavailab Israel Mckeon MD Attending Clinician Lisseth ENRIQUEZ, Maribell Chadwick Attending Clinician + [phone] Cornelio De Luna MD Attending Clinician +[phone] JIN CHAUDHARY Attending Clinician Unavaila disha Sharma MD, Ciro Attending Clinician Unavailable Doctor Unassigned, [place] Attending Clinician [facility], [facility] Attending Clinician Unavailable Jin Chaudhary MD Attending Clinician + [phone] Lev JERNIGAN, Lela Attending Clinician +[phone] LELA OHARA Attending Clinician Unavailable ARACELI MCCOLLUM Attending Clinician UnavailZHANE Gilliland Attending Clinician Unavailable TREVA SOTELO Attending Clinician Unavailab Treva Wolf DO Attending Clinician [phone] Pathology Attending Clinician Unavailable PATHOLOGY Attending Clinician Unavailable VINOD HENRY Attending Clinician Unavailable Carl ENRIQUEZ, Vinod Attending Clinician +[phone] DAYANA MCCRACKEN Attending Clinician UnavailDayana Estrada MD Attending Clinician + [phone] AMADOR CALDERA Attending Clinician Unavailable Amador Caldera DO Attending Clinician +[phone] CHRISTOPHE BALLESTEROS Attending Clinician Unavaila Christophe Hi Attending Clinician + [phone] Victor Hugo Ramos Attending Clinician +[phone] LOUIS DOTY Attending Clinician Unavailable Louis Argueta Attending Clinician + [phone] Elie Webb MD Attending Clinician +- [phone] ELIE WEBB Attending Clinician UnavailLUPIS Acevedo Attending Clinician Unavailable Lupis Grimm NP Attending Clinician +[phone] CHRISTOPHE MICHAEL Attending Clinician UnavailMaribell Corral MD Attending Clinician + JOANN MALLORY Attending Clinician Unavailab tony BELLO, Juan Attending Clinician + Cinthia ENRIQUEZ, Miguel Palacios Attending Clinician [phone] Michelle ENRIQUEZ, Joann Attending Clinician + [phone] MARIBELL MOLINA Attending Clinician Unavailable KJ VAZQUEZ Attending Clinician Unavailfern Vazquez MD, Kj Griggs Attending Clinician + [phone] Grace Garcia MD Attending Clinician Mandie miloble Winston ENRIQUEZ, Sho Attending Clinician Mandie Harpreet Kinsey Attending Clinician Unavailable Harpreet Perdomo Attending Clinician +[phone] Kamille Adam MD Attending Clinician [phone] Unknown, Attending Attending Clinician Unavailab Christophe Queen MD Attending Clinician + [phone] GRACE GARCIA Attending Clinician Angel casillas UNKNOWN, ATTENDING Attending Clinician Unavailab le Pob, [facility] Main Attending Clinician UnavailGonsalo Dunaway MD Attending Clinician [phone] PATTIE ESQUIVEL Attending Clinician Unavailable Alvin BELLO, Pattie Attending Clinician [phone] Lor Carlton MA Attending Clinician Unavail able Cruz Barone MD Attending Clinician [phone] Nurse, Pcp Immunization Attending Clinician Unav ailable Johann Hebert DO Attending Clinician [phone] JOHANN HEBERT Attending Clinician Unavail able Manny 3RD PRESSMAN, Ludmila F Attending Clinician UnavailMichael Murray MD Attending Clinician +[phone] MICHAEL COX Attending Clinician Unavailable Only, Lcc Test Attending Clinician Unavailable Feliberto Levy MD Attending Clinician + [phone] FELIBERTO LEVY Attending Clinician Unavailable GONSALO LUNDY Attending Clinician ALEJANDRO Delarosa.HAries Attending Clinician Unavaila Lavinia Au RN Attending Clinician [phone] Brad Johnson MD Attending Clinician BRAD JOHNSON Attending Clinician Unavail able BRAD JOHNSON Attending Clinician Unavail able Mahsa Butler Attending Clinician +[phone] Abner Cooper MD Attending Clinician +[phone] Noemí ENRIQUEZ, Ermelinda Attending Clinician +[phone] Dennise ENRIQUEZ, Marlen Attending Clinician +[phone] MARLEN BOWDEN Attending Clinician Unavailable Vinod HEATON, Jake Frederick Attending Clinician [facility] Attending Clinician +[phone] Hernesto HEATON, Bailey Freeman Attending Clinician + [phone] Florencio ENRIQUEZ, Pedro Luis Attending Clinician +[phone] Martin Sharma MD Attending Clinician +[phone] PEDRO LUIS MCCAULEY Attending Clinician Unavailable Gideon Rowland MD Attending Clinician CIRO SHARMA Admitting Clinician Unavailable ZHANE VAZQUEZ Admitting Clinician Unavailable TREVA SOTELO Admitting Clinician Unavailab VINOD [place] Admitting Clinician Unavailable DAYANA MCCRACKEN Admitting Clinician UnavailLOUIS Aguayo Admitting Clinician Unavailable LUPIS GRIMM Admitting Clinician Unavailable PATTIE ESQUIVEL Admitting Clinician Unavailable Ciro Sharma MD Admitting Clinician [phone] Harpreet SEBASTIAN Admitting Clinician Unavailable Marlen Bowden MD Admitting Clinician +[phone] MARLEN BOWDEN Admitting Clinician Unavailable Martin Sharma MD Admitting Clinician +[phone] MARTIN SHARMA Admitting Clinician Unavailable Payers Payer Name Policy Type Policy Number Effective Date Expirati on Date Source MEDICAID SSI PENDING PENDING 2022 00:00:00 2022 00:00:00 Problems Condition Name Condition Details Condition Category Status Onset Date Resolution Date Last Treatment Date Treating Clinician Comments Source Schizophre reagan, unspecifie d Schizophre reagan, unspecifie d Disease Active 8 00:00: 00 [facility] Pancreatic insufficie ncy Pancreatic insufficie ncy Disease Active 09-02 00:00: 00 [facility] 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 Added automatic ally from request for surgery [id number] [facility] Type 2 diabetes mellitus without complicati on, with long-term current use of insulin Type 2 diabetes mellitus without complicati on, with long-term current use of insulin Disease Active 05-03 00:00: 00 [facility] Anxiety Anxiety Disease Active 05-03 00:00: 00 [facility] Psychiatri c disorder Psychiatri c disorder Disease Resolve d 05-03 00:00: 00 2023-09-11 00:00:00 2023-09-11 15:52:44 [facility] Necrotizin g pancreatit is Necrotizin g pancreatit is Disease Resolve d 06-01 00:00: 00 2021-01-11 00:00:00 2021-01-11 14:29:11 [facility] Cyst and pseudocyst of pancreas Cyst and pseudocyst of pancreas Disease Resolve d 06-01 00:00: 00 2021-01-11 00:00:00 2021-01-11 14:29:14 [facility] Hypertrigl yceridemia Hypertrigl yceridemia Disease Resolve d 05-03 00:00: 00 2021-01-11 00:00:00 2021-01-11 14:28:58 [facility] Weight loss, unintentio nal Weight loss, unintentio nal Disease Resolve d 05-03 00:00: 00 2021-01-11 00:00:00 2021-01-11 14:29:02 [facility] Right upper quadrant abdominal pain Right upper quadrant abdominal pain Disease Resolve d 3-25 00:00: 00 2021-01-11 00:00:00 2021-01-11 14:29:05 [facility] Alcohol use Alcohol use Disease Resolve d 3-25 00:00: 00 2021-01-11 00:00:00 2021-01-11 14:29:07 [facility] Pseudocyst of pancreas Pseudocyst of pancreas Disease Resolve d 2-09 00:00: 00 2021-01-11 00:00:00 2021-01-11 14:28:50 [facility] Lactic acidosis Lactic acidosis Disease Resolve d 2019-02 2-25 00:00: 00 2020-05-03 00:00:00 2020-05-03 15:32:38 [facility] Allergies, Adverse Reactions, Alerts Allergy Name Allergy Type Status Severity Reaction(s) Onset Date Inactive Date Treating Clinician Comments Source Penicill ins Propensi ty to adverse reaction s Active Hives 2019- 2- 00:00: 00 [facility] PENICILL INS Drug Class Active Hives 2019-02 2-25 00:00: 00 [facility] Penicill ins Propensi ty to adverse reaction s Active Hives 2019-02 2-25 00:00: 00 [facility] Social History Social Habit Start Date Stop Date Quantity Comments Source History SDOH Housing Places Lived [facility] History of Social function 2023-09-11 00:00:00 2023-09-11 00:00:00 [facility] Alcoholic beverage intake 2023-09-11 00:00:00 2023-09-11 00:00:00 Ex-drinker (finding) [facility] Tobacco use and exposure 2023-08-18 00:00:00 2023-08-18 00:00:00 Smokeless tobacco non-user [facility] Alcohol intake 2022-12-12 00:00:00 2022-12-12 00:00:00 Ex-drinker (finding) [facility] Exposure to SARS-CoV-2 (event) 2022-06-22 00:00:00 2022-07-02 22:03:00 Not sure [facility] Tobacco Comment 2022-07-02 00:00:00 2022-07-02 00:00:00 Delta 8 [facility] Cigarettes smoked current (pack per day) - Reported 2022-07-02 00:00:00 2022-07-02 00:00:00 [facility] History SDOH Alcohol Frequency 2022-05-20 00:00:00 2022-05-20 00:00:00 1 [facility] History SDOH Alcohol Std Drinks 2022-05-20 00:00:00 2022-05-20 00:00:00 0 [facility] History SDOH Alcohol Binge 2022-05-20 00:00:00 2022-05-20 00:00:00 1 [facility] History SDOH Social Connections Phone 2022-05-20 00:00:00 2022-05-20 00:00:00 5 [facility] History SDOH Social Connections Get Together 2022-05-20 00:00:00 2022-05-20 00:00:00 3 [facility] History SDOH Social Connections Mosque 2022-05-20 00:00:00 2022-05-20 00:00:00 2 [facility] History SDOH Social Connections Membership 2022-05-20 00:00:00 2022-05-20 00:00:00 1 [facility] History SDOH Social Connections Meetings 2022-05-20 00:00:00 2022-05-20 00:00:00 3 [facility] History SDOH Social Connections Living 2022-05-20 00:00:00 2022-05-20 00:00:00 7 [facility] History SDOH Physical Activity DPW 2022-05-20 00:00:00 2022-05-20 00:00:00 7 [facility] History SDOH Physical Activity MPS 2022-05-20 00:00:00 2022-05-20 00:00:00 3 [facility] History SDOH Stress 2022-05-20 00:00:00 2022-05-20 00:00:00 1 [facility] History SDOH Housing Unable to Pay 2022-05-20 00:00:00 2022-05-20 00:00:00 3 [facility] History SDOH Housing Homeless Last Year 2022-05-20 00:00:00 2022-05-20 00:00:00 3 [facility] Education 2020-03-20 00:00:00 2020-03-20 00:00:00 14 [facility] History SDOH Financial 2020-03-20 00:00:00 2020-03-20 00:00:00 5 [facility] History SDOH Food Worry 2020-03-20 00:00:00 2020-03-20 00:00:00 1 [facility] History SDOH Food Scarcity 2020-03-20 00:00:00 2020-03-20 00:00:00 1 [facility] History SDOH Transport Med 2020-03-20 00:00:00 2020-03-20 00:00:00 2 [facility] History SDOH Transport Non-Med 2020-03-20 00:00:00 2020-03-20 00:00:00 2 [facility] Alcohol Comment 2020-02-03 00:00:00 2020-02-03 00:00:00 6 pack of beer every day since 21 years old. no liquor [facility] History of tobacco use 2020-02-03 00:00:00 Cigarette Smoker [facility] Sex assigned at 1985 00:00:00 1985 00:00:00 [facility] Smoking Status Start Date Stop Date Source Smokes tobacco daily 2023-08-18 00:00:00 [facility] Occasional tobacco smoker 2020-05-25 00:00:00 [facility] Ex-smoker 2020-03-20 00:00:00 2020-03-20 00:00:00 [facility] Medications Ordered Medication Name Filled Medication Name Start Date Stop Date Current Medication? Ordering Clinician Indication Dosage Frequency Signature (SIG) Comments Components Source fenofibrate micronized 67 mg capsule 2023-02 00:00: 00 Yes [id number] 134mg Take 2 capsules by mouth in the morning. [facility] lipase-prot ease-amylas e (CREON) 36,000-114, 000- 180,000 unit CpDR 2023-02 00:00: 00 Yes [id number] Take 1 capsules by mouth with meals and 1 with each snack. [facility] pantoprazol e 40 mg EC tablet 2023-02 00:00: 00 Yes [id number] 40mg Take 1 tablet by mouth in the morning. [facility] divalproex 250 mg delayed release tablet 09-15 13:37: 02 Yes 250mg Take 1 tablet by mouth every 12 (twelve) hours. [facility] hydrOXYzine 10 mg tablet 09-10 14:22: 41 Yes 10mg Take 1 tablet by mouth. [facility] paliperidon e palmitate (INVEGA SUSTENNA IM) 09-10 14:21: 43 09-15 00:00 :00 No by Intramuscu lar route once every month. [facility] rosuvastati n 10 mg tablet 09-10 00:00: 00 Yes [id number] 10mg Take 1 tablet by mouth at bedtime. [facility] fenofibrate micronized 67 mg capsule 09-10 00:00: 00 12-21 00:00 :00 No [id number] 134mg Take 2 capsules by mouth in the morning. [facility] pantoprazol e 40 mg EC tablet 09-10 00:00: 00 12-21 00:00 :00 No [id number] 40mg Take 1 tablet by mouth in the morning. [facility] metFORMIN 1,000 mg tablet 09-10 00:00: 00 09-10 00:00 :00 No [id number] 1000mg Take 1 tablet by mouth in the morning and 1 tablet in the evening. Take with meals. [facility] fenofibrate micronized 67 mg capsule 08-06 00:00: 09-01 00:00 :00 No [id number] 134mg Take 2 capsules by mouth in the morning. [facility] pantoprazol e 40 mg EC tablet 08-02 00:00: 00 09-10 00:00 :00 No [id number] 40mg Take 1 tablet by mouth in the morning. [facility] metFORMIN 1,000 mg tablet 08-02 00:00: 00 09-01 00:00 :00 No [id number] 1000mg Take 1 tablet by mouth in the morning and 1 tablet in the evening. Take with meals. [facility] metFORMIN 1,000 mg tablet 07-04 00:00: 00 08-02 00:00 :00 No [id number] 1000mg Take 1 tablet by mouth in the morning and 1 tablet in the evening. Take with meals. [facility] pantoprazol e 40 mg EC tablet 2022-02 00:00: 00 08-02 00:00 :00 No [id number] 40mg Take 1 tablet by mouth in the morning. [facility] Blood-Gluco se Sensor (DEXCOM G7 SENSOR) [place] 2022-02 00:00: 00 Yes [id number] Use as directed [facility] Blood-Gluco se Meter,Na estrella (DEXCOM G7 SILO OPERATOR) Misc 2022-02 00:00: 00 Yes [id number] Use as directed [facility] rosuvastati n 10 mg tablet 2022-02 00:00: 00 09-10 00:00 :00 No [id number] 10mg Take 1 tablet by mouth at bedtime. [facility] NaCl 0.9% (NS) bolus infusion 1,000 mL 09-12 02:15: 00 09-12 02:37 :00 No 1000mL at 999 mL/hr, 1,000 mL, IV Infusion, ONCE, 1 dose, On Marilu 09/11/22 at 2115, STEPHANIE [facility] ondansetron (ZOFRAN (PF)) injection 4 mg 09-12 01:30: 00 09-12 01:50 :00 No 4mg 4 mg, Slow IV Push, ONCE, 1 dose, On Thu09/11/22 at 2030, STEPHANIE [facility] ondansetron 4 mg disintegrat ing tablet 09-11 00:00: 00 12-12 00:00 :00 No [id number] 4mg Take 1 tablet by mouth every 8 (eight) hours as needed for Nausea and Vomiting (N/V). [facility] Insulin NPH-Regular Human Rec 100 unit/mL (70-30) injection 09-05 00:00: 00 Yes [id number] 12U inject 12 Units under the skin in the morning and 12 Units in the evening. [facility] fenofibrate micronized 67 mg capsule 09-05 00:00: 00 08-02 00:00 :00 No [id number] 134mg Take 2 capsules by mouth in the morning. [facility] pantoprazol e 40 mg EC tablet 09-05 00:00: 00 01-12 00:00 :00 No [id number] 40mg Take 1 tablet by mouth in the morning. [facility] ofloxacin 0.3 % otic drops 09-05 00:00: 00 12-12 00:00 :00 No [id number] 82744 5[drp] Place 5 Drops in both ears in the morning and 5 Drops in the evening. [facility] Blood-Gluco se Meter,Na estrella (DEXCOM G4 SILO OPERATOR-SH ARE KIT) Misc 09-05 00:00: 00 12-12 00:00 :00 No [id number] Use as directed [facility] acetaminoph en (TYLENOL ARTHRITIS PAIN) 650 mg CR tablet 08-30 00:00: 00 12-12 00:00 :00 No [id number] 650mg Take 1 tablet by mouth every 8 (eight) hours as needed for Pain. [facility] meloxicam 15 mg tablet 08-30 00:00: 00 09-11 00:00 :00 No [id number] 15mg Take 1 tablet by mouth in the morning. [facility] acetaminoph en (TYLENOL) tablet 650 mg 08-19 18:30: 00 08-19 19:03 :00 No 650mg 650 mg, Oral, ONCE, 1 dose, On Thu08/19/22 at 1330, STEPHANIE [facility] ibuprofen (IBU) tablet 800 mg 08-19 18:30: 00 08-19 19:03 :00 No 800mg 800 mg, Oral, ONCE, 1 dose, On Thu08/19/22 at 1330, STEPHANIE [facility] traMADoL 50 mg tablet 08-19 00:00: 00 09-11 00:00 :00 No [id number] 50mg Take 1 tablet by mouth every 6 (six) hours as needed (pain). Indication s: acute pain [facility] ofloxacin 0.3 % otic drops 08-19 00:00: 00 09-05 00:00 :00 No [id number] 5[drp] Place 5 Drops in both ears in the morning and 5 Drops in the evening. [facility] ofloxacin 0.3 % otic drops 08-13 00:00: 00 08-24 04:59 :00 No [id number] 5[drp] Place 5 Drops in both ears in the morning and 5 Drops in the evening. Do all this for 10 days. [facility] Insulin NPH-Regular Human Rec 100 unit/mL (70-30) injection 07-08 00:00: 00 09-05 00:00 :00 No [id number] 10U inject 10 Units under the skin in the morning and 10 Units in the evening. [facility] ondansetron (ZOFRAN (PF)) injection 4 mg 07-03 03:30: 00 07-03 03:16 :00 No 4mg 4 mg, Slow IV Push, ONCE, 1 dose, On Thu07/02/22 at 2230, STEPHANIE [facility] fenofibrate micronized 67 mg capsule 5-03 00:00: 00 09-05 00:00 :00 No [id number] 134mg Take 2 capsules by mouth in the morning. [facility] metFORMIN 1,000 mg tablet 06-09 00:00: 00 Yes [id number] 1000mg Take 1 tablet by mouth in the morning and 1 tablet in the evening. Take with meals. [facility] NaCl 0.9% (NS) bolus infusion 1,000 mL 06-03 02:45: 00 06-03 04:18 :00 No 1000mL at 999 mL/hr, 1,000 mL, IV Infusion, ONCE, 1 dose, On Thu06/02/22 at 2145, [facility] clonazePAM 1 mg tablet 05-18 18:32: 35 05-18 00:00 :00 No 1mg Take 1 mg by mouth in the morning and 1 mg in the evening. [facility] PANTOPRAZOL E 40 mg EC tablet 04-21 00:00: 00 09-05 00:00 :00 No TAKE ONE TABLET BY MOUTH DAILY [facility] ziprasidone (GEODON) capsule 20 mg 03-22 07:00: 00 Yes 20mg 20 mg, Oral, BID MEALS, First dose on 03/22/22 at 0100, Until Discontinu ed, Routine [facility] LORazepam (ATIVAN) injection 2 mg 03-22 07:00: 00 03-22 06:49 :00 No 2mg 2 mg, Intramuscu lar, ONCE, 1 dose, On 03/22/22 at 0100, STAT [facility] metFORMIN (GLUCOPHAGE ) tablet 1,000 mg 03-20 14:00: 00 Yes 1000mg 1,000 mg, Oral, BID MEALS, First dose on Marilu 03/20/22 at 0800, Until Discontinu ed, Routine [facility] metFORMIN (GLUCOPHAGE ) tablet 1,000 mg 03-20 00:30: 00 03-19 23:57 :00 No 1000mg 1,000 mg, Oral, ONCE, 1 dose, On Thu03/19/22 at 1830, Routine [facility] clonazePAM (KLONOPIN) tablet 1 mg 03-20 00:30: 00 03-19 23:57 :00 No 1mg 1 mg, Oral, ONCE, 1 dose, On Thu03/19/22 at 1830, Routine [facility] insulin NPH (HUMULIN N) injection 8 Units 03-19 23:45: 00 03-19 23:59 :00 No .1U/kg 8 Units (rounded from 8.22 Units = 0.1 Units/kg ?82.2 kg), Subcutaneo us, ONCE, 1 dose, On Thu03/19/22 at 1745, STEPHANIE [facility] nicotine (NICODERM) 21 mg/24 hr patch 1 Patch 03-19 22:30: 00 Yes 1{patch } 1 Patch, Topical, Administer over 24 Hours, Q24H, First dose on Thu03/19/22 at 1630, Until Discontinu ed, Routine [facility] clonazePAM 1 mg tablet 03-19 17:31: 10 Yes 1mg Take 1 mg by mouth in the morning and 1 mg in the evening. [facility] fenofibrate micronized 67 mg capsule 02-25 00:00: 00 06-11 00:00 :00 No [id number] 134mg Take 2 capsules by mouth in the morning. [facility] NaCl 0.9% (NS) bolus infusion 1,000 mL 2021-02 17:00: 00 01-15 16:30 :00 No 1000mL at 999 mL/hr, 1,000 mL, IV Infusion, ONCE, 1 dose, On Thu01/15/22 at 1100, STAT [facility] magnesium sulfate in water 2 gram/50 mL (4 %) infusion 2 g 2021-02 16:30: 00 01-15 16:55 :00 No 2g 2 g, IV Piggyback, Administer over 60 Minutes, ONCE, 1 dose, On Thu01/15/22 at 1030, Routine [facility] ondansetron (ZOFRAN (PF)) injection 4 mg 2021-02 15:45: 00 01-15 14:47 :00 No 4mg 4 mg, Slow IV Push, ONCE, 1 dose, On Thu01/15/22 at 0945, STEPHANIE [facility] NaCl 0.9% (NS) bolus infusion 1,000 mL 2021-02 15:45: 00 01-15 15:54 :00 No 1000mL at 999 mL/hr, 1,000 mL, IV Infusion, ONCE, 1 dose, On Thu01/15/22 at 0945, STAT [facility] ondansetron 4 mg disintegrat ing tablet 2021-02 00:00: 00 09-11 00:00 :00 No [id number] 4mg Take 1 tablet by mouth every 8 (eight) hours as needed for Nausea and Vomiting (N/V). [facility] clonazePAM 1 mg tablet 2021-02 13:45: 55 Yes 1mg Take 1 mg by mouth in the morning and 1 mg in the evening. [facility] Insulin NPH-Regular Human Rec 100 unit/mL (70-30) injection 2021-02 00:00: 00 07-08 00:00 :00 No [id number] 10U inject 10 Units under the skin in the morning and 10 Units in the evening. [facility] rosuvastati n 10 mg tablet 2021-02 00:00: 00 03-07 05:59 :00 No [id number] 10mg Take 1 tablet by mouth at bedtime for 90 days. [facility] fenofibrate micronized 67 mg capsule 08-29 00:00: 00 02-25 00:00 :00 No [id number] 134mg Take 2 capsules by mouth in the morning. [facility] clonazePAM 1 mg tablet 08-26 14:25: 14 Yes 1mg Take 1 mg by mouth in the morning and 1 mg in the evening. [facility] Insulin NPH-Regular Human Rec 100 unit/mL (70-30) injection - 00:00: 00 12-06 00:00 :00 No [id number] 8U inject 8 Units under the skin 2 (two) times daily. [facility] metFORMIN 1,000 mg tablet 4-11 00:00: 00 06-09 00:00 :00 No [id number] 1000mg Take 1 tablet by mouth 2 (two) times daily with meals. [facility] fenofibrate micronized 67 mg capsule 05-01 00:00: 00 08-27 00:00 :00 No [id number] 134mg Take 2 capsules by mouth daily. [facility] MULTIVITAMI N ORAL 03-08 14:55: 45 03-08 00:00 :00 No Take by mouth daily. [facility] [facility] met[facility] 1,000 mg tablet 03-08 00:00: 00 05-17 00:00 :00 No [id number] 1000mg Take 1 tablet by mouth 2 (two) times daily with meals. [facility] pantoprazol e (PROTONIX) 40 mg EC tablet 02-27 00:00: 00 04-21 00:00 :00 No 40mg Take 1 tablet by mouth daily. [facility] fenofibrate micronized 67 mg capsule - 00:00: 00 05-01 00:00 :00 No [id number] 134mg Take 2 capsules by mouth daily. [facility] Insulin NPH-Regular Human Rec 100 unit/mL (70-30) injection 2020-02 2-24 00:00: 00 06-21 00:00 :00 No [id number] 5U inject 5 Units under the skin 2 (two) times daily. [facility] fenofibrate micronized 67 mg capsule 2020-02 0-20 00:00: 00 12-29 00:00 :00 No [id number] 134mg Take 2 capsules by mouth daily. [facility] metFORMIN 500 mg tablet 2020-02 0- 00:00: 00 12-29 00:00 :00 No [id number] 500mg Take 1 tablet by mouth 2 (two) times daily with meals. [facility] Insulin NPH-Regular Human Rec 100 unit/mL (70-30) injection 2020-02 0 00:00: 00 01-29 00:00 :00 No [id number] 5U inject 5 Units under the skin 2 (two) times daily. [facility] pantoprazol e (PROTONIX) 40 mg EC tablet 24 00:00: 00 01-30 00:00 :00 No [id number] 40mg Take 1 tablet by mouth daily. [facility] lipase-prot ease-amylas e (CREON) 36,000-114, 000- 180,000 unit CpDR 5-15 00:00: 00 12-21 00:00 :00 No [id number] Take 1 capsules by mouth with meals and 1 with each snack. [facility] fenofibrate micronized 67 mg capsule 05-30 00:00: 00 07-30 00:00 :00 No [id number] 134mg Take 2 capsules by mouth daily. [facility] metFORMIN 500 mg tablet 05-30 00:00: 00 06-30 00:00 :00 No [id number] 500mg Take 1 tablet by mouth 2 (two) times daily with meals. [facility] omega-3 fatty acids capsule 03-30 00:00: 00 Yes [id number] 1000mg Take 1 capsule by mouth 3 (three) times daily with meals. [facility] omega-3 fatty acids capsule 2 00:00: 00 Yes [id number] 1000mg Take 1 capsule by mouth 3 (three) times daily with meals. [facility] Syringe, Disposable, 3 mL Syrg 02-20 00:00: 00 Yes [id number] Use as directed [facility] Blood Glucose Strip-Disp Meter Kit 02-20 00:00: 00 Yes [id number] Use as directed [facility] blood sugar diagnostic strip 02-20 00:00: 00 Yes [id number] Use as directed [facility] Syringe, Disposable, 3 mL Syrg 02-20 00:00: 00 Yes [id number] Use as directed [facility] lancets 23 gauge Misc 02-20 00:00: 00 Yes [id number] Use as directed [facility] Blood Glucose Strip-Disp Meter Kit 02-20 00:00: 00 Yes [id number] Use as directed [facility] blood sugar diagnostic strip 02-20 00:00: 00 Yes [id number] Use as directed [facility] clonazePAM 1 mg tablet 02-20 00:00: 00 06-03 00:00 :00 No [id number] 1mg Take 1 tablet by mouth 2 (two) times daily. [facility] Immunizations Ordered Immunization Name Filled Immunization Name Date Status Comments Source Influenza Virus Vaccine Quad IM, Preserv and ABX Free 6 MO-64 YRS (FLUCELVAX) 2022-12-12 00:00:00 Completed [facility] SARS-COV-2 COVID 19 MARISA SUCROSE VACCINE 12+, , 0.3 ML (30 MCG), IM PFIZER (SHELLEY TOP) 2022-12-12 00:00:00 Completed TDAP 2022-05-20 00:00:00 Completed [facility] TDAP 2022-05-20 00:00:00 Completed [facility] TDAP 2022-05-20 00:00:00 Completed [facility] TDAP 2022-05-20 00:00:00 Completed [facility] TDAP 2022-05-20 00:00:00 Completed [facility] TDAP 2022-05-20 00:00:00 Completed [facility] TDAP 2022-05-20 00:00:00 Completed [facility] TDAP 2022-05-20 00:00:00 Completed [facility] TDAP 2022-05-20 00:00:00 Completed [facility] TDAP 2022-05-20 00:00:00 Completed [facility] TDAP 2022-05-20 00:00:00 Completed [facility] TDAP 2022-05-20 00:00:00 Completed [facility] TDAP 2022-05-20 00:00:00 Completed [facility] TDAP 2022-05-20 00:00:00 Completed [facility] TDAP 2022-05-20 00:00:00 Completed [facility] TDAP 2022-05-20 00:00:00 Completed [facility] TDAP 2022-05-20 00:00:00 Completed [facility] TDAP 2022-05-20 00:00:00 Completed [facility] TDAP 2022-05-20 00:00:00 Completed [facility] TDAP 2022-05-20 00:00:00 Completed [facility] TDAP 2022-05-20 00:00:00 Completed [facility] TDAP 2022-05-20 00:00:00 Completed [facility] TDAP 2022-05-20 00:00:00 Completed [facility] TDAP 2022-05-20 00:00:00 Completed [facility] TDAP 2022-05-20 00:00:00 Completed [facility] TDAP 2022-05-20 00:00:00 Completed Influenza Virus Vaccine Quad IM, Preserv and ABX Free 6 MO-64 YRS 2021-12-06 00:00:00 Completed [facility] SARS-COV-2 COVID-19 MARISA-SUCROSE VACCINE 12 YRS+, BIVALENT 0.3ML, IM, (PFIZER SHELLEY TOP BOOSTER) 2021-12-06 00:00:00 Completed [facility] Influenza Virus Vaccine Quad IM, Preserv and ABX Free 6 MO-64 YRS 2021-12-06 00:00:00 Completed [facility] SARS-COV-2 COVID-19 MARISA-SUCROSE VACCINE 12 YRS+, BIVALENT 0.3ML, IM, (PFIZER SHELLEY TOP BOOSTER) 2021-12-06 00:00:00 Completed [facility] Influenza Virus Vaccine Quad IM, Preserv and ABX Free 6 MO-64 YRS 2021-12-06 00:00:00 Completed [facility] SARS-COV-2 COVID-19 MARISA-SUCROSE VACCINE 12 YRS+, BIVALENT 0.3ML, IM, (PFIZER SHELLEY TOP BOOSTER) 2021-12-06 00:00:00 Completed [facility] Influenza Virus Vaccine Quad IM, Preserv and ABX Free 6 MO-64 YRS 2021-12-06 00:00:00 Completed [facility] SARS-COV-2 COVID-19 MARISA-SUCROSE VACCINE 12 YRS+, BIVALENT 0.3ML, IM, (PFIZER SHELLEY TOP BOOSTER) 2021-12-06 00:00:00 Completed [facility] Influenza Virus Vaccine Quad IM, Preserv and ABX Free 6 MO-64 YRS 2021-12-06 00:00:00 Completed [facility] SARS-COV-2 COVID-19 MARISA-SUCROSE VACCINE 12 YRS+, BIVALENT 0.3ML, IM, (PFIZER SHELLEY TOP BOOSTER) 2021-12-06 00:00:00 Completed [facility] Influenza Virus Vaccine Quad IM, Preserv and ABX Free 6 MO-64 YRS 2021-12-06 00:00:00 Completed [facility] SARS-COV-2 COVID-19 MARISA-SUCROSE VACCINE 12 YRS+, BIVALENT 0.3ML, IM, (PFIZER SHELLEY TOP BOOSTER) 2021-12-06 00:00:00 Completed [facility] Influenza Virus Vaccine Quad IM, Preserv and ABX Free 6 MO-64 YRS 2021-12-06 00:00:00 Completed [facility] SARS-COV-2 COVID-19 MARISA-SUCROSE VACCINE 12 YRS+, BIVALENT 0.3ML, IM, (PFIZER SHELLEY TOP BOOSTER) 2021-12-06 00:00:00 Completed [facility] Influenza Virus Vaccine Quad IM, Preserv and ABX Free 6 MO-64 YRS 2021-12-06 00:00:00 Completed [facility] SARS-COV-2 COVID-19 MARISA-SUCROSE VACCINE 12 YRS+, BIVALENT 0.3ML, IM, (PFIZER SHELLEY TOP BOOSTER) 2021-12-06 00:00:00 Completed [facility] Influenza Virus Vaccine Quad IM, Preserv and ABX Free 6 MO-64 YRS 2021-12-06 00:00:00 Completed [facility] SARS-COV-2 COVID-19 MARISA-SUCROSE VACCINE 12 YRS+, BIVALENT 0.3ML, IM, (PFIZER SHELLEY TOP BOOSTER) 2021-12-06 00:00:00 Completed [facility] Influenza Virus Vaccine Quad IM, Preserv and ABX Free 6 MO-64 YRS 2021-12-06 00:00:00 Completed [facility] SARS-COV-2 COVID-19 MARISA-SUCROSE VACCINE 12 YRS+, BIVALENT 0.3ML, IM, (PFIZER SHELLEY TOP BOOSTER) 2021-12-06 00:00:00 Completed [facility] Influenza Virus Vaccine Quad IM, Preserv and ABX Free 6 MO-64 YRS 2021-12-06 00:00:00 Completed [facility] SARS-COV-2 COVID-19 MARISA-SUCROSE VACCINE 12 YRS+, BIVALENT 0.3ML, IM, (PFIZER SHELLEY TOP BOOSTER) 2021-12-06 00:00:00 Completed [facility] Influenza Virus Vaccine Quad IM, Preserv and ABX Free 6 MO-64 YRS 2021-12-06 00:00:00 Completed [facility] SARS-COV-2 COVID-19 MARISA-SUCROSE VACCINE 12 YRS+, BIVALENT 0.3ML, IM, (PFIZER SHELLEY TOP BOOSTER) 2021-12-06 00:00:00 Completed [facility] Influenza Virus Vaccine Quad IM, Preserv and ABX Free 6 MO-64 YRS 2021-12-06 00:00:00 Completed [facility] SARS-COV-2 COVID-19 MARISA-SUCROSE VACCINE 12 YRS+, BIVALENT 0.3ML, IM, (PFIZER SHELLEY TOP BOOSTER) 2021-12-06 00:00:00 Completed [facility] Influenza Virus Vaccine Quad IM, Preserv and ABX Free 6 MO-64 YRS 2021-12-06 00:00:00 Completed [facility] SARS-COV-2 COVID-19 MARISA-SUCROSE VACCINE 12 YRS+, BIVALENT 0.3ML, IM, (PFIZER SHELLEY TOP BOOSTER) 2021-12-06 00:00:00 Completed [facility] Influenza Virus Vaccine Quad IM, Preserv and ABX Free 6 MO-64 YRS 2021-12-06 00:00:00 Completed [facility] SARS-COV-2 COVID-19 MARISA-SUCROSE VACCINE 12 YRS+, BIVALENT 0.3ML, IM, (PFIZER SHELLEY TOP BOOSTER) 2021-12-06 00:00:00 Completed [facility] Influenza Virus Vaccine Quad IM, Preserv and ABX Free 6 MO-64 YRS 2021-12-06 00:00:00 Completed [facility] SARS-COV-2 COVID-19 MARISA-SUCROSE VACCINE 12 YRS+, BIVALENT 0.3ML, IM, (PFIZER SHELLEY TOP BOOSTER) 2021-12-06 00:00:00 Completed [facility] Influenza Virus Vaccine Quad IM, Preserv and ABX Free 6 MO-64 YRS 2021-12-06 00:00:00 Completed [facility] SARS-COV-2 COVID-19 MARISA-SUCROSE VACCINE 12 YRS+, BIVALENT 0.3ML, IM, (PFIZER SHELLEY TOP) 2021-12-06 00:00:00 Completed [facility] Influenza Virus Vaccine Quad IM, Preserv and ABX Free 6 MO-64 YRS 2021-12-06 00:00:00 Completed [facility] SARS-COV-2 COVID-19 MARISA-SUCROSE VACCINE 12 YRS+, BIVALENT 0.3ML, IM, (PFIZER SHELLEY TOP) 2021-12-06 00:00:00 Completed [facility] Influenza Virus Vaccine Quad IM, Preserv and ABX Free 6 MO-64 YRS 2021-12-06 00:00:00 Completed [facility] SARS-COV-2 COVID-19 MARISA-SUCROSE VACCINE 12 YRS+, BIVALENT 0.3ML, IM, (PFIZER SHELLEY TOP) 2021-12-06 00:00:00 Completed [facility] Influenza Virus Vaccine Quad IM, Preserv and ABX Free 6 MO-64 YRS 2021-12-06 00:00:00 Completed [facility] SARS-COV-2 COVID-19 MARISA-SUCROSE VACCINE 12 YRS+, BIVALENT 0.3ML, IM, (PFIZER SHELLEY TOP) 2021-12-06 00:00:00 Completed [facility] Influenza Virus Vaccine Quad IM, Preserv and ABX Free 6 MO-64 YRS 2021-12-06 00:00:00 Completed [facility] SARS-COV-2 COVID-19 MARISA-SUCROSE VACCINE 12 YRS+, BIVALENT 0.3ML, IM, (PFIZER SHELLEY TOP) 2021-12-06 00:00:00 Completed [facility] Influenza Virus Vaccine Quad IM, Preserv and ABX Free 6 MO-64 YRS 2021-12-06 00:00:00 Completed [facility] SARS-COV-2 COVID-19 MARISA-SUCROSE VACCINE 12 YRS+, BIVALENT 0.3ML, IM, (PFIZER SHELLEY TOP) 2021-12-06 00:00:00 Completed [facility] Influenza Virus Vaccine Quad IM, Preserv and ABX Free 6 MO-64 YRS 2021-12-06 00:00:00 Completed [facility] SARS-COV-2 COVID-19 MARISA-SUCROSE VACCINE 12 YRS+, BIVALENT 0.3ML, IM, (PFIZER SHELLEY TOP) 2021-12-06 00:00:00 Completed [facility] Influenza Virus Vaccine Quad IM, Preserv and ABX Free 6 MO-64 YRS 2021-12-06 00:00:00 Completed [facility] SARS-COV-2 COVID-19 MARISA-SUCROSE VACCINE 12 YRS+, BIVALENT 0.3ML, IM, (PFIZER SHELLEY TOP) 2021-12-06 00:00:00 Completed [facility] Influenza Virus Vaccine Quad IM, Preserv and ABX Free 6 MO-64 YRS 2021-12-06 00:00:00 Completed [facility] SARS-COV-2 COVID-19 MARISA-SUCROSE VACCINE 12 YRS+, BIVALENT 0.3ML, IM, (PFIZER SHELLEY TOP) 2021-12-06 00:00:00 Completed [facility] Influenza Virus Vaccine Quad IM, Preserv and ABX Free 6 MO-64 YRS 2021-12-06 00:00:00 Completed [facility] SARS-COV-2 COVID-19 MARISA-SUCROSE VACCINE 12 YRS+, BIVALENT 0.3ML, IM, (PFIZER SHELLEY TOP) 2021-12-06 00:00:00 Completed [facility] Influenza Virus Vaccine Quad IM, Preserv and ABX Free 6 MO-64 YRS 2021-12-06 00:00:00 Completed [facility] SARS-COV-2 COVID-19 MARISA-SUCROSE VACCINE 12 YRS+, BIVALENT 0.3ML, IM, (PFIZER SHELLEY TOP) 2021-12-06 00:00:00 Completed [facility] Influenza Virus Vaccine Quad IM, Preserv and ABX Free 6 MO-64 YRS 2021-12-06 00:00:00 Completed [facility] SARS-COV-2 COVID-19 MARISA-SUCROSE VACCINE 12 YRS+, BIVALENT 0.3ML, IM, (PFIZER SHELLEY TOP) 2021-12-06 00:00:00 Completed [facility] Influenza Virus Vaccine Quad IM, Preserv and ABX Free 6 MO-64 YRS 2021-12-06 00:00:00 Completed [facility] SARS-COV-2 COVID-19 MARISA-SUCROSE VACCINE 12 YRS+, BIVALENT 0.3ML, IM, (PFIZER SHELLEY TOP) 2021-12-06 00:00:00 Completed [facility] Influenza Virus Vaccine Quad IM, Preserv and ABX Free 6 MO-64 YRS 2021-12-06 00:00:00 Completed [facility] SARS-COV-2 COVID-19 MARISA-SUCROSE VACCINE 12 YRS+, BIVALENT 0.3ML, IM, (PFIZER SHELLEY TOP) 2021-12-06 00:00:00 Completed [facility] Influenza Virus Vaccine Quad IM, Preserv and ABX Free 6 MO-64 YRS 2021-12-06 00:00:00 Completed [facility] SARS-COV-2 COVID-19 MARISA-SUCROSE VACCINE 12 YRS+, BIVALENT 0.3ML, IM, (PFIZER SHELLEY TOP) 2021-12-06 00:00:00 Completed [facility] Influenza Virus Vaccine Quad IM, Preserv and ABX Free 6 MO-64 YRS 2021-12-06 00:00:00 Completed [facility] SARS-COV-2 COVID-19 MARISA-SUCROSE VACCINE 12 YRS+, BIVALENT 0.3ML, IM, (PFIZER SHELLEY TOP) 2021-12-06 00:00:00 Completed [facility] Influenza Virus Vaccine Quad IM, Preserv and ABX Free 6 MO-64 YRS 2021-12-06 00:00:00 Completed [facility] SARS-COV-2 COVID-19 MARISA-SUCROSE VACCINE 12 YRS+, BIVALENT 0.3ML, IM, (PFIZER SHELLEY TOP) 2021-12-06 00:00:00 Completed [facility] Influenza Virus Vaccine Quad IM, Preserv and ABX Free 6 MO-64 YRS 2021-12-06 00:00:00 Completed [facility] SARS-COV-2 COVID-19 MARISA-SUCROSE VACCINE 12 YRS+, BIVALENT 0.3ML, IM, (PFIZER SHELLEY TOP) 2021-12-06 00:00:00 Completed [facility] Influenza Virus Vaccine Quad IM, Preserv and ABX Free 6 MO-64 YRS 2021-12-06 00:00:00 Completed [facility] SARS-COV-2 COVID-19 MARISA-SUCROSE VACCINE 12 YRS+, BIVALENT 0.3ML, IM, (PFIZER SHELLEY TOP) 2021-12-06 00:00:00 Completed [facility] Influenza Virus Vaccine Quad IM, Preserv and ABX Free 6 MO-64 YRS 2021-12-06 00:00:00 Completed [facility] SARS-COV-2 COVID-19 MARISA-SUCROSE VACCINE 12 YRS+, BIVALENT 0.3ML, IM, (PFIZER SHELLEY TOP) 2021-12-06 00:00:00 Completed [facility] Influenza Virus Vaccine Quad IM, Preserv and ABX Free 6 MO-64 YRS 2021-12-06 00:00:00 Completed [facility] SARS-COV-2 COVID-19 MARISA-SUCROSE VACCINE 12 YRS+, BIVALENT 0.3ML, IM, (PFIZER SHELLEY TOP) 2021-12-06 00:00:00 Completed [facility] Influenza Virus Vaccine Quad IM, Preserv and ABX Free 6 MO-64 YRS 2021-12-06 00:00:00 Completed [facility] SARS-COV-2 COVID-19 MARISA-SUCROSE VACCINE 12 YRS+, BIVALENT 0.3ML, IM, (PFIZER SHELLEY TOP) 2021-12-06 00:00:00 Completed [facility] Influenza Virus Vaccine Quad IM, Preserv and ABX Free 6 MO-64 YRS 2021-12-06 00:00:00 Completed [facility] SARS-COV-2 COVID-19 MARISA-SUCROSE VACCINE 12 YRS+, BIVALENT 0.3ML, IM, (PFIZER SHELLEY TOP) 2021-12-06 00:00:00 Completed [facility] Influenza Virus Vaccine Quad IM, Preserv and ABX Free 6 MO-64 YRS (FLUCELVAX) 2021-12-06 00:00:00 Completed [facility] SARS-COV-2 COVID-19 MARISA-SUCROSE VACCINE 12 YRS+, BIVALENT 0.3ML, IM, (PFIZER SHELLEY TOP) 2021-12-06 00:00:00 Completed SARS-COV-2 COVID-19 PFIZER VACCINE 2020-12-03 00:00:00 Completed [facility] SARS-COV-2 COVID-19 PFIZER VACCINE 2020-12-03 00:00:00 Completed [facility] SARS-COV-2 COVID-19 PFIZER VACCINE 2020-12-03 00:00:00 Completed [facility] SARS-COV-2 COVID-19 PFIZER VACCINE 2020-12-03 00:00:00 Completed [facility] SARS-COV-2 COVID-19 PFIZER VACCINE 2020-12-03 00:00:00 Completed [facility] SARS-COV-2 COVID-19 PFIZER VACCINE 2020-12-03 00:00:00 Completed [facility] SARS-COV-2 COVID-19 PFIZER VACCINE 2020-12-03 00:00:00 Completed [facility] SARS-COV-2 COVID-19 PFIZER VACCINE 2020-12-03 00:00:00 Completed [facility] SARS-COV-2 COVID-19 PFIZER VACCINE 2020-12-03 00:00:00 Completed [facility] SARS-COV-2 COVID-19 PFIZER VACCINE 2020-12-03 00:00:00 Completed [facility] SARS-COV-2 COVID-19 PFIZER VACCINE 2020-12-03 00:00:00 Completed [facility] SARS-COV-2 COVID-19 PFIZER VACCINE 2020-12-03 00:00:00 Completed [facility] SARS-COV-2 COVID-19 PFIZER VACCINE 2020-12-03 00:00:00 Completed [facility] SARS-COV-2 COVID-19 PFIZER VACCINE 2020-12-03 00:00:00 Completed [facility] SARS-COV-2 COVID-19 PFIZER VACCINE 2020-12-03 00:00:00 Completed [facility] SARS-COV-2 COVID-19 PFIZER VACCINE 2020-12-03 00:00:00 Completed [facility] SARS-COV-2 COVID-19 PFIZER VACCINE 2020-12-03 00:00:00 Completed [facility] SARS-COV-2 COVID-19 PFIZER VACCINE 2020-12-03 00:00:00 Completed [facility] SARS-COV-2 COVID-19 PFIZER VACCINE 2020-12-03 00:00:00 Completed [facility] SARS-COV-2 COVID-19 PFIZER VACCINE 2020-12-03 00:00:00 Completed [facility] SARS-COV-2 COVID-19 PFIZER VACCINE 2020-12-03 00:00:00 Completed [facility] SARS-COV-2 COVID-19 PFIZER VACCINE 2020-12-03 00:00:00 Completed [facility] SARS-COV-2 COVID-19 PFIZER VACCINE 2020-12-03 00:00:00 Completed [facility] SARS-COV-2 COVID-19 PFIZER VACCINE 2020-12-03 00:00:00 Completed [facility] SARS-COV-2 COVID-19 PFIZER VACCINE 2020-12-03 00:00:00 Completed [facility] SARS-COV-2 COVID-19 PFIZER VACCINE 2020-12-03 00:00:00 Completed [facility] SARS-COV-2 COVID-19 PFIZER VACCINE 2020-12-03 00:00:00 Completed [facility] SARS-COV-2 COVID-19 PFIZER VACCINE 2020-12-03 00:00:00 Completed [facility] SARS-COV-2 COVID-19 PFIZER VACCINE 2020-12-03 00:00:00 Completed [facility] SARS-COV-2 COVID-19 PFIZER VACCINE 2020-12-03 00:00:00 Completed [facility] SARS-COV-2 COVID-19 PFIZER VACCINE 2020-12-03 00:00:00 Completed [facility] SARS-COV-2 COVID-19 PFIZER VACCINE 2020-12-03 00:00:00 Completed [facility] SARS-COV-2 COVID-19 PFIZER VACCINE 2020-12-03 00:00:00 Completed [facility] SARS-COV-2 COVID-19 PFIZER VACCINE 2020-12-03 00:00:00 Completed [facility] SARS-COV-2 COVID-19 PFIZER VACCINE 2020-12-03 00:00:00 Completed [facility] SARS-COV-2 COVID-19 PFIZER VACCINE 2020-12-03 00:00:00 Completed [facility] SARS-COV-2 COVID-19 PFIZER VACCINE 2020-12-03 00:00:00 Completed [facility] SARS-COV-2 COVID-19 PFIZER VACCINE 2020-12-03 00:00:00 Completed [facility] SARS-COV-2 COVID-19 PFIZER VACCINE 2020-12-03 00:00:00 Completed [facility] SARS-COV-2 COVID-19 PFIZER VACCINE 2020-12-03 00:00:00 Completed [facility] SARS-COV-2 COVID-19 PFIZER VACCINE 2020-12-03 00:00:00 Completed [facility] SARS-COV-2 COVID-19 PFIZER VACCINE 2020-12-03 00:00:00 Completed [facility] SARS-COV-2 COVID-19 PFIZER VACCINE 2020-12-03 00:00:00 Completed [facility] SARS-COV-2 COVID-19 PFIZER VACCINE 2020-12-03 00:00:00 Completed [facility] SARS-COV-2 COVID-19 PFIZER VACCINE 2020-12-03 00:00:00 Completed [facility] SARS-COV-2 COVID-19 PFIZER VACCINE 2020-12-03 00:00:00 Completed [facility] Influenza Virus Vaccine (6-35 mo) 2020-11-09 00:00:00 Completed [facility] Influenza Virus Vaccine (6-35 mo) 2020-11-09 00:00:00 Completed [facility] Influenza Virus Vaccine (6-35 mo) 2020-11-09 00:00:00 Completed [facility] Influenza Virus Vaccine (6-35 mo) 2020-11-09 00:00:00 Completed [facility] Influenza Virus Vaccine (6-35 mo) 2020-11-09 00:00:00 Completed [facility] Influenza Virus Vaccine (6-35 mo) 2020-11-09 00:00:00 Completed [facility] Influenza Virus Vaccine (6-35 mo) 2020-11-09 00:00:00 Completed [facility] Influenza Virus Vaccine (6-35 mo) 2020-11-09 00:00:00 Completed [facility] Influenza Virus Vaccine (6-35 mo) 2020-11-09 00:00:00 Completed [facility] Influenza Virus Vaccine (6-35 mo) 2020-11-09 00:00:00 Completed [facility] Influenza Virus Vaccine (6-35 mo) 2020-11-09 00:00:00 Completed [facility] Influenza Virus Vaccine (6-35 mo) 2020-11-09 00:00:00 Completed [facility] Influenza Virus Vaccine (6-35 mo) 2020-11-09 00:00:00 Completed [facility] Influenza Virus Vaccine (6-35 mo) 2020-11-09 00:00:00 Completed [facility] Influenza Virus Vaccine (6-35 mo) 2020-11-09 00:00:00 Completed [facility] Influenza Virus Vaccine (6-35 mo) 2020-11-09 00:00:00 Completed [facility] Influenza Virus Vaccine (6-35 mo) 2020-11-09 00:00:00 Completed [facility] Influenza Virus Vaccine (6-35 mo) 2020-11-09 00:00:00 Completed [facility] Influenza Virus Vaccine (6-35 mo) 2020-11-09 00:00:00 Completed [facility] Influenza Virus Vaccine (6-35 mo) 2020-11-09 00:00:00 Completed [facility] Influenza Virus Vaccine (6-35 mo) 2020-11-09 00:00:00 Completed [facility] Influenza Virus Vaccine (6-35 mo) 2020-11-09 00:00:00 Completed [facility] Influenza Virus Vaccine (6-35 mo) 2020-11-09 00:00:00 Completed [facility] Influenza Virus Vaccine (6-35 mo) 2020-11-09 00:00:00 [facility] [facility] Influenza Virus Vaccine (6-35 mo) 2020-11-09 00:00:00 Completed [facility] Influenza Virus Vaccine (6-35 mo) 2020-11-09 00:00:00 Completed [facility] Influenza Virus Vaccine (6-35 mo) 2020-11-09 00:00:00 Completed [facility] Influenza Virus Vaccine (6-35 mo) 2020-11-09 00:00:00 Completed [facility] Influenza Virus Vaccine (6-35 mo) 2020-11-09 00:00:00 Completed [facility] Influenza Virus Vaccine (6-35 mo) 2020-11-09 00:00:00 Completed [facility] Influenza Virus Vaccine (6-35 mo) 2020-11-09 00:00:00 Completed [facility] Influenza Virus Vaccine (6-35 mo) 2020-11-09 00:00:00 Completed [facility] Influenza Virus Vaccine (6-35 mo) 2020-11-09 00:00:00 Completed [facility] Influenza Virus Vaccine (6-35 mo) 2020-11-09 00:00:00 Completed [facility] Influenza Virus Vaccine (6-35 mo) 2020-11-09 00:00:00 Completed [facility] Influenza Virus Vaccine (6-35 mo) 2020-11-09 00:00:00 Completed [facility] Influenza Virus Vaccine (6-35 mo) 2020-11-09 00:00:00 Completed [facility] Influenza Virus Vaccine (6-35 mo) 2020-11-09 00:00:00 Completed [facility] Influenza Virus Vaccine (6-35 mo) 2020-11-09 00:00:00 Completed [facility] Influenza Virus Vaccine (6-35 mo) 2020-11-09 00:00:00 Completed [facility] Influenza Virus Vaccine (6-35 mo) 2020-11-09 00:00:00 Completed [facility] Influenza Virus Vaccine (6-35 mo) 2020-11-09 00:00:00 Completed [facility] Influenza Virus Vaccine (6-35 mo) 2020-11-09 00:00:00 Completed [facility] Influenza Virus Vaccine (6-35 mo) 2020-11-09 00:00:00 Completed [facility] Influenza Virus Vaccine (6-35 mo) 2020-11-09 00:00:00 Completed [facility] Influenza Virus Vaccine (6-35 mo) 2020-11-09 00:00:00 Completed [facility] Influenza Virus Vaccine (6-35 mo) 2020-11-09 00:00:00 Completed SARS-COV-2 COVID-19 PFIZER VACCINE 2020-05-03 00:00:00 Completed [facility] SARS-COV-2 COVID-19 PFIZER VACCINE 2020-05-03 00:00:00 Completed [facility] SARS-COV-2 COVID-19 PFIZER VACCINE 2020-05-03 00:00:00 Completed [facility] SARS-COV-2 COVID-19 PFIZER VACCINE 2020-05-03 00:00:00 Completed [facility] SARS-COV-2 COVID-19 PFIZER VACCINE 2020-05-03 00:00:00 Completed [facility] SARS-COV-2 COVID-19 PFIZER VACCINE 2020-05-03 00:00:00 Completed [facility] SARS-COV-2 COVID-19 PFIZER VACCINE 2020-05-03 00:00:00 Completed [facility] SARS-COV-2 COVID-19 PFIZER VACCINE 2020-05-03 00:00:00 Completed [facility] SARS-COV-2 COVID-19 PFIZER VACCINE 2020-05-03 00:00:00 Completed [facility] SARS-COV-2 COVID-19 PFIZER VACCINE 2020-05-03 00:00:00 Completed [facility] SARS-COV-2 COVID-19 PFIZER VACCINE 2020-05-03 00:00:00 Completed [facility] SARS-COV-2 COVID-19 PFIZER VACCINE 2020-05-03 00:00:00 Completed [facility] SARS-COV-2 COVID-19 PFIZER VACCINE 2020-05-03 00:00:00 Completed [facility] SARS-COV-2 COVID-19 PFIZER VACCINE 2020-05-03 00:00:00 Completed [facility] SARS-COV-2 COVID-19 PFIZER VACCINE 2020-05-03 00:00:00 Completed [facility] SARS-COV-2 COVID-19 PFIZER VACCINE 2020-05-03 00:00:00 Completed [facility] SARS-COV-2 COVID-19 PFIZER VACCINE 2020-05-03 00:00:00 Completed [facility] SARS-COV-2 COVID-19 PFIZER VACCINE 2020-05-03 00:00:00 Completed [facility] SARS-COV-2 COVID-19 PFIZER VACCINE 2020-05-03 00:00:00 Completed [facility] SARS-COV-2 COVID-19 PFIZER VACCINE 2020-05-03 00:00:00 Completed [facility] SARS-COV-2 COVID-19 PFIZER VACCINE 2020-05-03 00:00:00 Completed [facility] SARS-COV-2 COVID-19 PFIZER VACCINE 2020-05-03 00:00:00 Completed [facility] SARS-COV-2 COVID-19 PFIZER VACCINE 2020-05-03 00:00:00 Completed [facility] SARS-COV-2 COVID-19 PFIZER VACCINE 2020-05-03 00:00:00 Completed [facility] SARS-COV-2 COVID-19 PFIZER VACCINE 2020-05-03 00:00:00 Completed [facility] SARS-COV-2 COVID-19 PFIZER VACCINE 2020-05-03 00:00:00 Completed [facility] SARS-COV-2 COVID-19 PFIZER VACCINE 2020-05-03 00:00:00 Completed [facility] SARS-COV-2 COVID-19 PFIZER VACCINE 2020-05-03 00:00:00 Completed [facility] SARS-COV-2 COVID-19 PFIZER VACCINE 2020-05-03 00:00:00 Completed [facility] SARS-COV-2 COVID-19 PFIZER VACCINE 2020-05-03 00:00:00 Completed [facility] SARS-COV-2 COVID-19 PFIZER VACCINE 2020-05-03 00:00:00 Completed [facility] SARS-COV-2 COVID-19 PFIZER VACCINE 2020-05-03 00:00:00 Completed [facility] SARS-COV-2 COVID-19 PFIZER VACCINE 2020-05-03 00:00:00 Completed [facility] SARS-COV-2 COVID-19 PFIZER VACCINE 2020-05-03 00:00:00 Completed [facility] SARS-COV-2 COVID-19 PFIZER VACCINE 2020-05-03 00:00:00 Completed [facility] SARS-COV-2 COVID-19 PFIZER VACCINE 2020-05-03 00:00:00 Completed [facility] SARS-COV-2 COVID-19 PFIZER VACCINE 2020-05-03 00:00:00 Completed [facility] SARS-COV-2 COVID-19 PFIZER VACCINE 2020-05-03 00:00:00 Completed [facility] SARS-COV-2 COVID-19 PFIZER VACCINE 2020-05-03 00:00:00 Completed [facility] SARS-COV-2 COVID-19 PFIZER VACCINE 2020-05-03 00:00:00 Completed [facility] SARS-COV-2 COVID-19 PFIZER VACCINE 2020-05-03 00:00:00 Completed [facility] SARS-COV-2 COVID-19 PFIZER VACCINE 2020-05-03 00:00:00 Completed [facility] SARS-COV-2 COVID-19 PFIZER VACCINE 2020-05-03 00:00:00 Completed [facility] SARS-COV-2 COVID-19 PFIZER VACCINE 2020-05-03 00:00:00 Completed [facility] SARS-COV-2 COVID-19 PFIZER VACCINE 2020-05-03 00:00:00 Completed [facility] SARS-COV-2 COVID-19 PFIZER VACCINE 2020-05-03 00:00:00 Completed [facility] SARS-COV-2 COVID-19 PFIZER VACCINE 2020-05-03 00:00:00 Completed [facility] SARS-COV-2 COVID-19 PFIZER VACCINE 2020-05-03 00:00:00 Completed [facility] SARS-COV-2 COVID-19 PFIZER VACCINE 2020-04-12 00:00:00 Completed [facility] SARS-COV-2 COVID-19 PFIZER VACCINE 2020-04-12 00:00:00 Completed [facility] SARS-COV-2 COVID-19 PFIZER VACCINE 2020-04-12 00:00:00 Completed [facility] SARS-COV-2 COVID-19 PFIZER VACCINE 2020-04-12 00:00:00 Completed [facility] SARS-COV-2 COVID-19 PFIZER VACCINE 2020-04-12 00:00:00 Completed [facility] SARS-COV-2 COVID-19 PFIZER VACCINE 2020-04-12 00:00:00 Completed [facility] SARS-COV-2 COVID-19 PFIZER VACCINE 2020-04-12 00:00:00 Completed [facility] SARS-COV-2 COVID-19 PFIZER VACCINE 2020-04-12 00:00:00 Completed [facility] SARS-COV-2 COVID-19 PFIZER VACCINE 2020-04-12 00:00:00 Completed [facility] SARS-COV-2 COVID-19 PFIZER VACCINE 2020-04-12 00:00:00 Completed [facility] SARS-COV-2 COVID-19 PFIZER VACCINE 2020-04-12 00:00:00 Completed [facility] SARS-COV-2 COVID-19 PFIZER VACCINE 2020-04-12 00:00:00 Completed [facility] SARS-COV-2 COVID-19 PFIZER VACCINE 2020-04-12 00:00:00 Completed [facility] SARS-COV-2 COVID-19 PFIZER VACCINE 2020-04-12 00:00:00 Completed [facility] SARS-COV-2 COVID-19 PFIZER VACCINE 2020-04-12 00:00:00 Completed [facility] SARS-COV-2 COVID-19 PFIZER VACCINE 2020-04-12 00:00:00 Completed [facility] SARS-COV-2 COVID-19 PFIZER VACCINE 2020-04-12 00:00:00 Completed [facility] SARS-COV-2 COVID-19 PFIZER VACCINE 2020-04-12 00:00:00 Completed [facility] SARS-COV-2 COVID-19 PFIZER VACCINE 2020-04-12 00:00:00 Completed [facility] SARS-COV-2 COVID-19 PFIZER VACCINE 2020-04-12 00:00:00 Completed [facility] SARS-COV-2 COVID-19 PFIZER VACCINE 2020-04-12 00:00:00 Completed [facility] SARS-COV-2 COVID-19 PFIZER VACCINE 2020-04-12 00:00:00 Completed [facility] SARS-COV-2 COVID-19 PFIZER VACCINE 2020-04-12 00:00:00 Completed [facility] SARS-COV-2 COVID-19 PFIZER VACCINE 2020-04-12 00:00:00 Completed [facility] SARS-COV-2 COVID-19 PFIZER VACCINE 2020-04-12 00:00:00 Completed [facility] SARS-COV-2 COVID-19 PFIZER VACCINE 2020-04-12 00:00:00 Completed [facility] SARS-COV-2 COVID-19 PFIZER VACCINE 2020-04-12 00:00:00 Completed [facility] SARS-COV-2 COVID-19 PFIZER VACCINE 2020-04-12 00:00:00 Completed [facility] SARS-COV-2 COVID-19 PFIZER VACCINE 2020-04-12 00:00:00 Completed [facility] SARS-COV-2 COVID-19 PFIZER VACCINE 2020-04-12 00:00:00 Completed [facility] SARS-COV-2 COVID-19 PFIZER VACCINE 2020-04-12 00:00:00 Completed [facility] SARS-COV-2 COVID-19 PFIZER VACCINE 2020-04-12 00:00:00 Completed [facility] SARS-COV-2 COVID-19 PFIZER VACCINE 2020-04-12 00:00:00 Completed [facility] SARS-COV-2 COVID-19 PFIZER VACCINE 2020-04-12 00:00:00 Completed [facility] SARS-COV-2 COVID-19 PFIZER VACCINE 2020-04-12 00:00:00 Completed [facility] SARS-COV-2 COVID-19 PFIZER VACCINE 2020-04-12 00:00:00 Completed [facility] SARS-COV-2 COVID-19 PFIZER VACCINE 2020-04-12 00:00:00 Completed [facility] SARS-COV-2 COVID-19 PFIZER VACCINE 2020-04-12 00:00:00 Completed [facility] SARS-COV-2 COVID-19 PFIZER VACCINE 2020-04-12 00:00:00 Completed [facility] SARS-COV-2 COVID-19 PFIZER VACCINE 2020-04-12 00:00:00 Completed [facility] SARS-COV-2 COVID-19 PFIZER VACCINE 2020-04-12 00:00:00 Completed [facility] SARS-COV-2 COVID-19 PFIZER VACCINE 2020-04-12 00:00:00 Completed [facility] SARS-COV-2 COVID-19 PFIZER VACCINE 2020-04-12 00:00:00 Completed [facility] SARS-COV-2 COVID-19 PFIZER VACCINE 2020-04-12 00:00:00 Completed [facility] SARS-COV-2 COVID-19 PFIZER VACCINE 2020-04-12 00:00:00 Completed [facility] SARS-COV-2 COVID-19 PFIZER VACCINE 2020-04-12 00:00:00 Completed [facility] SARS-COV-2 COVID-19 PFIZER VACCINE 2020-04-12 00:00:00 Completed [facility] SARS-COV-2 COVID-19 PFIZER VACCINE 2020-04-12 00:00:00 Completed [facility] Pneumococcal Polysaccharide, PPSV23 (PNEUMOVAX) 2020-02-21 00:00:00 Completed [facility] Influenza Virus Vaccine Quad .5 mL IM 6+ MO 2020-02-21 00:00:00 Completed [facility] Pneumococcal Polysaccharide, PPSV23 (PNEUMOVAX) 2020-02-21 00:00:00 Completed [facility] Influenza Virus Vaccine Quad .5 mL IM 6+ MO 2020-02-21 00:00:00 Completed [facility] Pneumococcal Polysaccharide, PPSV23 (PNEUMOVAX) 2020-02-21 00:00:00 Completed [facility] Influenza Virus Vaccine Quad .5 mL IM 6+ MO 2020-02-21 00:00:00 Completed [facility] Pneumococcal Polysaccharide, PPSV23 (PNEUMOVAX) 2020-02-21 00:00:00 Completed [facility] Influenza Virus Vaccine Quad .5 mL IM 6+ MO 2020-02-21 00:00:00 Completed [facility] Pneumococcal Polysaccharide, PPSV23 (PNEUMOVAX) 2020-02-21 00:00:00 Completed [facility] Influenza Virus Vaccine Quad .5 mL IM 6+ MO 2020-02-21 00:00:00 Completed [facility] Pneumococcal Polysaccharide, PPSV23 (PNEUMOVAX) 2020-02-21 00:00:00 Completed [facility] Influenza Virus Vaccine Quad .5 mL IM 6+ MO 2020-02-21 00:00:00 Completed [facility] Pneumococcal Polysaccharide, PPSV23 (PNEUMOVAX) 2020-02-21 00:00:00 Completed [facility] Influenza Virus Vaccine Quad .5 mL IM 6+ MO 2020-02-21 00:00:00 Completed [facility] Pneumococcal Polysaccharide, PPSV23 (PNEUMOVAX) 2020-02-21 00:00:00 Completed [facility] Influenza Virus Vaccine Quad .5 mL IM 6+ MO 2020-02-21 00:00:00 Completed [facility] Pneumococcal Polysaccharide, PPSV23 (PNEUMOVAX) 2020-02-21 00:00:00 Completed [facility] Influenza Virus Vaccine Quad .5 mL IM 6+ MO 2020-02-21 00:00:00 Completed [facility] Pneumococcal Polysaccharide, PPSV23 (PNEUMOVAX) 2020-02-21 00:00:00 Completed [facility] Influenza Virus Vaccine Quad .5 mL IM 6+ MO 2020-02-21 00:00:00 Completed [facility] Pneumococcal Polysaccharide, PPSV23 (PNEUMOVAX) 2020-02-21 00:00:00 Completed [facility] Influenza Virus Vaccine Quad .5 mL IM 6+ MO 2020-02-21 00:00:00 Completed [facility] Pneumococcal Polysaccharide, PPSV23 (PNEUMOVAX) 2020-02-21 00:00:00 Completed [facility] Influenza Virus Vaccine Quad .5 mL IM 6+ MO 2020-02-21 00:00:00 Completed [facility] Pneumococcal Polysaccharide, PPSV23 (PNEUMOVAX) 2020-02-21 00:00:00 Completed [facility] Influenza Virus Vaccine Quad .5 mL IM 6+ MO 2020-02-21 00:00:00 Completed [facility] Pneumococcal Polysaccharide, PPSV23 (PNEUMOVAX) 2020-02-21 00:00:00 Completed [facility] Influenza Virus Vaccine Quad .5 mL IM 6+ MO 2020-02-21 00:00:00 Completed [facility] Pneumococcal Polysaccharide, PPSV23 (PNEUMOVAX) 2020-02-21 00:00:00 Completed [facility] Influenza Virus Vaccine Quad .5 mL IM 6+ MO 2020-02-21 00:00:00 Completed [facility] Pneumococcal Polysaccharide, PPSV23 (PNEUMOVAX) 2020-02-21 00:00:00 Completed [facility] Influenza Virus Vaccine Quad .5 mL IM 6+ MO 2020-02-21 00:00:00 Completed [facility] Pneumococcal Polysaccharide, PPSV23 (PNEUMOVAX) 2020-02-21 00:00:00 Completed [facility] Influenza Virus Vaccine Quad .5 mL IM 6+ MO 2020-02-21 00:00:00 Completed [facility] Pneumococcal Polysaccharide, PPSV23 (PNEUMOVAX) 2020-02-21 00:00:00 Completed [facility] Influenza Virus Vaccine Quad .5 mL IM 6+ MO 2020-02-21 00:00:00 Completed [facility] Pneumococcal Polysaccharide, PPSV23 (PNEUMOVAX) 2020-02-21 00:00:00 Completed [facility] Influenza Virus Vaccine Quad .5 mL IM 6+ MO 2020-02-21 00:00:00 Completed [facility] Pneumococcal Polysaccharide, PPSV23 (PNEUMOVAX) 2020-02-21 00:00:00 Completed [facility] Influenza Virus Vaccine Quad .5 mL IM 6+ MO 2020-02-21 00:00:00 Completed [facility] Pneumococcal Polysaccharide, PPSV23 (PNEUMOVAX) 2020-02-21 00:00:00 Completed [facility] Influenza Virus Vaccine Quad .5 mL IM 6+ MO 2020-02-21 00:00:00 Completed [facility] Pneumococcal Polysaccharide, PPSV23 (PNEUMOVAX) 2020-02-21 00:00:00 Completed [facility] Influenza Virus Vaccine Quad .5 mL IM 6+ MO 2020-02-21 00:00:00 Completed [facility] Pneumococcal Polysaccharide, PPSV23 (PNEUMOVAX) 2020-02-21 00:00:00 Completed [facility] Influenza Virus Vaccine Quad .5 mL IM 6+ MO 2020-02-21 00:00:00 Completed [facility] Pneumococcal Polysaccharide, PPSV23 (PNEUMOVAX) 2020-02-21 00:00:00 Completed [facility] Influenza Virus Vaccine Quad .5 mL IM 6+ MO 2020-02-21 00:00:00 Completed [facility] Pneumococcal Polysaccharide, PPSV23 (PNEUMOVAX) 2020-02-21 00:00:00 Completed [facility] Influenza Virus Vaccine Quad .5 mL IM 6+ MO 2020-02-21 00:00:00 Completed [facility] Pneumococcal Polysaccharide, PPSV23 (PNEUMOVAX) 2020-02-21 00:00:00 Completed [facility] Influenza Virus Vaccine Quad .5 mL IM 6+ MO 2020-02-21 00:00:00 Completed [facility] Pneumococcal Polysaccharide, PPSV23 (PNEUMOVAX) 2020-02-21 00:00:00 Completed [facility] Influenza Virus Vaccine Quad .5 mL IM 6+ MO 2020-02-21 00:00:00 Completed [facility] Pneumococcal Polysaccharide, PPSV23 (PNEUMOVAX) 2020-02-21 00:00:00 Completed [facility] Influenza Virus Vaccine Quad .5 mL IM 6+ MO 2020-02-21 00:00:00 Completed [facility] Pneumococcal Polysaccharide, PPSV23 (PNEUMOVAX) 2020-02-21 00:00:00 Completed [facility] Influenza Virus Vaccine Quad .5 mL IM 6+ MO 2020-02-21 00:00:00 Completed [facility] Pneumococcal Polysaccharide, PPSV23 (PNEUMOVAX) 2020-02-21 00:00:00 Completed [facility] Influenza Virus Vaccine Quad .5 mL IM 6+ MO 2020-02-21 00:00:00 Completed [facility] Pneumococcal Polysaccharide, PPSV23 (PNEUMOVAX) 2020-02-21 00:00:00 Completed [facility] Influenza Virus Vaccine Quad .5 mL IM 6+ MO 2020-02-21 00:00:00 Completed [facility] Pneumococcal Polysaccharide, PPSV23 (PNEUMOVAX) 2020-02-21 00:00:00 Completed [facility] Influenza Virus Vaccine Quad .5 mL IM 6+ MO 2020-02-21 00:00:00 Completed [facility] Pneumococcal Polysaccharide, PPSV23 (PNEUMOVAX) 2020-02-21 00:00:00 Completed [facility] Influenza Virus Vaccine Quad .5 mL IM 6+ MO 2020-02-21 00:00:00 Completed [facility] Pneumococcal Polysaccharide, PPSV23 (PNEUMOVAX) 2020-02-21 00:00:00 Completed [facility] Influenza Virus Vaccine Quad .5 mL IM 6+ MO 2020-02-21 00:00:00 Completed [facility] Pneumococcal Polysaccharide, PPSV23 (PNEUMOVAX) 2020-02-21 00:00:00 Completed [facility] Influenza Virus Vaccine Quad .5 mL IM 6+ MO 2020-02-21 00:00:00 Completed [facility] Pneumococcal Polysaccharide, PPSV23 (PNEUMOVAX) 2020-02-21 00:00:00 Completed [facility] Influenza Virus Vaccine Quad .5 mL IM 6+ MO 2020-02-21 00:00:00 Completed [facility] Pneumococcal Polysaccharide, PPSV23 (PNEUMOVAX) 2020-02-21 00:00:00 Completed [facility] Influenza Virus Vaccine Quad .5 mL IM 6+ MO 2020-02-21 00:00:00 Completed [facility] Pneumococcal Polysaccharide, PPSV23 (PNEUMOVAX) 2020-02-21 00:00:00 Completed [facility] Influenza Virus Vaccine Quad .5 mL IM 6+ MO 2020-02-21 00:00:00 Completed [facility] Pneumococcal Polysaccharide, PPSV23 (PNEUMOVAX) 2020-02-21 00:00:00 Completed [facility] Influenza Virus Vaccine Quad .5 mL IM 6+ MO 2020-02-21 00:00:00 Completed [facility] Pneumococcal Polysaccharide, PPSV23 (PNEUMOVAX) 2020-02-21 00:00:00 Completed [facility] Influenza Virus Vaccine Quad .5 mL IM 6+ MO 2020-02-21 00:00:00 Completed [facility] Pneumococcal Polysaccharide, PPSV23 (PNEUMOVAX) 2020-02-21 00:00:00 Completed [facility] Influenza Virus Vaccine Quad .5 mL IM 6+ MO 2020-02-21 00:00:00 Completed [facility] Pneumococcal Polysaccharide, PPSV23 (PNEUMOVAX) 2020-02-21 00:00:00 Completed [facility] Influenza Virus Vaccine Quad .5 mL IM 6+ MO 2020-02-21 00:00:00 Completed [facility] Pneumococcal Polysaccharide, PPSV23 (PNEUMOVAX) 2020-02-21 00:00:00 Completed [facility] Influenza Virus Vaccine Quad .5 mL IM 6+ MO 2020-02-21 00:00:00 Completed [facility] Pneumococcal Polysaccharide, PPSV23 (PNEUMOVAX) 2020-02-21 00:00:00 Completed [facility] Influenza Virus Vaccine Quad .5 mL IM 6+ MO 2020-02-21 00:00:00 Completed [facility] Pneumococcal Polysaccharide, PPSV23 (PNEUMOVAX) 2020-02-21 00:00:00 Completed [facility] Influenza Virus Vaccine Quad .5 mL IM 6+ MO 2020-02-21 00:00:00 Completed [facility] Pneumococcal Polysaccharide, PPSV23 (PNEUMOVAX) 2020-02-21 00:00:00 Completed [facility] Influenza Virus Vaccine Quad .5 mL IM 6+ MO 2020-02-21 00:00:00 Completed [facility] Pneumococcal Polysaccharide, PPSV23 (PNEUMOVAX) 2020-02-21 00:00:00 Completed [facility] Influenza Virus Vaccine Quad .5 mL IM 6+ MO 2020-02-21 00:00:00 Completed [facility] Pneumococcal Polysaccharide, PPSV23 (PNEUMOVAX) 2020-02-21 00:00:00 Completed [facility] Influenza Virus Vaccine Quad .5 mL IM 6+ MO (FLUZONE/FLULAVAL/F LUARIX) 2020-02-21 00:00:00 Completed Pneumococcal Polysaccharide, PPSV23 (PNEUMOVAX) Unknown Completed [facility] Influenza Virus Vaccine Quad .5 mL IM 6+ MO (FLUZONE/FLULAVAL/F LUARIX) Unknown Completed [facility] SARS-COV-2 COVID-19 PFIZER VACCINE Unknown Completed [facility] Influenza Virus Vaccine (6-35 mo) Unknown Completed [facility] Influenza Virus Vaccine Quad IM, Preserv and ABX Free 6 MO-64 YRS (FLUCELVAX) Unknown Completed [facility] SARS-COV-2 COVID-19 MARISA-SUCROSE VACCINE 12 YRS+, BIVALENT 0.3ML, IM, (PFIZER SHELLEY TOP) Unknown Completed [facility] TDAP Unknown Completed [facility] Pneumococcal Polysaccharide, PPSV23 (PNEUMOVAX) Unknown Completed [facility] Influenza Virus Vaccine Quad .5 mL IM 6+ MO (FLUZONE/FLULAVAL/F LUARIX) Unknown Completed [facility] SARS-COV-2 COVID-19 PFIZER VACCINE Unknown Completed [facility] Influenza Virus Vaccine (6-35 mo) Unknown Completed [facility] Pneumococcal Polysaccharide, PPSV23 (PNEUMOVAX) Unknown Completed [facility] Influenza Virus Vaccine Quad .5 mL IM 6+ MO (FLUZONE/FLULAVAL/F LUARIX) Unknown Completed [facility] SARS-COV-2 COVID-19 PFIZER VACCINE Unknown Completed [facility] Influenza Virus Vaccine (6-35 mo) Unknown Completed [facility] Pneumococcal Polysaccharide, PPSV23 (PNEUMOVAX) Unknown Completed [facility] Influenza Virus Vaccine Quad .5 mL IM 6+ MO (FLUZONE/FLULAVAL/F LUARIX) Unknown Completed [facility] SARS-COV-2 COVID-19 PFIZER VACCINE Unknown Completed [facility] Pneumococcal Polysaccharide, PPSV23 (PNEUMOVAX) Unknown Completed [facility] Influenza Virus Vaccine Quad .5 mL IM 6+ MO (FLUZONE/FLULAVAL/F LUARIX) Unknown Completed [facility] SARS-COV-2 COVID-19 PFIZER VACCINE Unknown Completed [facility] Pneumococcal Polysaccharide, PPSV23 (PNEUMOVAX) Unknown Completed [facility] Influenza Virus Vaccine Quad .5 mL IM 6+ MO (FLUZONE/FLULAVAL/F LUARIX) Unknown Completed [facility] SARS-COV-2 COVID-19 PFIZER VACCINE Unknown Completed [facility] Pneumococcal Polysaccharide, PPSV23 (PNEUMOVAX) Unknown Completed [facility] Influenza Virus Vaccine Quad .5 mL IM 6+ MO (FLUZONE/FLULAVAL/F LUARIX) Unknown Completed [facility] SARS-COV-2 COVID-19 PFIZER VACCINE Unknown Completed [facility] Pneumococcal Polysaccharide, PPSV23 (PNEUMOVAX) Unknown Completed [facility] Influenza Virus Vaccine Quad .5 mL IM 6+ MO (FLUZONE/FLULAVAL/F LUARIX) Unknown Completed [facility] SARS-COV-2 COVID-19 PFIZER VACCINE Unknown Completed [facility] Pneumococcal Polysaccharide, PPSV23 (PNEUMOVAX) Unknown Completed [facility] Influenza Virus Vaccine Quad .5 mL IM 6+ MO (FLUZONE/FLULAVAL/F LUARIX) Unknown Completed [facility] SARS-COV-2 COVID 19 MARISA SUCROSE VACCINE 2022-2024, 0.3 ML (30 MCG), IM PFIZER (SHELLEY TOP) Unknown Completed [facility] Pneumococcal Polysaccharide, PPSV23 (PNEUMOVAX) Unknown Completed [facility] Influenza Virus Vaccine Quad .5 mL IM 6+ MO (FLUZONE/FLULAVAL/F LUARIX) Unknown Completed [facility] SARS-COV-2 COVID-19 PFIZER VACCINE Unknown Completed [facility] Influenza Virus Vaccine (6-35 mo) Unknown Completed [facility] Influenza Virus Vaccine Quad IM, Preserv and ABX Free 6 MO-64 YRS (FLUCELVAX) Unknown Completed [facility] SARS-COV-2 COVID-19 MARISA-SUCROSE VACCINE 12 YRS+, BIVALENT 0.3ML, IM, (PFIZER SHELLEY TOP) Unknown Completed [facility] TDAP Unknown Completed [facility] SARS-COV-2 COVID 19 MARISA SUCROSE VACCINE , [id number], 0.3 ML (30 MCG), IM PFIZER (SHELLEY TOP) Unknown Completed [facility] Pneumococcal Polysaccharide, PPSV23 (PNEUMOVAX) Unknown Completed [facility] Influenza Virus Vaccine Quad .5 mL IM 6+ MO (FLUZONE/FLULAVAL/F LUARIX) Unknown Completed [facility] SARS-COV-2 COVID-19 PFIZER VACCINE Unknown Completed [facility] Influenza Virus Vaccine (6-35 mo) Unknown Completed [facility] Influenza Virus Vaccine Quad IM, Preserv and ABX Free 6 MO-64 YRS (FLUCELVAX) Unknown Completed [facility] SARS-COV-2 COVID-19 MARISA-SUCROSE VACCINE 12 YRS+, BIVALENT 0.3ML, IM, (PFIZER SHELLEY TOP) Unknown Completed [facility] TDAP Unknown Completed [facility] Pneumococcal Polysaccharide, PPSV23 (PNEUMOVAX) Unknown Completed [facility] Influenza Virus Vaccine Quad .5 mL IM 6+ MO (FLUZONE/FLULAVAL/F LUARIX) Unknown Completed [facility] SARS-COV-2 COVID-19 PFIZER VACCINE Unknown Completed [facility] Influenza Virus Vaccine (6-35 mo) Unknown Completed [facility] Influenza Virus Vaccine Quad IM, Preserv and ABX Free 6 MO-64 YRS (FLUCELVAX) Unknown Completed [facility] SARS-COV-2 COVID-19 MARISA-SUCROSE VACCINE 12 YRS+, BIVALENT 0.3ML, IM, (PFIZER SHELLEY TOP) Unknown Completed [facility] TDAP Unknown Completed [facility] SARS-COV-2 COVID 19 MARISA SUCROSE VACCINE 12+, [id number], 0.3 ML (30 MCG), IM PFIZER (SHELLEY TOP) Unknown Completed [facility] Pneumococcal Polysaccharide, PPSV23 (PNEUMOVAX) Unknown Completed [facility] Influenza Virus Vaccine Quad .5 mL IM 6+ MO (FLUZONE/FLULAVAL/F LUARIX) Unknown Completed [facility] SARS-COV-2 COVID-19 PFIZER VACCINE Unknown Completed [facility] Influenza Virus Vaccine (6-35 mo) Unknown Completed [facility] Influenza Virus Vaccine Quad IM, Preserv and ABX Free 6 MO-64 YRS (FLUCELVAX) Unknown Completed [facility] SARS-COV-2 COVID-19 MARISA-SUCROSE VACCINE 12 YRS+, BIVALENT 0.3ML, IM, (PFIZER SHELLEY TOP) Unknown Completed [facility] TDAP Unknown Completed [facility] SARS-COV-2 COVID 19 MARISA SUCROSE VACCINE 12+, 4883-6120, 0.3 ML (30 MCG), IM PFIZER (SHELLEY TOP) Unknown Completed [facility] Pneumococcal Polysaccharide, PPSV23 (PNEUMOVAX) Unknown Completed [facility] Influenza Virus Vaccine Quad .5 mL IM 6+ MO (FLUZONE/FLULAVAL/F LUARIX) Unknown Completed [facility] SARS-COV-2 COVID-19 PFIZER VACCINE Unknown Completed [facility] Influenza Virus Vaccine (6-35 mo) Unknown Completed [facility] Influenza Virus Vaccine Quad IM, Preserv and ABX Free 6 MO-64 YRS (FLUCELVAX) Unknown Completed [facility] SARS-COV-2 COVID-19 MARISA-SUCROSE VACCINE 12 YRS+, BIVALENT 0.3ML, IM, (PFIZER SHELLEY TOP) Unknown Completed [facility] TDAP Unknown Completed [facility] SARS-COV-2 COVID 19 MARISA SUCROSE VACCINE 12+, , 0.3 ML (30 MCG), IM PFIZER (SHELLEY TOP) Unknown Completed [facility] Pneumococcal Polysaccharide, PPSV23 (PNEUMOVAX) Unknown Completed [facility] Influenza Virus Vaccine Quad .5 mL IM 6+ MO (FLUZONE/FLULAVAL/F LUARIX) Unknown Completed [facility] SARS-COV-2 COVID-19 PFIZER VACCINE Unknown Completed [facility] Influenza Virus Vaccine (6-35 mo) Unknown Completed [facility] Influenza Virus Vaccine Quad IM, Preserv and ABX Free 6 MO-64 YRS (FLUCELVAX) Unknown Completed [facility] SARS-COV-2 COVID-19 MARISA-SUCROSE VACCINE 12 YRS+, BIVALENT 0.3ML, IM, (PFIZER SHELLEY TOP) Unknown Completed [facility] TDAP Unknown Completed [facility] SARS-COV-2 COVID 19 MARISA SUCROSE VACCINE 12+, , 0.3 ML (30 MCG), IM PFIZER (SHELLEY TOP) Unknown Completed [facility] Pneumococcal Polysaccharide, PPSV23 (PNEUMOVAX) Unknown Completed [facility] Influenza Virus Vaccine Quad .5 mL IM 6+ MO (FLUZONE/FLULAVAL/F LUARIX) Unknown Completed [facility] SARS-COV-2 COVID-19 PFIZER VACCINE Unknown Completed [facility] Influenza Virus Vaccine (6-35 mo) Unknown Completed [facility] Influenza Virus Vaccine Quad IM, Preserv and ABX Free 6 MO-64 YRS (FLUCELVAX) Unknown Completed [facility] SARS-COV-2 COVID-19 MARISA-SUCROSE VACCINE 12 YRS+, BIVALENT 0.3ML, IM, (PFIZER SHELLEY TOP) Unknown Completed [facility] TDAP Unknown Completed [facility] SARS-COV-2 COVID 19 MARISA SUCROSE VACCINE 12+, [id number], 0.3 ML (30 MCG), IM PFIZER (SHELLEY TOP) Unknown Completed [facility] Pneumococcal Polysaccharide, PPSV23 (PNEUMOVAX) Unknown Completed [facility] Influenza Virus Vaccine Quad .5 mL IM 6+ MO (FLUZONE/FLULAVAL/F LUARIX) Unknown Completed [facility] SARS-COV-2 COVID-19 PFIZER VACCINE Unknown Completed [facility] Influenza Virus Vaccine (6-35 mo) Unknown Completed [facility] Influenza Virus Vaccine Quad IM, Preserv and ABX Free 6 MO-64 YRS (FLUCELVAX) Unknown Completed [facility] SARS-COV-2 COVID-19 MARISA-SUCROSE VACCINE 12 YRS+, BIVALENT 0.3ML, IM, (PFIZER SHELLEY TOP) Unknown Completed [facility] TDAP Unknown Completed [facility] SARS-COV-2 COVID 19 MARISA SUCROSE VACCINE 12+, [id number], 0.3 ML (30 MCG), IM PFIZER (SHELLEY TOP) Unknown Completed [facility] Pneumococcal Polysaccharide, PPSV23 (PNEUMOVAX) Unknown Completed [facility] Influenza Virus Vaccine Quad .5 mL IM 6+ MO (FLUZONE/FLULAVAL/F LUARIX) Unknown Completed [facility] SARS-COV-2 COVID-19 PFIZER VACCINE Unknown Completed [facility] Influenza Virus Vaccine (6-35 mo) Unknown Completed [facility] Influenza Virus Vaccine Quad IM, Preserv and ABX Free 6 MO-64 YRS (FLUCELVAX) Unknown Completed [facility] SARS-COV-2 COVID-19 MARISA-SUCROSE VACCINE 12 YRS+, BIVALENT 0.3ML, IM, (PFIZER SHELLEY TOP) Unknown Completed [facility] TDAP Unknown Completed [facility] SARS-COV-2 COVID 19 MARISA SUCROSE VACCINE 12+, [id number], 0.3 ML (30 MCG), IM PFIZER (SHELLEY TOP) Unknown Completed [facility] Pneumococcal Polysaccharide, PPSV23 (PNEUMOVAX) Unknown Completed [facility] Influenza Virus Vaccine Quad .5 mL IM 6+ MO (FLUZONE/FLULAVAL/F LUARIX) Unknown Completed [facility] SARS-COV-2 COVID-19 PFIZER VACCINE Unknown Completed [facility] Influenza Virus Vaccine (6-35 mo) Unknown Completed [facility] Influenza Virus Vaccine Quad IM, Preserv and ABX Free 6 MO-64 YRS (FLUCELVAX) Unknown Completed [facility] SARS-COV-2 COVID-19 MARISA-SUCROSE VACCINE 12 YRS+, BIVALENT 0.3ML, IM, (PFIZER SHELLEY TOP) Unknown Completed [facility] TDAP Unknown Completed [facility] SARS-COV-2 COVID 19 MARISA SUCROSE VACCINE 12+, , 0.3 ML (30 MCG), IM PFIZER (SHELLEY TOP) Unknown Completed [facility] Pneumococcal Polysaccharide, PPSV23 (PNEUMOVAX) Unknown Completed [facility] Influenza Virus Vaccine Quad .5 mL IM 6+ MO (FLUZONE/FLULAVAL/F LUARIX) Unknown Completed [facility] SARS-COV-2 COVID-19 PFIZER VACCINE Unknown Completed [facility] Influenza Virus Vaccine (6-35 mo) Unknown Completed [facility] Influenza Virus Vaccine Quad IM, Preserv and ABX Free 6 MO-64 YRS (FLUCELVAX) Unknown Completed [facility] SARS-COV-2 COVID-19 MARISA-SUCROSE VACCINE 12 YRS+, BIVALENT 0.3ML, IM, (PFIZER SHELLEY TOP) Unknown Completed [facility] TDAP Unknown Completed [facility] SARS-COV-2 COVID 19 MARISA SUCROSE VACCINE 12+, , 0.3 ML (30 MCG), IM PFIZER (SHELLEY TOP) Unknown Completed [facility] Pneumococcal Polysaccharide, PPSV23 (PNEUMOVAX) Unknown Completed [facility] Influenza Virus Vaccine Quad .5 mL IM 6+ MO (FLUZONE/FLULAVAL/F LUARIX) Unknown Completed [facility] SARS-COV-2 COVID-19 PFIZER VACCINE Unknown Completed [facility] Influenza Virus Vaccine (6-35 mo) Unknown Completed [facility] Influenza Virus Vaccine Quad IM, Preserv and ABX Free 6 MO-64 YRS (FLUCELVAX) Unknown Completed [facility] SARS-COV-2 COVID-19 MARISA-SUCROSE VACCINE 12 YRS+, BIVALENT 0.3ML, IM, (PFIZER SHELLEY TOP) Unknown Completed [facility] TDAP Unknown Completed [facility] SARS-COV-2 COVID 19 MARISA SUCROSE VACCINE 12+, , 0.3 ML (30 MCG), IM PFIZER (SHELLEY TOP) Unknown Completed [facility] Pneumococcal Polysaccharide, PPSV23 (PNEUMOVAX) Unknown Completed [facility] Influenza Virus Vaccine Quad .5 mL IM 6+ MO (FLUZONE/FLULAVAL/F LUARIX) Unknown Completed [facility] SARS-COV-2 COVID-19 PFIZER VACCINE Unknown Completed [facility] Influenza Virus Vaccine (6-35 mo) Unknown Completed [facility] Influenza Virus Vaccine Quad IM, Preserv and ABX Free 6 MO-64 YRS (FLUCELVAX) Unknown Completed [facility] SARS-COV-2 COVID-19 MARISA-SUCROSE VACCINE 12 YRS+, BIVALENT 0.3ML, IM, (PFIZER SHELLEY TOP) Unknown Completed [facility] TDAP Unknown Completed [facility] SARS-COV-2 COVID 19 MARISA SUCROSE VACCINE 12+, , 0.3 ML (30 MCG), IM PFIZER (SHELLEY TOP) Unknown Completed [facility] Pneumococcal Polysaccharide, PPSV23 (PNEUMOVAX) Unknown Completed [facility] Influenza Virus Vaccine Quad .5 mL IM 6+ MO (FLUZONE/FLULAVAL/F LUARIX) Unknown Completed [facility] SARS-COV-2 COVID-19 PFIZER VACCINE Unknown Completed [facility] Influenza Virus Vaccine (6-35 mo) Unknown Completed [facility] Influenza Virus Vaccine Quad IM, Preserv and ABX Free 6 MO-64 YRS (FLUCELVAX) Unknown Completed [facility] SARS-COV-2 COVID-19 MARISA-SUCROSE VACCINE 12 YRS+, BIVALENT 0.3ML, IM, (PFIZER SHELLEY TOP) Unknown Completed [facility] TDAP Unknown Completed [facility] SARS-COV-2 COVID 19 MARISA SUCROSE VACCINE 12+, [id number], 0.3 ML (30 MCG), IM PFIZER (SHELLEY TOP) Unknown Completed [facility] Pneumococcal Polysaccharide, PPSV23 (PNEUMOVAX) Unknown Completed [facility] Influenza Virus Vaccine Quad .5 mL IM 6+ MO (FLUZONE/FLULAVAL/F LUARIX) Unknown Completed [facility] SARS-COV-2 COVID-19 PFIZER VACCINE Unknown Completed [facility] Influenza Virus Vaccine (6-35 mo) Unknown Completed [facility] Influenza Virus Vaccine Quad IM, Preserv and ABX Free 6 MO-64 YRS (FLUCELVAX) Unknown Completed [facility] SARS-COV-2 COVID-19 MARISA-SUCROSE VACCINE 12 YRS+, BIVALENT 0.3ML, IM, (PFIZER SHELLEY TOP) Unknown Completed [facility] TDAP Unknown Completed [facility] SARS-COV-2 COVID 19 MARISA SUCROSE VACCINE 12, , 0.3 ML (30 MCG), IM PFIZER (SHELLEY TOP) Unknown Completed [facility] Pneumococcal Polysaccharide, PPSV23 (PNEUMOVAX) Unknown Completed [facility] Influenza Virus Vaccine Quad .5 mL IM 6+ MO (FLUZONE/FLULAVAL/F LUARIX) Unknown Completed [facility] SARS-COV-2 COVID-19 PFIZER VACCINE Unknown Completed [facility] Influenza Virus Vaccine (6-35 mo) Unknown Completed [facility] Influenza Virus Vaccine Quad IM, Preserv and ABX Free 6 MO-64 YRS (FLUCELVAX) Unknown Completed [facility] SARS-COV-2 COVID-19 MARISA-SUCROSE VACCINE 12 YRS+, BIVALENT 0.3ML, IM, (PFIZER SHELLEY TOP) Unknown Completed [facility] TDAP Unknown Completed [facility] SARS-COV-2 COVID 19 MARISA SUCROSE VACCINE 12, , 0.3 ML (30 MCG), IM PFIZER (SHELLEY TOP) Unknown Completed [facility] Pneumococcal Polysaccharide, PPSV23 (PNEUMOVAX) Unknown Completed [facility] Influenza Virus Vaccine Quad .5 mL IM 6+ MO (FLUZONE/FLULAVAL/F LUARIX) Unknown Completed [facility] SARS-COV-2 COVID-19 PFIZER VACCINE Unknown Completed [facility] Influenza Virus Vaccine (6-35 mo) Unknown Completed [facility] Influenza Virus Vaccine Quad IM, Preserv and ABX Free 6 MO-64 YRS (FLUCELVAX) Unknown Completed [facility] SARS-COV-2 COVID-19 MARISA-SUCROSE VACCINE 12 YRS+, BIVALENT 0.3ML, IM, (PFIZER SHELLEY TOP) Unknown Completed [facility] TDAP Unknown Completed [facility] SARS-COV-2 COVID 19 MARISA SUCROSE VACCINE 12+, , 0.3 ML (30 MCG), IM PFIZER (SHELLEY TOP) Unknown Completed [facility] Pneumococcal Polysaccharide, PPSV23 (PNEUMOVAX) Unknown Completed [facility] Influenza Virus Vaccine Quad .5 mL IM 6+ MO (FLUZONE/FLULAVAL/F LUARIX) Unknown Completed [facility] SARS-COV-2 COVID-19 PFIZER VACCINE Unknown Completed [facility] Influenza Virus Vaccine (6-35 mo) Unknown Completed [facility] Influenza Virus Vaccine Quad IM, Preserv and ABX Free 6 MO-64 YRS (FLUCELVAX) Unknown Completed [facility] SARS-COV-2 COVID-19 MARISA-SUCROSE VACCINE 12 YRS+, BIVALENT 0.3ML, IM, (PFIZER SHELLEY TOP) Unknown Completed [facility] TDAP Unknown Completed [facility] SARS-COV-2 COVID 19 MARISA SUCROSE VACCINE 12+, , 0.3 ML (30 MCG), IM PFIZER (SHELLEY TOP) Unknown Completed [facility] Pneumococcal Polysaccharide, PPSV23 (PNEUMOVAX) Unknown Completed [facility] Influenza Virus Vaccine Quad .5 mL IM 6+ MO (FLUZONE/FLULAVAL/F LUARIX) Unknown Completed [facility] SARS-COV-2 COVID-19 PFIZER VACCINE Unknown Completed [facility] Influenza Virus Vaccine (6-35 mo) Unknown Completed [facility] Influenza Virus Vaccine Quad IM, Preserv and ABX Free 6 MO-64 YRS (FLUCELVAX) Unknown Completed [facility] SARS-COV-2 COVID-19 MARISA-SUCROSE VACCINE 12 YRS+, BIVALENT 0.3ML, IM, (PFIZER SHELLEY TOP) Unknown Completed [facility] TDAP Unknown Completed [facility] SARS-COV-2 COVID 19 MARISA SUCROSE VACCINE 12+, [id number], 0.3 ML (30 MCG), IM PFIZER (SHELLEY TOP) Unknown Completed [facility] Pneumococcal Polysaccharide, PPSV23 (PNEUMOVAX) Unknown Completed [facility] Influenza Virus Vaccine Quad .5 mL IM 6+ MO (FLUZONE/FLULAVAL/F LUARIX) Unknown Completed [facility] SARS-COV-2 COVID-19 PFIZER VACCINE Unknown Completed [facility] Influenza Virus Vaccine (6-35 mo) Unknown Completed [facility] Influenza Virus Vaccine Quad IM, Preserv and ABX Free 6 MO-64 YRS (FLUCELVAX) Unknown Completed [facility] SARS-COV-2 COVID-19 MARISA-SUCROSE VACCINE 12 YRS+, BIVALENT 0.3ML, IM, (PFIZER SHELLEY TOP) Unknown Completed [facility] TDAP Unknown Completed [facility] SARS-COV-2 COVID 19 MARISA SUCROSE VACCINE 12+, , 0.3 ML (30 MCG), IM PFIZER (SHELLEY TOP) Unknown Completed [facility] Pneumococcal Polysaccharide, PPSV23 (PNEUMOVAX) Unknown Completed [facility] Influenza Virus Vaccine Quad .5 mL IM 6+ MO (FLUZONE/FLULAVAL/F LUARIX) Unknown Completed [facility] SARS-COV-2 COVID-19 PFIZER VACCINE Unknown Completed [facility] Influenza Virus Vaccine (6-35 mo) Unknown Completed [facility] Influenza Virus Vaccine Quad IM, Preserv and ABX Free 6 MO-64 YRS (FLUCELVAX) Unknown Completed [facility] SARS-COV-2 COVID-19 MARISA-SUCROSE VACCINE 12 YRS+, BIVALENT 0.3ML, IM, (PFIZER SHELLEY TOP) Unknown Completed [facility] TDAP Unknown Completed [facility] SARS-COV-2 COVID 19 MARISA SUCROSE VACCINE 12+, , 0.3 ML (30 MCG), IM PFIZER (SHELLEY TOP) Unknown Completed [facility] Pneumococcal Polysaccharide, PPSV23 (PNEUMOVAX) Unknown Completed [facility] Influenza Virus Vaccine Quad .5 mL IM 6+ MO (FLUZONE/FLULAVAL/F LUARIX) Unknown Completed [facility] SARS-COV-2 COVID-19 PFIZER VACCINE Unknown Completed [facility] Influenza Virus Vaccine (6-35 mo) Unknown Completed [facility] Influenza Virus Vaccine Quad IM, Preserv and ABX Free 6 MO-64 YRS (FLUCELVAX) Unknown Completed [facility] SARS-COV-2 COVID-19 MARISA-SUCROSE VACCINE 12 YRS+, BIVALENT 0.3ML, IM, (PFIZER SHELLEY TOP) Unknown Completed [facility] TDAP Unknown Completed [facility] SARS-COV-2 COVID 19 MARISA SUCROSE VACCINE 12+, [id number], 0.3 ML (30 MCG), IM PFIZER (SHELLEY TOP) Unknown Completed [facility] Pneumococcal Polysaccharide, PPSV23 (PNEUMOVAX) Unknown Completed [facility] Influenza Virus Vaccine Quad .5 mL IM 6+ MO (FLUZONE/FLULAVAL/F LUARIX) Unknown Completed [facility] SARS-COV-2 COVID-19 PFIZER VACCINE Unknown Completed [facility] Influenza Virus Vaccine (6-35 mo) Unknown Completed [facility] Influenza Virus Vaccine Quad IM, Preserv and ABX Free 6 MO-64 YRS (FLUCELVAX) Unknown Completed [facility] SARS-COV-2 COVID-19 MARISA-SUCROSE VACCINE 12 YRS+, BIVALENT 0.3ML, IM, (PFIZER SHELLEY TOP) Unknown Completed [facility] TDAP Unknown Completed [facility] SARS-COV-2 COVID 19 MARISA SUCROSE VACCINE 12+, , 0.3 ML (30 MCG), IM PFIZER (SHELLEY TOP) Unknown Completed [facility] Pneumococcal Polysaccharide, PPSV23 (PNEUMOVAX) Unknown Completed [facility] Influenza Virus Vaccine Quad .5 mL IM 6+ MO (FLUZONE/FLULAVAL/F LUARIX) Unknown Completed [facility] SARS-COV-2 COVID-19 PFIZER VACCINE Unknown Completed [facility] Influenza Virus Vaccine (6-35 mo) Unknown Completed [facility] Influenza Virus Vaccine Quad IM, Preserv and ABX Free 6 MO-64 YRS (FLUCELVAX) Unknown Completed [facility] SARS-COV-2 COVID-19 MARISA-SUCROSE VACCINE 12 YRS+, BIVALENT 0.3ML, IM, (PFIZER SHELLEY TOP) Unknown Completed [facility] TDAP Unknown Completed [facility] SARS-COV-2 COVID 19 MARISA SUCROSE VACCINE 12+, [id number], 0.3 ML (30 MCG), IM PFIZER (SHELLEY TOP) Unknown Completed [facility] Pneumococcal Polysaccharide, PPSV23 (PNEUMOVAX) Unknown Completed [facility] Influenza Virus Vaccine Quad .5 mL IM 6+ MO (FLUZONE/FLULAVAL/F LUARIX) Unknown Completed [facility] SARS-COV-2 COVID-19 PFIZER VACCINE Unknown Completed [facility] Influenza Virus Vaccine (6-35 mo) Unknown Completed [facility] Influenza Virus Vaccine Quad IM, Preserv and ABX Free 6 MO-64 YRS (FLUCELVAX) Unknown Completed [facility] SARS-COV-2 COVID-19 MARISA-SUCROSE VACCINE 12 YRS+, BIVALENT 0.3ML, IM, (PFIZER SHELLEY TOP) Unknown Completed [facility] TDAP Unknown Completed [facility] SARS-COV-2 COVID 19 MARISA SUCROSE VACCINE 12+, , 0.3 ML (30 MCG), IM PFIZER (SHELLEY TOP) Unknown Completed [facility] Pneumococcal Polysaccharide, PPSV23 (PNEUMOVAX) Unknown Completed [facility] Influenza Virus Vaccine Quad .5 mL IM 6+ MO (FLUZONE/FLULAVAL/F LUARIX) Unknown Completed [facility] SARS-COV-2 COVID-19 PFIZER VACCINE Unknown Completed [facility] Influenza Virus Vaccine (6-35 mo) Unknown Completed [facility] Influenza Virus Vaccine Quad IM, Preserv and ABX Free 6 MO-64 YRS (FLUCELVAX) Unknown Completed [facility] SARS-COV-2 COVID-19 MARISA-SUCROSE VACCINE 12 YRS+, BIVALENT 0.3ML, IM, (PFIZER SHELLEY TOP) Unknown Completed [facility] TDAP Unknown Completed [facility] SARS-COV-2 COVID 19 MARISA SUCROSE VACCINE 12+, , 0.3 ML (30 MCG), IM PFIZER (SHELLEY TOP) Unknown Completed [facility] Pneumococcal Polysaccharide, PPSV23 (PNEUMOVAX) Unknown Completed [facility] Influenza Virus Vaccine Quad .5 mL IM 6+ MO (FLUZONE/FLULAVAL/F LUARIX) Unknown Completed [facility] SARS-COV-2 COVID-19 PFIZER VACCINE Unknown Completed [facility] Influenza Virus Vaccine (6-35 mo) Unknown Completed [facility] Influenza Virus Vaccine Quad IM, Preserv and ABX Free 6 MO-64 YRS (FLUCELVAX) Unknown Completed [facility] SARS-COV-2 COVID-19 AMRISA-SUCROSE VACCINE 12 YRS+, BIVALENT 0.3ML, IM, (PFIZER SHELLEY TOP) Unknown Completed [facility] TDAP Unknown Completed [facility] SARS-COV-2 COVID 19 MARISA SUCROSE VACCINE 12+, , 0.3 ML (30 MCG), IM PFIZER (SHELLEY TOP) Unknown Completed [facility] Pneumococcal Polysaccharide, PPSV23 (PNEUMOVAX) Unknown Completed [facility] Influenza Virus Vaccine Quad .5 mL IM 6+ MO (FLUZONE/FLULAVAL/F LUARIX) Unknown Completed [facility] SARS-COV-2 COVID-19 PFIZER VACCINE Unknown Completed [facility] Influenza Virus Vaccine (6-35 mo) Unknown Completed [facility] Influenza Virus Vaccine Quad IM, Preserv and ABX Free 6 MO-64 YRS (FLUCELVAX) Unknown Completed [facility] SARS-COV-2 COVID-19 MARISA-SUCROSE VACCINE 12 YRS+, BIVALENT 0.3ML, IM, (PFIZER SHELLEY TOP) Unknown Completed [facility] TDAP Unknown Completed [facility] SARS-COV-2 COVID 19 MARISA SUCROSE VACCINE 12+, , 0.3 ML (30 MCG), IM PFIZER (SHELLEY TOP) Unknown Completed [facility] Pneumococcal Polysaccharide, PPSV23 (PNEUMOVAX) Unknown Completed [facility] Influenza Virus Vaccine Quad .5 mL IM 6+ MO (FLUZONE/FLULAVAL/F LUARIX) Unknown Completed [facility] SARS-COV-2 COVID-19 PFIZER VACCINE Unknown Completed [facility] Influenza Virus Vaccine (6-35 mo) Unknown Completed [facility] Influenza Virus Vaccine Quad IM, Preserv and ABX Free 6 MO-64 YRS (FLUCELVAX) Unknown Completed [facility] SARS-COV-2 COVID-19 MARISA-SUCROSE VACCINE 12 YRS+, BIVALENT 0.3ML, IM, (PFIZER SHELLEY TOP) Unknown Completed [facility] TDAP Unknown Completed [facility] SARS-COV-2 COVID 19 MARISA SUCROSE VACCINE 12+, [id number], 0.3 ML (30 MCG), IM PFIZER (SHELLEY TOP) Unknown Completed [facility] Pneumococcal Polysaccharide, PPSV23 (PNEUMOVAX) Unknown Completed [facility] Influenza Virus Vaccine Quad .5 mL IM 6+ MO (FLUZONE/FLULAVAL/F LUARIX) Unknown Completed [facility] SARS-COV-2 COVID-19 PFIZER VACCINE Unknown Completed [facility] Influenza Virus Vaccine (6-35 mo) Unknown Completed [facility] Influenza Virus Vaccine Quad IM, Preserv and ABX Free 6 MO-64 YRS (FLUCELVAX) Unknown Completed [facility] SARS-COV-2 COVID-19 MARISA-SUCROSE VACCINE 12 YRS+, BIVALENT 0.3ML, IM, (PFIZER SHELLEY TOP) Unknown Completed [facility] TDAP Unknown Completed [facility] SARS-COV-2 COVID 19 MARISA SUCROSE VACCINE 12+, [id number], 0.3 ML (30 MCG), IM PFIZER (SHELLEY TOP) Unknown Completed [facility] Pneumococcal Polysaccharide, PPSV23 (PNEUMOVAX) Unknown Completed [facility] Influenza Virus Vaccine Quad .5 mL IM 6+ MO (FLUZONE/FLULAVAL/F LUARIX) Unknown Completed [facility] SARS-COV-2 COVID-19 PFIZER VACCINE Unknown Completed [facility] Influenza Virus Vaccine (6-35 mo) Unknown Completed [facility] Influenza Virus Vaccine Quad IM, Preserv and ABX Free 6 MO-64 YRS (FLUCELVAX) Unknown Completed [facility] SARS-COV-2 COVID-19 MARISA-SUCROSE VACCINE 12 YRS+, BIVALENT 0.3ML, IM, (PFIZER SHELLEY TOP) Unknown Completed [facility] TDAP Unknown Completed [facility] SARS-COV-2 COVID 19 MARISA SUCROSE VACCINE 12+, [id number], 0.3 ML (30 MCG), IM PFIZER (SHELLEY TOP) Unknown Completed [facility] Pneumococcal Polysaccharide, PPSV23 (PNEUMOVAX) Unknown Completed [facility] Influenza Virus Vaccine Quad .5 mL IM 6+ MO (FLUZONE/FLULAVAL/F LUARIX) Unknown Completed [facility] SARS-COV-2 COVID-19 PFIZER VACCINE Unknown Completed [facility] Influenza Virus Vaccine (6-35 mo) Unknown Completed [facility] Influenza Virus Vaccine Quad IM, Preserv and ABX Free 6 MO-64 YRS (FLUCELVAX) Unknown Completed [facility] SARS-COV-2 COVID-19 MARISA-SUCROSE VACCINE 12 YRS+, BIVALENT 0.3ML, IM, (PFIZER SHELLEY TOP) Unknown Completed [facility] TDAP Unknown Completed [facility] SARS-COV-2 COVID 19 MARISA SUCROSE VACCINE 12+, , 0.3 ML (30 MCG), IM PFIZER (SHELLEY TOP) Unknown Completed [facility] Pneumococcal Polysaccharide, PPSV23 (PNEUMOVAX) Unknown Completed [facility] Influenza Virus Vaccine Quad .5 mL IM 6+ MO (FLUZONE/FLULAVAL/F LUARIX) Unknown Completed [facility] SARS-COV-2 COVID-19 PFIZER VACCINE Unknown Completed [facility] Influenza Virus Vaccine (6-35 mo) Unknown Completed [facility] Influenza Virus Vaccine Quad IM, Preserv and ABX Free 6 MO-64 YRS (FLUCELVAX) Unknown Completed [facility] SARS-COV-2 COVID-19 MARISA-SUCROSE VACCINE 12 YRS+, BIVALENT 0.3ML, IM, (PFIZER SHELLEY TOP) Unknown Completed [facility] TDAP Unknown Completed [facility] SARS-COV-2 COVID 19 MARISA SUCROSE VACCINE 12+, , 0.3 ML (30 MCG), IM PFIZER (SHELLEY TOP) Unknown Completed [facility] Pneumococcal Polysaccharide, PPSV23 (PNEUMOVAX) Unknown Completed [facility] Influenza Virus Vaccine Quad .5 mL IM 6+ MO (FLUZONE/FLULAVAL/F LUARIX) Unknown Completed [facility] SARS-COV-2 COVID-19 PFIZER VACCINE Unknown Completed [facility] Influenza Virus Vaccine (6-35 mo) Unknown Completed [facility] Influenza Virus Vaccine Quad IM, Preserv and ABX Free 6 MO-64 YRS (FLUCELVAX) Unknown Completed [facility] SARS-COV-2 COVID-19 MARISA-SUCROSE VACCINE 12 YRS+, BIVALENT 0.3ML, IM, (PFIZER SHELLEY TOP) Unknown Completed [facility] TDAP Unknown Completed [facility] SARS-COV-2 COVID 19 MARISA SUCROSE VACCINE 12+, [id number], 0.3 ML (30 MCG), IM PFIZER (SHELLEY TOP) Unknown Completed [facility] Pneumococcal Polysaccharide, PPSV23 (PNEUMOVAX) Unknown Completed [facility] Influenza Virus Vaccine Quad .5 mL IM 6+ MO (FLUZONE/FLULAVAL/F LUARIX) Unknown Completed [facility] SARS-COV-2 COVID-19 PFIZER VACCINE Unknown Completed [facility] Influenza Virus Vaccine (6-35 mo) Unknown Completed [facility] Influenza Virus Vaccine Quad IM, Preserv and ABX Free 6 MO-64 YRS (FLUCELVAX) Unknown Completed [facility] SARS-COV-2 COVID-19 MARISA-SUCROSE VACCINE 12 YRS+, BIVALENT 0.3ML, IM, (PFIZER SHELLEY TOP) Unknown Completed [facility] TDAP Unknown Completed [facility] SARS-COV-2 COVID 19 MARISA SUCROSE VACCINE 12+, [id number], 0.3 ML (30 MCG), IM PFIZER (SHELLEY TOP) Unknown Completed [facility] Pneumococcal Polysaccharide, PPSV23 (PNEUMOVAX) Unknown Completed [facility] Influenza Virus Vaccine Quad .5 mL IM 6+ MO (FLUZONE/FLULAVAL/F LUARIX) Unknown Completed [facility] SARS-COV-2 COVID-19 PFIZER VACCINE Unknown Completed [facility] Influenza Virus Vaccine (6-35 mo) Unknown Completed [facility] Influenza Virus Vaccine Quad IM, Preserv and ABX Free 6 MO-64 YRS (FLUCELVAX) Unknown Completed [facility] SARS-COV-2 COVID-19 MARISA-SUCROSE VACCINE 12 YRS+, BIVALENT 0.3ML, IM, (PFIZER SHELLEY TOP) Unknown Completed [facility] TDAP Unknown Completed [facility] SARS-COV-2 COVID 19 MARISA SUCROSE VACCINE 12+, [id number], 0.3 ML (30 MCG), IM PFIZER (SHELLEY TOP) Unknown Completed [facility] Pneumococcal Polysaccharide, PPSV23 (PNEUMOVAX) Unknown Completed [facility] Influenza Virus Vaccine Quad .5 mL IM 6+ MO (FLUZONE/FLULAVAL/F LUARIX) Unknown Completed [facility] SARS-COV-2 COVID-19 PFIZER VACCINE Unknown Completed [facility] Influenza Virus Vaccine (6-35 mo) Unknown Completed [facility] Influenza Virus Vaccine Quad IM, Preserv and ABX Free 6 MO-64 YRS (FLUCELVAX) Unknown Completed [facility] SARS-COV-2 COVID-19 MARISA-SUCROSE VACCINE 12 YRS+, BIVALENT 0.3ML, IM, (PFIZER SHELLEY TOP) Unknown Completed [facility] TDAP Unknown Completed [facility] SARS-COV-2 COVID 19 MARISA SUCROSE VACCINE 12+, , 0.3 ML (30 MCG), IM PFIZER (SHELLEY TOP) Unknown Completed [facility] Pneumococcal Polysaccharide, PPSV23 (PNEUMOVAX) Unknown Completed [facility] Influenza Virus Vaccine Quad .5 mL IM 6+ MO (FLUZONE/FLULAVAL/F LUARIX) Unknown Completed [facility] SARS-COV-2 COVID-19 PFIZER VACCINE Unknown Completed [facility] Influenza Virus Vaccine (6-35 mo) Unknown Completed [facility] Influenza Virus Vaccine Quad IM, Preserv and ABX Free 6 MO-64 YRS (FLUCELVAX) Unknown Completed [facility] SARS-COV-2 COVID-19 MARISA-SUCROSE VACCINE 12 YRS+, BIVALENT 0.3ML, IM, (PFIZER SHELLEY TOP) Unknown Completed [facility] TDAP Unknown Completed [facility] SARS-COV-2 COVID 19 MARISA SUCROSE VACCINE 12+, , 0.3 ML (30 MCG), IM PFIZER (SHELLEY TOP) Unknown Completed [facility] Vital Signs Vital Name Observation Time Observation Value Comments S ource Systolic blood pressure 2023-09-11 18:46:00 135 mm[Hg] [facility] Diastolic blood pressure 2023-09-11 18:46:00 84 mm[Hg] [facility] Heart rate 2023-09-11 18:46:00 106 /min [facility] Body temperature 2023-09-11 18:46:00 36 Nelli [facility] Respiratory rate 2023-09-11 18:46:00 18 /min [facility] Body height 2023-09-11 18:46:00 175.3 cm [facility] Body weight 2023-09-11 18:46:00 83.915 kg [facility] BMI 2023-09-11 18:46:00 27.32 kg/m2 [facility] Oxygen saturation in Arterial blood by Pulse oximetry 2023-09-11 18:46:00 96 /min Room Air [facility] Systolic blood pressure 2023-08-18 13:51:00 124 mm[Hg] [facility] Diastolic blood pressure 2023-08-18 13:51:00 75 mm[Hg] [facility] Heart rate 2023-08-18 13:51:00 94 /min [facility] Body temperature 2023-08-18 13:51:00 36.89 Nelli [facility] Body height 2023-08-18 13:51:00 175.3 cm [facility] Body weight 2023-08-18 13:51:00 83.87 kg [facility] BMI 2023-08-18 13:51:00 27.30 kg/m2 [facility] Oxygen saturation in Arterial blood by Pulse oximetry 2023-08-18 13:51:00 100 /min [facility] Systolic blood pressure 2023-01-12 19:08:00 129 mm[Hg] [facility] Diastolic blood pressure 2023-01-12 19:08:00 76 mm[Hg] [facility] Heart rate 2023-01-12 19:08:00 105 /min [facility] Body temperature 2023-01-12 19:08:00 36.5 Nelli [facility] Body height 2023-01-12 19:08:00 175.3 cm [facility] Body weight 2023-01-12 19:08:00 84.868 kg [facility] BMI 2023-01-12 19:08:00 27.63 kg/m2 [facility] Oxygen saturation in Arterial blood by Pulse oximetry 2023-01-12 19:08:00 98 /min [facility] Systolic blood pressure 2022-12-12 18:09:00 125 mm[Hg] [facility] Diastolic blood pressure 2022-12-12 18:09:00 74 mm[Hg] [facility] Heart rate 2022-12-12 18:09:00 92 /min [facility] Body temperature 2022-12-12 18:09:00 37.17 Nelli [facility] Respiratory rate 2022-12-12 18:09:00 18 /min [facility] Body height 2022-12-12 18:09:00 175.3 cm [facility] Body weight 2022-12-12 18:09:00 82.555 kg [facility] BMI 2022-12-12 18:09:00 26.88 kg/m2 [facility] Oxygen saturation in Arterial blood by Pulse oximetry 2022-12-12 18:09:00 98 /min [facility] Systolic blood pressure 2022-10-03 21:26:00 146 mm[Hg] [facility] Diastolic blood pressure 2022-10-03 21:26:00 84 mm[Hg] [facility] Heart rate 2022-10-03 21:26:00 100 /min [facility] Body temperature 2022-10-03 21:26:00 37.06 Nelli [facility] Respiratory rate 2022-10-03 21:26:00 16 /min [facility] Body height 2022-10-03 21:26:00 175.3 cm [facility] Body weight 2022-10-03 21:26:00 81.012 kg [facility] BMI 2022-10-03 21:26:00 26.37 kg/m2 [facility] Oxygen saturation in Arterial blood by Pulse oximetry 2022-10-03 21:26:00 97 /min [facility] Systolic blood pressure 2022-09-12 03:48:31 127 mm[Hg] [facility] Diastolic blood pressure 2022-09-12 03:48:31 83 mm[Hg] [facility] Heart rate 2022-09-12 03:48:31 75 /min [facility] Respiratory rate 2022-09-12 03:48:31 18 /min [facility] Oxygen saturation in Arterial blood by Pulse oximetry 2022-09-12 03:48:31 98 /min [facility] Body temperature 2022-09-12 00:53:00 36.83 Nelli [facility] Body height 2022-09-12 00:53:00 175.3 cm [facility] Body weight 2022-09-12 00:53:00 81.375 kg [facility] BMI 2022-09-12 00:53:00 26.49 kg/m2 [facility] Systolic blood pressure 2022-09-05 20:52:00 101 mm[Hg] [facility] Diastolic blood pressure 2022-09-05 20:52:00 63 mm[Hg] [facility] Heart rate 2022-09-05 20:52:00 97 /min [facility] Body temperature 2022-09-05 20:52:00 36.5 Nelli [facility] Body height 2022-09-05 20:52:00 175.3 cm [facility] Body weight 2022-09-05 20:52:00 79.833 kg [facility] BMI 2022-09-05 20:52:00 25.99 kg/m2 [facility] Oxygen saturation in Arterial blood by Pulse oximetry 2022-09-05 20:52:00 98 /min [facility] Systolic blood pressure 2022-08-30 22:44:00 146 mm[Hg] [facility] Diastolic blood pressure 2022-08-30 22:44:00 81 mm[Hg] [facility] Heart rate 2022-08-30 22:44:00 99 /min [facility] Body temperature 2022-08-30 22:44:00 36.78 Nelli [facility] Respiratory rate 2022-08-30 22:44:00 18 /min [facility] Body height 2022-08-30 22:44:00 175.3 cm [facility] Body weight 2022-08-30 22:44:00 81.194 kg [facility] BMI 2022-08-30 22:44:00 26.43 kg/m2 [facility] Oxygen saturation in Arterial blood by Pulse oximetry 2022-08-30 22:44:00 98 /min [facility] Systolic blood pressure 2022-08-19 20:36:56 125 mm[Hg] [facility] Diastolic blood pressure 2022-08-19 20:36:56 78 mm[Hg] [facility] Heart rate 2022-08-19 20:36:56 71 /min [facility] Respiratory rate 2022-08-19 20:36:56 18 /min [facility] Oxygen saturation in Arterial blood by Pulse oximetry 2022-08-19 20:36:56 99 /min [facility] Body temperature 2022-08-19 18:11:00 36.17 Nelli [facility] Body height 2022-08-19 18:11:00 175.3 cm [facility] Body weight 2022-08-19 18:11:00 81.194 kg [facility] BMI 2022-08-19 18:11:00 26.43 kg/m2 [facility] Systolic blood pressure 2022-08-13 20:46:00 139 mm[Hg] [facility] Diastolic blood pressure 2022-08-13 20:46:00 90 mm[Hg] [facility] Heart rate 2022-08-13 20:46:00 95 /min [facility] Body temperature 2022-08-13 20:46:00 36.61 Nelli [facility] Respiratory rate 2022-08-13 20:46:00 14 /min [facility] Body height 2022-08-13 20:46:00 175.3 cm [facility] Body weight 2022-08-13 20:46:00 81.194 kg [facility] BMI 2022-08-13 20:46:00 26.43 kg/m2 [facility] Oxygen saturation in Arterial blood by Pulse oximetry 2022-08-13 20:46:00 99 /min [facility] Systolic blood pressure 2022-07-03 04:30:00 115 mm[Hg] [facility] Diastolic blood pressure 2022-07-03 04:30:00 62 mm[Hg] [facility] Heart rate 2022-07-03 04:30:00 79 /min [facility] Respiratory rate 2022-07-03 04:30:00 18 /min [facility] Oxygen saturation in Arterial blood by Pulse oximetry 2022-07-03 04:30:00 97 /min [facility] Body temperature 2022-07-03 02:34:00 36.61 Nelli [facility] Body height 2022-07-03 02:34:00 170.2 cm [facility] Body weight 2022-07-03 02:34:00 81.194 kg [facility] BMI 2022-07-03 02:34:00 28.04 kg/m2 [facility] Heart rate 2022-06-03 04:18:24 92 /min [facility] Respiratory rate 2022-06-03 04:18:24 15 /min [facility] Oxygen saturation in Arterial blood by Pulse oximetry 2022-06-03 04:18:24 97 /min [facility] Systolic blood pressure 2022-06-03 04:00:00 139 mm[Hg] [facility] Diastolic blood pressure 2022-06-03 04:00:00 79 mm[Hg] [facility] Body temperature 2022-06-03 01:38:00 37 Nelli [facility] Body height 2022-06-03 01:38:00 170.2 cm [facility] Body weight 2022-06-03 01:38:00 81.194 kg [facility] BMI 2022-06-03 01:38:00 28.04 kg/m2 [facility] Systolic blood pressure 2022-05-20 19:58:00 133 mm[Hg] [facility] Diastolic blood pressure 2022-05-20 19:58:00 80 mm[Hg] [facility] Heart rate 2022-05-20 19:58:00 98 /min [facility] Body temperature 2022-05-20 19:58:00 36.33 Nelli [facility] Respiratory rate 2022-05-20 19:58:00 16 /min [facility] Body height 2022-05-20 19:58:00 170.2 cm [facility] Body weight 2022-05-20 19:58:00 81.194 kg [facility] BMI 2022-05-20 19:58:00 28.04 kg/m2 [facility] Oxygen saturation in Arterial blood by Pulse oximetry 2022-05-20 19:58:00 98 /min [facility] Systolic blood pressure 2022-05-18 23:15:00 137 mm[Hg] [facility] Diastolic blood pressure 2022-05-18 23:15:00 92 mm[Hg] [facility] Heart rate 2022-05-18 23:15:00 106 /min [facility] Body temperature 2022-05-18 23:15:00 36.61 Nelli [facility] Respiratory rate 2022-05-18 23:15:00 16 /min [facility] Body height 2022-05-18 23:15:00 170.2 cm [facility] Body weight 2022-05-18 23:15:00 81.194 kg [facility] BMI 2022-05-18 23:15:00 28.04 kg/m2 [facility] Oxygen saturation in Arterial blood by Pulse oximetry 2022-05-18 23:15:00 100 /min [facility] Systolic blood pressure 2022-04-24 02:27:00 147 mm[Hg] [facility] Diastolic blood pressure 2022-04-24 02:27:00 91 mm[Hg] [facility] Heart rate 2022-04-24 02:27:00 100 /min [facility] Body temperature 2022-04-24 02:27:00 36.39 Nelli [facility] Respiratory rate 2022-04-24 02:27:00 16 /min [facility] Body height 2022-04-24 02:27:00 170.2 cm [facility] Body weight 2022-04-24 02:27:00 82.555 kg [facility] BMI 2022-04-24 02:27:00 28.51 kg/m2 [facility] Oxygen saturation in Arterial blood by Pulse oximetry 2022-04-24 02:27:00 100 /min [facility] Systolic blood pressure 2022-03-22 00:35:00 149 mm[Hg] [facility] Diastolic blood pressure 2022-03-22 00:35:00 96 mm[Hg] [facility] Heart rate 2022-03-22 00:35:00 96 /min [facility] Body temperature 2022-03-22 00:35:00 36.56 Nelli [facility] Respiratory rate 2022-03-22 00:35:00 18 /min [facility] Oxygen saturation in Arterial blood by Pulse oximetry 2022-03-22 00:35:00 97 /min [facility] Body weight 2022-03-19 14:58:00 82.237 kg [facility] BMI 2022-03-19 14:58:00 28.40 kg/m2 [facility] Systolic blood pressure 2022-03-07 18:51:00 133 mm[Hg] [facility] Diastolic blood pressure 2022-03-07 18:51:00 88 mm[Hg] [facility] Heart rate 2022-03-07 18:51:00 126 /min [facility] Body temperature 2022-03-07 18:51:00 35.94 Nelli [facility] Respiratory rate 2022-03-07 18:51:00 20 /min [facility] Body weight 2022-03-07 18:51:00 83.008 kg [facility] BMI 2022-03-07 18:51:00 28.66 kg/m2 [facility] Oxygen saturation in Arterial blood by Pulse oximetry 2022-03-07 18:51:00 97 /min [facility] Systolic blood pressure 2022-01-15 17:00:00 110 mm[Hg] [facility] Diastolic blood pressure 2022-01-15 17:00:00 71 mm[Hg] [facility] [facility] Heart rate 2022-01-15 17:00:00 116 /min [facility] Respiratory rate 2022-01-15 17:00:00 18 /min [facility] Oxygen saturation in Arterial blood by Pulse oximetry 2022-01-15 17:00:00 97 /min [facility] Body temperature 2022-01-15 14:04:00 37.89 Nelli [facility] Body weight 2022-01-15 14:04:00 81.647 kg [facility] BMI 2022-01-15 14:04:00 28.19 kg/m2 [facility] Systolic blood pressure 2021-12-06 17:25:00 128 mm[Hg] [facility] Diastolic blood pressure 2021-12-06 17:25:00 87 mm[Hg] [facility] Heart rate 2021-12-06 17:25:00 121 /min [facility] Body temperature 2021-12-06 17:25:00 36.56 Nelli [facility] Respiratory rate 2021-12-06 17:25:00 16 /min [facility] Body height 2021-12-06 17:25:00 170.2 cm [facility] Body weight 2021-12-06 17:25:00 84.823 kg [facility] BMI 2021-12-06 17:25:00 29.29 kg/m2 [facility] Oxygen saturation in Arterial blood by Pulse oximetry 2021-12-06 17:25:00 99 /min [facility] Systolic blood pressure 2021-08-26 19:26:00 137 mm[Hg] [facility] Diastolic blood pressure 2021-08-26 19:26:00 89 mm[Hg] [facility] Heart rate 2021-08-26 19:26:00 122 /min [facility] Body temperature 2021-08-26 19:26:00 37.5 Nelli [facility] Body height 2021-08-26 19:20:00 170.2 cm [facility] Body weight 2021-08-26 19:20:00 81.557 kg [facility] BMI 2021-08-26 19:20:00 28.16 kg/m2 [facility] Oxygen saturation in Arterial blood by Pulse oximetry 2021-08-26 19:20:00 98 /min [facility] Procedures Procedure Date / Time Performed Performing Clinician Source POCT HEMOGLOBIN A1C TEST 2023-09-11 19:30:00 Sebastián Najera [facility] PHYSICIAN CERTIFICATION STATEMENT 2023-04-13 06:01:00 Doctor [place]assigned, [place] [facility] SARS-COV-2 COVID 19 MARISA SUCROSE VACCINE 12+, , 0.3 ML (30 MCG), IM PFIZER (SHELLEY TOP) 2022-12-12 18:53:30 Lela Ohara [facility] FLU VACC (), 6 MO-64 YRS, .5ML, IM, QUAD (FLUCELVAX) 2022-12-12 18:52:24 Lela Ohara [facility] POCT HEMOGLOBIN A1C TEST 2022-12-12 00:00:00 Jaime Bueno [facility] XR FOOT <3 VW LEFT 2022-10-03 22:52:36 Zhane Vazquez [facility] ASSIGNMENT OF BENEFITS 2022-10-03 22:14:05 Docto r Unassigned, [place] [facility] CONSENT/REFUSAL FOR DIAGNOSIS AND TREATMENT 2022-10-03 21:19:18 Doctor Unassigned, [place] [facility] EKG-12 LEAD 2022-09-12 03:35:08 Nikolai, [facility] CHEST 1 VW 2022-09-12 01:56:47 [facility] LIP[facility] 2022-09-12 01:44:00 [facility] 2022-09-12 01:44:00 [facility]va [facility] TROPONIN I 2022-09-12 01:44:00 Treva [facility] COMP. METABOLIC PANEL ([id number]) 2022-09-12 01:44:00 Terva Sotelo [facility] CBC WITH DIFF 2022-09-12 01:44:00 Treva Sotelo U [facility] COVID-19 (ID NOW RAPID TESTING) 2022-09-12 01:44:00 Treva Sotelo [facility] CONSENT/REFUSAL FOR DIAGNOSIS AND TREATMENT 2022-09-12 00:31:17 Doctor Unassigned, [place] [facility] MEDICATION CORRESPONDENCE 2022-09-08 05:01:00 Do ctor Unassigned, [place] [facility] POCT HEMOGLOBIN A1C TEST 2022-09-05 21:14:00 Jaime Bueno [facility] TROPONIN I 2022-08-30 23:45:00 Vinod Henry [facility] COMP. METABOLIC PANEL ([id number]) 2022-08-30 23:45:00 Vinod Henry [facility] CBC WITH DIFF 2022-08-30 23:45:00 Vniod Henry [facility] D-DIMER 2022-08-30 23:45:00 Vinod Henry [facility] ASSIGNMENT OF BENEFITS 2022-08-30 23:13:25 Docto r Unassigned, [place] [facility] XR CHEST 1 VW 2022-08-30 23:07:11 Vinod Henry [facility] CONSENT/REFUSAL FOR DIAGNOSIS AND TREATMENT 2022-08-30 22:38:13 Doctor Unassigned, [place] [facility] ASSIGNMENT OF BENEFITS 2022-08-19 20:10:11 Docto r Unassigned, [place] [facility] URINALYSIS 2022-08-19 18:21:00 Dayana Mccracken [facility] CONSENT/REFUSAL FOR DIAGNOSIS AND TREATMENT 2022-08-19 17:58:31 Doctor Unassigned, [place] [facility] ASSIGNMENT OF BENEFITS 2022-08-13 21:18:37 Docto r Unassigned, [place] [facility] POCT GLUCOSE (AUTOMATED) 2022-08-13 21:07:00 Leatha Caldera [facility] CONSENT/REFUSAL FOR DIAGNOSIS AND TREATMENT 2022-08-13 20:38:11 Doctor Unassigned, [place] [facility] CBC WITH DIFF 2022-07-03 04:18:00 Christophe Ballesteros [facility] LIPASE 2022-07-03 03:15:00 Christophe Ballesteros [facility] COMP. METABOLIC PANEL ([id number]) 2022-07-03 03:15:00 Christophe Ballesteros [facility] CONSENT/REFUSAL FOR DIAGNOSIS AND TREATMENT 2022-07-03 02:11:48 Doctor Unassigned, [place] [facility] NOTICE OF PRIVACY PRACTICES 2022-07-03 02:11:16 Doctor Unassigned, [place] [facility] MEDICATION CORRESPONDENCE 2022-06-17 05:01:00 Do ctor Unassigned, [place] [facility] US GALL BLADDER 2022-06-03 03:41:51 Louis Doty U [facility] LIPASE 2022-06-03 02:18:00 Louis Doty [facility] COMP. METABOLIC PANEL ([id number]) 2022-06-03 02:18:00 Louis Doty [facility] CBC WITH DIFF 2022-06-03 02:18:00 Louis Doty [facility] URINALYSIS 2022-06-03 02:18:00 Louis Doty [facility] CONSENT/REFUSAL FOR DIAGNOSIS AND TREATMENT 2022-06-03 01:19:39 Doctor Unassigned, [place] [facility] TDAP VACCINE, >11 YRS, IM 2022-05-20 20:36:37 Fern Khan [facility] DUPLEX VENOUS LEG LEFT - BY VASCULAR LAB 2022-05-19 02:06:00 Lupis Grimm [facility] XR TIBIA FIBULA 2 VW LEFT 2022-05-19 00:14:14 Lupis Grimm [facility] CONSENT/REFUSAL FOR DIAGNOSIS AND TREATMENT 2022-05-18 23:09:27 Doctor Unassigned, [place] [facility] NOTICE OF PRIVACY PRACTICES 2022-04-24 02:22:52 Doctor Unassigned, [place] [facility] CONSENT/REFUSAL FOR DIAGNOSIS AND TREATMENT 2022-04-24 02:22:17 Doctor Unassigned, [place] [facility] POCT GLUCOSE (AUTOMATED) 2022-03-22 06:47:00 Dian Vicente [facility] POCT GLUCOSE (AUTOMATED) 2022-03-22 02:44:00 Dian Vicente [facility] CREATINE KINASE 2022-03-22 00:36:00 Treva Sotelo [facility] POCT GLUCOSE (AUTOMATED) 2022-03-22 00:35:00 Dian Vicente [facility] POCT GLUCOSE (AUTOMATED) 2022-03-21 14:11:00 Dian Vicente [facility] POCT GLUCOSE (AUTOMATED) 2022-03-21 04:50:00 Dian Vicente [facility] POCT GLUCOSE (AUTOMATED) 2022-03-21 01:29:00 Dian Vicente [facility] POCT GLUCOSE (AUTOMATED) 2022-03-21 00:32:00 Dian Vicente [facility] POCT GLUCOSE(AGE >30DAYS) 2022-03-20 15:31:00 Treva Sotelo [facility] POCT GLUCOSE (AUTOMATED) 2022-03-20 15:29:00 Juan Duncan [facility] POCT GLUCOSE (AUTOMATED) 2022-03-19 23:56:00 Juan Duncan [facility] COVID-19 (MOLECULAR TESTING NUCLEIC ACID AMPLIFICATION) 2022-03-19 23:48:00 Juan Duncan [facility] LAB ONLY COVID INTERPRETATION 2022-03-19 23:48:00 Juan Duncan [facility] CREATINE KINASE 2022-03-19 15:50:00 Juan Duncan [facility] THYROID STIMULATING HORMONE 2022-03-19 15:50:00 Juan Duncan [facility] COMP. METABOLIC PANEL ([id number]) 2022-03-19 15:50:00 Juan Duncan [facility] SALICYLATE 2022-03-19 15:50:00 [facility] ETHANOL 2022-03-19 15:50:00 Dakota [facility] CBC WITH DIFF 2022-03-19 15:50:00 Juan Duncan [facility] URINALYSIS 2022-03-19 15:50:00 Juan Duncan [facility] COVID-19 (ID NOW RAPID TESTING) 2022-03-19 15:50:00 Dakota [facility] LAB ONLY COVID INTERPRETATION 2022-03-19 15:50:00 Dakota [facility] URINE DRUG (IMMUNOASSAY) - COMPREHENSIVE DRUG SCREEN W/O REFLEX 2022-03-19 15:50:00 Dakota [facility] POCT GLUCOSE (AUTOMATED) 2022-03-19 14:54:00 [facility] FOR [facility]AG[facility] TREATMENT 2022-03-19 14:49:26 Doctor Unassigned, [place] [facility] POCT HEMOGLOBIN A1C TEST 2022-03-07 20:00:00 Jaime Bueno [facility] URINALYSIS 2022-01-15 14:51:00 Harpreet Sebastian [facility] LIPASE 2022-01-15 14:50:00 Harpreet Sebastian [facility] MAGNESIUM 2022-01-15 14:50:00 Harpreet Sebastian [facility] TROPONIN I 2022-01-15 14:50:00 [facility] COMP. METABOLIC PANEL ([id number]) 2022-01-15 14:50:00 Harpreet Sebastian [facility] LIPID PANEL ([id number])(TOTAL CHOLESTEROL, TRIGLYCERIDES, HDL) 2022-01-15 14:50:00 Harpreet Sebastian [facility] CBC WITH DIFF 2022-01-15 14:50:00 Harpreet Sebastian [facility] CONSENT/REFUSAL FOR DIAGNOSIS AND TREATMENT 2022-01-15 13:59:42 Doctor Unassigned, [place] [facility] SARS-COV-2 COVID-19 MARISA-SUCROSE VACCINE 12 YRS+, BIVALENT 0.3ML, IM, (PFIZER SHELLEY TOP BOOSTER) 2021-12-06 19:49:13 Christophe Michael [facility] FLU VACC (), 6 MO-64 YRS, .5ML, IM, QUAD (FLUCELVAX) 2021-12-06 17:38:27 Benny Dubois [facility] POCT HEMOGLOBIN A1C TEST 2021-12-06 17:36:00 Benny Dubois [facility] MEDICATION CORRESPONDENCE 2021-10-01 05:01:00 Do ctor Unassigned, [place] [facility] MEDICATION CORRESPONDENCE 2021-08-27 05:01:00 Do ctor Unassigned, [place] [facility] Encounters Start Date/Time End Date/Time Encounter Type Admission Type Attending Clinicians Care Facility Care Department Encounter ID Source 2022-03-21 10:18:38 Outpatient [facility] [id number] [facility] 2022-03-19 15:15:45 Outpatient [facility] [id number] [facility] 2020-12-10 08:38:19 Outpatient CIRO GALINDO [facility] [id number] [facility] 2020-12-09 16:04:49 Outpatient CIRO GALINDO [facility] [id number] [facility] 2024-03-24 14:10:00 2024-03-24 14:10:00 Outpatient R [facility] [id number] [facility] 2024-03-01 00:00:00 2024-03-04 12:47:52 Telephone Andrae Michael [facility] 1.2.840.114 350.1.13.10 4.2.7.2.686 [id number] [facility] 2024-02-22 00:00:00 2024-02-23 10:23:41 Telephone Andrae Michael [facility] 1.2.840.114 350.1.13.10 4.2.7.2.686 [id number] [facility] 2024-02-16 08:00:00 2024-02-16 08:00:00 Outpatient R [facility] [id number] [facility] 2023-12-22 00:00:00 2023-12-22 16:27:08 Refill Andrae [facility] 1.2.840.114 350.1.13.10 4.2.7.2.686 [id number] [id number] [facility] 2023-09-16 00:00:00 2023-10-17 18:19:35 Patient Secure Msg Soledad Najera [facility] 1.2.840.114 350.1.13.10 4.2.7.2.686 [id number] 389 [id number] [facility] 2023-08-17 00:00:00 2023-09-19 18:22:02 Patient Secure Msg Doctor Unassigned, [place] Doctor Unassigned, [place] [facility] 1.2.840.114 350.1.13.10 4.2.7.2.686 [id number] [facility] 2023-09-14 00:00:00 2023-09-16 13:39:00 Patient Secure Msg Soledad NajeraJoancarlos [facility] 1.2840.114 350.1.13.10 4.2.7.2.686 [id number] [facility] 2023-09-02 00:00:00 2023-09-15 08:16:34 Maribell Loredo [facility] 1.2840.114 350.1.13.10 4.2.7.2.686 [id number] [facility] 2023-09-11 15:15:00 2023-09-11 15:30:00 Family Service Center Director Visit Pcp-Tristan Dejesus [facility] 1.2840.114 350.1.13.10 4.2.7.2.686 [id number] [facility] 2023-09-11 14:00:00 2023-09-11 14:30:00 Office Visit ReinaldoSoledad Tristan Jay [facility] 1.840.114 350.1.13.10 4.2.7.2.686 [id number] 389 [id number] [facility] 2023-09-11 14:00:00 2023-09-11 14:00:00 Outpatient TRISTAN FARIA [facility] [id number] [facility] 2023-09-02 00:00:00 2023-09-11 13:37:45 Jaime Pa [facility] 1.2840.114 350.1.13.10 4.2.7.2.686 [id number] [facility] 2023-08-25 00:00:00 2023-09-01 10:09:37 Patient Secure Msg Maribell Coreas [facility] 1.2840.114 350.1.13.10 4.2.7.2.686 [id number] 389 [id number] [facility] 2023-08-27 00:00:00 2023-08-28 10:48:12 Patient Outreach Sherice Riley [facility] 1.284.114 350.1.13.10 4.2.7.2.686 [id number] [facility] 2023-08-18 00:00:00 2023-08-26 09:00:21 Telephone Pcp, Patient Does Not Have A [facility] 1.0.114 350.1.13.10 4.2.7.2.686 [id number] [facility] 2023-08-20 00:00:00 2023-08-20 15:23:08 Telephone Maribell Coreas [facility] 1.840.114 350.1.13.10 4.2.7.2.686 [id number] [facility] 2023-08-18 09:00:00 2023-08-18 10:08:29 Outpatient BREANNA DUBOSE [facility] [id number] [facility] 2023-08-18 09:00:00 2023-08-18 10:08:29 Office Visit Andrae Michael Karl E [facility] 1.840.114 350.1.13.10 4.2.7.2.686 [id number] [facility] 2023-08-18 08:30:00 2023-08-18 08:30:00 Outpatient MONICA MCKEON [facility] [id number] [facility] 2023-08-03 00:00:00 2023-08-07 10:40:38 Jaime Pa [facility] 1.840.114 350.1.13.10 4.2.7.2.686 [id number] [facility] 2023-08-03 00:00:00 2023-08-07 10:39:51 Israel Bird [facility] 1.2.840.114 350.1.13.10 4.2.7.2.686 [id number] [facility] 2023-08-03 00:00:00 2023-08-03 17:51:35 Telephone Jaime Bueno [facility] 1.2.840.114 350.1.13.10 4.2.7.2.686 [id number] [facility] 2023-07-30 00:00:00 2023-08-03 17:50:41 Maribell Durham [facility] 1.2.840.114 350.1.13.10 4.2.7.2.686 [id number] [facility] 2023-08-03 00:00:00 2023-08-03 16:44:07 Cornelio Sullivan [facility] 1.2.840.114 350.1.13.10 4.2.7.2.686 [id number] [facility] 2023-08-03 00:00:00 2023-08-03 15:06:36 Maribell Durham [facility] 1.2.840.114 350.1.13.10 4.2.7.2.686 [id number] [facility] 2023-07-31 00:00:00 2023-07-31 14:48:31 Telephone Jaime Bueno [facility] 1.2.840.114 350.1.13.10 4.2.7.2.686 [id number] [facility] 2023-07-30 00:00:00 2023-07-30 20:51:43 Maribell Durham [facility] 1.2.840.114 350.1.13.10 4.2.7.2.686 [id number] [facility] 2023-06-26 00:00:00 2023-06-26 09:05:20 [facility] 1.2.840.114 350.1.13.10 4.2.7.2.686 [id number] [id number] [facility] 2023-06-15 13:30:00 2023-06-15 13:30:00 Outpatient JIN WASHINGTON [facility] [id number] [facility] 2023-05-20 00:00:00 2023-05-20 00:00:00 Outpatient JIN WASHINGTON [facility] [id number] [facility] 2023-05-15 00:00:00 2023-05-15 00:00:00 Telephone De Luna [facility] 1.2.840.114 350.1.13.10 4.2.7.2.686 [id number] [facility] 2023-05-07 00:00:00 2023-05-07 00:00:00 [facility] 1.2.840.114 350.1.13.10 4.2.7.2.686 [id number] [facility] 2023-04-27 00:00:00 2023-04-27 00:00:00 Telephone De Luna [facility] 1.2.840.114 350.1.13.10 4.2.7.2.686 [id number] 072 [id number] [facility] 2023-04-27 00:00:00 2023-04-27 00:00:00 Telephone Ciro Sharma [facility] 1.2.840.114 350.1.13.10 4.2.7.2.686 [id number] [facility] 2023-04-23 00:00:00 2023-04-23 00:00:00 [facility] 1.2.840.114 350.1.13.10 4.2.7.2.686 [id number] [id number] [facility] 2023-04-23 00:00:00 2023-04-23 00:00:00 [facility] 1.2.840.114 350.1.13.10 4.2.7.2.686 [id number] [facility] 2023-04-22 00:00:00 2023-04-22 00:00:00 Telephone [facility] 1.2.840.114 350.1.13.10 4.2.7.2.686 [id number] [id number] [facility] 2023-04-17 00:00:00 2023-04-17 00:00:00 [facility] 1.2.840.114 350.1.13.10 4.2.7.2.686 [id number] 072 [id number] [facility] 2023-04-17 00:00:00 2023-04-17 00:00:00 [facility] 1.2.840.114 350.1.13.10 4.2.7.2.686 [id number] [facility] 2023-04-15 00:00:00 2023-04-15 00:00:00 Outpatient JIN W[place] [facility] [id number] [facility] 2023-04-13 00:00:00 2023-04-13 00:00:00 Orders Only Doctor Unassigned, [place] [facility] 1.840.114 350.1.13.10 4.2.7.2.686 [id number] [facility] 2023-04-08 00:00:00 2023-04-08 00:00:00 Telephone Cornelio De Luna [facility] 1..114 350.1.13.10 4.2.7.2.686 [id number] [id number] [facility] 2023-03-18 00:00:00 2023-03-18 00:00:00 Outpatient JIN W[facility] [id number] [facility] 2023-01-14 00:00:00 2023-01-14 00:00:00 Patient Secure Msg Doctor Unassigned, [place] [facility] 1..114 350.1.13.10 4.2.7.2.686 [id number] [facility] 2023-01-12 14:30:00 2023-01-12 14:45:00 Family Service Center Director Visit Lab, [facility] Jin Chaudhary [facility] 1..114 350.1.13.10 4.2.7.2.686 [id number] [facility] 2023-01-12 14:00:00 2023-01-12 14:00:00 Office Visit Cornelio De Luna Joseph Marc [facility] 1.840.114 350.1.13.10 4.2.7.2.686 [id number] [id number] [facility] 2023-01-12 14:00:00 2023-01-12 13:42:53 Outpatient R JIN CHAUDHARY [facility] [id number] [facility] 2022-12-16 00:00:00 2022-12-16 00:00:00 Patient Secure Msg Doctor Unassigned, [place] [facility] 1.2.840.114 350.1.13.10 4.2.7.2.686 [id number] [facility] 2022-12-12 14:00:00 2022-12-12 14:15:00 [facility] 1.2.840.114 350.1.13.10 4.2.7.2.686 [id number] [facility] 2022-12-12 13:30:00 2022-12-12 14:11:05 [facility] [id number] 2022-12-12 13:30:00 2022-12-12 14:11:05 Office Visit Jaime Bueno [facility] 1.2.840.114 350.1.13.10 4.2.7.2.686 [id number] [facility] 2022-10-20 13:30:00 2022-10-20 13:30:00 Outpatient R [facility] [id number] [facility] 2022-10-06 00:00:00 2022-10-06 00:00:00 Patient Secure Msg Doctor Unassigned, [place] [facility] 1.2.840.114 350.1.13.10 4.2.7.2.686 [id number] [facility] 2022-10-03 16:27:00 2022-10-03 19:12:00 Emergency X ZHANE VAZQUEZ [facility] [id number] [facility] 2022-10-03 16:27:00 2022-10-03 19:12:00 Emergency Christian, Zhane [facility] 1.2.840.114 350.1.13.10 4.2.7.2.686 [id number] [facility] 2022-09-15 00:00:00 2022-09-15 00:00:00 Telephone Jaime Bueno [facility] 1.2.840.114 350.1.13.10 4.2.7.2.686 [id number] [facility] 2022-09-11 19:56:00 2022-09-11 22:52:00 Emergency X TREVA SOTELO [facility] [id number] [facility] 2022-09-11 19:56:00 2022-09-11 22:52:00 Emergency Treva Sotelo [facility] 1.2.840.114 350.1.13.10 4.2.7.2.686 [id number] [facility] 2022-09-08 14:45:00 2022-09-08 15:00:00 [facility] Director Visit Pcp-Lab Pathology [facility] 1.2.840.114 350.1.13.10 4.2.7.2.686 [id number] [facility] 2022-09-08 14:45:00 2022-09-08 14:45:00 Outpatient R PATHOLOGY [facility] [id number] [facility] 2022-09-08 00:00:00 2022-09-08 00:00:00 Orders Only Doctor Unassigned, [place] [facility] 1.2.840.114 350.1.13.10 4.2.7.2.686 [id number] [facility] 2022-09-05 16:20:00 2022-09-05 16:36:21 Outpatient R LELA OHARA [facility] [id number] [facility] 2022-09-05 16:20:00 2022-09-05 16:36:21 Office Visit Jaime Bueno Marissa [facility] [facility] P[facility]ILLION 1.2.840.114 350.1.13.10 4.2.7.2.686 [id number] [facility] 2022-08-30 17:47:00 2022-08-30 20:34:00 Emergency X VINOD HENRY [facility] ERT [id number] [facility] 2022-08-30 17:47:00 2022-08-30 20:34:00 Emergency Vinod Henry [facility] 1.2.840.114 350.1.13.10 4.2.7.2.686 [id number] [facility] 2022-08-19 13:12:00 2022-08-19 15:39:00 Emergency X DAYANA MCCRACKEN [facility] ERT [id number] [facility] 2022-08-19 13:12:00 2022-08-19 15:39:00 Emergency Dayana Mccracken [facility] 1.2.840.114 350.1.13.10 4.2.7.2.686 [id number] [facility] 2022-08-19 00:00:00 2022-08-19 00:00:00 Telephone Jaime Bueno [facility] 1.2.840.114 350.1.13.10 4.2.7.2.686 [id number] 389 [id number] [facility] 2022-08-14 00:00:00 2022-08-14 00:00:00 Telephone Jaime Bueno [facility] 1.2.840.114 350.1.13.10 4.2.7.2.686 [id number] [facility] 2022-08-13 15:47:00 2022-08-13 16:24:00 Emergency X AMADOR CALDERA [facility] ERT [id number] [facility] 2022-08-13 15:47:00 2022-08-13 16:24:00 Emergency Amador Caldera [facility] 1.2.840.114 350.1.13.10 4.2.7.2.686 [id number] [facility] 2022-07-11 00:00:00 2022-07-11 00:00:00 Patient Outreach Sherice Riley [facility] PAVILL[facility] 1.2.840.114 350.1.13.10 4.2.7.2.686 [id number] 389 [id number] [facility] 2022-07-08 00:00:00 2022-07-08 00:00:00 Telephone Jaime Bueno [facility] 1.2.840.114 350.1.13.10 4.2.7.2.686 [id number] [facility] 2022-07-02 21:36:00 2022-07-03 00:02:00 [facility] [id number] [facility] 2022-07-02 21:36:00 2022-07-03 00:02:00 Emergency [facility] 1.2.840.114 350.1.13.10 4.2.7.2.686 [id number] [id number] [facility] 2022-07-02 00:00:00 2022-07-02 00:00:00 Refill Jaime Bueno [facility] PAVILL[facility] 1.2.840.114 350.1.13.10 4.2.7.2.686 [id number] [facility] 2022-06-25 00:00:00 2022-06-25 00:00:00 Patient Secure Jaime Graham [facility] 1.2.840.114 350.1.13.10 4.2.7.2.686 [id number] 389 [id number] [facility] 2022-06-23 00:00:00 2022-06-23 00:00:00 Telephone Victor Hugo Khan [facility] 1.2.840.114 350.1.13.10 4.2.7.2.686 [id number] [facility] 2022-06-17 00:00:00 2022-06-17 00:00:00 Orders Only Doctor Unassigned, [place] [facility] 1.2.840.114 350.1.13.10 4.2.7.2.686 [id number] [facility] 2022-06-17 00:00:00 2022-06-17 00:00:00 Telephone Cornelio De Luna [facility] 1.2.840.114 350.1.13.10 4.2.7.2.686 [id number] [facility] 2022-06-11 00:00:00 2022-06-11 00:00:00 Telephone Victor Hugo Khan [facility] 1.2.840.114 350.1.13.10 4.2.7.2.686 [id number] 389 [id number] [facility] 2022-06-09 00:00:00 2022-06-09 00:00:00 Refill Victor Hugo Khan [facility] 1.2.840.114 350.1.13.10 4.2.7.2.686 [id number] [facility] 2022-06-02 20:43:00 2022-06-02 23:30:00 Emergency X LOUIS DOTY [facility] ERT [id number] [facility] 2022-06-02 20:43:00 2022-06-02 23:30:00 Emergency Louis Doty [facility] 1.2.840.114 350.1.13.10 4.2.7.2.686 [id number] [facility] 2022-06-02 00:00:00 2022-06-02 00:00:00 Orders Only Doctor Unassigned, [place] [facility] 1.2.840.114 350.1.13.10 4.2.7.2.686 [id number] [facility] 2022-05-20 16:00:00 2022-05-20 16:15:00 Family Service Center Director Visit Pcp-Lab Pathology [facility] 1.2.840.114 350.1.13.10 4.2.7.2.686 [id number] [facility] 2022-05-20 15:10:00 2022-05-20 15:40:00 Office Visit Victor Hugo Khan Paul Sesung [facility] 1.2.840.114 350.1.13.10 4.2.7.2.686 [id number] 389 [id number] [facility] 2022-05-20 15:10:00 2022-05-20 15:10:00 Outpatient ELIE SPEAR [facility] [id number] [facility] 2022-05-18 18:17:00 2022-05-18 22:30:00 Emergency X LUPIS GRIMM [facility] ERT [id number] [facility] 2022-05-18 18:17:00 2022-05-18 22:30:00 Emergency Lupis Grimm G [facility] 1.2.840.114 350.1.13.10 4.2.7.2.686 [id number] [id number] [facility] 2022-04-29 14:20:00 2022-04-29 14:20:00 Outpatient ELIE SPEAR [facility] [id number] [facility] 2022-04-23 21:29:00 2022-04-23 22:01:00 Emergency X CHRISTOPHE BALLESTEROS [facility] ERT [id number] [facility] 2022-04-23 21:29:00 2022-04-23 22:01:00 Emergency Christophe Ballesteros [facility] 1.2.840.114 350.1.13.10 4.2.7.2.686 [id number] [id number] [facility] 2022-04-21 00:00:00 2022-04-21 00:00:00 Refill ZacharySantinoav [facility] 1.2.840.114 350.1.13.10 4.2.7.2.686 [id number] 389 [id number] [facility] 2022-03-22 10:58:00 2022-03-22 23:59:00 Hospital Encounter Maribell Molina [facility] 1.2.840.114 350.1.13.10 4.2.7.2.686 [id number] [facility] 2022-03-19 08:59:00 2022-03-22 09:39:00 Emergency X JOANN MALLORY [facility] ERT [id number] [facility] 2022-03-19 08:59:00 2022-03-22 09:39:00 Emergency Juan Duncan Julio C Schoenstein, Lynda [facility] 1.2.840.114 350.1.13.10 4.2.7.2.686 [id number] [facility] 2022-03-22 00:00:00 2022-03-22 00:00:00 Outpatient MARIBELL GRAMAJO [facility] NUT [id number] [facility] 2022-03-07 13:30:00 2022-03-07 13:54:34 Outpatient KJ KLEIN [facility] [id number] [facility] 2022-03-07 13:30:00 2022-03-07 13:54:34 Office Visit Jaime Bueno Leah Elizabeth [facility] 1.2.840.114 350.1.13.10 4.2.7.2.686 [id number] 389 [id number] [facility] 2022-02-25 00:00:00 2022-02-25 00:00:00 Refill EllynlizziepepePaulacuate [facility]AV[facility] 1.2.840.114 350.1.13.10 4.2.7.2.686 [id number] 389 [id number] [facility] 2022-02-25 00:00:00 2022-02-25 00:00:00 Refill Bryantommypepe Sathyasomcuate [facility] 1.2.840.114 350.1.13.10 4.2.7.2.686 [id number] 389 [id number] [facility] 2022-02-22 00:00:00 2022-02-22 00:00:00 Refill Janellamandafranklin cuello Sho [facility] PAV[facility] 1.2.840.114 350.1.13.10 4.2.7.2.686 [id number] 389 [id number] [facility] 2022-01-15 08:26:00 2022-01-15 11:38:00 Emergency X Harpreet SEBASTIAN [facility] ERT [id number] [facility] 2022-01-15 08:26:00 2022-01-15 11:38:00 Emergency Harpreet Sebastian [facility] 1.2.840.114 350.1.13.10 4.2.7.2.686 [id number] [facility] 2022-01-04 00:00:00 2022-01-04 00:00:00 Telephone Kamille Adam [facility] 1.2.840.114 350.1.13.10 4.2.7.2.686 [id number] 389 [id number] [facility] 2021-12-11 00:00:00 2021-12-11 00:00:00 Case Management Sherice Riley [facility]AV[facility] 1.2840.114 350.1.13.10 4.2.7.2.686 [id number] 389 [id number] [facility] 2021-12-06 13:30:00 2021-12-06 15:03:08 Outpatient CHRISTOPHE RAYMOND [facility] [id number] [facility] 2021-12-06 13:30:00 2021-12-06 15:03:08 Office Visit Kamille Adam, Attending [facility]iss[facility] PRIMARY CARE PAVILLION 1.0.114 350.1.13.10 4.2.7.2.686 [id number] [facility] 2021-12-06 14:45:00 2021-12-06 15:00:00 Family Service Center Director Visit [facility]AV[facility] 1.0.114 350.1.13.10 4.2.7.2.686 [id number] [facility] 2021-12-06 13:30:00 2021-12-06 13:30:00 Outpatient R CHRISTOPHE MICHAEL [facility] [id number] [facility] 2021-10-01 00:00:00 2021-10-01 00:00:00 Orders Only Doctor Unassigned, [place] [facility] 1..114 350.1.13.10 4.2.7.2.686 [id number] [id number] [facility] 2021-09-04 00:00:00 2021-09-04 00:00:00 Telephone Cornelio De Luna [facility] 1..114 350.1.13.10 4.2.7.2.686 [id number] [id number] [facility] 2021-08-27 00:00:00 2021-08-27 00:00:00 Refill Sho Arzate [facility] PAVILLION 1.2.840.114 350.1.13.10 4.2.7.2.686 [id number] [facility] 2021-08-27 00:00:00 2021-08-27 00:00:00 Orders Only Doctor Unassigned, [place] [facility] 1.2.840.114 350.1.13.10 4.2.7.2.686 [id number] [facility] 2021-08-26 14:30:00 2021-08-26 15:00:00 Office Visit Cornelio De Luna Joseph Marc [facility] 1.2840.114 350.1.13.10 4.2.7.2.686 [id number] [id number] [facility] 2021-08-26 14:30:00 2021-08-26 14:30:00 Outpatient R JIN CHAUDHARY [facility] [id number] [facility] 2021-06-28 00:00:00 2021-06-28 00:00:00 Telephone Sho Arzate [facility]ARE PAVILLION 1.2840.114 350.1.13.10 4.2.7.2.686 [id number] 389 [id number] [facility] 2021-06-25 00:00:00 2021-06-25 00:00:00 Patient Secure Msg Sho Arzate [facility] PAVILLION 1.2.840.114 350.1.13.10 4.2.7.2.686 [id number] 389 [id number] [facility] 2021-06-21 15:40:00 2021-06-21 16:41:31 Office Visit Sho Arzate Unknown, Attending Grace Garcia [facility]ARE PAVILLION 1.84114 350.1.13.10 4.2.7.2.686 [id number] 389 [id number] [facility] 2021-06-21 15:40:00 2021-06-21 16:41:31 Outpatient R GRACE GARCIA [facility] [id number] [facility] 2021-06-21 15:40:00 2021-06-21 16:41:31 Outpatient R GRACE GARCIA [facility] [id number] [facility] 2021-06-21 16:15:00 2021-06-21 16:30:00 Family Service Center Director Visit Pcp-Lab Unknown, Attending [facility] PAVILLION 1.84.114 350.1.13.10 4.2.7.2.686 [id number] [facility] 2021-06-21 16:15:00 2021-06-21 16:15:00 Outpatient R UNKNOWN, ATTENDING [facility] [id number] [facility] 2021-05-28 00:00:00 2021-05-28 00:00:00 Patient Secure Msg Doctor Unassigned, [place] [facility] 1..114 350.1.13.10 4.2.7.2.686 [id number] 389 [id number] [facility] 2021-05-27 00:00:00 2021-05-27 00:00:00 Refill Janellmike cuateSho [facility] PAVILL[facility] 1.84.114 350.1.13.10 4.2.7.2.686 [id number] 389 [id number] [facility] 2021-05-21 10:15:00 2021-05-21 10:30:00 Family Service Center Director Visit Pob, Adc Lab Main Sathya Garcianorahcuate [facility] 1.2840.114 350.1.13.10 4.2.7.2.686 [id number] [facility] 2021-05-21 10:15:00 2021-05-21 10:15:00 Outpatient R PAULA GARCIACUATE [facility] [id number] [facility] 2021-05-21 00:00:00 2021-05-21 00:00:00 Patient Secure Msg Sho Arzate [facility]AV[facility] 1.2.840.114 350.1.13.10 4.2.7.2.686 [id number] 389 [id number] [facility] 2021-05-20 00:00:00 2021-05-20 00:00:00 [facility] 1.2.840.114 350.1.13.10 4.2.7.2.686 [id number] 389 [id number] [facility] 2021-05-17 00:00:00 2021-05-17 00:00:00 [facility] 1.2.840.114 350.1.13.10 4.2.7.2.686 [id number] 389 [id number] [facility] 2021-04-30 00:00:00 2021-04-30 00:00:00 Refill Sho Arzate [facility] PAVILLION 1.2.840.114 350.1.13.10 4.2.7.2.686 [id number] 389 [id number] [facility] 2021-04-29 00:00:00 2021-04-29 00:00:00 Refill Gonsalo Lundy [facility] OFFICE BUILDING ONE 1.2840.114 350.1.13.10 4.2.7.2.686 [id number] [id number] [facility] 2021-03-27 00:00:00 2021-03-27 00:00:00 Patient Secure Msg Doctor Unassigned, [place] [facility] 1.84.114 350.1.13.10 4.2.7.2.686 [id number] [id number] [facility] 2021-03-26 00:00:00 2021-03-26 00:00:00 Refill Gonsalo Lundy [facility] OFFICE BUILDING ONE 1.84.114 350.1.13.10 4.2.7.2.686 [id number] [facility] 2021-03-08 14:30:00 2021-03-08 15:20:49 Outpatient R UNKNOWN, ATTENDING [facility] [id number] [facility] 2021-03-08 14:30:00 2021-03-08 15:20:49 Office Visit Sho Arzate Unknown, Attending Paula Garciacuate [facility] 1.84.114 350.1.13.10 4.2.7.2.686 [id number] [facility] 2021-03-08 14:30:00 2021-03-08 15:20:49 Outpatient R GRACE GARCIA [facility] [id number] [facility] 2021-02-26 00:00:00 2021-02-26 00:00:00 Refill Gonsalo Lundy [facility] OFFICE BUILDING ONE .84.114 350.1.13.10 4.2.7.2.686 [id number] [facility] 2021-02-26 00:00:00 2021-02-26 00:00:00 Refill Ciro Sharma [facility]AV[facility] 1.2.840.114 350.1.13.10 4.2.7.2.686 [id number] 389 [id number] [facility] 2021-02-16 00:00:00 2021-02-16 00:00:00 Refhaylie Sharma Ciro [facility]AV[facility] 1.2.840.114 350.1.13.10 4.2.7.2.686 [id number] 389 [id number] [facility] 2021-02-16 00:00:00 2021-02-16 00:00:00 Refhaylie Sharma [facility] PRIMARY CARE PAVILLION 1.2.840.114 350.1.13.10 4.2.7.2.686 [id number] 389 [id number] [facility] 2021-02-04 00:00:00 2021-02-04 00:00:00 Telephone Sho Arzate [facility] PAVILL[facility] 1.2.840.114 350.1.13.10 4.2.7.2.686 [id number] 389 [id number] [facility] 2021-02-01 00:00:00 2021-02-01 00:00:00 Orders Only Doctor Unassigned, [place] [facility] 1.2.840.114 350.1.13.10 4.2.7.2.686 [id number] [facility] 2021-01-31 19:08:00 2021-01-31 23:32:00 Emergency X PATTIE ESQUIVEL [facility] ERT [id number] [facility] 2021-01-31 19:08:00 2021-01-31 23:32:00 Emergency Esquivel Pattie [facility] 1.2.840.114 350.1.13.10 4.2.7.2.686 [id number] [facility] 2021-01-31 19:08:00 2021-01-31 23:32:00 Emergency X PATTIE ESQUIVEL [facility] ERT [id number] [facility] 2021-01-31 00:00:00 2021-01-31 00:00:00 Orders Only Doctor Unassigned, [place] [facility] 1.2840.114 350.1.13.10 4.2.7.2.686 [id number] [facility] 2021-01-30 00:00:00 2021-01-30 00:00:00 Refill Lor Carlton [facility] 1.2840.114 350.1.13.10 4.2.7.2.686 [id number] [facility] 2021-01-29 00:00:00 2021-01-29 00:00:00 Refill Gonsalo Lundy [facility] OFFICE BUILDING ONE 1.840.114 350.1.13.10 4.2.7.2.686 [id number] [id number] [facility] 2021-01-29 00:00:00 2021-01-29 00:00:[address] [facility] PRIMARY CARE PAVILLION 1.20.114 350.1.13.10 4.2.7.2.686 [id number] [facility] 2021-01-11 13:30:00 2021-01-11 13:30:00 Outpatient R CIRO SHARMA [facility] [id number] [facility] 2021-01-11 13:30:00 2021-01-11 13:30:00 Office Visit Ciro Sharma [facility] 1.0.114 350.1.13.10 4.2.7.2.686 [id number] [facility] 2021-01-11 13:30:00 2021-01-11 13:28:21 Outpatient R CIRO SHARMA [facility] [id number] [facility] 2021-01-11 13:30:00 2021-01-11 13:28:21 Outpatient R CIRO SHARMA [facility] [id number] [facility] 2021-01-02 00:00:00 2021-01-02 00:00:00 Telephone Zachary Ciro [facility] 1..840.114 350.1.13.10 4.2.7.2.686 [id number] [facility] 2020-12-29 08:49:34 2020-12-29 23:59:00 Outpatient R ZACHARY CIRO [facility] [id number] [facility] 2020-12-29 08:49:34 2020-12-29 23:59:[address] [facility] [id number] [facility] 2020-12-29 08:30:00 2020-12-29 23:59:00 Hospital Encounter Santino Sharmaav [facility] ..840.114 350.1.13.10 4.2.7.2.686 [id number] [facility] 2020-12-29 00:00:00 2020-12-29 00:00:00 Gonsalo Keller [facility] ONE ..840.114 350.1.13.10 4.2.7.2.686 [id number] [facility] 2020-12-05 00:00:00 2020-12-05 00:00:00 Outpatient R SANTINO SHARMAAV [facility] [id number] [facility] 2020-12-05 00:00:00 2020-12-05 00:00:00 Outpatient R CIRO SHARMA [facility] [id number] [facility] 2020-12-04 00:00:00 2020-12-04 00:00:00 Telephone Ciro Sharma [facility] 1.114 350.1.13.10 4.2.7.2.686 [id number] [facility] 2020-12-03 09:12:43 2020-12-03 09:22:43 Imm/Inj Visit Nurse, Pcp Immunizatio Johann Domínguez [facility] 1.114 350.1.13.10 4.2.7.2.686 [id number] [facility] 2020-12-03 09:00:00 2020-12-03 09:00:00 Outpatient Javier HEBERT [facility] [id number] [facility] 2020-12-03 09:00:00 2020-12-03 09:00:00 Outpatient JOHANN TAYLOR [facility] [id number] [facility] 2020-11-28 00:00:00 2020-11-28 00:00:00 Gonsalo Keller [facility] Building One 1.114 350.1.13.10 4.2.7.2.686 [id number] [facility] 2020-11-28 00:00:00 2020-11-28 00:00:00 Cruz Glasgow [facility]ARE PAVILLION 1.114 350.1.13.10 4.2.7.2.686 [id number] [facility] 2020-11-28 00:00:00 2020-11-28 00:00:00 Patient Secure Msg Doctor Unassigned, [place] [facility] 1.114 350.1.13.10 4.2.7.2.686 [id number] 389 [id number] [facility] 2020-11-12 00:00:00 2020-11-12 00:00:00 Letter (Out) Bryant Ludmila Cheo [facility] 1.840.114 350.1.13.10 4.2.7.2.686 [id number] [facility] 2020-11-12 00:00:00 2020-11-12 00:00:00 Case Management Ludmila Bryant [facility] 1.0.114 350.1.13.10 4.2.7.2.686 [id number] [facility] 2020-11-10 00:00:00 2020-11-10 00:00:00 Patient Secure Msg Doctor Unassigned, [place] [facility] 1.0.114 350.1.13.10 4.2.7.2.686 [id number] [facility] 2020-11-09 15:08:17 2020-11-09 16:51:40 Office Visit Cruz Barone [facility] 1.0.114 350.1.13.10 4.2.7.2.686 [id number] [facility] 2020-11-09 15:10:00 2020-11-09 15:10:00 Outpatient R [facility] [id number] [facility] 2020-11-09 00:00:00 2020-11-09 00:00:00 Orders Only Doctor Unassigned, [place] [facility] 1.20.114 350.1.13.10 4.2.7.2.686 [id number] [facility] 2020-10-29 00:00:00 2020-10-29 00:00:00 Gonsalo Keller [facility] 1.0.114 350.1.13.10 4.2.7.2.686 [id number] [facility] 2020-10-17 00:00:00 2020-10-17 00:00:00 Telephone [facility] 1.840.114 350.1.13.10 4.2.7.2.686 [id number] [facility] 2020-10-10 00:00:00 2020-10-10 00:00:00 Orders Only Doctor Unassigned, [place] [facility] 1.840.114 350.1.13.10 4.2.7.2.686 [id number] [facility] 2020-09-29 00:00:00 2020-09-29 00:00:00 Gisella Lundy [facility] 1.0.114 350.1.13.10 4.2.7.2.686 [id number] [facility] 2020-09-26 00:00:00 2020-09-26 00:00:00 Telephone [facility] .840.114 350.1.13.10 4.2.7.2.686 [id number] [facility] 2020-09-21 00:00:00 2020-09-21 00:00:00 Orders Only Doctor Unassigned, [place] [facility] .0.114 350.1.13.10 4.2.7.2.686 [id number] [facility] 2020-09-11 00:00:00 2020-09-11 00:00:00 Telephone [facility] 1.840.114 350.1.13.10 4.2.7.2.686 [id number] [facility] 2020-09-05 07:33:00 2020-09-05 13:10:00 Hospital Encounter Ciro Sharma [facility] ([facility] 1.2.840.114 350.1.13.10 4.2.7.2.686 [id number] [facility] 2020-09-05 09:00:00 2020-09-05 10:45:00 Surgery Ciro Sharma [facility] 1.2.840.114 350.1.13.10 4.2.7.2.686 [id number] [facility] 2020-09-05 00:00:00 2020-09-05 00:00:00 Orders Only Doctor Unassigned, [place] [facility] 1.2.840.114 350.1.13.10 4.2.7.2.686 [id number] [facility] 2020-08-30 00:00:00 2020-08-30 00:00:00 Gonsalo Keller ashok [facility] 1.2.840.114 350.1.13.10 4.2.7.2.686 [id number] [facility] 2020-08-27 00:00:00 2020-08-27 00:00:00 Patient Secure Msg Doctor Unassigned, [place] [facility] 1.2.840.114 350.1.13.10 4.2.7.2.686 [id number] [facility] 2020-08-07 00:00:00 2020-08-07 00:00:00 Orders Only Doctor Unassigned, [place] JOHN [facility] 1.2.840.114 350.1.13.10 4.2.7.2.686 [id number] [facility] 2020-08-07 00:00:00 2020-08-07 00:00:00 Patient Secure Msg Doctor Unassigned, [place] [facility] 1.2.840.114 350.1.13.10 4.2.7.2.686 [id number] [id number] [facility] 2020-08-06 00:00:00 2020-08-06 00:00:00 Patient Secure Msg Doctor Unassigned, [place] [facility] 1.2840.114 350.1.13.10 4.2.7.2.686 [id number] [facility] 2020-08-06 00:00:00 2020-08-06 00:00:00 Patient Secure Msg Doctor Unassigned, [place] [facility] 1.2840.114 350.1.13.10 4.2.7.2.686 [id number] [id number] [facility] 2020-08-03 10:01:38 2020-08-03 11:01:42 Office Visit Ciro Sharma [facility] 1.840.114 350.1.13.10 4.2.7.2.686 [id number] [facility] 2020-08-03 10:30:00 2020-08-03 10:30:00 Outpatient R CIRO SHARMA [facility] [id number] [facility] 2020-07-30 00:00:00 2020-07-30 00:00:00 Refill Gonsalo Lundy [facility] Office Building One 1.840.114 350.1.13.10 4.2.7.2.686 [id number] 044 [id number] [facility] 2020-07-30 00:00:00 2020-07-30 00:00:00 Refill Pcp, Patient Does Not Have A [facility] 1.2840.114 350.1.13.10 4.2.7.2.686 [id number] 044 [id number] [facility] 2020-06-30 00:00:00 2020-06-30 00:00:00 Gonsalo Keller Counts include 234 beds at the [facility] Office Building One 1.20.114 350.1.13.10 4.2.7.2.686 [id number] 044 [id number] [facility] 2020-06-27 00:00:00 2020-06-27 00:00:00 Telephone [facility] 1.20.114 350.1.13.10 4.2.7.2.686 [id number] 072 [id number] [facility] 2020-06-23 00:00:00 2020-06-23 00:00:[address] [facility] [place] [facility] 1.2840.114 350.1.13.10 4.2.7.2.686 [id number] 072 [id number] [facility] 2020-06-21 11:25:00 2020-06-21 15:03:00 Hospital Encounter Ciro Sharma [facility] 1.20.114 350.1.13.10 4.2.7.2.686 [id number] [id number] [facility] 2020-06-21 12:00:00 2020-06-21 14:06:00 Surgery Ciro Sharma [facility] 1.2840.114 350.1.13.10 4.2.7.2.686 [id number] 020 [id number] [facility] 2020-06-21 00:00:00 2020-06-21 00:00:00 Orders Only Doctor Unassigned, [place] [facility] 1.2840.114 350.1.13.10 4.2.7.2.686 [id number] [id number] [facility] 2020-06-20 00:00:00 2020-06-20 00:00:00 Patient Secure Msg Doctor Unassigned, [place] [facility] [place] 1.2.114 350.1.13.10 4.2.7.2.686 [id number] [facility] 2020-06-19 10:46:44 2020-06-19 11:01:44 Family Service Center Director Visit Vls-Lab [facility] [place] [facility] 1.20.114 350.1.13.10 4.2.7.2.686 [id number] [facility] 2020-06-19 10:34:15 2020-06-19 10:49:15 Laboratory Only Only, Lcc Test [facility] 1.2.114 350.1.13.10 4.2.7.2.686 [id number] [facility] 2020-06-19 10:45:00 2020-06-19 10:45:[address] [facility] [id number] [facility] 2020-06-19 09:43:35 2020-06-19 09:58:35 Family Service Center Director Visit Pcp-Lab Feliberto Levy [facility] 1..114 350.1.13.10 4.2.7.2.686 [id number] [facility] 2020-06-13 00:00:00 2020-06-13 00:00:00 Patient Secure Msg Doctor Unassigned, [place] [facility] 1.2.114 350.1.13.10 4.2.7.2.686 [id number] [facility] 2020-06-08 00:00:00 2020-06-08 00:00:00 Patient Secure Msg Doctor Unassigned, [place] [facility] Liter[facility] B[facility]. 1.2.114 350.1.13.10 4.2.7.2.686 [id number] [facility] 2020-05-30 00:00:00 2020-05-30 00:00:00 Gisella Lundy [facility] Office Building One 1.2.840.114 350.1.13.10 4.2.7.2.686 [id number] 044 [id number] [facility] 2020-05-30 00:00:00 2020-05-30 00:00:00 Gisella Lundy [facility] Office Building One 1.2840.114 350.1.13.10 4.2.7.2.686 [id number] 044 [id number] [facility] 2020-05-25 08:31:02 2020-05-25 12:29:21 Office Visit Zachary Ciro [facility] 1.2.840.114 350.1.13.10 4.2.7.2.686 [id number] 072 [id number] [facility] 2020-05-25 10:02:17 2020-05-25 10:08:16 Family Service Center Director Visit Vls-Lab [facility] 1.2.840.114 350.1.13.10 4.2.7.2.686 [id number] [facility] 2020-05-25 09:00:00 2020-05-25 09:00:00 Outpatient R ZACHARY CIRO [facility] [id number] [facility] 2020-05-18 13:40:00 2020-05-18 23:59:00 Hospital Encounter Feliberto Levy [facility] 1.2840.114 350.1.13.10 4.2.7.2.686 [id number] [facility] 2020-05-18 00:00:00 2020-05-18 00:00:00 Outpatient FELIBERTO QUINTERO [facility] [id number] [facility] 2020-05-14 10:30:00 2020-05-14 10:30:00 Outpatient GONSALO MALLOY [facility] [id number] [facility] 2020-05-10 15:30:00 2020-05-10 15:30:00 Outpatient ALEJANDRO VALENCIA [facility] [id number] [facility] 2020-05-09 00:00:00 2020-05-09 00:00:00 Patient Outreach Lavinia Garciacan[address] 1.840.114 350.1.13.10 4.2.7.2.686 [id number] [facility] 2020-05-07 00:00:00 2020-05-07 00:00:00 Telephone Sho Arzate [facility] 1.840.114 350.1.13.10 4.2.7.2.686 [id number] [facility] 2020-05-07 00:00:00 2020-05-07 00:00:00 Patient Secure Ciro Berman [facility] 1.840.114 350.1.13.10 4.2.7.2.686 [id number] [facility] 2020-05-04 00:00:00 2020-05-04 00:00:00 Patient Outreach Lavinia Garcia Brandi Scott 1.840.114 350.1.13.10 4.2.7.2.686 [id number] [facility] 2020-05-04 00:00:00 2020-05-04 00:00:00 Telephone Sho Arzate [facility] 1.840.114 350.1.13.10 4.2.7.2.686 [id number] [facility] 2020-05-04 00:00:00 2020-05-04 00:00:00 Telephone Cayden cuateSho [facility] 1.20.114 350.1.13.10 4.2.7.2.686 [id number] [facility] 2020-05-03 15:14:29 2020-05-03 15:29:29 Family Service Center Director Visit Pcp-Lab Unknown, Attending [facility] 1..114 350.1.13.10 4.2.7.2.686 [id number] [facility] 2020-05-03 13:31:11 2020-05-03 14:01:11 Office Visit Sho Arzate Rex M [facility] 1..114 350.1.13.10 4.2.7.2.686 [id number] [facility] 2020-05-03 11:40:00 2020-05-03 11:40:00 Outpatient FELIBERTO QUINTERO [facility] [id number] [facility] 2020-05-01 00:00:00 2020-05-01 00:00:00 Gonsalo Keller [facility] Office Building One .84.114 350.1.13.10 4.2.7.2.686 [id number] 044 [id number] [facility] 2020-04-19 00:00:00 2020-04-19 00:00:00 Patient Outreach Lavinia Garcia 1..114 350.1.13.10 4.2.7.2.686 [id number] [facility] 2020-04-19 00:00:00 2020-04-19 00:00:00 Telephone Brad Johnson [facility] Building 1.2.840.114 350.1.13.10 4.2.7.2.686 [id number] [facility] 2020-04-16 10:04:49 2020-04-16 11:12:53 Office Visit Brad Johnson [facility] Building 1.2.840.114 350.1.13.10 4.2.7.2.686 [id number] [facility] 2020-04-16 10:00:00 2020-04-16 11:12:53 Outpatient R BRAD JOHNSON [facility] [id number] [facility] 2020-04-16 10:00:00 2020-04-16 11:12:53 Outpatient BRAD HALL [facility] [id number] [facility] 2020-04-13 13:45:00 2020-04-13 13:45:00 Outpatient GONSALO MALLOY [facility] [id number] [facility] 2020-04-13 13:00:56 2020-04-13 13:30:56 Office Visit AraceliharleyGonsalo Edashok [facility] Office Building One 1.2.840.114 350.1.13.10 4.2.7.2.686 [id number] [facility] 2020-04-12 13:50:00 2020-04-12 13:50:00 Outpatient [facility] [id number] [facility] 2020-04-09 18:04:00 2020-04-10 00:48:00 Emergency Harpreet Sebastian [facility] 1.2.840.114 350.1.13.10 4.2.7.2.686 [id number] [facility] 2020-04-09 18:04:00 2020-04-10 00:48:00 Emergency X Harpreet SEBASTIAN [facility] ERT [id number] [facility] 2020-04-10 00:00:00 2020-04-10 00:00:00 Patient Outreach Lavinia Garcia 1.114 350.1.13.10 4.2.7.2.686 [id number] [facility] 2020-04-06 13:00:00 2020-04-06 13:00:00 Outpatient CIRO GALINDO [facility] [id number] [facility] 2020-04-06 00:00:00 2020-04-06 00:00:00 Patient Secure Msg [facility] 1.114 350.1.13.10 4.2.7.2.686 [id number] [facility] 2020-04-05 00:00:00 2020-04-05 00:00:00 Patient Secure Msg Nikkie [facility] Office Building One .114 350.1.13.10 4.2.7.2.686 [id number] [id number] [facility] 2020-04-05 00:00:00 2020-04-05 00:00:00 Patient Secure Msg Doctor Unassigned, [place] [facility] .114 350.1.13.10 4.2.7.2.686 [id number] [facility] 2020-04-04 13:50:32 2020-04-04 14:20:32 Office Visit Nikkie [facility] Office Building One .114 350.1.13.10 4.2.7.2.686 [id number] [facility] 2020-04-04 14:00:00 2020-04-04 14:00:00 Outpatient GONSALO MALLOY [facility] [id number] [facility] 2020-04-04 00:00:00 2020-04-04 00:00:00 Patient Outreach Lavinia Garcia 1..114 350.1.13.10 4.2.7.2.686 [id number] [facility] 2020-04-03 00:00:00 2020-04-03 00:00:00 Patient Outreach Lavinia Garcia 1.0.114 350.1.13.10 4.2.7.2.686 [id number] [facility] 2020-04-02 00:00:00 2020-04-02 00:00:00 Transition of Care ButlerMahsa cainshadi Malikza 1..114 350.1.13.10 4.2.7.2.686 [id number] [facility] 2020-03-19 19:21:00 2020-03-30 16:05:00 Hospital Encounter Abner Cooper, Marlen Vega [facility] ..114 350.1.13.10 4.2.7.2.686 [id number] [facility] 2020-03-19 19:21:00 2020-03-30 16:05:00 Inpatient X MARLEN BOWDEN [facility] [id number] [facility] 2020-03-21 00:00:00 2020-03-21 00:00:00 Patient Outreach Lavinia Garcia Okay 1..114 350.1.13.10 4.2.7.2.686 [id number] [facility] 2020-03-14 00:00:00 2020-03-14 00:00:00 Telephone [facility] 1.2.840.114 350.1.13.10 4.2.7.2.686 [id number] [facility] 2020-03-08 00:00:00 2020-03-08 00:00:00 Telephone Gonsalo Lundy [facility] Office Building One 1.2840.114 350.1.13.10 4.2.7.2.686 [id number] 044 [id number] [facility] 2020-03-08 00:00:00 2020-03-08 00:00:00 Telephone Gonsalo Lundy [facility] Office Building One 1.840.114 350.1.13.10 4.2.7.2.686 [id number] 044 [id number] [facility] 2020-03-07 15:05:56 2020-03-07 15:35:56 Office Visit Nikkie [facility] Office Building One 1.0.114 350.1.13.10 4.2.7.2.686 [id number] [facility] 2020-03-07 15:00:00 2020-03-07 15:00:00 Outpatient R [facility]IE [facility] [id number] [facility] 2020-03-07 00:00:00 2020-03-07 00:00:00 Orders Only Doctor Unassigned, [place] [facility] 1.20.114 350.1.13.10 4.2.7.2.686 [id number] [facility] 2020-03-01 00:00:00 2020-03-01 00:00:00 Patient Outreach Lavinia Garcia 1.840.114 350.1.13.10 4.2.7.2.686 [id number] [facility] 2020-02-29 00:00:00 2020-02-29 00:00:00 Telephone Vinod Jake [facility] 1.2.840.114 350.1.13.10 4.2.7.2.686 [id number] [facility] 2020-02-29 00:00:00 2020-02-29 00:00:00 Telephone [facility] 1.2.840.114 350.1.13.10 4.2.7.2.686 [id number] [facility] 2020-02-22 00:00:00 2020-02-22 00:00:00 Transition of Care Bailey Eric Okay 1.2.840.114 350.1.13.10 4.2.7.2.686 [id number] [facility] 2020-02-22 00:00:00 2020-02-22 00:00:00 Telephone Pedro Luis Mccauley [facility] 1.2.840.114 350.1.13.10 4.2.7.2.686 [id number] [facility] 2020-02-03 12:52:00 2020-02-21 16:14:00 Hospital Encounter Abner Cooper [facility] 1.2.840.114 350.1.13.10 4.2.7.2.686 [id number] [facility] 2020-02-03 12:52:00 2020-02-21 16:14:00 [facility] [id number] [facility] 2020-02-17 00:00:00 2020-02-17 00:00:00 Case Management Gideon Rowland [facility] 1.2.840.114 350.1.13.10 4.2.7.2.686 [id number] [facility] Results Test Description Test Time Test Comments Results Result Co mments Source [facility] HEMOGLOBIN A1C [id number] 18:58:00* Test Item Value Reference Range Interpretation Comme nts POCT HBA1C (test code = 4548-4) 7.0 % 4-6 A Lab Interpretation (test cod e = 36977-8) Abnormal [facility] HEMOGLOBIN A1C [id number] 18:58:00* Test Item Value Reference Range Interpretation Comme nts POCT HBA1C (test code = 4548-4) 7.0 % 4-6 A Lab Interpretation (test cod e = 86400-5) Abnormal [facility] HEMOGLOBIN A1C [id number] 21:15:00* Test Item Value Reference Range Interpretation Comme nts POCT HBA1C (test code = 4548-4) 7.7 % 4-6 A Lab Interpretation (test cod e = 35043-6) Abnormal [facility] HEMOGLOBIN A1C [id number] 21:15:00* Test Item Value Reference Range Interpretation Comme nts POCT HBA1C (test code = 4548-4) 7.7 % 4-6 A Lab Interpretation (test cod e = 12701-4) Abnormal [facility] HEMOGLOBIN A1C [id number] 21:15:00* Test Item Value Reference Range Interpretation Comme nts POCT HBA1C (test code = 4548-4) 7.7 % 4-6 A Lab Interpretation (test cod e = 60025-4) [facility] (90960)2022-08-31 00:47:17* Test Item Value Reference Range Interpretation Comme nts NA (test code = 7766619262) 138 mmol/L 135-145 K (test code = 1331953202) 4.2 mmol/L 3.5-5.0 CL (test code = 1836978488) 104 mmol/L 98-108 CO2 TOTAL (test code = 6825454146) 24 mmol/L 23-31 AGAP (test code = 5528435985) 10 2-16 BUN (test code = 1134015450) 9 mg/dL 7-23 GLUCOSE (test code = 0396597414) 266 mg/dL 70-110 H CREATININE (test code = 8042865574) 0.87 mg/dL 0.60-1.25 TOTAL BILI (test code = 3693479363) 0.4 mg/dL 0.1-1.1 CALCIUM (test code = 4496381469) 9.4 mg/dL 8.6-10.6 T PROTEIN (test code = 5316222104) 7.4 g/dL 6.3-8.2 ALBUMIN (test code = 0382098401) 4.6 g/dL 3.5-5.0 ALK PHOS (test code = 0007680691) 54 U/L 34-122 ALTv (test code = 1742-6) 19 U/L 5-50 AST(SGOT) (test code = 7774628851) 21 U/L 13-40 eGFR (test code = 8546896138) 99.9 mL/min/1.73m2 PATTI (test code = PATTI) Association of [...] or abnormalities in imaging tests). Lab Interpretation (test code = 28257-4) [facility]normal [id number] 00:32:33* Test Item Value Reference Range Interpretation Comments D-DIMER (test code = 6595568760) See_Comment [Automated message] The system which generated this result transmitted reference range: <0.41 ?g/mL (FEU). The reference range was not used to interpret this result as normal/abnormal. PATTI (test code = PATTI) This test may be used in conjunction with a clinical pretest [...] context, in forming a diagnosis. Lab Interpretation (test code = 93923-8) Normal [facility] [id number] 00:26:16* Test Item Value Reference Range Interpretation Comme nts TROPONIN I (test code = 1192560283) 0.002 ng/mL <=0.034 PATTI (test code = PATTI) Reference (Normal) [...] to patient's use of biotin. Lab Interpretation (test code = 81326-0) [facility] [id number] 00:00:16* Test Item Value Reference Range Interpretation Comme nts WBC (test code = 6690-2) 6.93 See_Comment [Automated messa ge] The system which generated this result transmitted reference range: 4.20 - 10.70 10*3/?L. The reference range was not used to interpret this result as normal/abnormal. RBC (test code = 789-8) 4.09 See_Comment L [Automated messa ge] The system which generated this result transmitted reference range: 4.26 - 5.52 10*6/?L. The reference range was not used to interpret this result as normal/abnormal. HGB (test code = 718-7) 12.2 g/dL 12.2-16.4 HCT (test code = 4544-3) 35.0 % 38.4-49.3 L MCV (test code = 787-2) 85.6 fL 81.7-95.6 MCH (test code = 785-6) 29.8 pg 26.1-32.7 MCHC (test code = 786-4) 34.9 g/dL 31.2-35.0 RDW-SD (test code = 22397-4) 36.5 fL 38.5-51.6 L RDW-CV (test code = 788-0) 11.9 % 12.1-15.4 L PLT (test code = 777-3) 211 See_Comment [Automated messa ge] The system which generated this result transmitted reference range: 150 - 328 10*3/?L. The reference range was not used to interpret this result as normal/abnormal. MPV (test code = 79123-4) 9.9 fL 9.8-13.0 NRBC/100 WBC (test code = 8419738741) 0.0 See_Comment [Automated [employer] ssage] The system which generated this result transmitted reference range: 0.0 - 10.0 /100 WBCs. The reference range was not used to interpret this result as normal/abnormal. NRBC x10^3 (test code = 9900400830) See_Comment [Automated messa ge] The system which generated this result transmitted reference range: 10*3/?L. The reference range was not used to interpret this result as normal/abnormal. GRAN MAT (NEUT) % (test code = 770-8) 49.6 % IMM GRAN % (test code = 1882638449) 0.10 % LYMPH % (test code = 736-9) 41.1 % MONO % (test code = 5905-5) 7.2 % EOS % (test code = 713-8) 1.6 % BASO % (test code = 706-2) 0.4 % GRAN MAT x10^3(ANC) (test code = 3141091352) 3.43 10*3/uL 1.99-6.95 IMM GRAN x10^3 (test code = 5372266359) 0.00-0.06 LYMPH x10^3 (test code = 731-0) 2.85 10*3/uL 1.09-3.23 MONO x10^3 (test code = 742-7) 0.50 10*3/uL 0.36-1.02 EOS x10^3 (test code = 711-2) 0.11 10*3/uL 0.06-0.53 BASO x10^3 (test code = 704-7) 0.03 10*3/uL 0.01-0.09 Lab Interpretation (test code = 82439-5) [facility]normal [facility])2022-08-13 21:09:02* Test Item Value Reference Range Interpretation Comme [facility] POCT GLU (test code = 7702222174) 315 mg/dL 70-110 H Lab Interpretation (test cod e = 49888-9) Abnormal [facility] WITH [id number] 04:39:33* Test Item Value Reference Range Interpretation Comme nts WBC (test code = 6690-2) 10.53 See_Comment [Automated messa ge] The system which generated this result transmitted reference range: 4.20 - 10.70 10*3/?L. The reference range was not used to interpret this result as normal/abnormal. RBC (test code = 789-8) 3.93 See_Comment L [Automated messa ge] The system which generated this result transmitted reference range: 4.26 - 5.52 10*6/?L. The reference range was not used to interpret this result as normal/abnormal. HGB (test code = 718-7) 11.7 g/dL 12.2-16.4 L HCT (test code = 4544-3) 34.1 % 38.4-49.3 L MCV (test code = 787-2) 86.8 fL 81.7-95.6 MCH (test code = 785-6) 29.8 pg 26.1-32.7 MCHC (test code = 786-4) 34.3 g/dL 31.2-35.0 RDW-SD (test code = 38729-4) 41.1 fL 38.5-51.6 RDW-CV (test code = 788-0) 13.1 % 12.1-15.4 PLT (test code = 777-3) 203 See_Comment [Automated [employer]] The system which generated this result transmitted reference range: 150 - 328 10*3/?L. The reference range was not used to interpret this result as normal/abnormal. MPV (test code = 48776-5) 10.1 fL 9.8-13.0 NRBC/100 WBC (test code = 7911729209) 0.0 See_Comment [Automated [employer] ssage] The system which generated this result transmitted reference range: 0.0 - 10.0 /100 WBCs. The reference range was not used to interpret this result as normal/abnormal. NRBC x10^3 (test code = 6181237018) See_Comment [Automated [employer] ge] The system which generated this result transmitted reference range: 10*3/?L. The reference range was not used to interpret this result as normal/abnormal. GRAN MAT (NEUT) % (test code = 770-8) 64.4 % IMM GRAN % (test code = 3543264685) 0.30 % LYMPH % (test code = 736-9) 27.1 % MONO % (test code = 5905-5) 6.7 % EOS % (test code = 713-8) 1.1 % BASO % (test code = 706-2) 0.4 % GRAN MAT x10^3(ANC) (test code = 3990859917) 6.78 10*3/uL 1.99-6.95 IMM GRAN x10^3 (test code = 3754903519) 0.03 10*3/uL 0.00-0.06 LYMPH x10^3 (test code = 731-0) 2.85 10*3/uL 1.09-3.23 MONO x10^3 (test code = 742-7) 0.71 10*3/uL 0.36-1.02 EOS x10^3 (test code = 711-2) 0.12 10*3/uL 0.06-0.53 BASO x10^3 (test code = 704-7) 0.04 10*3/uL 0.01-0.09 Lab Interpretation (test code = 73142-4) [facility] 04:09:12* Test Item Value Reference Range Interpretation Comme nts NA (test code = 6043947061) 137 mmol/L 135-145 K (test code = 2394861242) 4.6 mmol/L 3.5-5.0 CL (test code = 2427838737) 100 mmol/L 98-108 CO2 TOTAL (test code = 5687859283) 27 mmol/L 23-31 AGAP (test code = 3074827904) 10 2-16 BUN (test code = 0580598920) 21 mg/dL 7-23 GLUCOSE (test code = 6616307948) 220 mg/dL 70-110 H CREATININE (test code = 0850969656) 0.89 mg/dL 0.60-1.25 TOTAL BILI (test code = 7925891887) 0.6 mg/dL 0.1-1.1 CALCIUM (test code = 7538815877) 10.0 mg/dL 8.6-10.6 T PROTEIN (test code = 2529622178) 7.5 g/dL 6.3-8.2 ALBUMIN (test code = 1551407105) 4.9 g/dL 3.5-5.0 ALK PHOS (test code = 5547638013) 31 U/L 34-122 L ALTv (test code = 1742-6) 19 U/L 5-50 AST(SGOT) (test code = 2770667997) 27 U/L 13-40 eGFR (test code = 8699162791) 97.3 mL/min/1.73m2 PATTI (test code = PATTI) Association of [...] or abnormalities in imaging tests). Lab Interpretation (test code = 52456-2) [facility] Test Item Value Reference Range Interpretation Comme nts LIPASE (test code = 8424833432) 44 U/L 0-220 Lab Interpretation (test cod e = 64997-2) [facility] [id number] 03:01:22* Test Item Value Reference Range Interpretation Comme nts WBC (test code = 6690-2) 7.45 See_Comment [Automated [employer]] The system which generated this result transmitted reference range: 4.20 - 10.70 10*3/?L. The reference range was not used to interpret this result as normal/abnormal. RBC (test code = 789-8) 4.10 See_Comment L [Automated [employer] 51fanli] The system which generated this result transmitted reference range: 4.26 - 5.52 10*6/?L. The reference range was not used to interpret this result as normal/abnormal. HGB (test code = 718-7) 11.9 g/dL 12.2-16.4 L HCT (test code = 4544-3) 34.8 % 38.4-49.3 L MCV (test code = 787-2) 84.9 fL 81.7-95.6 MCH (test code = 785-6) 29.0 pg 26.1-32.7 MCHC (test code = 786-4) 34.2 g/dL 31.2-35.0 RDW-SD (test code = 56457-3) 37.0 fL 38.5-51.6 L RDW-CV (test code = 788-0) 12.2 % 12.1-15.4 PLT (test code = 777-3) 204 See_Comment [Automated messa ge] The system which generated this result transmitted reference range: 150 - 328 10*3/?L. The reference range was not used to interpret this result as normal/abnormal. MPV (test code = 73945-3) 9.7 fL 9.8-13.0 L NRBC/100 WBC (test code = 6381338288) 0.0 See_Comment [Automated [employer] ssage] The system which generated this result transmitted reference range: 0.0 - 10.0 /100 WBCs. The reference range was not used to interpret this result as normal/abnormal. NRBC x10^3 (test code = 3546402503) See_Comment [Automated messa ge] The system which generated this result transmitted reference range: 10*3/?L. The reference range was not used to interpret this result as normal/abnormal. GRAN MAT (NEUT) % (test code = 770-8) 44.7 % IMM GRAN % (test code = 0850058997) 0.30 % LYMPH % (test code = 736-9) 45.9 % MONO % (test code = 5905-5) 7.1 % EOS % (test code = 713-8) 1.6 % BASO % (test code = 706-2) 0.4 % GRAN MAT x10^3(ANC) (test code = 2829177055) 3.33 10*3/uL 1.99-6.95 IMM GRAN x10^3 (test code = 5790944122) 0.00-0.06 LYMPH x10^3 (test code = 731-0) 3.42 10*3/uL 1.09-3.23 H MONO x10^3 (test code = 742-7) 0.53 10*3/uL 0.36-1.02 EOS x10^3 (test code = 711-2) 0.12 10*3/uL 0.06-0.53 BASO x10^3 (test code = 704-7) 0.03 10*3/uL 0.01-0.09 Lab Interpretation (test code = 71539-9) [facility] (86386)2022-06-03 02:51:41* Test Item Value Reference Range Interpretation Comme nts NA (test code = 1458462957) 137 mmol/L 135-145 K (test code = 2546186495) 4.0 mmol/L 3.5-5.0 CL (test code = 5716656201) 104 mmol/L 98-108 CO2 TOTAL (test code = 3344270504) 27 mmol/L 23-31 AGAP (test code = 5255596510) 6 2-16 BUN (test code = 4094332671) 16 mg/dL 7-23 GLUCOSE (test code = 6557237735) 99 mg/dL 70-110 CREATININE (test code = 0683541032) 0.74 mg/dL 0.60-1.25 TOTAL BILI (test code = 2063910159) 0.6 mg/dL 0.1-1.1 CALCIUM (test code = 8143023332) 9.8 mg/dL 8.6-10.6 T PROTEIN (test code = 3493421888) 7.2 g/dL 6.3-8.2 ALBUMIN (test code = 9230366892) 4.7 g/dL 3.5-5.0 ALK PHOS (test code = 9008596062) 27 U/L 34-122 L ALTv (test code = 1742-6) 18 U/L 5-50 AST(SGOT) (test code = 3664564427) 23 U/L 13-40 eGFR (test code = 0929290056) 120.4 mL/min/1.73m2 PATTI (test code = PATTI) Association of [...] or abnormalities in imaging tests). Lab Interpretation (test code = 13003-5) [facility] 02:51:21* Test Item Value Reference Range Interpretation Comme nts LIPASE (test code = 7659631911) 35 U/L 0-220 Lab Interpretation (test cod e = 94985-0) Normal [facility] GLUCOSE (AUTOMATED)2022-03-22 06:55:22* Test Item Value Reference Range Interpretation Comme nts POCT GLU (test code = 7019811354) 182 mg/dL 70-110 H Lab Interpretation (test cod e = 35439-3) Abnormal [facility] GLUCOSE (AUTOMATED)2022-03-22 02:46:07* Test Item Value Reference Range Interpretation Comme nts POCT GLU (test code = 2383646914) 227 mg/dL 70-110 H Lab Interpretation (test cod e = 95472-7) [facility]normal [facility] [id number] 00:56:40* Test Item Value Reference Range Interpretation Comme nts CK (test code = 4185725282) 73 U/L 33-194 Lab Interpretation (test cod e = 99140-9) Normal [facility] GLUCOSE (AUTOMATED)2022-03-22 00:47:25* Test Item Value Reference Range Interpretation Comme nts POCT GLU (test code = 8427583879) 265 mg/dL 70-110 H Lab Interpretation (test cod e = 67379-7) [facility]normal [facility]2022-03-21 14:15:39* Test Item Value Reference Range Interpretation Comme nts POCT GLU (test code = 5066909669) 151 mg/dL 70-110 H Lab Interpretation (test cod e = 37367-7) [facility]normal [facility]2022-03-21 04:53:17* Test Item Value Reference Range Interpretation Comme nts POCT GLU (test code = 7348168077) 140 mg/dL 70-110 H Lab Interpretation (test cod e = 23011-6) Abnormal [facility] GLUCOSE(AGE >30DAYS)2022-03-21 04:50:00* Test Item Value Reference Range Interpretation Comme nts POCT Glu (age>30days) (test code = 3342) 140 mg/dL 70-110 A Lab Interpretation (test cod e = 18828-3) [facility]normal [facility]2022-03-21 01:37:32* Test Item Value Reference Range Interpretation Comme nts POCT GLU (test code = 9630817889) 191 mg/dL 70-110 H Lab Interpretation (test cod e = 08131-0) [facility]normal [facility] >30DAYS[facility]2022-03-21 01:29:00* Test Item Value Reference Range Interpretation Comme nts POCT Glu (age>30days) (test code = 3342) 191 mg/dL 70-110 A Lab Interpretation (test cod e = 21234-9) Abnormal [facility] GLUCOSE (AUTOMATED)2022-03-21 00:34:56* Test Item Value Reference Range Interpretation Comme nts POCT GLU (test code = 8556166769) 209 mg/dL 70-110 H Lab Interpretation (test cod e = 47814-6) Abnormal [facility] GLUCOSE (AUTOMATED)2022-03-20 15:31:59* Test Item Value Reference Range Interpretation Comme nts POCT GLU (test code = 7010259540) 119 mg/dL 70-110 H Lab Interpretation (test cod e = 89481-5) Abnormal [facility] GLUCOSE(AGE >30DAYS)2022-03-20 15:31:00* Test Item Value Reference Range Interpretation Comme nts POCT Glu (age>30days) (test code = 3342) 119 mg/dL 70-110 A Lab Interpretation (test cod e = 18580-3) Abnormal [facility] GLUCOSE(AGE >30DAYS)2022-03-20 15:31:00* Test Item Value Reference Range Interpretation Comme nts POCT Glu (age>30days) (test code = 3342) 119 mg/dL 70-110 A Lab Interpretation (test cod e = 78956-9) Abnormal [facility] GLUCOSE (AUTOMATED)2022-03-19 23:58:56* Test Item Value Reference Range Interpretation Comme nts POCT GLU (test code = 1237086314) 187 mg/dL 70-110 H Notified Provide r Lab Interpretation (test code = 90916-7) Abnormal [facility] GLUCOSE (AUTOMATED)2022-03-19 15:01:27* Test Item Value Reference Range Interpretation Comme nts POCT GLU (test code = 9037906880) 268 mg/dL 70-110 H Lab Interpretation (test cod e = 68617-2) Abnormal [facility] HEMOGLOBIN A1C [id number] 20:00:00* Test Item Value Reference Range Interpretation Comme nts POCT HBA1C (test code = 4548-4) 6.4 % 4-6 A Lab Interpretation (test cod e = 51902-0) Abnormal [facility] HEMOGLOBIN A1C [id number] 20:00:00* Test Item Value Reference Range Interpretation Comme nts POCT HBA1C (test code = 4548-4) 6.4 % 4-6 A Lab Interpretation (test cod e = 64036-4) Abnormal [facility] HEMOGLOBIN A1C [id number] 20:00:00* Test Item Value Reference Range Interpretation Comme [facility] POCT HBA1C (test code = 4548-4) 6.4 % 4-6 A Lab Interpretation (test cod e = 87043-9) Abnormal [facility] HEMOGLOBIN A1C [id number] 20:00:00* Test Item Value Reference Range Interpretation Comme [facility] POCT HBA1C (test code = 4548-4) 6.4 % 4-6 A Lab Interpretation (test cod e = 43575-9) [facility]normal [facility] [id number] 15:34:20* Test Item Value Reference Range Interpretation Comments TROPONIN I (test code = 9222108084) 0.003 ng/mL See_Comment [Automated message] The system which generated this result transmitted reference range: <=0.034. The reference range was not used to interpret this result as normal/abnormal. PATTI (test code = PATTI) Reference (Normal) [...] to patient's use of biotin. Lab Interpretation (test code = 89459-3) Normal [facility] (18515)(TOTAL CHOLESTEROL, TRIGLYCERIDES, HDL)2022-01-15 15:24:00* Test Item Value Reference Range Interpretation Comme [facility] CHOL (test code = 3820184488) 167 mg/dL 120-200 HDL (test code = 7798217356) 70 mg/dL See_Comment [Automated [employer]] The system which generated this result transmitted reference range: >=40. The reference range was not used to interpret this result as normal/abnormal. HDLC RATIO (test code = 7875933064) See_Comment [Automated [employer]] The system which generated this result transmitted reference range: <=5.0. The reference range was not used to interpret this result as normal/abnormal. TRIG (test code = 7657910407) 57 mg/dL 30-170 LDL CHOL (test code = 91579-9) 86 mg/dL See_Comment [Automated [employer]] The system which generated this result transmitted reference range: <=160. The reference range was not used to interpret this result as normal/abnormal. VLDL (test code = 1574920400) 11 mg/dL 5-60 Lab Interpretation (test code = 13134-8) Normal [facility]2022-[facility]-07 15:23:40* Test Item Value Reference Range Interpretation Comme nts MAGNESIUM (test code = 0908449167) 1.5 mg/dL 1.7-2.4 L Lab Interpretation (test cod e = 22356-8) [facility]normal [facility] (88896)2022-01-15 15:23:35* Test Item Value Reference Range Interpretation Comme nts NA (test code = 5896313940) 137 mmol/L 135-145 K (test code = 4551683551) 4.4 mmol/L 3.5-5.0 CL (test code = 9354279530) 100 mmol/L 98-108 CO2 TOTAL (test code = 8694643440) 24 mmol/L 23-31 AGAP (test code = 4744869768) 2-16 BUN (test code = 0440990824) 23 mg/dL 7-23 GLUCOSE (test code = 5555830003) 200 mg/dL 70-110 H CREATININE (test code = 3570038303) 1.00 mg/dL 0.60-1.25 TOTAL BILI (test code = 4519536297) 0.9 mg/dL 0.1-1.1 CALCIUM (test code = 3725276825) 9.3 mg/dL 8.6-10.6 T PROTEIN (test code = 5674814636) 7.5 g/dL 6.3-8.2 ALBUMIN (test code = 0839423667) 5.1 g/dL 3.5-5.0 H ALK PHOS (test code = 5909574912) 53 U/L 34-122 ALTv (test code = 1742-6) 23 U/L 5-50 AST(SGOT) (test code = 9730382573) 19 U/L 13-40 eGFR (test code = 8556216791) mL/min/1.73m2 PATTI (test code = PATTI) Association of [...] or abnormalities in imaging tests). Lab Interpretation (test code = 62401-8) [facility] 15:22:59* Test Item Value Reference Range Interpretation Comme nts LIPASE (test code = 8058644221) 30 U/L 0-220 Lab Interpretation (test cod e = 27798-8) [facility] [id number] 15:10:18* Test Item Value Reference Range Interpretation Comme nts WBC (test code = 6690-2) See_Comment [Automated [employer]] The system which generated this result transmitted reference range: 4.20 - 10.70 10*3/?L. The reference range was not used to interpret this result as normal/abnormal. RBC (test code = 789-8) See_Comment [Automated [employer]] The system which generated this result transmitted reference range: 4.26 - 5.52 10*6/?L. The reference range was not used to interpret this result as normal/abnormal. HGB (test code = 718-7) 14.3 g/dL 12.2-16.4 HCT (test code = 4544-3) 41.6 % 38.4-49.3 MCV (test code = 787-2) 84.4 fL 81.7-95.6 MCH (test code = 785-6) 29.0 pg 26.1-32.7 MCHC (test code = 786-4) 34.4 g/dL 31.2-35.0 RDW-SD (test code = 45537-3) 38.2 fL 38.5-51.6 L RDW-CV (test code = 788-0) 12.6 % 12.1-15.4 PLT (test code = 777-3) See_Comment [Automated [employer]] The system which generated this result transmitted reference range: 150 - 328 10*3/?L. The reference range was not used to interpret this result as normal/abnormal. MPV (test code = 28740-1) 9.5 fL 9.8-13.0 L NRBC/100 WBC (test code = 1414562576) See_Comment [Automated [employer] ssage] The system which generated this result transmitted reference range: 0.0 - 10.0 /100 WBCs. The reference range was not used to interpret this result as normal/abnormal. NRBC x10^3 (test code = 1986772382) See_Comment [Automated [employer]] The system which generated this result transmitted reference range: 10*3/?L. The reference range was not used to interpret this result as normal/abnormal. GRAN MAT (NEUT) % (test code = 770-8) 88.1 % IMM GRAN % (test code = 2098005953) 0.40 % LYMPH % (test code = 736-9) 3.6 % MONO % (test code = 5905-5) 7.6 % EOS % (test code = 713-8) 0.0 % BASO % (test code = 706-2) 0.3 % GRAN MAT x10^3(ANC) (test code = 2193843221) 8.08 10*3/uL 1.99-6.95 H IMM GRAN x10^3 (test code = 2822583910) 0.04 10*3/uL 0.00-0.06 LYMPH x10^3 (test code = 731-0) 0.33 10*3/uL 1.09-3.23 L MONO x10^3 (test code = 742-7) 0.70 10*3/uL 0.36-1.02 EOS x10^3 (test code = 711-2) 0.06-0.53 L BASO x10^3 (test code = 704-7) 0.03 10*3/uL 0.01-0.09 Lab Interpretation (test code = 92961-1) Abnormal [facility] HEMOGLOBIN A1C [id number] 17:36:00* Test Item Value Reference Range Interpretation Comme nts POCT HBA1C (test code = 4548-4) 8.5 % 4-6 A Lab Interpretation (test cod e = 12258-9) Abnormal [facility] HEMOGLOBIN A1C [id number] 17:36:00* Test Item Value Reference Range Interpretation Comme nts POCT HBA1C (test code = 4548-4) 8.5 % 4-6 A Lab Interpretation (test cod e = 47961-0) Abnormal [facility] HEMOGLOBIN A1C [id number] 17:36:00* Test Item Value Reference Range Interpretation Comme nts POCT HBA1C (test code = 4548-4) 8.5 % 4-6 A Lab Interpretation (test cod e = 46409-3) Abnormal [facility] HEMOGLOBIN A1C [id number] 17:36:00* Test Item Value Reference Range Interpretation Comme nts POCT HBA1C (test code = 4548-4) 8.5 % 4-6 A Lab Interpretation (test cod e = 43430-1) Abnormal [facility] HEMOGLOBIN A1C [id number] 17:36:00* Test Item Value Reference Range Interpretation Comme nts POCT HBA1C (test code = 4548-4) 8.5 % 4-6 A Lab Interpretation (test cod e = 10932-1) [facility]normal [facility] [id number] 17:36:00* Test Item Value Reference Range Interpretation Comme nts POCT HBA1C (test code = 4548-4) 8.5 % 4-6 A Lab Interpretation (test cod e = 26973-1) Abnormal [facility]
--- NOTE | 2024-03-17 20:09 | RAD REPORT ---
EXAMINATION: ONE VIEW CHEST XR CLINICAL INDICATION: Male, 38 years old.,CHEST PAIN TECHNIQUE: Frontal chest projection is submitted. Examination is limited by patient positioning and t echnique. COMPARISON: 08/27/2018 FINDINGS: The lungs are well inflated and clear. No pneumothorax or sizable effusion. The heart is normal in s ize. Mediastinal contours are unremarkable. IMPRESSION: No acute intrathoracic abnormalities.
[2024-03-17] MEDS ORDERED: ASPIRIN 81 MG CHEWABLE TABLET ONE (20:33)
[2024-03-17 20:50] LABS: Absolute Eosinophils 0.1 K/uL (0-0.5); Absolute Monocytes 0.7 K/uL (0.1-1.3); Absolute Neutrophil 4.2 K/uL (1.8-8.0); Basophils % 0.3 % (0-1.3); Eosinophils % 1.4 % (0-4.4); Hematocrit 33.1 % (39.6-49.0); Hemoglobin 11.9 g/dL (13.6-17.9); Lymphocytes % 36.7 % (15.3-44.8); MCH 30.3 pg (27.0-35.0); MCHC 35.9 g/dL (32.0-36.0); MCV 84.5 fL (80-100); MPV 8.1 fL (7.6-11.3); Monocytes % 9.1 % (3.3-12.3); Neutrophils % 52.5 % (41.7-73.7); Nucleated Red Blood Cells % 0.1 % (0-0); Platelets 178 thou/uL (152-406); RBC Red Blood Cell Count 3.92 M/uL (4.33-5.43); Red Cell Distribution Width 13.5 % (12.1-15.2)
[2024-03-17 21:13] LABS: ALT/SGPT 24 U/L (16-61); AST/SGOT 12 U/L (15-37); Albumin 3.5 g/dL (3.4-5.0); Albumin/Globulin Ratio 1.2 (1.1-1.8); Alkaline Phosphatase 44 U/L (45-117); Anion Gap 9.7 mEq/L (5.0-15.0); BUN Blood Urea Nitrogen 13 mg/dL (7-18); Bicarbonate 24 mEq/L (21-32); Bilirubin Total 0.3 mg/dL (0.2-1.0); Glomerular Filtration Rate 100 ml/min (=/>90); Glucose Level 84 mg/dL (74-106); Lipase 24 U/L (13-75); Magnesium 1.8 mg/dL (1.6-2.4); NT PRO-BNP 10 pg/mL (<125); Potassium 3.7 mEq/L (3.5-5.1); Protein, Total 6.5 g/dL (6.4-8.2); Sodium Level 139 mEq/L (136-145); Troponin High Sensitivity 8.7 pg/mL (<58.9)
[2024-03-17 21:14] LABS: Bilirubin Direct < 0.2 mg/dL (0-0.2); Bilirubin Indirect, Calculated 0.1 mg/dL (0.2-0.8)
[2024-03-17 21:31] LABS: PT Prothrombin Time 11.1 SECONDS (9.4-12.5); Protime INR 1.06
[2024-03-17 21:36] LABS: D-Dimer < 0.215 FEUug/mL (0-0.500)
--- NOTE | 2024-03-17 23:56 | ER ---
Nurse's Notes [facility] Name: Pierce Sahni Age: 38 yrs Sex: Male : 1985 Arrival Date: 03/17/2024 Time: 19:12 Bed DX4 Private MD: Diagnosis: Chest pain, unspecified Presentation: 03/17 20:22 Chief complaint: Patient states: C/O INTERMITTENT CP SINCE 5PM TODAY, MIDSTERNAL AND br2 SHARP. NO PAIN AT THIS TIME. Coronavirus screen: Client denies travel out of the [place] in the last 14 days. Ebola Screen: Patient negative for fever greater than or equal to 101.5 degrees Fahrenheit, and additional compatible Ebola Virus Disease symptoms Patient denies exposure to infectious person. Initial Sepsis Screen: Does the patient meet any 2 criteria? No. Patient's initial sepsis screen is negative. Does the patient have a suspected source of infection? No. Patient's initial sepsis screen is negative. Risk Assessment: Do you want to hurt yourself or someone else? Patient reports no desire to harm self or others. Onset of symptoms was March 17, 2024 at 17:00. 20:22 Method Of Arrival: Ambulatory br2 20:22 Acuity: ALFREDO 3 br2 Triage Assessment: 20:57 General: Appears in no apparent distress. comfortable, Behavior is calm, cooperative, go2 appropriate for age. Pain: Denies pain. Historical: - Allergies: 20:23 PENICILLINS; br2 - Immunization history:: Adult Immunizations up to date. - Infectious Disease History:: Denies. - Social history:: Smoking status: Patient denies any tobacco usage or history of. Screenin:54 [facility] ED Fall Risk Assessment (Adult) History of falling in the last 3 months, go2 including since admission No falls in past 3 months (0 pts) Confusion or Disorientation No (0 pts) Intoxicated or Sedated No (0 pts) Impaired Gait No (0 pts) Mobility Assist Device Used No (0 pt) Altered Elimination No (0 pt) Score/Fall Risk Level 0 - 2 = Low Risk. Abuse screen: Denies threats or abuse. Denies injuries from another. Nutritional screening: No deficits noted. Tuberculosis screening: No symptoms or risk factors identified. Assessment: 20:53 Reassessment: Patient appears in no apparent distress at this time. No changes from go2 previously documented assessment. General: Appears in no apparent distress. comfortable, Behavior is calm, cooperative, appropriate for age. Pain: Denies pain. Pain does not radiate. Pain began Was experiencing chest pain earlier, no longer experiencing discomfort. Neuro: No deficits noted. Cardiovascular: Reports chest pain, Denies fatigue, lightheadedness, nausea, palpitations, shortness of breath, syncope, vomiting. Respiratory: No deficits noted. Reports. GI: No deficits noted. No signs and/or symptoms were reported involving the gastrointestinal system. : No deficits noted. No signs and/or symptoms were reported regarding the genitourinary system. EENT: No deficits noted. No signs and/or symptoms were reported regarding the EENT system. Derm: No deficits noted. No signs and/or symptoms reported regarding the dermatologic system. Musculoskeletal: No deficits noted. No signs and/or symptoms reported regarding the musculoskeletal system. Vital Signs: 20:22 BP 130 / 92; Pulse 84; Resp 18; Temp 97; Pulse Ox 99% ; Weight 86.18 kg; Height 5 ft. 9 br2 in. ; Pain 0/10; 20:54 BP 130 / 92; Pulse 85; Resp 18; Temp 98.6; Pulse Ox 98% ; go2 22:33 BP 113 / 72; Pulse 66; Resp 18; Pulse Ox 99% ; cp4 20:22 Body Mass Index 28.06 (86.18 kg, 175.26 cm) br2 20:22 Pain Scale: Adult br2 ED Course: 19:25 Patient arrived in ED. im 19:30 Higinio Edmonds PA is PHCP. cp 19:30 Nicola Ramirez DO is Attending Physician. cp 20:00 XRAY Chest (1 view) In Process Unspecified. EDMS 20:12 Madalyn Mims, FLORINA is Primary Nurse. go2 20:23 Triage completed. br2 20:44 Inserted saline lock: 20 gauge in right antecubital area, using aseptic technique. mm11 Blood collected. Flushed with 10 mL NS. 20:44 Basic Metabolic Panel Sent. mm11 20:44 CBC with Diff Sent. mm11 20:44 D-Dimer Sent. mm11 20:44 LFT's Sent. mm11 20:44 Magnesium Sent. mm11 20:44 NT PRO-BNP Sent. mm11 20:44 PT-INR Sent. mm11 20:44 Troponin HS Sent. mm11 20:54 No provider procedures requiring assistance completed. Patient maintains SpO2 go2 saturation greater than 95% on room air. 20:55 Arm band placed on right wrist. go2 20:55 Patient has correct armband on for positive identification. Bed in low position. Call go2 light in reach. Side rails up X2. Provided Education on: wait times, falll risk. Client placed on continuous cardiac and pulse oximetry monitoring. NIBP monitoring applied. vehicle monitor technician on. Pulse ox on. NIBP on. 20:55 Client placed on continuous cardiac and pulse oximetry monitoring. NIBP monitoring go2 applied. 20:56 Basic Metabolic Panel Sent. go2 20:56 D-Dimer Sent. go2 20:56 LFT's Sent. go2 20:56 Magnesium Sent. go2 20:56 NT PRO-BNP Sent. go2 20:56 PT-INR Sent. go2 20:56 Troponin HS Sent. go2 23:55 Mono Jacques MD is Referral Physician. cp 03/18 00:13 IV discontinued, intact, bleeding controlled, No redness/swelling at site. Pressure br2 dressing applied. Administered Medications: 03/17 20:57 Drug: Aspirin PO Chewable Tablet 324 mg PO once; 81 mg tablets x 4 Route: PO; go2 21:30 Follow up: Response: No adverse reaction br2 Medication: 20:57 VIS not applicable for this client. go2 Outcome: 23:55 Discharge ordered by . cp 03/18 00:15 Patient left the ED. br2 00:15 Discharged to home ambulatory, br2 00:15 Condition: improved 00:15 Discharge instructions given to patient, Instructed on discharge instructions, follow up and referral plans. Demonstrated understanding of instructions, follow-up care, Signatures: Dispatcher [employer] EDMS Higinio Edmonds PA PA cp Mendoza, Itzel im Potter, Christina cp4 Opal Blackburn RN RN br2 Madalyn Mims RN RN go2 kaylah garcia mm11 Corrections: (The following items were deleted from the chart) 03/17 20:56 20:56 PMHx: Seizures; Anxiety induced; go2 go2
--- NOTE | 2024-03-17 23:56 | EDPHYS ---
Physician Documentation [facility] Name: Pierce Sahni Age: 38 yrs Sex: Male : 1985 Arrival Date: 03/17/2024 Time: 19:12 Bed DX4 Private MD: ED Physician Nicola Ramirez HPI: 03/17 19:33 This 38 yrs old Male presents to ER via Unassigned with complaints of Chest Pain. cp 19:33 The patient or guardian reports chest pain that is located primarily in the anterior cp chest wall, bilaterally. 19:33 The pain radiates to across chest. cp 19:33 Associated signs and symptoms: Pertinent negatives: abdominal pain, cough, lower cp extremity pain, lower extremity swelling, palpitations, syncope, vomiting. The chest pain is described as sharp. Duration: The patient or guardian reports a single episode, that is now resolved. Historical: - Allergies: 20:23 PENICILLINS; br2 - Immunization history:: Adult Immunizations up to date. - Infectious Disease History:: Denies. - Social history:: Smoking status: Patient denies any tobacco usage or history of. ROS: 19:35 Cardiovascular: Positive for chest pain, cp 19:35 Constitutional: Negative for body aches, chills, fever, poor PO intake, cp 19:35 Eyes: Negative for injury, pain, redness, and discharge, cp 19:35 ENT: Negative for drainage from ear(s), ear pain, sore throat, difficulty swallowing, difficulty handling secretions, 19:35 Respiratory: Negative for cough, shortness of breath, wheezing, 19:35 Abdomen/GI: Negative for abdominal pain, vomiting, diarrhea, constipation, 19:35 Neuro: Negative for altered mental status, dizziness, headache, weakness, 19:35 All other systems are negative, Exam: 19:33 ECG was reviewed by the Attending Physician. cp 19:40 Constitutional: The patient appears in no acute distress, alert, awake, cp non-diaphoretic, non-toxic, well developed, well nourished, 19:40 Head/Face: Normocephalic, atraumatic. cp 19:40 Eyes: Periorbital structures: appear normal, Conjunctiva: normal, no exudate, no injection, Sclera: no appreciated abnormality, Lids and lashes: appear normal, bilaterally, 19:40 ENT: External ear(s): are unremarkable, Nose: is normal, Mouth: Lips: moist, Oral mucosa: moist, Posterior pharynx: Airway: normal, 19:40 Neck: ROM/movement: is normal, is supple, without pain, no range of motions limitations, 19:40 Chest/axilla: Inspection: normal, 19:40 Cardiovascular: Rate: normal, Rhythm: regular, 19:40 Respiratory: the patient does not display signs of respiratory distress, Respirations: cp normal, no use of accessory muscles, no retractions, labored breathing, is not present, Breath sounds: are clear throughout, no decreased breath sounds, no stridor, no wheezing, 19:40 Abdomen/GI: Inspection: abdomen appears normal, Palpation: abdomen is soft and cp non-tender, in all quadrants, 19:40 Back: pain, is absent, ROM is normal, 19:40 Neuro: Orientation: to person, place \T\ time. Mentation: is normal, Motor: moves all fours, strength is normal, Sensation: is normal, Vital Signs: 20:22 BP 130 / 92; Pulse 84; Resp 18; Temp 97; Pulse Ox 99% ; Weight 86.18 kg; Height 5 ft. 9 br2 in. ; Pain 0/10; 20:54 BP 130 / 92; Pulse 85; Resp 18; Temp 98.6; Pulse Ox 98% ; go2 22:33 BP 113 / 72; Pulse 66; Resp 18; Pulse Ox 99% ; cp4 20:22 Body Mass Index 28.06 (86.18 kg, 175.26 cm) br2 20:22 Pain Scale: Adult br2 MDM: 19:31 Medical Screening Exam initiated cp 23:54 Data reviewed: vital signs, nurses notes, lab test result(s), EKG, radiologic studies, cp plain films, and as a result, I will discharge patient. 23:54 Differential diagnosis: abnormal EKG, acute myocardial infarction, cholecystitis, cp Cholelithiasis pericarditis, pleurisy, pneumonia, pneumothorax, pulmonary embolus. I considered the following discharge prescriptions or medication management in the emergency department Medications were administered in the Emergency Department. See MAR. Independent interpretation of the following test(s) in the Emergency Department EKG: See my EKG interpretation above. 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 Special discussion: Based on the patient's history, exam, and Dx evaluation, there is no indication for emergent intervention or inpatient Tx. It is understood by the patient/guardian that if the Sx's persist or worsen they need to return immediately for re-evaluation. 03/17 19:42 Order name: Basic Metabolic Panel; Complete Time: 21:31 cp 02 21:31 Interpretation: Normal except: CL 109. cp 03/17 19:42 Order name: CBC with Diff; Complete Time: 21:31 cp 03/17 19:42 Order name: D-Dimer; Complete Time: 21:54 cp 03/17 21:54 Interpretation: Reviewed. cp 03/17 19:42 Order name: LFT's; Complete Time: 21:31 cp 03/17 19:42 Order name: Magnesium; Complete Time: 21:31 cp 03/17 19:42 Order name: NT PRO-BNP; Complete Time: 21:31 cp 03/17 19:42 Order name: PT-INR; Complete Time: 21:54 cp 03/17 21:54 Interpretation: Reviewed. cp 03/17 19:42 Order name: Troponin HS; Complete Time: 21:31 cp / 21:31 Interpretation: Reviewed. cp 03/17 19:42 Order name: Lipase; Complete Time: 21:31 cp 03/17 22:20 Order name: Troponin HS; Complete Time: 23:52 cp 02/ 23:52 Interpretation: Reviewed. cp 03/17 19:42 Order name: XRAY Chest (1 view); Complete Time: 21:31 cp 03/17 19:42 Order name: EKG; Complete Time: 19:42 cp 03/17 19:42 Order name: Cardiac monitoring; Complete Time: 21:44 cp 03/17 19:42 Order name: EKG - Nurse/Tech; Complete Time: 20:56 cp 03/17 19:42 Order name: IV Saline Lock; Complete Time: 20:44 cp 03/17 19:42 Order name: Labs collected and sent; Complete Time: 20:13 cp 03/17 19:42 Order name: O2 Per Protocol; Complete Time: 20:56 cp 03/17 19:42 Order name: O2 Sat Monitoring; Complete Time: 20:56 cp 03/17 22:20 Order name: EKG - Nurse/Tech; Complete Time: 22:22 cp EC:33 Rate is 92 beats/min. Rhythm is regular. ID interval is normal. QRS interval is normal. cp QT interval is normal. T waves are Inverted in lead aVR. Interpreted by me. Reviewed by me. Administered Medications: 20:57 Drug: Aspirin PO Chewable Tablet 324 mg PO once; 81 mg tablets x 4 Route: PO; go2 21:30 Follow up: Response: No adverse reaction br2 Disposition: 20:39 I was immediately available on-site in the Emergency Department for consultation in the ms3 care of the patient. Disposition Summary: 03/17/24 23:55 Discharge Ordered Notes: Location: Home cp Problem: new cp Symptoms: have improved cp Condition: Stable cp Diagnosis - Chest pain, unspecified cp Followup: cp - With: Mono Jacques MD - When: 5 - 6 days - Reason: Recheck today's complaints Discharge Instructions: - Discharge Summary Sheet cp - Nonspecific Chest Pain, Adult cp - Aspirin and Your Heart cp Forms: - Medication Reconciliation Form cp - Antibiotic Education cp - Prescription Opioid Use cp - Patient Portal Instructions cp - Leadership Thank You Letter cp Signatures: Dispatcher [employer] EDMS Higinio Edmonds PA PA cp Nicola Ramirez DO DO ms3 Opal Blackburn RN RN br2 Madalyn Mims RN RN go2 Corrections: (The following items were deleted from the chart) 20:08 19:00 This 38 yrs old Male presents to ER via Unassigned with complaints of Chest Pain. cp cp 20:56 20:56 PMHx: Seizures; Anxiety induced; go2 go2 22:21 22:21 Troponin High Sensitivity+C.LAB.BRZ ordered. EDMS EDMS 23:06 02 19:35 Cardiovascular: Positive for chest pain, cp cp
[2024-03-18 00:20] VITALS: TEMP 98.6
[2024-03-18 00:21] VITALS: BP 113/72; O2SAT 99
--- NOTE | 2024-03-18 13:39 | EKG ---
Test Date: 2024-03-17 Test Time: 19:26:07 Meat Passer: HAIM MEASUREMENT RESULTS: Intervals: Rate: 92 FL: 164 QRSD: 84 QT: 364 QTc: 450 [place]: P: 48 FL: 164 QRS: 51 T: 38 INTERPRETIVE STATEMENTS: Normal sinus rhythm Normal ECG No previous ECG available for comparison Electronically Signed On 03-18-24 13:38:09 INTERNET MERCHANT by Mono Jacques
== END 2024-03-18 00:15 | disposition home or self-care (01) ==
LOC: ER 19:12
DX: R07.89 Other chest pain (principal)
CPT/HCPCS: 36415; 71045; 80048; 80076; 83690; 83735; 83880; 84484; 85025; 85379; 85610; 93005; 99284